=== PATIENT | male | born 1935 | race Caucasian/White ===

== ENCOUNTER → 2018-01-04 12:02 | Outpatient (CLI) | payer MEDICARE, OTHER, SELFPAY ==
--- NOTE | 2018-01-04 | DI.NM.S_ITS ---
PROCEDURE: NM HAYDE PERF SPECT REST & STR Rest and exercise myocardial perfusion SPECT with gated imaging and ejection fraction RADIOPHARMACEUTICAL: 24.5 mCi Tc-99m sestamibi IV at rest and 26.2 mCi Tc-99m sestamibi IV at peak exercise. A two day-protocol was performed. INDICATIONS: DYSPNEA ON EXERTION TECHNIQUE: Radiopharmaceutical was injected at peak stress test, and also at rest. SPECT images were obtained. SPECT myocardial perfusion images were displayed in short axis, horizontal long axis, and vertical long axis views. Gated images were reviewed using [employer] software. COMPARISON: None. CARDIAC STRESS: A standard Asif treadmill exercise tolerance test was performed by the patient under the supervision of an attending staff. The patient exercised for 4 minutes and 33 seconds reaching 7.0 METs Hemodynamic data: There is normal blood pressure and heart rate response to exercise stress. Patient achieved 94% of maximum predicted heart rate at peak exercise. Symptoms: Patient denied chest pain during exercise. EKG: Sinus rhythm with RBBB at rest. No diagnostic EKG changes of ischemia; frequent PVC during exercise and recovery. FINDINGS: Raw data: There is good myocardial labeling by radiotracer. No significant motion artifacts. Left ventricle function: Gated images demonstrate normal left ventricle wall thickening. No segmental wall motion abnormality. No transient ischemic dilation; TID is 1.08 (normal less than 1.3). The left ventricle resting end-diastolic volume is 115 mL. Left ventricle stress ejection fraction is 69%; normal values are above 45%. Myocardial perfusion: There is normal distribution of activity in the left and right ventricular myocardium. No fixed or reversible perfusion defects. IMPRESSION: Low risk, normal treadmill nuclear stress test. 1) Normal perfusion images with no evidence of ischemia or infarction. 2) Normal left ventricular size, wall motion, and systolic function (EF post stress EF 69%). 3) No ECG evidence of ischemia. Frequent PVCs during the stress test. 4) No angina during the study. 5) Fair exercise tolerance (7.0 METs, 4 minutes and 33 seconds on standard asif protocol). OSWALD not provided. Target heart rate reached. Appropriate blood pressure response to exercise. 6) No prior nuclear stress test available for comparison. Dictated by: Chandana Griffin MD on 01/05/2018 at 13:47 Approved by: Chandana Griffin MD on 01/05/2018 at 13:51
== END ==
PROVIDERS: Family Provider Family Medicine; PCP Family Medicine; Visit Provider Internal Medicine Cardiovascular Disease
DX: R06.09 Other forms of dyspnea (principal)
CPT/HCPCS: 78452; 93016; 93017; 93018; A9502

== ENCOUNTER 2018-02-08 10:22 | Inpatient (IN) | payer MEDICARE, OTHER, SELFPAY ==
[2018-01-28 08:54] VITALS: BMI 28.1
[2018-02-08] VITALS (11 sets, daily range): BP systolic 120–141; BP diastolic 61–76; PULSE 60–80; RESP 12–18; TEMP 36–36.5; O2SAT 91–95; BMI 26.6
--- NOTE | 2018-02-08 06:00 | DI.RAD.S_ITS ---
PROCEDURE: XR KNEE LT 1TO2V INDICATIONS: POST OPERATIVE TOTAL LEFT KNEE TECHNIQUE: 2 view(s) of the knee acquired. COMPARISON: None. FINDINGS: Bones: Patient is status post knee joint arthroplasty. Hardware components are in expected positions. Visualized bony structures are intact. Soft tissues: Overlying postoperative changes are noted. IMPRESSION: Status post left knee arthroplasty. Dictated by: Bel Hyde M.D. on 02/08/2018 at 17:22 Approved by: Bel Hyde M.D. on 02/08/2018 at 17:22
[2018-02-08] MEDS: LACTATED RINGERS 1,000 ML 42 ML IV ×2 (11:06→16:21)
[2018-02-08] MEDS: ACETAMINOPHEN 325 MG TABLET 975 MG PO ×2 (11:24→21:19)
[2018-02-08] MEDS: CELECOXIB 200 MG CAPSULE PO (11:25)
[2018-02-08] MEDS: PREGABALIN 75 MG CAPSULE PO (11:25)
--- NOTE | 2018-02-08 13:21 | PM.PREOP ---
Pre-operative Note Interval Note Pre-op Check: Yes History & Physical Reviewed by Physician and Yes Exam Performed Changes: No
--- NOTE | 2018-02-08 13:22 | PM.OP.1 ---
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 He has recently been having decreased function and increasing pain. Radiographs have shown subsidence of the tibial component into the metaphysis of the tibia. He has agreed to revision of the prosthesis after discussion of the risks benefits and alternatives. Risks discussed included but were not limited to: Failure to improve, stiffness, infection, nerve damage, deep venous thrombosis, pulmonary embolism, stroke, myocardial infarction, permanent paralysis and . Surgeon: Ihsan Gunn Autism Teacher: Anne-Marie Pyle Click Yes if Unassisted: No Anesthesia Type: General, Spinal, Peripheral nerve block and Local Operative Notes Findings: Loosening of both the femoral and tibial as well as the patellar components. Closure Type: primary Specimen(s): other (Fluid cultures and tissue cultures were sent.) Implants & Drains: Implants used in this procedure were manufactured by the [employer] and [employer] and included Legion revision total knee system with a size 8 left Oxinium constrained femoral component, a size 7 left revision tibial base plate, a 5 mm left medial tibial augment a 12 mm x 160 mm Press-Fit tibial stem, a 4 mm offset pizza delivery for the tibia on the femoral side there was a 10 mm size 8 lateral distal augment there was a 5 mm distal and 5 mm posterior medial augment there is a 4 mm offset pizza delivery for the femur as well with a 16 mm x 120 mm stem there was an 11 mm high flexion crosslinked polyethylene tibial insert and a 38 mm oval jesus alberto II patellar component. Applied: implant(s) Estimated Blood Loss (mL): 100 Blood products transfused: none Tourniquet time (min): 108 Procedure in detail: The patient was seen in the pre-operative area, where the left knee was identified as the operative site and this was marked with my initials. The patient received pre-operative antibiotics, and was taken to the operating room and placed on the operative table in the supine position. After satisfactory anesthesia, a signal timer out? was performed. The left leg was encircled with a tourniquet about the proximal thigh, and the leg was prepared from the toes to the tourniquet with ChloroPrep in the usual fashion and draped through sterile drapes. The leg was elevated and exsanguinated with Eschmark bandage and the tourniquet inflated to 250 mmHg pressure. The knee was approached through an approximately 18 cm incision centered over the patella and carried into the knee through a medial parapatellar arthrotomy. Initially the femoral component was loosened from the underlying bone with revision osteotomes. This was easily removed with minimal bone loss. There was extensive softening of the bone however. The tibia was grossly loose and it was removed without having to use any osteotomes. Cultures of fluid and tissue cultures were obtained. There was widespread synovitis from foreign body reaction and this was excised. We then proceeded with the tibia, the intramedullary guide was placed. A 12 mm had good fit. This was used to make the proximal tibial cut which was made just under the cement mantle on the lateral side. The medial side had extensive collapse and a 5 mm augmentation cut was made on this side to account for the loss of bone. There was no cement down the canal. A 4 mm offset placed the 7 size tibia in the appropriate position and the appropriate proximal reamers were used to account for the offset pizza delivery. The trial was assembled and had good support on the tibia. We then turned our attention to the femur. The rotational landmark of the transepicondylar axis was marked on the femur with electrocautery, and an intramedullary guide hole for the femur was created. The 16 mm size fit well. We then used the trial femoral prosthetic to set the distal joint line and pinned it in place. Cuts were made for the femur at 6? valgus which would require a 10 mm augment on the lateral side and a 5 mm augment on the medial side. The distal cutting guide was then set with those augmentation wedges. The anterior cut was freshened and the posterior cuts made. There was a need for a small medial chamfer cut which was also created. The trial femur was constructed and also had excellent fit. With an 11 mm trial tibial insert there was excellent stability both in flexion and extension. The intramedullary notch was then cut to accommodate the box for the prosthetic. With the trials in place the range of motion was from 0-135 degrees. Stability was excellent throughout the range. Trials were then removed. The posterior capsule was injected with part of a mixture of 50 ml 0.25% Marcaine mixed with 20 ml Exparel and 4 mg of morphine for post-operative pain control. The remainder of this mixture was injected into the capsule and subcutaneous tissues during cement curing. The patella was examined and found to be loose. A saw was used to remove the prosthetic and the patella was prepared for a new prosthetic. There was no need for a lateral release. The bone was prepared with pulsatile lavage, and dried with a sponge. Cement was applied and the final prosthetics placed. Excess cement was removed during and after cement curing. After confirming there was no extruded cement posteriorly, the final tibial insert was placed. The knee was copiously irrigated and the tourniquet deflated. Hemostasis was obtained. The capsule was closed with interrupted # 2 polyester sutures. The subcutaneous layer was closed with 3-0 Vicryl, and the skin with a running 3-0 V-Lock suture and SteriStrips. An Aquacel Ag dressing was applied and the patient was taken to recovery having tolerated the procedure well. Complications: none Condition: stable Disposition: PACU Plan for aftercare: The patient will be maintained on a standard total knee replacement protocol with weight bearing as tolerated. The patient will receive aspirin and sequential compression devices for DVT prophylaxis. The patient will be discharged home when safe for the home environment.
--- NOTE | 2018-02-08 13:34 | SUR.PREOP ---
Block start time [1315] . Monitoring initiated and maintained throughout procedure. Oxygen and medications given per anesthesiologist instructions. Patient remained stable throughout procedure, no adverse reactions noted. Block end time [1328].
[2018-02-08] MEDS: CEFAZOLIN 2 GM/100 ML FROZ.PIGGY IV ×2 (13:59→22:02)
[2018-02-08] MEDS: TRANEXAMIC ACID 1,000 MG VIAL 1000 MG INJ ×2 (14:22→16:19)
--- NOTE | 2018-02-08 14:36 | SUR.OPER ---
Supine on padded OR bed. Pillow under head, arms secured on padded armboards <90 degree abduction. Safety belt across torso. Non-operative leg secured with tape over blanket over lower leg. Operative leg secured in DeMayo/Ming positioner. Foam padded brace at thigh of operative leg.
[2018-02-08] MEDS: BUPIVACAINE LIPOSOME 266 MG/20 ML VIAL INJ (15:06)
[2018-02-08] MEDS: BUPIVACAINE 0.25% W/ EPI VIAL 50 ML INJ (15:07)
[2018-02-08] MEDS: SODIUM CHLORIDE 0.9% FLUSH 20 ML IV (15:09)
--- NOTE | 2018-02-08 15:22 | P.PCN_ITS ---
Procedures Date/Time Date of procedure: 02/08/18 Time of procedure: 13:15 General Procedure description: Ultrasound guided adductor canal nerve block for post op pain control after left total knee revision by Dr. Gunn. Risk and benefits of procedure discussed with patient. ASA monitoring applied to patient. O2 given via nasal cannula. 1 mg Versed and 50 mcg fentanyl given for procedural sedation. Skin site was prepped with chlorhexidine and allowed to fully dry. Sterile gloves, mask, hat and probe cover were used to maintain sterility. 2% lidocaine and 30ga needle was used to make a small skin wheal at needle insertion site. Under ultrasound guidance, a 21ga 100mm Pajunk needle was directed into the adductor canal near femoral artery and saphenous nerve at the level of mid thigh. Patient reported no parasthesias. After negative aspiration , 20 mL 0.5% ropivicaine and 10mg dexamethasone were injected around saphenous nerve. Patient tolerated procedure well.
[2018-02-08] MEDS: LACTATED RINGERS 1,000 ML 125 ML IV (17:45)
--- NOTE | 2018-02-08 17:59 | PC.NURSE ---
POST_OP/Admitted to Acute Care Patient admitted to Acute care at 1730 from PACU. Patient moving L leg, sensation about L3. Patient has not voided post-op yet. Patient denies pain, L knee with bryon wrap, no drainage, ice pack. SCD's placed on patient. Patient alert and oriented times 3, CMS intact, 2+pedal pulses. at bedside. Patient hungry, taking ice chips and denies nausea. IVF infusing per orders, will continue to monitor, call light in reach. No distress noted.
[2018-02-08] MEDS: OXYCODONE IR 5 MG TABLET PO ×2 (18:57→23:51)
[2018-02-08] MEDS: DOCUSATE 100 MG CAPSULE PO (21:19)
[2018-02-08] MEDS: ATORVASTATIN 20 MG TABLET 80 MG PO (21:19)
[2018-02-08] MEDS: IBUPROFEN 600 MG TABLET PO (21:19)
[2018-02-09 01:08] VITALS: BP 123/77; PULSE 56; RESP 16; TEMP 36.4; O2SAT 95
[2018-02-09] MEDS: LACTATED RINGERS 1,000 ML 125 ML IV (01:39)
[2018-02-09 05:15] VITALS: BP 118/66; PULSE 58; RESP 17; TEMP 36.4; O2SAT 95
[2018-02-09 05:34] LABS: Hematocrit 28.9 % (41-53)
[2018-02-09] MEDS: CEFAZOLIN 2 GM/100 ML FROZ.PIGGY IV (06:00)
[2018-02-09] MEDS: LEVOTHYROXINE 112 MCG TABLET 125 MCG PO (06:05)
[2018-02-09 07:45] VITALS: BP 119/69; PULSE 58; RESP 12; TEMP 36.4; O2SAT 93
[2018-02-09] MEDS: OXYCODONE IR 5 MG TABLET PO ×2 (08:15→13:06)
[2018-02-09] MEDS: DOCUSATE 100 MG CAPSULE PO (08:16)
[2018-02-09] MEDS: GABAPENTIN 300 MG CAPSULE PO (08:16)
[2018-02-09] MEDS: CLOPIDOGREL 75 MG TABLET PO (08:16)
[2018-02-09] MEDS: ASPIRIN EC 81 MG TABLET PO (08:16)
[2018-02-09] MEDS: ACETAMINOPHEN 325 MG TABLET 975 MG PO (08:17)
--- NOTE | 2018-02-09 08:32 | PC.NURSE ---
Addendum entered by Monik Murguia R.N. 02/09/18 11:04: Pt ambulated in benz and did stairs with physical therapy. Pain controlled. Pt will work with OT and have another therapy session this afternoon. Original Note: Pt alert, oriented, denies pain to left knee while lying in bed, given 5mg oxycodone before working with physical therapy. CMS+ LLE.
--- NOTE | 2018-02-09 11:10 | PT.IIE ---
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, initial encounter (02/08/18) Presence of left artificial knee joint (02/08/18) Surgery Performed Operation Date: 02/08/18 12:30 Actual Procedures p Total Knee Arthroplasty Revision, Femoral, Tibial & Patellar Component(Left) - Ihsan Gunn MD Surgical History (Last Updated 01/28/18 @ 10:07 by Mendy Posadas, RN) History of arthroplasty of left knee (Acute) History of arthroplasty of right shoulder (Acute) History of lumbar surgery (Acute) History of total left hip arthroplasty (Acute) Hx of appendectomy (Acute) Hx of heart artery stent (Acute) Hx of tonsillectomy (Acute) Status post hernia repair Medical History (Last Updated 01/28/18 @ 10:05 by Mendy Posadas RN) Asthma (Acute) GERD (gastroesophageal reflux disease) (Acute) Hx of fracture of femur (Acute) Hyperlipidemia (Acute) Melanoma (Acute) Myocardial infarction (Acute) Myocardial infarction with complication (Acute) Physical Therapy Inpatient Evaluation/Re-Eval Physical Therapy Current Condition Current Condition Evaluation Date 02/09/18 Treatment Diagnosis L TKA revision Onset Date 02/08/18 Weight Bearing Status Weight Bearing Status Weight Bear as Tolerated Subjective Physical Therapy Visit Type Type Initial Evaluation Visit Start Time 09:35 Visit Stop Time 10:48 Total Visit Minutes 73 Physical Therapy Visit Comments Patient Comments Pt reports doing well, no pain , really wants to go home today. Therapy Pain Assessment Pain When Pain Assessed At Rest Pain Present Pain Present Denied Pain PT-Bed Mobility Assessment Supine to Sit Supine to Sit Independent Sit to Supine Sit to Supine Independent Scooting Scooting to Edge of Bed Independent PT-Transfer Assessment Sit to and From Stand Sit to and from Stand Standby Assistance Equipment Transfer Assistive Device Gait Belt 4 Wheeled Walker Transfers Transfer Destination Bed Wheelchair Transfer Technique walks Transfer Ability Level of Assist Standby Assistance Comments Mobility Comments Pt is quite stable and needing no cueing for safe techniques with bed mobility or transfers. SBA only for monitoring in the first 24 hours that he's up moving around. Gait Assessment Gait Gait Assistance Required: Standby Assistance Distance (Feet) (feet) 70 Assistive Devices Assistive Device Gait Belt 4 Wheeled Walker Gait Deviations General Gait Pattern Antalgic Decreased Stride Length Factors Limiting Gait Function Factors Limiting Gait Function Decreased Sensation Limited Range of Motion Comments Gait Comments Pt able to walk safely with 4WW, did need a few initial verbal cues for keeping the walker close enough to his body so he wasn't bending forward. Gait is asymmetrical and antalgic (which became more pronounced toward the end of his walk), but pt remained stable and safe without and LOB the entire session. Stair Climbing Assessment Evaluation Level of Assist On Stairs Standby Assistance Devices Stair Climbing Assistive Devices Left Railing Right Railing Technique/Endurance Stair Climbing Direction Ascend and Descend Stair Climbing Technique Step to Step Number of Steps Climbed 3 Query Text: Stair Climbing Set # Repetitions (reps) 2 Comments Stair Climbing Comments no concerns PT-Balance Assessment Sitting Balance and Reactions Static Sitting Balance Ability Normal Dynamic Sitting Balance Ability Normal Standing Balance and Reactions Static Standing Balance Ability Normal Dynamic Standing Balance Ability Good Device Used 4WW Orientation Orientation/Cognition Level of Alertness Alert Orientation Name Age Birthday Month Date Year Day of Week Place Situation Language Function Ability No Deficits Noted Safety Awareness Understands Safety Issues Memory Description No Deficits Noted Gross Range of Motion Upper Extremity ROM Assessment Within Functional Limits Lower Extremity ROM Assessment Left Impaired Strength Upper Extremity Strength Assessment Within Functional Limits Lower Extremity Strength Assessment Left Impaired Physical Therapy Treatment Exercises Exercises Ankle Pumps Quad Sets Heel Slides Straight Leg Raises Short Arc Quads Passive Knee Extension Hang Seated Knee Flexion/Extension Knee ROM Measurement 5-80 Education Education Provided Precautions Weight Bearing Status Post-Op Packet Safety PT Summary Assessment and Plan Potential Rehabilitation Potential Excellent Status of Condition at Evaluation Evolving Summary Impairments ROM Strength Gait Progress Towards Goals Progressing Toward Goals Assessment Summary Pt is POD#1 L TKA revision. This was the first time pt was up out of bed since the surgery, and the pt did quite well. Pt is ind to SBA for mobility, however, pt's knee is still numb. Pt is below reported functional baseline and does great potential for functional improvement. Anticipate that when pt is seen later today that he may have more difficulty with mobility. Despite this, it is still expected that the pt will be safe to discharge home with intermittent assist and HH vs OP PT follow up. Goals Bed Mobility Goal Independent Transfer Goal Independent Four Wheeled Walker Gait Goal Independent Four Wheel Walker Gait Distance 50 Days to Meet Goals 1 Frequency of Treatment Frequency Of Treatment Twice a Day Treatment Plan Physical Therapy Treatment Plan Transfer Training Gait Training Therapeutic Exercise Discharge Planning Hot or Cold Pack Other Recommendations and Next Treatment more gait training, confirming Focus he's still ok with mobility as numbing wears off. Recommendations To Nursing Amount of Assist Needed Standby Assistance 1 Person Assist Discharge Recommendations PT Discharge Recommendations Home with Assistance Home Health Outpatient PT
--- NOTE | 2018-02-09 11:20 | OT.IP.EVAL ---
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, initial encounter (02/08/18) Presence of left artificial knee joint (02/08/18) Surgery Performed Operation Date: 02/08/18 12:30 Actual Procedures p Total Knee Arthroplasty Revision, Femoral, Tibial & Patellar Component(Left) - Ihsan Gunn MD Past Medical History (Last Updated 01/28/18 @ 10:05 by Mendy Posadas RN) Asthma (Acute) GERD (gastroesophageal reflux disease) (Acute) Hx of fracture of femur (Acute) Hyperlipidemia (Acute) Melanoma (Acute) Myocardial infarction (Acute) Myocardial infarction with complication (Acute) Surgical History (Last Updated 01/28/18 @ 10:07 by Mendy Posadas RN) History of arthroplasty of left knee (Acute) History of arthroplasty of right shoulder (Acute) History of lumbar surgery (Acute) History of total left hip arthroplasty (Acute) Hx of appendectomy (Acute) Hx of heart artery stent (Acute) Hx of tonsillectomy (Acute) Status post hernia repair Occupational Therapy Inpatient Evaluation/Re-Eval M1 PT/OT-IP Prior Functional Status Start: 02/09/18 08:16 Freq: NEEDED Status: Active Protocol: Document 02/09/18 11:46 PJM (Rec: 02/09/18 11:48 PJM [id number]) Medical Review Prior Functional Status Medical History Reviewed Yes Diet/Fluid Consistency Regular Communication WNL Activities of Daily Living and IADL's Pt was independent with self care but limited by knee pain. assisting with IADLS PRN . Both pt and drive. Note pt's uses 4WW. Social History Household Members spouse Living Arrangements Mobile home with4-5 steps to enter with one rail M2 OT-IP Current Condition Start: 02/09/18 11:45 Freq: Status: Active Protocol: Document 02/09/18 11:46 PJM (Rec: 02/09/18 11:48 PJM [id number]) Occupational Therapy Current Condition Weight Bearing Status Weight Bearing Status Weight Bear as Tolerated M3 OT- IP Subjective and Pain Start: 02/09/18 11:45 Freq: Status: Active Protocol: Document 02/09/18 11:51 PJM (Rec: 02/09/18 12:01 PJM [id number]) OT- Subjective Occupational Therapy Visit Type Type Initial Evaluation Visit Start Time 10:52 Visit Stop Time 11:20 Total Visit Minutes 28 Notes Pt's here for education this session. Pt states son will stay x 1 week, then daughter to stay 1 week to assist PRN at home. Occupational Therapy Visit Comments Patient Comments My knee is still a little numb. I am just starting to feel a little pain. Patient/Caregiver Goals to go home later today; be able to walk without pain. OT Pain Assessment Pain When Pain Assessed After Treatment Pain Present Pain Present Pain Reported Location L knee Intensity 3 Scale Used Numeric (1 - 10) Description Aching Acute Pain Behaviors Guarding Management Techniques Apply Cold Re-positioning Timing of Activity with Medications M4 OT- IP ADL's Start: 02/09/18 11:45 Freq: Status: Active Protocol: Document 02/09/18 11:51 PJM (Rec: 02/09/18 12:01 PJM [id number]) OT TDR-Skqy-Hgieuqd General Evaluation Self-Feeding Ability Independent OT ADL-Grooming General Evaluation Grooming Ability Independent Comments OT Grooming Comments standing at sink OT ADL-Oral Care General Eval Oral Care Ability Independent Comments Oral Care Comments standing at sink OT ADL-Dressing General Eval Upper Body Dressing Ability Independent Lower Body Dressing Ability Independent Areas Needing Assistance Underpants/Brief Pants/Shorts Socks Shoes Assistive Devices Dressing Assistive Devices Long Handled Shoe Horn Scouring Machine Operator Sock Aid Comments OT Dressing Comments Pt having difficulty reaching L foot to don and doff sock and shoe due to knee pain and stiffness.Provided education re: use of computer technology instructor, sock aid, long shoe horn (equipment was provided to pt) and pt modified indep after education with adaptive equipment. OT ADL-Toileting General Evaluation Toileting Ability Independent Devices Toileting Assistive Devices Grab Bars Raised Toilet Seat OT ADL-Bathing Bathing Type Bathing Type Shower General Evaluation Bathing Ability Standby Assistance Devices Bathing Equipment Long Handled Sponge or Pesticide Applicator Held Shower Sprayer Shower Chair with Arms Grab Bars Comments OT Bathing Comments or son can assist PRN at home. Pt has tub shower combo with grab bars and small shower seat. He has all necessary bathroom safety equipment. M5 OT- IP IADL's Start: 02/09/18 11:45 Freq: Status: Active Protocol: Document 02/09/18 11:51 PJM (Rec: 02/09/18 12:01 PJM [id number]) OT-Instrumental Activities of Daily Living Deficits IADL Deficits Identified Deficits Home Safety Awareness Awareness of Need for Assistance at Home Good Awareness Ability to Problem Solve Emergency Able to Problem Solve Situations Medication Management Medication Management No Deficits Identified Money Management Money Management No Deficits Identified Meal Preparation Meal Preparation Caregiver Provides Assist Meal Preparation Comments family to assist PRN Door Technician Door Technician Caregiver Provides Assist Door Technician Comments family to assist PRN Driving Driving Caregiver Provides Assist Driving Comments family to assist PRN M6 OT- IP Functional Cognition Start: 02/09/18 11:45 Freq: Status: Active Protocol: Document 02/09/18 11:51 PJ (Rec: 02/09/18 12:01 [facility] [id number]) Cognitive Factors Limiting Selfcare Function Cognitive Ability Level of Alertness Alert Patient Orientation Name Age Birthday Month Date Year Day of Week Place Situation Attention Span Ability Capable of Focused Attention Capable of Sustained Attention Ability to Follow Commands Able to Follow One Step Commands Able to Follow Multi-Step Commands Memory Description No Deficits Noted Safety Awareness No Deficits Noted Problem Solving Ability No deficits Noted Cognitive Comments Cognitive Assessment Comments WFL OT- Vision and Hearing OT- Hearing Assessment OT- Hearing Assessment WFL OT- Vision Assessment Visual Acuity WFL Glasses All The Time Vision Assessment Comments Pt denies any recent changes in vision. M7 OT- IP Mobility and Balance Start: 02/09/18 11:45 Freq: Status: Active Protocol: Document 02/09/18 11:51 PJ (Rec: 02/09/18 12:01 [facility] [id number]) OT- Bed Mobility Assessment Rolling Level of Assistance Independent Supine to Sit Supine to Sit Assist Independent Scooting Scooting to Edge of Bed Independent OT-Transfer Assessment Sit to and From Stand Sit to and from Stand Independent Transfers Transfer Ability Standby Assistance Technique Transfer Destination Car Chair Transfer Technique Stand Step Pivot Devices Transfer Assistive Devices 4 Wheeled Walker Comments Mobility Comments Pt SBA with 4WW in room. OT- Gait Assessment Gait Gait Assistance Required: Standby Assistance Distance (Feet) (feet) 15 Assistive Devices Assistive Device 4 Wheeled Walker Comments Gait Ability Comments Pt ambulated around bed with no LOB noted using 4WW OT- Balance Assessment Sitting Balance and Reactions Static Sitting Balance Ability Normal Dynamic Sitting Balance Ability Normal Standing Balance and Reactions Static Standing Balance Ability Good Dynamic Standing Balance Ability Good M8 OT- IP Objective Assessments Start: 02/09/18 11:45 Freq: Status: Active Protocol: Document 02/09/18 11:51 PJM (Rec: 02/09/18 12:01 PJ [id number]) OT Gross Range of Motion Upper Extremity Range of Motion Assessment Within Functional Limits OT Strength Upper Extremity Strength Assessment Within Functional Limits OT- Coordination Assessment Comments Coordination Comments BUE WFL OT-Muscle Tone Assessment Muscle Tone WNL Yes OT Sensation Assessment Comments Summary Comments BUE WNL per pt M9 OT- IP Assessment and Plan Start: 02/09/18 11:45 Freq: Status: Active Protocol: Document 02/09/18 11:51 PJM (Rec: 02/09/18 12:01 [facility] [id number]) OT Summary Assessment and Plan Potential Rehabilitation Potential Excellent Analytic Complexity at Evaluation Low Summary OT Impairments Pain Assessment Summary Low complexity OT assessment and all OT education re: adapted ADLs completed in one session with pt and . They verbalize and demonstrate understanding. Pt plans to d/c home later today with 24 hr family assist when medically stable and clears P.T. Frequency of Treatment Frequency Of Treatment Discharge Treatment Plan Other Treatment Recommendations and Next No further OT services needed Treatment Focus Discharge Recommendations OT Discharge Recommendations Home with Assistance Home Equipment Needs none, computer technology instructor, sock aid and long shoe horn provided
--- NOTE | 2018-02-09 11:20 | CM.DANOTE ---
DCP: Case received, EMR reviewed and met with patient. Introduced self and role. DCP template completed with information currently available. Patient is an 82 year old male who admitted yesterday morning to the care of the hospitalist team. PCP: Dr. French. Payer: confirmed Medicare/[facility] Patient was admitted for a revision of the left/total knee. Patient alert and oriented, resides in a mobile home in [place] with his . P: DCP to continue to assess, plan is for patient to return home with outpatient physical therapy. Andreea Martin RN/Gravity Prospecting Operator Helper
[2018-02-09 11:45] VITALS: BP 130/60; PULSE 60; RESP 12; TEMP 36.4; O2SAT 94
--- NOTE | 2018-02-09 12:20 | PM.DS.1 ---
History of Present Illness Date Patient Seen: 02/09/18 Time Patient Seen: 07:16 Chief complaint: [id number] REVISION LEFT TOTAL KNEE Narrative: Patient seen bedside by Dr. Gunn s/p L. total knee revision. Patient is doing well, pain is well controlled, and would like to go home today. Denies any N/V, calf pain, or chest pain. 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 total knee revision. Patient tolerated the procedure well with no complications. He was transferred to the acute care floor where he was seen by physical therapy and recommended for discharge home with outpatient PT. Patient was stable and ready for discharge on 02/09/18. Status at Discharge Cognitive/behavioral status at discharge: Alert & oriented x4 Functional status at discharge: uses cane/walker Overall status at discharge: patient is progressing back to baseline Time Spent with Patient Less than 30 minutes Exam Vital Signs (past 8 hours): - 02/09/18 05:15 02/09/18 07:45 Temperature 97.5 F L 97.5 F L Pulse Rate 58 L 58 L Respiratory Rate 17 12 Blood Pressure 118/66 119/69 Pulse Oximetry 95 93 Oxygen Delivery Method Room Air Narrative Exam Narrative: WDWN NAD A&Ox3. Left knee dressing CDI, NVI in LLE. Calf is soft and compressible. No focal neurological deficits noted. Objective Labs Result Diagrams: 02/09/18 05:10 Labs: Laboratory Results - last 24 hr 02/09/18 05:10 Hgb 10.0 L Hct 28.9 L Discharge Plan Discharge Plan Patient Disposition: Home Discharge Med Rec/Prescriptions Prescriptions: New acetaminophen 325 mg Tablet 975 mg PO TID Qty: 0 RF: 0 docusate sodium 100 mg Capsule 100 mg PO BID Qty: 0 RF: 0 oxycodone 5 mg Tablet 5 mg PO Q3HR PRN (Reason: Pain, Moderate (4-6)) Qty: 40 RF: 0 hydroxyzine pamoate [Vistaril] 25 mg capsule 25 mg PO QID PRN (Reason: nausea and vomiting) Qty: 30 RF: 0 Continue atorvastatin [Lipitor] 80 MG tablet 80 mg PO HS Qty: 0 RF: 0 levothyroxine 112 MCG tablet 125 mcg PO QDAY Qty: 0 RF: 0 albuterol sulfate [Proventil HFA] 90 MCG/PUFF HFA aerosol inhaler 2 puff INH PRN Qty: 0 RF: 0 nitroglycerin [Nitrostat] 0.3 MG tablet, sublingual 0.4 mg Sublingual PRN PRN (Reason: Chest Pain) Qty: 0 RF: 0 omeprazole 20 MG capsule,delayed release(DR/EC) 20 mg PO DAILY Qty: 0 RF: 0 clopidogrel 75 mg Tablet 75 mg PO DAILY RF: 0 aspirin [Aspir-81] 81 mg Tablet,Delayed Release (Dr/Ec) 81 mg PO DAILY RF: 0 ranitidine HCl 150 mg Tablet 150 mg PO DAILY RF: 0 gabapentin 300 mg Capsule 300 mg PO DAILY RF: 0 Discontinued hydrocodone-acetaminophen 5-325 mg Tablet 1 tab PO Q4H PRN (Reason: Pain (Scale Score 1-3)) RF: 0 Follow up/Referrals: Ihsan Gunn MD [Physician] - (In 2 weeks' time.) Provider Discharge Instructions Diet: Diet as Tolerated Activity: Weightbearing as tolerated, use walker to ambulate until cleared by physical therapy Cold/Heat Therapy: Apply ice for 20 minutes at a time hourly while awake Skin/Wound/Dressing Care Report to your healthcare provider any signs of infection, such as:: chills, fever, night sweats, increased pain and unusual drainage Dressing: Keep Aquacel dressing clean, dry, and intact. Remove bryon wrap on the second post-op day. Visit Report/Discharge Packet Instructions: DI for Knee Replacement, Oxycodone Visit Report Forms: Stroke Signs & Symptoms Discharge Data Primary Care Provider: Brandon French Attending Provider: Ihsan Gunn Admit Date/Time: 02/08/18 10:22 Discharges patient from system. Discharge Date/Time: 02/09/18 13:57 Quality VTE Deep Vein Thrombosis/Pulmonary Embolism Present on Admission: No
--- NOTE | 2018-02-09 12:24 | CM.DPC ---
DCP Cont: Patient is to be discharged home today. Checked in with patient, stated that he already has appt with [facility] set up. P: Discharge home today. Andreea Martin RN/Cataloging Assistant
--- NOTE | 2018-02-09 14:12 | PT.IPTN ---
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, initial encounter (02/08/18) Presence of left artificial knee joint (02/08/18) Surgery Performed Operation Date: 02/08/18 12:30 Actual Procedures p Total Knee Arthroplasty Revision, Femoral, Tibial & Patellar Component(Left) - Ihsan Gunn MD Physical Therapy Treatment Note M2 PT-IP Current Condition Start: 02/09/18 08:16 Freq: NEEDED Status: Discharge Protocol: Document 02/09/18 10:58 RS (Rec: 02/09/18 11:10 RS [id number]) Physical Therapy Current Condition Current Condition Evaluation Date 02/09/18 Treatment Diagnosis L TKA revision Onset Date 02/08/18 Weight Bearing Status Weight Bearing Status Weight Bear as Tolerated M3 PT-IP Subjective Start: 02/09/18 08:16 Freq: NEEDED Status: Discharge Protocol: Document 02/09/18 13:45 CLB (Rec: 02/09/18 14:12 CLB [id number]) Subjective Physical Therapy Visit Type Type Treatment Note Visit Start Time 13:45 Visit Stop Time 14:00 Total Visit Minutes 15 Number of SPRING WINDER Visits 1 Physical Therapy Visit Comments Patient Comments Pt ready to go home. Therapy Pain Assessment Pain When Pain Assessed During Mobility Pain Present Pain Present Pain Reported Location L knee Intensity 4 Scale Used Numeric (1 - 10) Pain Management Techniques Apply Cold Timing of Activity with Medications M4 PT-IP Mobility and Gait Start: 02/09/18 08:16 Freq: NEEDED Status: Discharge Protocol: Document 02/09/18 13:45 CLB (Rec: 02/09/18 14:12 CLB [id number]) PT-Transfer Assessment Sit to and From Stand Sit to and from Stand Standby Assistance Equipment Transfer Assistive Device Gait Belt 4 Wheeled Walker Transfers Transfer Destination Chair Transfer Technique walks Transfer Ability Level of Assist Standby Assistance Comments Mobility Comments Pt continues to be safe with mobility. Gait Assessment Gait Gait Assistance Required: Standby Assistance Distance (Feet) (feet) 140 Assistive Devices Assistive Device Gait Belt 4 Wheeled Walker Gait Deviations General Gait Pattern Antalgic Decreased Stride Length Comments Gait Comments Pt walking safely with 4WW w/o LOB. M5 PT-IP Objective Assessments Start: 02/09/18 08:16 Freq: NEEDED Status: Discharge Protocol: Document 02/09/18 10:58 RS (Rec: 02/09/18 11:10 RS [id number]) Orientation Orientation/Cognition Level of Alertness Alert Orientation Name Age Birthday Month Date Year Day of Week Place Situation Language Function Ability No Deficits Noted Safety Awareness Understands Safety Issues Memory Description No Deficits Noted Gross Range of Motion Upper Extremity ROM Assessment Within Functional Limits Lower Extremity ROM Assessment Left Impaired Strength Upper Extremity Strength Assessment Within Functional Limits Lower Extremity Strength Assessment Left Impaired M6 PT-IP Treatment Start: 02/09/18 08:16 Freq: NEEDED Status: Discharge Protocol: Document 02/09/18 10:58 RS (Rec: 02/09/18 11:10 RS [id number]) Physical Therapy Treatment Exercises Exercises Ankle Pumps Quad Sets Heel Slides Straight Leg Raises Short Arc Quads Passive Knee Extension Hang Seated Knee Flexion/Extension Knee ROM Measurement 5-80 Education Education Provided Precautions Weight Bearing Status Post-Op Packet Safety M7 PT-IP Assessment and Plan Start: 02/09/18 08:16 Freq: NEEDED Status: Discharge Protocol: Document 02/09/18 13:45 CLB (Rec: 02/09/18 14:12 CLB [id number]) PT Summary Assessment and Plan Potential Rehabilitation Potential Excellent Status of Condition at Evaluation Evolving Summary Impairments ROM Strength Gait Progress Towards Goals Progressing Toward Goals Assessment Summary Pt doing well with all mobility and gait. Pt has increased pain with gait this afternoon of -09/22. Pt seems safe to d/c home with assist when medically stable. Goals Bed Mobility Goal Independent Transfer Goal Independent Four Wheeled Walker Gait Goal Independent Four Wheel Walker Gait Distance 50 Days to Meet Goals 1 Frequency of Treatment Frequency Of Treatment Twice a Day Treatment Plan Physical Therapy Treatment Plan Transfer Training Gait Training Therapeutic Exercise Discharge Planning Hot or Cold Pack Other Recommendations and Next Treatment Pt to d/c home. Focus Recommendations To Nursing Amount of Assist Needed Standby Assistance 1 Person Assist Discharge Recommendations PT Discharge Recommendations Home with Assistance Outpatient PT
== END 2018-02-09 13:57 | disposition home or self-care (01) | DRG 468 ==
PROVIDERS: Admitting Provider Orthopaedic Surgery; Family Provider Family Medicine; PCP Family Medicine; Visit Provider Orthopaedic Surgery
PROC: 0SPD0JZ Removal of Synthetic Substitute from Left Knee Joint, Open Approach (ICD-10-PCS; principal; 2018-02-08 12:30)
DX: T84.033A Mechanical loosening of internal left knee prosthetic joint, initial encounter (principal); I73.9 Peripheral vascular disease, unspecified; E03.9 Hypothyroidism, unspecified; I10 Essential (primary) hypertension; E78.5 Hyperlipidemia, unspecified; I25.10 Atherosclerotic heart disease of native coronary artery without angina pectoris; J45.909 Unspecified asthma, uncomplicated; Z95.1 Presence of aortocoronary bypass graft
CPT/HCPCS: 36415; 64450; 73560; 85014; 85018; 87070; 87075; 87205; 97110; 97116; 97161; 97530; C1776; C9290; J0330; J0690; J1100; J2250; J2405; J2704; J3010

== ENCOUNTER 2018-02-11 17:55 | Emergency (ER) | payer MEDICARE, OTHER, SELFPAY ==
[2018-02-08 18:18] VITALS: BMI 26.6
[2018-02-11 18:07] VITALS: BP 130/72; PULSE 92; RESP 16; TEMP 37.4; O2SAT 94
--- NOTE | 2018-02-11 19:34 | PC.NURSE ---
went to get pt to put in room 7, pt states he couldn't wait to be checked [place] ferry [place] 8[place], i explained that if he felt worse he needed to call 911 and be checked.
[2018-02-12 11:48] LABS: Add Manual Diff / Slide Review NO; Basophils Percent Auto 0.1 % (0-2); Eosinophils Percent Auto 2.2 % (2-4); Hematocrit 27.8 % (41-53); Hemoglobin 9.6 g/dL (13.5-17.5); Lymphocytes Percent Auto 9.6 % (25-40); Mean Corpuscular HGB Conc 34.5 % (30-36); Mean Corpuscular Hemoglobin 32.6 PG (26-34); Mean Corpuscular Volume 94.5 fL (80-100); Monocytes Percent Auto 11.6 % (3-14); Neutrophils Absolute Auto 3700 /uL (3000-5900); Neutrophils Percent Auto 76.5 % (50-75); Platelet Count 221 X10^3/uL (150-400); Red Blood Cell Count 2.94 X10^6/uL (4.5-5.9); Red Cell Distribution Width 14.5 % (11.6-14.8); White Blood Cell Count 4.8 X10^3/uL (4.5-11.0)
[2018-02-12 12:03] LABS: Alanine Aminotransferase 32 IU/L (21-72); Albumin 3.3 g/dL (3.5-5.0); Albumin Globulin Ratio 1.3 (1.0-2.8); Alkaline Phosphatase 90 U/L (38-126); Aspartate Aminotransferase 30 IU/L (17-59); BUN Creatinine Ratio 24.5 (6-22); Bilirubin Total 1.8 mg/dL (0.2-1.3); Blood Urea Nitrogen 27 mg/dL (9-20); Calcium 8.7 mg/dL (8.4-10.2); Carbon Dioxide 27 mmol/L (22-32); Chloride 98 mmol/L (98-107); Estimated Glomerular Filt Rate > 60.0 mL/min (>60); Globulin 2.6 g/dL (1.7-4.1); Glucose 144 mg/dL (80-110); HEMOLYSIS < 15 (0-50); Potassium 4.6 mmol/L (3.4-5.1); Sodium 134 mmol/L (137-145); Total Protein 5.9 g/dL (6.3-8.2)
[2018-02-12 12:34] LABS: Thyroid Stimulating Hormone 1.82 uIU/mL (0.47-4.68)
== END 2018-02-11 19:37 | disposition left against medical advice (07) ==
LOC: ED 18:00
PROVIDERS: Family Provider Family Medicine; PCP Family Medicine
DX: R50.9 Fever, unspecified (principal)
CPT/HCPCS: 80053; 84443; 85025; 99281; 99282

== ENCOUNTER 2018-02-12 14:45 | Inpatient (IN) | payer MEDICARE, OTHER, SELFPAY ==
[2018-02-08 18:18] VITALS: BMI 26.6
[2018-02-12 15:15] VITALS: BP 150/76; PULSE 85; RESP 16; TEMP 36.7; O2SAT 96
[2018-02-12 15:31] VITALS: BMI 27.7
--- NOTE | 2018-02-12 17:33 | PC.NURSE ---
ADMISSION Received pt at approximately 1515 via wheelchair; dorect admit from MD's office. Per pt and family, pt has been progressively been getting weaker since d/c from hospital on Thursday (02/09) for L knee revision- fall at home with increasing nausea/vomiting/diarrhea. pt's family reports pt took imodium prior to coming to the hospital, no BM noted yet. c/o paint o L knee, awaiting MD to input orders at this time, pt and family aware. pt and family oriented to room, call light within reach.
--- NOTE | 2018-02-12 18:22 | DI.RAD.S_ITS ---
PROCEDURE: XR CHEST 1V INDICATIONS: recent surgery, weakness, vomitting and dyspnea TECHNIQUE: One view of the chest was acquired. COMPARISON: [facility], [place], XR CXR 2 VIEW, 08/21/2005, 10:21. [facility], [place], XR CXR 2 VIEW, 07/24/2005, 10:22. FINDINGS: Surgical changes and devices: Right shoulder arthroplasty. Lungs and pleura: No pleural effusions or pneumothorax. Lungs are clear. Mediastinum: Mediastinal contours appear normal. Heart size is normal. Bones and chest wall: No suspicious bony lesions. Overlying soft tissues appear unremarkable. IMPRESSION: No acute cardiopulmonary disease process. Dictated by: Gabby Tobias MD, PhD on 02/12/2018 at 19:15 Approved by: Gabby Tobias MD, PhD on 02/12/2018 at 19:16
--- NOTE | 2018-02-12 18:27 | PM.HP.1 ---
History of Present Illness Chief complaint: DEHYDRATION Patient History Medical History Asthma (Acute) GERD (gastroesophageal reflux disease) (Acute) Hx of fracture of femur (Acute) Hyperlipidemia (Acute) Melanoma (Acute) Myocardial infarction (Acute) Myocardial infarction with complication (Acute) Surgical History History of arthroplasty of left knee (Acute) History of arthroplasty of right shoulder (Acute) History of lumbar surgery (Acute) History of total left hip arthroplasty (Acute) Hx of appendectomy (Acute) Hx of heart artery stent (Acute) Hx of tonsillectomy (Acute) Status post hernia repair Family & Social History Social History: household members spouse Prior Living Arrangements House Safety & Behavioral: Feels Safe in Current Yes Environment Been Physically Hurt or No Threatened By a Person Suicidal Ideation Description None Suicide Plan Description No Plan Tobacco & Substance use: Smoking Status Never smoker alcohol intake current alcohol intake frequency a few times a month Substance Use Type does not use Meds Home Medications Medication Instructions Recorded Confirmed Type atorvastatin [Lipitor] 80 mg PO HS #0 08/20/07 02/12/18 History omeprazole 20 mg PO DAILY #0 06/18/17 02/12/18 History aspirin [Aspir-81] 81 mg PO DAILY 01/28/18 02/12/18 History ranitidine HCl 150 mg PO DAILY 01/28/18 02/12/18 History gabapentin 300 mg PO DAILY 02/08/18 02/12/18 History oxycodone 5 mg PO Q3HR PRN #40 tab 02/09/18 02/12/18 Rx albuterol sulfate [Ventolin HFA] 2 puff INHALATION Q4HR PRN 02/12/18 02/12/18 History betamethasone dipropionate 1 applic TOPICAL DAILY PRN 02/12/18 02/12/18 History carvedilol 3.125 mg PO BID 02/12/18 02/12/18 History levothyroxine 150 mcg PO DAILY 02/12/18 02/12/18 History nitroglycerin [Nitrostat] 0.3 mg SUBLINGUAL Q5-15M PRN 02/12/18 02/12/18 History tamsulosin 0.4 mg PO DAILY 02/12/18 02/12/18 History Allergies Allergy/AdvReac Type Severity Reaction Status Date / Time morphine [MORPHINE] AdvReac Mild LOOPY Verified 02/08/18 11:08 BODY FEELS COLD, SHAKING Review of Systems Review of Systems Patient with fevers chills weakness nausea vomiting diarrhea severe leg pain after a fall about 24 hr after his recent knee surgery very dry and very fatigued PERRLA. Cardiovascular shows regular rate and rhythm without murmur no S3 there is significant edema in left leg postoperative very little on the right S ray is no complaint of significant cough but does feel short of breath week has not had wheezes. Has after his fall developed dramatic vomiting without any blood and also with significant explosive diarrhea also without any blood but he is immobilized so badly that he can get to the bathroom and his is so disabled that they are unable to even clean the bed up when he has this accident Musculoskeletal primarily is concerned central as on his knee which is the left knee recent knee replacement surgery I subsequently fallen hyper flexing that Ortho is x-rayed it and the components are still in place I think there is lots of postoperative swelling Skin without much complaint of rash or significant lesion Neurologic shows patient to be weak tired hard to stay awake and able to move unable to stand because of his diffuse weakness and symmetrical really speech is fairly clear but he is definitely disoriented Hematologic/Lymphatic Comments: Patient is quite anemic with hematocrit at 27 this is postoperative for his knee replacement white count is in the normal range Exam Vital Signs (past 8 hours): - 02/12/18 15:15 Temperature 98.1 F Pulse Rate 85 Respiratory Rate 16 Blood Pressure 150/76 H Pulse Oximetry 96 Oxygen Flow Rate 0 Narrative Exam Narrative: PERRLA EOMs intact. Airam she constitutionally patient is weak drifting off unable to sit straight or bear weight. Unable to ambulate unable to get himself adequately to toileting facilities for his significant diarrhea and vomiting Neck without mass or thyromegaly Respiratory shows decreased breath sounds but I think he could be just so weak that he is not ventilating very well. Will get chest x-ray Cardio shows the patient have a regular rate rhythm without murmur or S3. Left dependent edema postoperative Abdomen did tender decreased bowel sounds and no mass no rebound or guarding Back spine and pelvis normal to exam Skin without significant lesions Neuro shows patient to be very very weak not his usual self hard for him to even stay awake practically unable to move Extremities shows left lower leg post knee replacement with significant swelling and patient's inability to move at this point Assessment & Plan Plan: Assessment/Plan Narrative: Assessment 1. Dehydration think this is secondary to poor fluid intake but also secondary to traumatic had diarrhea and vomiting no evidence of bleeding although patient is quite anemic Assessment 2. Vomiting and diarrhea unclear etiology as his subsequent to his surgery next 1 wonder about acute infectious gastroenteritis versus possibility of C difficile infection he got perioperative antibiotics Assessment 3. Significant anemia with hematocrit of 27. Normal hematocrit prior to serve his surgery Assessment 4. Hypertension not an issue at this point although patient's blood pressure is in the 140-150 systolic will continue to monitor and continue his carvedilol which is a combination of blood pressure and heart rate control. Assessment 5. Atherosclerotic cardiovascular disease. Patient has past VT and currently on medications related to that to be read by progression. No complaint of chest pain at this point Assessment 6. Hypothyroidism recent thyroid values appropriate levels will continue with current dosage Assessment 7. Reflux patient has long history currently on ranitidine or omeprazole at home will use pantoprazole while he is here. Quality VTE Deep Vein Thrombosis/Pulmonary Embolism Present on Admission: No
[2018-02-12 19:13] VITALS: BP 130/66; PULSE 81; RESP 17; TEMP 36.7; O2SAT 94
[2018-02-12] MEDS: SODIUM CHLORIDE 0.45% 1,000 ML 100 ML IV (19:13)
[2018-02-12 20:36] VITALS: BP 139/67; PULSE 87
[2018-02-12] MEDS: ATORVASTATIN 20 MG TABLET 80 MG PO (20:37)
[2018-02-12] MEDS: CARVEDILOL 3.125 MG TABLET PO (20:37)
[2018-02-12 23:37] LABS: Add Manual Diff / Slide Review NO; Basophils Percent Auto 0.1 % (0-2); Eosinophils Percent Auto 4.7 % (2-4); Hematocrit 23.6 % (41-53); Hemoglobin 8.2 g/dL (13.5-17.5); Mean Corpuscular HGB Conc 34.7 % (30-36); Mean Corpuscular Hemoglobin 32.7 PG (26-34); Mean Corpuscular Volume 94.2 fL (80-100); Monocytes Percent Auto 15.1 % (3-14); Neutrophils Absolute Auto 3700 /uL (3000-5900); Neutrophils Percent Auto 71.1 % (50-75); Platelet Count 187 X10^3/uL (150-400); Red Cell Distribution Width 14.4 % (11.6-14.8); White Blood Cell Count 5.2 X10^3/uL (4.5-11.0)
[2018-02-12 23:47] LABS: Alanine Aminotransferase 33 IU/L (21-72); Albumin 2.9 g/dL (3.5-5.0); Albumin Globulin Ratio 1.1 (1.0-2.8); Alkaline Phosphatase 70 U/L (38-126); Aspartate Aminotransferase 70 IU/L (17-59); Bilirubin Total 1.8 mg/dL (0.2-1.3); Blood Urea Nitrogen 24 mg/dL (9-20); Calcium 8.3 mg/dL (8.4-10.2); Carbon Dioxide 28 mmol/L (22-32); Chloride 100 mmol/L (98-107); Estimated Glomerular Filt Rate > 60.0 mL/min (>60); Globulin 2.6 g/dL (1.7-4.1); Glucose 109 mg/dL (80-110); HEMOLYSIS < 15 (0-50); Sodium 133 mmol/L (137-145); Total Protein 5.5 g/dL (6.3-8.2)
[2018-02-12 23:48] VITALS: BP 130/62; PULSE 77; RESP 18; TEMP 36.9; O2SAT 94
[2018-02-13] VITALS (9 sets, daily range): BP systolic 109–141; BP diastolic 51–94; PULSE 72–80; RESP 12–18; TEMP 36.4–37.1; O2SAT 94–97
[2018-02-13] MEDS: SODIUM CHLORIDE 0.45% 1,000 ML 100 ML IV (05:34)
[2018-02-13] MEDS: PANTOPRAZOLE 20 MG TABLET PO (05:34)
[2018-02-13] MEDS: LEVOTHYROXINE 150 MCG TABLET PO (05:34)
--- NOTE | 2018-02-13 09:00 | PT.IPTN ---
Current Diagnoses Anemia, unspecified (02/12/18) Physical Therapy Treatment Note M3 PT-IP Subjective Start: 02/13/18 13:47 Freq: Status: Active Protocol: Document 02/13/18 09:00 [facility] (Rec: 02/13/18 13:49 [facility] [id number]) Subjective Physical Therapy Visit Type Type Cancellation Notes Pt's latest H&H trending downward, Hct <25% which is below safe level for exercise at this time. Will await to speak with rounding MD and/or new labs before initiating physical therapy evaluation.
--- NOTE | 2018-02-13 09:01 | CM.DANOTE ---
DCP: Case received, EMR reviewed and met with patient. Introduced self and role. DCP template completed with information currently available. Patient is an 82 year old male who admitted yesterday afternoon to the care of the hospitalist team. PCP: Dr. Brandon French. Payer: confirmed: Medicare/[facility] Patient was admitted to hospital secondary to weakness which resulted in a fall, fever, chills and diarrhea. Patient ended up dehydrated. Had been here recently with total knee surgery. Paient alert and oriented. Lives here in [place] with his . Has been back to his baseline prior, and uses a walker at times at home. P: DCP to continue to assess. Goal is for patient to return home when stable. Andreea Martin RN/Bmet
[2018-02-13] MEDS: GABAPENTIN 300 MG CAPSULE PO (10:03)
[2018-02-13] MEDS: CARVEDILOL 3.125 MG TABLET PO ×2 (10:03→21:35)
[2018-02-13] MEDS: TAMSULOSIN 0.4 MG CAPSULE PO (10:03)
[2018-02-13] MEDS: ENOXAPARIN 40 MG/0.4 ML SYRINGE SUBCUT (10:03)
[2018-02-13] MEDS: OXYCODONE IR 5 MG TABLET PO ×2 (11:03→19:16)
--- NOTE | 2018-02-13 14:24 | P.PN_ITS ---
Subjective Date Patient Seen: 02/13/18 Time Patient Seen: 14:17 Interval history: Patient feeling better today. He was able to tolerate clear liquid diet and not have any nausea or vomiting. He has not had any further diarrhea. He had a formed stool this morning. His pain is tolerable. He has not seen physical therapy yet. Twelve point review of systems is negative other than above Exam Vital Signs (past 8 hours): - 02/13/18 08:00 02/13/18 08:12 02/13/18 12:00 Temperature 97.8 F 98.0 F Pulse Rate 80 73 Respiratory Rate 16 16 Blood Pressure 141/74 H 126/68 Pulse Oximetry 94 95 94 Oxygen Delivery Method Room Air Oxygen Flow Rate 0 Narrative Exam Narrative: Patient appears pale Alert and oriented x3 in no apparent distress HEENT: Mucous membranes moist and pink without mucosal lesions Neck: Supple without adenopathy or thyromegaly Chest: Clear to auscultation without wheezes rhonchi or crackles Cor: Regular rate and rhythm without murmur Abdomen: Positive bowel sounds, soft, nontender, nondistended Extremities: Trace pretibial edema o neurologic exam: Nonfocal n the right; 1 + pitting edema on the left. Ice pack in place Objective Labs Result Diagrams: 02/12/18 23:29 02/12/18 23:29 Labs: Laboratory Results - last 24 hr 02/12/18 02/12/18 23:29 23:29 WBC 5.2 RBC 2.50 L Hgb 8.2 L Hct 23.6 L MCV 94.2 MCH 32.7 MCHC 34.7 RDW 14.4 Plt Count 187 Neut % (Auto) 71.1 Lymph % (Auto) 9.0 L [place] % (Auto) 15.1 H Eos % (Auto) 4.7 H Baso % (Auto) 0.1 Neut # (Auto) 3700 Sodium 133 L Potassium 4.0 Chloride 100 Carbon Dioxide 28 BUN 24 H Creatinine 1.00 Estimated GFR > 60.0 BUN/Creatinine Ratio 24.0 H Glucose 109 Calcium 8.3 L Total Bilirubin 1.8 H AST 70 H ALT 33 Alkaline Phosphatase 70 Total Protein 5.5 L Albumin 2.9 L Globulin 2.6 Albumin/Globulin Ratio 1.1 Assessment & Plan Plan: Assessment/Plan Narrative: 82-year-old male Assessment 1. Anemia of unclear etiology, status post left total knee replacement Plan: Will do guaiac. Will continue to monitor. We will check in a.m.. There does not appear to be any focal or acute blood loss other than surgery. Perhaps exacerbated by patient's fall. Assessment 2. Nausea vomiting and dehydration postop Plan: C diff is pending. Will stop IV fluids. Will continue with p.o. intake and advance diet as tolerated. Will continue as needed Zofran. Assessment 3. Hyponatremia Plan: Will stop IV fluids and re-evaluate in a.m. Assessment 4. Acute renal insufficiency secondary to dehydration, nausea and vomiting improved Plan: Will go ahead and stop IV fluids and continue with increased p.o. intake. Will reassess in a.m. Assessment 5. GI prophylaxis Plan: Continue pantoprazole orally Assessment 6. DVT prophylaxis Plan: Continue with subcu Lovenox but will watch closely given anemia Assessment 7. Coronary artery disease no acute symptoms Plan: Continue on outpatient medications. Code status is do not resuscitate Quality VTE Deep Vein Thrombosis/Pulmonary Embolism Present on Admission: No
--- NOTE | 2018-02-13 15:00 | PT.IIE ---
Current Diagnoses Anemia, unspecified (02/12/18) Surgical History (Last Updated 01/28/18 @ 10:07 by Mendy Posadas RN) History of arthroplasty of left knee (Acute) History of arthroplasty of right shoulder (Acute) History of lumbar surgery (Acute) History of total left hip arthroplasty (Acute) Hx of appendectomy (Acute) Hx of heart artery stent (Acute) Hx of tonsillectomy (Acute) Status post hernia repair Medical History (Last Updated 01/28/18 @ 10:05 by Mendy Posadas RN) Asthma (Acute) GERD (gastroesophageal reflux disease) (Acute) Hx of fracture of femur (Acute) Hyperlipidemia (Acute) Melanoma (Acute) Myocardial infarction (Acute) Myocardial infarction with complication (Acute) Physical Therapy Inpatient Evaluation/Re-Eval M1 PT/OT-IP Prior Functional Status Start: 02/13/18 13:47 Freq: Status: Active Protocol: Document 02/13/18 15:00 RCC (Rec: 02/13/18 18:[address] [facility] [id number]) Medical Review Prior Functional Status Medical History Reviewed Yes Diet/Fluid Consistency Regular Communication WNL Mobility and Gait pt with L TKA revision on , using 4WW at home. Prior, indep. mobility Activities of Daily Living and IADL's prior to surgery on 02/08/18, indep. ADLs Prior Functional Level (Other details) Pt underwent revision of L TKA on 02/08/18, discharged POD #1 home. Pt was having increased difficulty with nausea, vomiting, diarrhea, impaired mobility, and ended up falling when attempting to get to the toilet at home. Social History Household Members spouse Living Arrangements House Number of Floors (Floors) One Floor Number of Stairs To Enter/Railing? 4 SE with rails Home Equipment Front Wheel Walker Four Wheel Walker Straight Cane Additional Social History Comment uses a 4WW, will be unable to assist manually for pt. M2 PT-IP Current Condition Start: 02/13/18 13:47 Freq: Status: Active Protocol: Document 02/13/18 15:00 RCC (Rec: 02/13/18 18:[address] [facility] [id number]) Physical Therapy Current Condition Current Condition Evaluation Date 02/13/18 Treatment Diagnosis dehydration, impaired gait and activity tolerance Onset Date 02/12/18 Weight Bearing Status Weight Bearing Status Weight Bear as Tolerated M3 PT-IP Subjective Start: 02/13/18 13:47 Freq: Status: Active Protocol: Document 02/13/18 15:00 RCC (Rec: 02/13/18 18:[address] [facility] [id number]) Subjective Physical Therapy Visit Type Type Initial Evaluation Visit Start Time 14:30 Visit Stop Time 15:00 Total Visit Minutes 30 Notes cleared pt for PT intervention, new labs to be done tomorrow in a.m. Number of INVESTIGATOR OPERATOR Visits 0 Physical Therapy Visit Comments Patient Comments pt notes that he fell because he was fatigued and had to go the BR badly, mis-judged his sitting. Short Term Goals get more mobile and stronger. M4 PT-IP Mobility and Gait Start: 02/13/18 13:47 Freq: Status: Active Protocol: Document 02/13/18 15:[address] [facility] (Rec: 02/13/18 18:[address] [facility] [id number]) PT-Bed Mobility Assessment Supine to Sit Supine to Sit Minimal Assistance 1 Person Assistance Sit to Supine Sit to Supine Minimal Assistance 1 Person Assistance Scooting Scooting to Edge of Bed Contact Guard Assistance PT-Transfer Assessment Sit to and From Stand Sit to and from Stand Contact Guard Assistance Equipment Transfer Assistive Device Gait Belt Front Wheeled Walker Transfers Transfer Destination Bed Transfer Technique Stand Step Pivot Transfer Ability Level of Assist Contact Guard Assistance Comments Mobility Comments LLE management required, unable to perform SLR. Gait Assessment Gait Gait Assistance Required: Contact Guard Assist Distance (Feet) (feet) 20 Assistive Devices Assistive Device Gait Belt Front Wheeled Walker Gait Deviations General Gait Pattern Antalgic Decreased Stride Length Decreased Feet Clearance Factors Limiting Gait Function Factors Limiting Gait Function Decreased Activity Tolerance Decreased Strength Poor Balance PT-Balance Assessment Sitting Balance and Reactions Static Sitting Balance Ability Good Dynamic Sitting Balance Ability Good Standing Balance and Reactions Static Standing Balance Ability Fair Dynamic Standing Balance Ability Fair Device Used FWW M5 PT-IP Objective Assessments Start: 02/13/18 13:47 Freq: Status: Active Protocol: Document 02/13/18 15:[address] [facility] (Rec: 02/13/18 18:[address] [facility] [id number]) Orientation Orientation/Cognition Level of Alertness Alert Orientation Name Age Birthday Month Date Year Day of Week Place Situation Language Function Ability No Deficits Noted Safety Awareness Understands Safety Issues Memory Description No Deficits Noted Gross Range of Motion Lower Extremity ROM Assessment Left Impaired Impairments L knee impaired ROM d/t recent L TKA revision M6 PT-IP Treatment Start: 02/13/18 13:47 Freq: Status: Active Protocol: Document 02/13/18 15:00 [facility] (Rec: 02/13/18 18:21 [facility] [id number]) Physical Therapy Treatment Education Education Provided Weight Bearing Status M7 PT-IP Assessment and Plan Start: 02/13/18 13:47 Freq: Status: Active Protocol: Document 02/13/18 15:00 [facility] (Rec: 02/13/18 18:21 [facility] [id number]) PT Summary Assessment and Plan Potential Rehabilitation Potential Good Status of Condition at Evaluation Evolving Summary Impairments Pain ROM Strength Balance Bed Mobility Transfers Gait Activity Tolerance Assessment Summary Pt limited with mobility due to impaired activity tolerance , but no c/o dizziness or lightheadedness. Pt's is unable to provide him assistance, and he is well below a safe mobility and functional level to return home at this point. Unless pt improves drastically, he would greatly benefit from SNF rehabilitation to improve with functional independence, strength, ROM and overall safety. Goals Bed Mobility Goal Independent Transfer Goal Independent Gait Goal Independent Front Wheel Walker Gait Distance 150 Other Goals up/down 4 steps with B rails and SBA. Days to Meet Goals 3 Frequency of Treatment Frequency Of Treatment Twice a Day Treatment Plan Physical Therapy Treatment Plan Bed Mobility Training Transfer Training Gait Training Therapeutic Exercise Balance Retraining Hot or Cold Pack Neuromuscular Re-ed Recommendations To Nursing Amount of Assist Needed 1 Person Assist Discharge Recommendations PT Discharge Recommendations SNF Rehab
[2018-02-13] MEDS: ATORVASTATIN 20 MG TABLET 80 MG PO (21:34)
[2018-02-14] VITALS (7 sets, daily range): BP systolic 111–127; BP diastolic 57–65; PULSE 75–86; RESP 15–18; TEMP 36.4–36.8; O2SAT 92–97
[2018-02-14] MEDS: LEVOTHYROXINE 150 MCG TABLET PO (05:44)
[2018-02-14] MEDS: OXYCODONE IR 5 MG TABLET PO ×3 (05:45→22:21)
[2018-02-14] MEDS: PANTOPRAZOLE 20 MG TABLET PO (05:45)
[2018-02-14 05:59] LABS: Alanine Aminotransferase 46 IU/L (21-72); Albumin 2.9 g/dL (3.5-5.0); Albumin Globulin Ratio 1.1 (1.0-2.8); Alkaline Phosphatase 69 U/L (38-126); Aspartate Aminotransferase 160 IU/L (17-59); Bilirubin Total 2.5 mg/dL (0.2-1.3); Blood Urea Nitrogen 17 mg/dL (9-20); Calcium 8.2 mg/dL (8.4-10.2); Carbon Dioxide 29 mmol/L (22-32); Chloride 100 mmol/L (98-107); Estimated Glomerular Filt Rate > 60.0 mL/min (>60); Globulin 2.7 g/dL (1.7-4.1); Glucose 105 mg/dL (80-110); HEMOLYSIS < 15 (0-50); Potassium 3.9 mmol/L (3.4-5.1); Sodium 133 mmol/L (137-145); Total Protein 5.6 g/dL (6.3-8.2)
[2018-02-14 06:06] LABS: Add Manual Diff / Slide Review NO; Basophils Percent Auto 0.1 % (0-2); Eosinophils Percent Auto 5.6 % (2-4); Hematocrit 24.4 % (41-53); Hemoglobin 8.6 g/dL (13.5-17.5); Lymphocytes Percent Auto 10.2 % (25-40); Mean Corpuscular HGB Conc 35.2 % (30-36); Mean Corpuscular Hemoglobin 33.1 PG (26-34); Monocytes Percent Auto 16.4 % (3-14); Neutrophils Absolute Auto 4400 /uL (3000-5900); Neutrophils Percent Auto 67.7 % (50-75); Platelet Count 198 X10^3/uL (150-400); Red Blood Cell Count 2.59 X10^6/uL (4.5-5.9); Red Cell Distribution Width 14.7 % (11.6-14.8); White Blood Cell Count 6.5 X10^3/uL (4.5-11.0)
--- NOTE | 2018-02-14 07:41 | PC.NURSE ---
Patient has L>R edema. Pitting pedal edema 2-3+ on the left. Trace on right.
[2018-02-14] MEDS: ENOXAPARIN 40 MG/0.4 ML SYRINGE SUBCUT (09:08)
[2018-02-14] MEDS: GABAPENTIN 300 MG CAPSULE PO (09:08)
[2018-02-14] MEDS: TAMSULOSIN 0.4 MG CAPSULE PO (09:08)
[2018-02-14] MEDS: CARVEDILOL 3.125 MG TABLET PO ×2 (09:08→21:35)
--- NOTE | 2018-02-14 10:31 | CM.DPC ---
Addendum entered by Andreea Martin R.N. 02/14/18 11:36: Did speak to , she is in agreement that patient should go to skilled facility, has chosen [facility] first, secondary, Amber Isbell. Let her know that [facility] has openings. Original Note: DCP Cont: Spoke to nursing staff who feel that usp may be in patient's favor, since he was here recently, had fall, and returned. is frail as well. Went ahead and spoke to patient about this, and he agrees that usp may be in his favor. Went ahead and gave him Medicare Choice list. Stated that he thinks [facility] would be the best for him, but would talk over with his . Left message on 's phone as well. Went ahead and called Rosa Maria at [facility] to see if beds are available, which they are. Gave her name for now, and she will await discharge orders. P: DCP to continue to assess, but planning on usp upon discharge for patient. Andreea Martin RN/Resident Medical Officer
--- NOTE | 2018-02-14 12:57 | PT.IPTN ---
Current Diagnoses Anemia, unspecified (02/12/18) Physical Therapy Treatment Note M2 PT-IP Current Condition Start: 02/13/18 13:47 Freq: Status: Active Protocol: Document 02/13/18 15:00 [facility] (Rec: 02/13/18 18:21 [facility] [id number]) Physical Therapy Current Condition Current Condition Evaluation Date 02/13/18 Treatment Diagnosis dehydration, impaired gait and activity tolerance Onset Date 02/12/18 Weight Bearing Status Weight Bearing Status Weight Bear as Tolerated M3 PT-IP Subjective Start: 02/13/18 13:47 Freq: Status: Active Protocol: Document 02/14/18 11:35 [facility] (Rec: 02/14/18 12:57 [facility] [id number]) Subjective Physical Therapy Visit Type Type Treatment Note Visit Start Time 11:35 Visit Stop Time 11:58 Total Visit Minutes 23 Number of GEAR GRINDING MACHINE OPERATOR Visits 1 Physical Therapy Visit Comments Patient Comments Pt willing to do therapy. M4 PT-IP Mobility and Gait Start: 02/13/18 13:47 Freq: Status: Active Protocol: Document 02/14/18 11:35 [facility] (Rec: 02/14/18 12:57 [facility] [id number]) PT-Transfer Assessment Sit to and From Stand Sit to and from Stand Contact Guard Assistance Equipment Transfer Assistive Device Gait Belt Front Wheeled Walker Transfers Transfer Destination Chair Transfer Technique after ambulation Transfer Ability Level of Assist Contact Guard Assistance Comments Mobility Comments Pt able to manage LLE during sit<>stand. Gait Assessment Gait Gait Assistance Required: Contact Guard Assist Distance (Feet) (feet) 40 Assistive Devices Assistive Device Gait Belt Front Wheeled Walker Gait Deviations General Gait Pattern Antalgic Decreased Stride Length Decreased Feet Clearance Factors Limiting Gait Function Factors Limiting Gait Function Decreased Activity Tolerance Decreased Strength Poor Balance Comments Gait Comments Pt increased ambulation ability with increase pain with WB. M5 PT-IP Objective Assessments Start: 02/13/18 13:47 Freq: Status: Active Protocol: Document 02/13/18 15:00 [facility] (Rec: 02/13/18 18:21 [facility] [id number]) Orientation Orientation/Cognition Level of Alertness Alert Orientation Name Age Birthday Month Date Year Day of Week Place Situation Language Function Ability No Deficits Noted Safety Awareness Understands Safety Issues Memory Description No Deficits Noted Gross Range of Motion Lower Extremity ROM Assessment Left Impaired Impairments L knee impaired ROM d/t recent L TKA revision M6 PT-IP Treatment Start: 02/13/18 13:47 Freq: Status: Active Protocol: Document 02/14/18 11:35 [facility] (Rec: 02/14/18 12:57 [facility] [id number]) Physical Therapy Treatment Exercises Exercises Ankle Pumps Quad Sets Heel Slides Education Education Provided Weight Bearing Status M7 PT-IP Assessment and Plan Start: 02/13/18 13:47 Freq: Status: Active Protocol: Document 02/14/18 11:35 [facility] (Rec: 02/14/18 12:57 [facility] [id number]) PT Summary Assessment and Plan Potential Rehabilitation Potential Good Status of Condition at Evaluation Evolving Summary Impairments Pain ROM Strength Balance Bed Mobility Transfers Gait Activity Tolerance Assessment Summary Pt able to increase gait distance with improved activity tolerance and perform therapy exercises. Goals Bed Mobility Goal Independent Transfer Goal Independent Gait Distance 150 Other Goals up/down 4 steps with B rails and SBA. Days to Meet Goals 3 Frequency of Treatment Frequency Of Treatment Twice a Day Treatment Plan Physical Therapy Treatment Plan Bed Mobility Training Transfer Training Gait Training Therapeutic Exercise Balance Retraining Hot or Cold Pack Neuromuscular Re-ed Discharge Recommendations PT Discharge Recommendations SNF Rehab
--- NOTE | 2018-02-14 13:14 | CM.DPC ---
DCP Cont: Spoke to Dr. Marin regarding [facility]. She is in agreement. Is aware that patient will need an additional night. She will plan on discharge tomorrow. P: Plan is for patient to go to [facility] tomorrow. Andreea Martin RN/Pharmacy Technologist
--- NOTE | 2018-02-14 14:40 | PM.PN.1 ---
Subjective Date Patient Seen: 02/14/18 Time Patient Seen: 14:40 Interval history: Patient is feeling much better today. He is having continued pain in his left knee but is working with physical therapy. Pain is well controlled with oral narcotics. He is not having any nausea no further vomiting. He had a formed bowel movement today and C diff acid was not done because it was a formed bowel movement. He has not had any blood in his stools and no black tarry stools and his stool was guaiac negative. He is not having any abdominal pain. He is not feeling lightheaded or dizzy with ambulation. He is not having any headaches. No chest pain. Twelve point review of systems is negative other Than above no urinary symptoms Exam Vital Signs (past 8 hours): - 02/14/18 08:00 02/14/18 12:00 Temperature 98.2 F 97.8 F Pulse Rate 77 80 Respiratory Rate 18 16 Blood Pressure 124/57 L 111/57 L Pulse Oximetry 92 94 Oxygen Delivery Method Room Air Oxygen Flow Rate 0 Narrative Exam Narrative: Alert and oriented x3. Less pale today. HEENT: Unremarkable, mucous membranes moist and pink Neck: Supple without adenopathy or thyromegaly Chest: Clear to auscultation without wheezes rhonchi or crackles Cor: Regular rate and rhythm without murmur rubs Or gallops abdomen: Positive bowel sounds, soft, nontender, nondistended Extremities: Left lower extremity shows 2+ edema pretibial and pedal. Incision with ice on it. Clean and dry Right lower extremity trace edema, pulses intact Objective Labs Result Diagrams: 02/14/18 05:10 02/14/18 05:10 Labs: Laboratory Results - last 24 hr 02/14/18 02/14/18 02/14/18 05:10 05:10 09:30 WBC 6.5 RBC 2.59 L Hgb 8.6 L Hct 24.4 L MCV 94.0 MCH 33.1 MCHC 35.2 RDW 14.7 Plt Count 198 Neut % (Auto) 67.7 Lymph % (Auto) 10.2 L [place] % (Auto) 16.4 H Eos % (Auto) 5.6 H Baso % (Auto) 0.1 Neut # (Auto) 4400 Sodium 133 L Potassium 3.9 Chloride 100 Carbon Dioxide 29 BUN 17 Creatinine 1.00 Estimated GFR > 60.0 BUN/Creatinine Ratio 17.0 Glucose 105 Calcium 8.2 L Total Bilirubin 2.5 H AST 160 H ALT 46 Alkaline Phosphatase 69 Total Protein 5.6 L Albumin 2.9 L Globulin 2.7 Albumin/Globulin Ratio 1.1 C. difficile Tox (PCR) Cancelled Assessment & Plan Plan: Assessment/Plan Narrative: 82-year-old male Assessment 1. Nausea vomiting and dehydration improved now with good oral intake and no further nausea or vomiting or diarrhea. Plan: Continue to moderate her. Re-evaluate in a.m.. If remains stable will transfer to the [facility] for PT, OT Assessment 2. Diarrhea resolved unclear etiology. C diff not done due to formed stool produced today. Assessment 3. Status post total knee replacement, postop day number 5 Plan: Continue with physical therapy. Continue with oral pain medications. Room will refer to that [facility] tomorrow likely as long as he remains stable Assessment 4. Coronary artery disease without acute symptoms Plan: Continue on same outpatient medications. Continue to monitor. Assessment 5. GI prophylaxis Plan: Continue on omeprazole Assessment 6. Hypothyroidism. Stable Plan: Continue on levothyroxine Assessment 7. DVT prophylaxis Plan: Continue on Lovenox Quality VTE Deep Vein Thrombosis/Pulmonary Embolism Present on Admission: No
--- NOTE | 2018-02-14 16:30 | PT.IPTN ---
Current Diagnoses Anemia, unspecified (02/12/18) Physical Therapy Treatment Note M2 PT-IP Current Condition Start: 02/13/18 13:47 Freq: Status: Active Protocol: Document 02/13/18 15:00 RCC (Rec: 02/13/18 18:21 RCC [id number]) Physical Therapy Current Condition Current Condition Evaluation Date 02/13/18 Treatment Diagnosis dehydration, impaired gait and activity tolerance Onset Date 02/12/18 Weight Bearing Status Weight Bearing Status Weight Bear as Tolerated M3 PT-IP Subjective Start: 02/13/18 13:47 Freq: Status: Active Protocol: Document 02/14/18 14:35 CLB (Rec: 02/14/18 16:30 CLB [id number]) Subjective Physical Therapy Visit Type Type Treatment Note Visit Start Time 14:35 Visit Stop Time 14:58 Total Visit Minutes 23 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 Therapy Pain Assessment Pain When Pain Assessed During Mobility Pain Present Pain Present Pain Reported Location L knee Intensity 5 Scale Used Numeric (1 - 10) Pain Management Techniques Elevation Re-positioning Timing of Activity with Medications M4 PT-IP Mobility and Gait Start: 02/13/18 13:47 Freq: Status: Active Protocol: Document 02/14/18 14:35 CLB (Rec: 02/14/18 16:30 CLB [id number]) PT-Bed Mobility Assessment Sit to Supine Sit to Supine Minimal Assistance 1 Person Assistance PT-Transfer Assessment Sit to and From Stand Sit to and from Stand Contact Guard Assistance Equipment Transfer Assistive Device Gait Belt Front Wheeled Walker Transfers Transfer Destination Bed Transfer Technique Stand Step Pivot Transfer Ability Level of Assist Contact Guard Assistance Gait Assessment Gait Gait Assistance Required: Contact Guard Assist Distance (Feet) (feet) 40 Assistive Devices Assistive Device Gait Belt Front Wheeled Walker Gait Deviations General Gait Pattern Antalgic Decreased Stride Length Decreased Feet Clearance Factors Limiting Gait Function Factors Limiting Gait Function Decreased Activity Tolerance Decreased Strength Poor Balance M5 PT-IP Objective Assessments Start: 02/13/18 13:47 Freq: Status: Active Protocol: Document 02/13/18 15:00 RCC (Rec: 02/13/18 18:21 RCC [id number]) Orientation Orientation/Cognition Level of Alertness Alert Orientation Name Age Birthday Month Date Year Day of Week Place Situation Language Function Ability No Deficits Noted Safety Awareness Understands Safety Issues Memory Description No Deficits Noted Gross Range of Motion Lower Extremity ROM Assessment Left Impaired Impairments L knee impaired ROM d/t recent L TKA revision M6 PT-IP Treatment Start: 02/13/18 13:47 Freq: Status: Active Protocol: Document 02/14/18 14:35 CLB (Rec: 02/14/18 16:30 CLB [id number]) Physical Therapy Treatment Exercises Exercises Ankle Pumps Quad Sets Heel Slides Education Education Provided Weight Bearing Status M7 PT-IP Assessment and Plan Start: 02/13/18 13:47 Freq: Status: Active Protocol: Document 02/14/18 14:35 CLB (Rec: 02/14/18 16:30 CLB [id number]) PT Summary Assessment and Plan Potential Rehabilitation Potential Good Status of Condition at Evaluation Evolving Summary Impairments Pain ROM Strength Balance Bed Mobility Transfers Gait Activity Tolerance Assessment Summary Pt had a decrease in activity tolerance needing verbal cues for walker use and safety. Goals Bed Mobility Goal Independent Transfer Goal Independent Gait Distance 150 Other Goals up/down 4 steps with B rails and SBA. Days to Meet Goals 3 Frequency of Treatment Frequency Of Treatment Twice a Day Treatment Plan Physical Therapy Treatment Plan Bed Mobility Training Transfer Training Gait Training Therapeutic Exercise Balance Retraining Hot or Cold Pack Neuromuscular Re-ed Recommendations To Nursing Amount of Assist Needed 1 Person Assist Discharge Recommendations PT Discharge Recommendations SNF Rehab
[2018-02-14] MEDS: ATORVASTATIN 20 MG TABLET 80 MG PO (21:35)
[2018-02-15] VITALS: O2SAT 94
[2018-02-15 00:20] VITALS: BP 132/59; PULSE 77; RESP 18; TEMP 36.9; O2SAT 94
[2018-02-15 04:00] VITALS: BP 129/67; PULSE 73; RESP 16; TEMP 36.5; O2SAT 97
[2018-02-15] MEDS: OXYCODONE IR 5 MG TABLET PO ×2 (04:10→11:21)
[2018-02-15 05:46] LABS: Add Manual Diff / Slide Review NO; Basophils Percent Auto 0.2 % (0-2); Eosinophils Percent Auto 5.5 % (2-4); Hematocrit 24.1 % (41-53); Hemoglobin 8.4 g/dL (13.5-17.5); Mean Corpuscular HGB Conc 34.8 % (30-36); Mean Corpuscular Hemoglobin 32.6 PG (26-34); Mean Corpuscular Volume 93.9 fL (80-100); Monocytes Percent Auto 14.7 % (3-14); Neutrophils Absolute Auto 5000 /uL (3000-5900); Neutrophils Percent Auto 68.6 % (50-75); Platelet Count 211 X10^3/uL (150-400); Red Blood Cell Count 2.57 X10^6/uL (4.5-5.9); Red Cell Distribution Width 14.3 % (11.6-14.8); White Blood Cell Count 7.3 X10^3/uL (4.5-11.0)
[2018-02-15 06:00] LABS: Alanine Aminotransferase 47 IU/L (21-72); Albumin 2.9 g/dL (3.5-5.0); Albumin Globulin Ratio 1.1 (1.0-2.8); Alkaline Phosphatase 90 U/L (38-126); Aspartate Aminotransferase 110 IU/L (17-59); BUN Creatinine Ratio 18.2 (6-22); Bilirubin Total 2.3 mg/dL (0.2-1.3); Blood Urea Nitrogen 20 mg/dL (9-20); Calcium 8.2 mg/dL (8.4-10.2); Carbon Dioxide 28 mmol/L (22-32); Chloride 98 mmol/L (98-107); Estimated Glomerular Filt Rate > 60.0 mL/min (>60); Globulin 2.6 g/dL (1.7-4.1); Glucose 109 mg/dL (80-110); HEMOLYSIS < 15 (0-50); Potassium 3.8 mmol/L (3.4-5.1); Sodium 132 mmol/L (137-145); Total Protein 5.5 g/dL (6.3-8.2)
[2018-02-15] MEDS: PANTOPRAZOLE 20 MG TABLET PO (07:04)
[2018-02-15] MEDS: LEVOTHYROXINE 150 MCG TABLET PO (07:04)
[2018-02-15 08:16] VITALS: BP 116/64; PULSE 70; RESP 18; TEMP 37.2; O2SAT 94
[2018-02-15] MEDS: ENOXAPARIN 40 MG/0.4 ML SYRINGE SUBCUT (08:33)
[2018-02-15] MEDS: SODIUM CHLORIDE 0.9% FLUSH 10 ML IV (08:34)
[2018-02-15] MEDS: CARVEDILOL 3.125 MG TABLET PO (08:34)
[2018-02-15] MEDS: GABAPENTIN 300 MG CAPSULE PO (08:34)
[2018-02-15] MEDS: TAMSULOSIN 0.4 MG CAPSULE PO (08:34)
--- NOTE | 2018-02-15 09:36 | PC.NURSE ---
Patient awake, pleasant and cooperative this morning. Dressing to left knee CDI, moderate swelling continues, but patient able to move all extremities. +CMS. Patient drinking lots of water, denies N/V/D. Bed/chair alarm for safety, call light within reach.
--- NOTE | 2018-02-15 10:19 | PT.IPTN ---
Current Diagnoses Anemia, unspecified (02/12/18) Physical Therapy Treatment Note M2 PT-IP Current Condition Start: 02/13/18 13:47 Freq: Status: Active Protocol: Document 02/13/18 15:00 RCC (Rec: 02/13/18 18:21 RCC [id number]) Physical Therapy Current Condition Current Condition Evaluation Date 02/13/18 Treatment Diagnosis dehydration, impaired gait and activity tolerance Onset Date 02/12/18 Weight Bearing Status Weight Bearing Status Weight Bear as Tolerated M3 PT-IP Subjective Start: 02/13/18 13:47 Freq: Status: Active Protocol: Document 02/15/18 09:30 CLB (Rec: 02/15/18 10:19 CLB [id number]) Subjective Physical Therapy Visit Type Type Treatment Note Visit Start Time 09:30 Visit Stop Time 09:58 Total Visit Minutes 28 Number of ROLL BUILDER Visits 3 Physical Therapy Visit Comments Patient Comments Pt willing to do therapy. Therapy Pain Assessment Pain When Pain Assessed During Mobility Pain Present Pain Present Pain Reported Location L knee Intensity 5 Scale Used Numeric (1 - 10) Pain Management Techniques Elevation Re-positioning Timing of Activity with Medications M4 PT-IP Mobility and Gait Start: 02/13/18 13:47 Freq: Status: Active Protocol: Document 02/15/18 09:30 CLB (Rec: 02/15/18 10:19 CLB [id number]) PT-Bed Mobility Assessment Supine to Sit Supine to Sit Contact Guard Assistance Scooting Scooting to Edge of Bed Standby Assistance PT-Transfer Assessment Sit to and From Stand Sit to and from Stand Contact Guard Assistance Equipment Transfer Assistive Device Gait Belt Front Wheeled Walker Transfers Transfer Destination Chair Toilet Transfer Technique Stand Step Pivot Transfer Ability Level of Assist Contact Guard Assistance Comments Mobility Comments Pt improving with mobility. Gait Assessment Gait Gait Assistance Required: Contact Guard Assist Distance (Feet) (feet) 60 Assistive Devices Assistive Device Gait Belt Front Wheeled Walker Gait Deviations General Gait Pattern Antalgic Decreased Stride Length Decreased Feet Clearance Factors Limiting Gait Function Factors Limiting Gait Function Decreased Activity Tolerance Decreased Strength Comments Gait Comments Pt increased activity tolerance and gait distance. M5 PT-IP Objective Assessments Start: 02/13/18 13:47 Freq: Status: Active Protocol: Document 02/13/18 15:00 RCC (Rec: 02/13/18 18:21 RCC [id number]) Orientation Orientation/Cognition Level of Alertness Alert Orientation Name Age Birthday Month Date Year Day of Week Place Situation Language Function Ability No Deficits Noted Safety Awareness Understands Safety Issues Memory Description No Deficits Noted Gross Range of Motion Lower Extremity ROM Assessment Left Impaired Impairments L knee impaired ROM d/t recent L TKA revision M6 PT-IP Treatment Start: 02/13/18 13:47 Freq: Status: Active Protocol: Document 02/15/18 09:30 CLB (Rec: 02/15/18 10:19 CLB [id number]) Physical Therapy Treatment Exercises Exercises Ankle Pumps Quad Sets Heel Slides Straight Leg Raises Short Arc Quads Seated Knee Flexion/Extension Education Education Provided Safety M7 PT-IP Assessment and Plan Start: 02/13/18 13:47 Freq: Status: Active Protocol: Document 02/15/18 09:30 CLB (Rec: 02/15/18 10:19 CLB [id number]) PT Summary Assessment and Plan Summary Assessment Summary Pt did well with increased activity. Pt has improved with standing balance with gait and safety awareness. Goals Bed Mobility Goal Independent Transfer Goal Independent Gait Distance 150 Other Goals up/down 4 steps with B rails and SBA. Frequency of Treatment Frequency Of Treatment Twice a Day Treatment Plan Physical Therapy Treatment Plan Bed Mobility Training Transfer Training Gait Training Therapeutic Exercise Balance Retraining Hot or Cold Pack Neuromuscular Re-ed Recommendations To Nursing Amount of Assist Needed 1 Person Assist Discharge Recommendations PT Discharge Recommendations SNF Rehab
[2018-02-15 11:46] VITALS: BP 108/59; PULSE 76; RESP 18; TEMP 36.7; O2SAT 95
--- NOTE | 2018-02-15 12:18 | P.DS_ITS ---
History of Present Illness Chief complaint: DEHYDRATION Discharge Providers Date of admission: 02/12/18 14:45 Primary care physician: Brandon French MD Consults: 02/12/18 18:22 Consult to Discharge Planning Routine Comment: Consult to Physical Therapy Evaluate & Treat Comment: Physician Instructions: Evaluate and Treat Discharge provider: Ann Win MD Summary Discharge Diagnosis: readmissions status post left total knee replacement nausea, vomiting, dehydration improved diarrhea of unclear etiology improved significant postop anemia. Not transfused Hospital Course: patient underwent a left total knee replacement approximately 2 days prior to admission. He was sent home and became nauseous and had vomiting and diarrhea and fell and hit his postsurgical knee. He was admitted for nausea vomiting dehydration diarrhea. This cleared up with IV fluids and anti medics. C diff acid not done because stool then became formed and patient then had constipation. He was found to be significantly anemic. Transfusion was not indicated. He maintained stable blood counts and was guaiac negative. Physical therapy followed him and continue to work with him. He qualified for long-term care for continued physical therapy and strengthening. He is discharged home on his outpatient medications including 7 days of Lovenox and iron and oxycodone Status at Discharge Cognitive/behavioral status at discharge: normal Functional status at discharge: uses cane/walker Time Spent with Patient Greater than 30 minutes Exam Vital Signs (past 8 hours): - 02/15/18 08:16 02/15/18 11:46 Temperature 98.9 F 98.0 F Pulse Rate 70 76 Respiratory Rate 18 18 Blood Pressure 116/64 108/59 L Pulse Oximetry 94 95 Oxygen Delivery Method Room Air Oxygen Flow Rate 0 Narrative Exam Narrative: Patient is alert and oriented in no apparent distress HEENT: Mucous membranes moist and pink without mucosal lesions Neck: Supple without adenopathy or thyromegaly chest: Clear to auscultation without wheezes rhonchi or crackles cor: Regular rate and rhythm without any murmur. Distant S1-S2 abdomen: Positive bowel sounds, soft, nontender, nondistended, no hepatosplenomegaly extremities: 2+ pitting edema pretibial on left. Trace pitting edema on right. Dorsalis pedis pulses 2+ bilaterally. Incision clean and dry neurologic exam: Nonfocal skin: No rashes Objective Labs Result Diagrams: 02/15/18 05:32 02/15/18 05:32 Labs: Laboratory Results - last 24 hr 02/15/18 02/15/18 05:32 05:32 WBC 7.3 RBC 2.57 L Hgb 8.4 L Hct 24.1 L MCV 93.9 MCH 32.6 MCHC 34.8 RDW 14.3 Plt Count 211 Neut % (Auto) 68.6 Lymph % (Auto) 11.0 L [place] % (Auto) 14.7 H Eos % (Auto) 5.5 H Baso % (Auto) 0.2 Neut # (Auto) 5000 Sodium 132 L Potassium 3.8 Chloride 98 Carbon Dioxide 28 BUN 20 Creatinine 1.10 Estimated GFR > 60.0 BUN/Creatinine Ratio 18.2 Glucose 109 Calcium 8.2 L Total Bilirubin 2.3 H AST 110 H ALT 47 Alkaline Phosphatase 90 Total Protein 5.5 L Albumin 2.9 L Globulin 2.6 Albumin/Globulin Ratio 1.1 Discharge Plan Discharge Plan Transfer to: [facility] Transportation: Wheelchair Labs: cbc, bmp 02/19/18 Consult as needed: Dental, Hearing, Mental health, Podiatry and Vision I certify the postop hospital long-term care is medically necessary on a continuing basis for any conditions for which he/ she received care during this hospitalization.: Yes The receiving facility has agreed to accept transfer and provide medical treatment.: Yes Discharge Med Rec/Prescriptions Prescriptions: New oxycodone 5 mg Tablet 5 mg PO Q6HR PRN (Reason: Pain, Moderate (4-6)) Qty: 40 RF: 0 enoxaparin [Lovenox] 40 mg/0.4 mL Syringe 40 mg subcut DAILY Qty: 0 RF: 0 Continue atorvastatin [Lipitor] 80 MG tablet 80 mg PO HS Qty: 0 RF: 0 omeprazole 20 MG capsule,delayed release(DR/EC) 20 mg PO DAILY Qty: 0 RF: 0 aspirin [Aspir-81] 81 mg Tablet,Delayed Release (Dr/Ec) 81 mg PO DAILY RF: 0 ranitidine HCl 150 mg Tablet 150 mg PO DAILY RF: 0 gabapentin 300 mg Capsule 300 mg PO DAILY RF: 0 oxycodone 5 mg Tablet 5 mg PO Q3HR PRN (Reason: Pain, Moderate (4-6)) Qty: 40 RF: 0 nitroglycerin [Nitrostat] 0.3 mg Tablet, Sublingual 0.3 mg SUBLINGUAL Q5-15M PRN (Reason: Chest Pain) RF: 0 carvedilol 3.125 mg Tablet 3.125 mg PO BID RF: 0 tamsulosin 0.4 mg Capsule 0.4 mg PO DAILY RF: 0 levothyroxine 150 mcg Tablet 150 mcg PO DAILY RF: 0 betamethasone dipropionate 0.05 % Cream 1 applic TOPICAL DAILY PRN (Reason: Rash) RF: 0 albuterol sulfate [Ventolin HFA] 90 mcg/actuation Hfa Aerosol Inhaler 2 puff INHALATION Q4HR PRN (Reason: Bronchospasm) RF: 0 Discharge Orders: Discharge (Order); Ordered 02/15/18 Ordered By: Ann Win Provider Discharge Instructions Diet: Diet as Tolerated Liquid consistency: Normal/Thin Food texture: Regular Skin/Wound/Dressing Care Report to your healthcare provider any signs of infection, such as:: chills, fever, night sweats, increased pain and unusual drainage [facility] Reason for rehabilitation: Post-operative therapy Rehab type: Physical therapy and Occupational therapy Discharge Data Primary Care Provider: Brandon French Attending Provider: Brandon French Admit Date/Time: 02/12/18 14:45 Quality VTE Deep Vein Thrombosis/Pulmonary Embolism Present on Admission: No
--- NOTE | 2018-02-15 13:12 | CM.DPC ---
DCP: continued: case received, EMR reviewed and d/c to [facility] order received this afternoon from Dr. Win. Met with pt and introduced self and role. Pt says he feels very ready to go to [facility] today for rehab/recovery. His and daughter went to lunch, will see him there this afternoon. Coordinated time of d/c with DANIELA Lau and Kimberly/[facility]. [facility] will pick pt up at 1400 today. MARYAM: #2. Discussed with pt as he was still eating, full tray in front of him. He, as noted, has no concerns re the d/c today. All orders, dc summary and PASRR were faxed and copy to snf packet.
--- NOTE | 2018-02-15 13:56 | PC.NURSE ---
patient ready for discharge to [facility], IV was removed intact. Patient dressed with brief in place and all belongings packed. report given to [place] accepting nurse. Waiting for transport to [facility].
--- NOTE | 2018-02-15 14:23 | PC.NURSE ---
Patient picked up for discharge to [facility] by transporter in wheelchair with all belongings and paperwork packet.
== END 2018-02-15 14:30 | DRG 812 ==
PROVIDERS: Family Medicine; Admitting Provider Family Medicine; Family Provider Family Medicine; PCP Family Medicine; Visit Provider Family Medicine
DX: D64.9 Anemia, unspecified (principal); E86.0 Dehydration; R11.10 Vomiting, unspecified; R19.7 Diarrhea, unspecified; I10 Essential (primary) hypertension; E03.9 Hypothyroidism, unspecified; K21.9 Gastro-esophageal reflux disease without esophagitis; I25.10 Atherosclerotic heart disease of native coronary artery without angina pectoris; N28.9 Disorder of kidney and ureter, unspecified; Z96.652 Presence of left artificial knee joint; Z98.890 Other specified postprocedural states
CPT/HCPCS: 36415; 71045; 80053; 84443; 85025; 97110; 97116; 97162; J1650; J7050

== ENCOUNTER → 2018-11-11 10:05 | Outpatient (CLI) | payer MEDICARE, OTHER, SELFPAY ==
[2018-11-11 10:30] LABS: Add Manual Diff / Slide Review NO; Basophils Absolute Auto 100 /uL (0-100); Basophils Percent Auto 0.9 % (0-2); Eosinophils Absolute Auto 300 /uL (0-450); Eosinophils Percent Auto 4.6 % (2-4); Hematocrit 35.5 % (41-53); Hemoglobin 12.2 g/dL (13.5-17.5); Lymphocytes Absolute Auto 1100 /uL (1100-4500); Lymphocytes Percent Auto 14.9 % (25-40); Mean Corpuscular HGB Conc 34.4 % (30-36); Mean Corpuscular Volume 92.9 fL (80-100); Monocytes Absolute Auto 900 /uL (0-900); Monocytes Percent Auto 12.1 % (3-14); Neutrophils Absolute Auto 4900 /uL (1500-7000); Neutrophils Percent Auto 67.5 % (50-75); Platelet Count 242 X10^3/uL (150-400); Red Blood Cell Count 3.83 X10^6/uL (4.5-5.9); White Blood Cell Count 7.2 X10^3/uL (4.5-11.0)
[2018-11-11 10:44] LABS: Alanine Aminotransferase 36 IU/L (21-72); Albumin 4.3 g/dL (3.5-5.0); Albumin Globulin Ratio 1.3 (1.0-2.8); Alkaline Phosphatase 109 U/L (38-126); Aspartate Aminotransferase 45 IU/L (17-59); BUN Creatinine Ratio 30.9 (6-22); Bilirubin Total 1.4 mg/dL (0.2-1.3); Blood Urea Nitrogen 34 mg/dL (9-20); Calcium 9.4 mg/dL (8.4-10.2); Carbon Dioxide 30 mmol/L (22-32); Chloride 103 mmol/L (98-107); Estimated Glomerular Filt Rate > 60.0 mL/min (>60); Globulin 3.4 g/dL (1.7-4.1); Glucose 102 mg/dL (80-110); HEMOLYSIS < 15 (0-50); Potassium 4.6 mmol/L (3.4-5.1); Sodium 142 mmol/L (137-145); Total Protein 7.7 g/dL (6.3-8.2)
== END ==
PROVIDERS: Family Provider Family Medicine; PCP Family Medicine; Visit Provider Physician Assistant
DX: L94.2 Calcinosis cutis (principal)
CPT/HCPCS: 36415; 80053; 85025

== ENCOUNTER → 2018-11-18 10:07 | Outpatient (CLI) | payer MEDICARE, OTHER, SELFPAY ==
[2018-11-20 18:51] LABS: ANA Screen, IFA Negative (Negative)
== END ==
PROVIDERS: Family Provider Family Medicine; PCP Family Medicine; Visit Provider Physician Assistant
DX: L94.2 Calcinosis cutis (principal)
CPT/HCPCS: 36415; 86038

== ENCOUNTER → 2018-12-31 14:38 | Outpatient (CLI) | payer MEDICARE, OTHER, SELFPAY ==
--- NOTE | 2018-12-31 | DI.RAD.S_ITS ---
PROCEDURE: XR CHEST 2V INDICATIONS: RIGHT RIB PAIN POST FALL TECHNIQUE: 2 views of the chest were acquired. COMPARISON: [facility], CR, XR CHEST 1V, 02/12/2018, 19:03. [facility], RG, XR CXR 2 VIEW, 08/21/2005, 10:21. FINDINGS: Surgical changes and devices: None. Lungs and pleura: Lungs are clear. No pleural effusions or pneumothorax. Mediastinum: Mediastinal contours are normal. Heart size is normal. Bones and chest wall: No suspicious bony abnormalities. Soft tissues appear unremarkable. Mild chronic depression deformity of the mid thoracic spine. IMPRESSION: No acute cardiopulmonary disease. Dictated by: Jasbir Steele M.D. on 12/31/2018 at 17:06 Approved by: Jasbir Steele M.D. on 12/31/2018 at 17:07
== END ==
PROVIDERS: Family Provider Family Medicine; PCP Family Medicine; Visit Provider Family Medicine
DX: R07.81 Pleurodynia (principal)
CPT/HCPCS: 71046

== ENCOUNTER → 2019-01-14 14:50 | Outpatient (CLI) | payer MEDICARE, OTHER, SELFPAY ==
[2019-01-14 16:06] LABS: Alanine Aminotransferase 38 IU/L (21-72); Albumin Globulin Ratio 1.3 (1.0-2.8); Alkaline Phosphatase 142 U/L (38-126); Aspartate Aminotransferase 35 IU/L (17-59); BUN Creatinine Ratio 27.7 (6-22); Bilirubin Total 1.3 mg/dL (0.2-1.3); Blood Urea Nitrogen 36 mg/dL (9-20); Calcium 9.5 mg/dL (8.4-10.2); Carbon Dioxide 27 mmol/L (22-32); Chloride 104 mmol/L (98-107); Estimated Glomerular Filt Rate 52.9 mL/min (>60); Globulin 3.1 g/dL (1.7-4.1); Glucose 113 mg/dL (80-110); HEMOLYSIS < 15 (0-50); Potassium 4.3 mmol/L (3.4-5.1); Sodium 141 mmol/L (137-145); Total Protein 7.1 g/dL (6.3-8.2)
[2019-01-17 19:18] LABS: ANA Screen, IFA Negative (Negative)
== END ==
PROVIDERS: PCP Family Medicine; Visit Provider Dermatology
DX: L94.2 Calcinosis cutis (principal)
CPT/HCPCS: 36415; 80053; 82306; 86038

== ENCOUNTER → 2019-09-14 08:00 | Outpatient (CLI) | payer MEDICARE, OTHER, SELFPAY ==
[2019-09-14 09:24] LABS: Add Manual Diff / Slide Review NO; Basophils Absolute Auto 0 /uL (0-100); Basophils Percent Auto 0.7 % (0-2); Eosinophils Absolute Auto 400 /uL (0-450); Eosinophils Percent Auto 7.1 % (2-4); Hematocrit 36.6 % (41-53); Hemoglobin 12.5 g/dL (13.5-17.5); Lymphocytes Absolute Auto 1000 /uL (1100-4500); Lymphocytes Percent Auto 17.1 % (25-40); Mean Corpuscular Hemoglobin 32.7 PG (26-34); Mean Corpuscular Volume 96.2 fL (80-100); Monocytes Absolute Auto 700 /uL (0-900); Neutrophils Absolute Auto 3800 /uL (1500-7000); Neutrophils Percent Auto 64.1 % (50-75); Platelet Count 239 X10^3/uL (150-400); Red Blood Cell Count 3.81 X10^6/uL (4.5-5.9); Red Cell Distribution Width 14.6 % (11.6-14.8); White Blood Cell Count 5.9 X10^3/uL (4.5-11.0)
[2019-09-14 09:39] LABS: Alanine Aminotransferase 31 IU/L (<50); Albumin 4.5 g/dL (3.5-5.0); Albumin Globulin Ratio 1.3 (1.0-2.8); Alkaline Phosphatase 108 U/L (38-126); Aspartate Aminotransferase 42 IU/L (17-59); Bilirubin Total 1.1 mg/dL (0.2-1.3); Blood Urea Nitrogen 33 mg/dL (9-20); Calcium 9.7 mg/dL (8.4-10.2); Carbon Dioxide 26 mmol/L (22-32); Chloride 103 mmol/L (98-107); Cholesterol 122 mg/dL (140-199); Estimated Glomerular Filt Rate 51.9 mL/min (>60); Globulin 3.5 g/dL (1.7-4.1); Glucose 106 mg/dL (80-110); HDL Cholesterol 35 mg/dL (40-60); HEMOLYSIS < 15 (0-50); LDL Cholesterol Calculated 77 mg/dL (<100); Potassium 4.1 mmol/L (3.4-5.1); Sodium 139 mmol/L (137-145); Triglycerides 51 mg/dL (35-150)
== END ==
PROVIDERS: PCP Family Medicine; Referring Provider Family Medicine; Visit Provider Family Medicine
DX: E03.9 Hypothyroidism, unspecified (principal)
CPT/HCPCS: 36415; 80053; 80061; 84443; 85025

== ENCOUNTER → 2020-07-25 13:25 | Outpatient (CLI) | payer MEDICARE, OTHER, SELFPAY ==
[2020-07-25 16:37] LABS: Alanine Aminotransferase 37 IU/L (<50); Albumin 4.1 g/dL (3.5-5.0); Albumin Globulin Ratio 1.4 (1.0-2.8); Alkaline Phosphatase 76 U/L (38-126); Aspartate Aminotransferase 49 IU/L (17-59); BUN Creatinine Ratio 26.2 (6-22); Bilirubin Total 1.2 mg/dL (0.2-1.3); Blood Urea Nitrogen 34 mg/dL (9-20); Calcium 9.1 mg/dL (8.4-10.2); Carbon Dioxide 32 mmol/L (22-32); Chloride 100 mmol/L (98-107); Estimated Glomerular Filt Rate 52.7 mL/min (>60); Globulin 2.9 g/dL (1.7-4.1); Glucose 105 mg/dL (80-110); HEMOLYSIS < 15 (0-50); Potassium 4.4 mmol/L (3.4-5.1); Sodium 138 mmol/L (137-145)
[2020-07-25 16:43] LABS: Free T4, Direct Thyroxine 1.17 ng/dL (0.78-2.19)
[2020-07-25 16:57] LABS: Thyroid Stimulating Hormone 9.31 uIU/mL (0.47-4.68)
== END ==
PROVIDERS: Referring Provider Family Medicine; Visit Provider Family Medicine
DX: E03.9 Hypothyroidism, unspecified (principal)
CPT/HCPCS: 36415; 80053; 84439; 84443

== ENCOUNTER → 2020-10-12 18:19 | Outpatient (CLI) | payer MEDICARE, OTHER, SELFPAY ==
--- NOTE | 2020-10-12 18:21 | DI.MRI.S_ITS ---
PROCEDURE: MR HEAD/BRAIN WO CON INDICATIONS: OTHER AMNESIA TECHNIQUE: Non-contrast axial T1 spin echo, axial T2 fast spin echo, sagittal and axial FLAIR, coronal T2 fast spin echo, axial gradient echo, axial diffusion and ADC through the brain. COMPARISON: None. FINDINGS: Image quality: Excellent. CSF spaces: Ventricles appear symmetric in size and shape. Basal cisterns are patent. There is a well-circumscribed CSF intensity focus at the anterior aspect of the right frontal lobe which demonstrates a thin surrounding low T2 intensity capsule, measuring roughly 38 mm transverse by 20 mm anteroposterior by 40 mm craniocaudal. Brain: No acute intracranial bleeds or mass effects. There is moderate low gradient echo signal intensity within the bilateral superior frontal and parietal lobes. There is cerebral volume loss for age. There are periventricular and deep white matter chronic small vessel ischemic changes. Brainstem appears normal. Diffusion-weighted images show no acute ischemic insults. No chronic ischemic insults. Normal intravascular flow voids are present. Skull and face: Calvarial bone marrow is normal in signal. Orbits are normal. Sinuses: Small amount of bilateral mastoid fluid. Sinuses and mastoids are otherwise clear. IMPRESSION: 1. Volume loss and small vessel ischemic disease. 2. 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 This could be further assessed with postcontrast brain MRI, if clinically indicated. 3. Low gradient echo signal intensity material within the superior aspect of the cerebral hemispheres. Differential considerations include sequelae of remote hemorrhage versus amyloid angiopathy sequelae. No acute intracranial hemorrhage. Dictated by: Antwan Kaur M.D. on 10/15/2020 at 8:34 Approved by: Antwan Kaur M.D. on 10/15/2020 at 8:40
== END ==
PROVIDERS: Referring Provider Psychiatry & Neurology Neurology; Visit Provider Psychiatry & Neurology Neurology
DX: R41.3 Other amnesia (principal); R41.9 Unspecified symptoms and signs involving cognitive functions and awareness
CPT/HCPCS: 70551

== ENCOUNTER 2020-10-28 10:54 | Observation (INO) | payer MEDICARE, OTHER, SELFPAY ==
[2020-10-28] VITALS (10 sets, daily range): BP systolic 126–169; BP diastolic 64–90; PULSE 50–79; RESP 16–24; TEMP 36.1–36.5; O2SAT 94–97; BMI 23.1
--- NOTE | 2020-10-28 11:19 | ED.GIBLEED ---
HPI - GI Bleed General Chief complaint: GI Bleed Stated complaint: rectal bleeding/bowel problems Time Seen by Provider: 10/28/20 10:58 Source: patient Mode of arrival: Ambulatory Limitations: no limitations History of Present Illness HPI Narrative: 85-year-old male nonsmoker with history of coronary artery disease, hyperlipidemia, hypertension on Plavix presents with a large dark bloody bowel movement last night and another this morning. He denies any chest pain but feels a bit short of breath, fatigued and lightheaded. He denies any abdominal pain or history of GI bleed. He does not have an extensive alcohol history and denies any bloody emesis. He is otherwise well and free of complaint MD complaint: gross hematochezia Onset (ago): hour(s) Severity: moderate Relieving factors: none Exacerbating factors: none Context: other (Plavix) Related Data Home Medications Medication Instructions Recorded Confirmed atorvastatin [Lipitor] 80 mg PO HS #0 08/20/07 10/28/20 omeprazole 20 mg PO DAILY #0 06/18/17 10/28/20 aspirin [Aspir-81] 81 mg PO DAILY 01/28/18 10/28/20 ranitidine HCl 150 mg PO DAILY 01/28/18 02/12/18 gabapentin 300 mg PO DAILY 02/08/18 02/12/18 albuterol sulfate [Ventolin HFA] 2 puff INHALATION Q4HR PRN 02/12/18 02/12/18 betamethasone dipropionate 1 applic TOPICAL DAILY PRN 02/12/18 10/28/20 carvedilol 3.125 mg PO BID 02/12/18 02/12/18 levothyroxine 100 mcg PO DAILY 02/12/18 10/28/20 nitroglycerin [Nitrostat] 0.3 mg SUBLINGUAL Q5-15M PRN 02/12/18 10/28/20 tamsulosin 0.4 mg PO DAILY 02/12/18 10/28/20 clopidogrel 75 mg PO DAILY 10/28/20 10/28/20 donepezil 10 mg PO BEDTIME 10/28/20 10/28/20 erythromycin 1 applic EYE-BOTH TID 10/28/20 10/28/20 nystatin 1 applic TOPICAL BID 10/28/20 10/28/20 Previous Rx's Medication Instructions Recorded oxycodone 5 mg PO Q3HR PRN #40 tab 02/09/18 oxycodone 5 mg PO Q6HR PRN #40 tab 02/15/18 Allergies Allergy/AdvReac Type Severity Reaction Status Date / Time morphine [MORPHINE] AdvReac Mild LOOPY Verified 02/08/18 11:08 BODY FEELS COLD, SHAKING Review of Systems Constitutional Constitutional: Denies chills, Reports fatigue, Denies fever(s), Denies frequent falls, Denies lethargy and Reports weakness Eyes Eyes: Denies change in vision, Denies eye discharge, Denies irritation and Denies loss of vision ENT Ears, Nose, Mouth, and Throat: Denies change in voice, Denies dizziness, Denies neck pain, Denies sore throat and Denies throat swelling Cardiovascular Cardiovascular: Denies chest pain, Denies irregular heart rhythm, Denies lightheadedness, Denies palpitations, Denies dyspnea, Denies dyspnea on exertion and Denies orthopnea Respiratory Respiratory: Denies cough, Denies dyspnea, Denies dyspnea on exertion and Denies wheezing Gastrointestinal Gastrointestinal: Denies abdominal pain, Reports melena, Reports hematochezia, Denies change in bowel habits, Denies diarrhea, Denies nausea and Denies vomiting Musculoskeletal Musculoskeletal: Denies neck pain and Denies numbness Integumentary/Breasts Skin/Breast: Denies pruritus, Denies erythema, Denies rash and Denies wounds Neurologic Neurologic: Denies behavioral changes, Denies confusion, Denies dizziness, Denies frequent falls, Denies loss of vision, Denies numbness and Reports weakness Psychiatric Psychiatric: Denies anxiety, Denies behavioral changes, Denies confusion, Denies depression, Denies homicidal ideation and Denies suicidal ideation Endocrine Endocrine: Reports fatigue, Denies flushing and Denies palpitations Hematologic/Lymphatic Hematologic/Lymphatic: Denies easy bruising Allergic/Immunologic Allergic/Immunologic: Denies urticaria, Denies throat swelling and Denies wheezing Patient History Medical History Asthma GERD (gastroesophageal reflux disease) Hx of fracture of femur Hyperlipidemia Melanoma Myocardial infarction Myocardial infarction with complication Surgical History History of arthroplasty of left knee History of arthroplasty of right shoulder History of knee replacement History of lumbar surgery History of total left hip arthroplasty Hx of appendectomy Hx of heart artery stent Hx of tonsillectomy Status post hernia repair Social History household members: spouse Smoking Status: Never smoker alcohol intake: current Smoking Status: Never smoker alcohol intake frequency: a few times a month Substance Use Type: does not use Exam Narrative Exam Narrative: GENERAL: [85] year old patient appears stated age. Well-nourished, well-developed patient, in mild distress. HEAD: Atraumatic. Normocephalic. EYES: Pupils equal round and reactive. Extraocular motions intact. No scleral icterus. No injection or drainage. ENT: Nose without bleeding, purulent drainage. Throat without erythema, tonsillar hypertrophy or exudate. Airway patent. NECK: Trachea midline. Non tender CARDIOVASCULAR: Regular rate and rhythm without murmurs, gallops, or rubs. RESPIRATORY: Clear to auscultation. Breath sounds equal bilaterally. No wheezes, rales, or rhonchi. GASTROINTESTINAL: Abdomen soft, non-tender, nondistended. RECTAL: fresh clots, no active bleeding EXTREMITIES: No edema or joint tenderness. BACK: Nontender without deformity or crepitance. No flank tenderness. NEURO: AOx3. SKIN: No rash or erythema of visible areas Initial Vital Signs Initial Vital Signs: Vital Signs Pulse Rate 71 10/28/20 11:15 Pulse Oximetry 95 10/28/20 11:15 Course Orders Ordered: ED Orders 10/28/20 11:17 Complete Blood Count AUTO DIFF Stat Comprehensive Metabolic Panel Stat Prothrombin Time INR Stat 10/28/20 11:27 COVID19 - ADMIT ([facility] swab/PCR) Stat Albuterol (Albuterol 2.5 Mg/3 Ml Neb (Adult)) 2.5 mg INH Q4HR PRN PRN Reason: Bronchospasm Atorvastatin Calcium (Atorvastatin 20 Mg Tablet) 80 mg PO BEDTIME MACK Carvedilol (Carvedilol 3.125 Mg Tablet) 3.125 mg PO BID MACK Gabapentin (Gabapentin 300 Mg Capsule) 300 mg PO DAILY MACK Dextrose/Sodium Chloride (Dextrose 5%-0.9% Ns) 1,000 mls @ 100 mls/hr IV CONT MACK Last Admin: 10/28/20 14:54 Dose: 100 mls/hr Documented by: SHAVON Levothyroxine Sodium (Levothyroxine 150 Mcg Tablet) 150 mcg PO DAILY [facility] Naloxone HCl (Naloxone 0.4 Mg/Ml Vial) 0.2 mg IV Q2MIN PRN PRN Reason: Opiate Reversal Nitroglycerin (Nitroglycerin 0.3 Mg Sl Tab) 0.3 mg SL Q5M PRN PRN Reason: Chest Pain Ondansetron HCl (Ondansetron 4 Mg/2 Ml Inj) 4 mg IV Q8HR PRN PRN Reason: Nausea And Vomiting Oxycodone HCl (Oxycodone Ir 5 Mg Tablet) 5 mg PO Q3HR PRN PRN Reason: Pain, Moderate (4-6) Pantoprazole Sodium (Pantoprazole 40 Mg Vial) 40 mg IV DAILY [facility] Last Admin: 10/28/20 14:54 Dose: 40 mg Documented by: SHAVON Tamsulosin HCl (Tamsulosin 0.4 Mg Capsule) 0.4 mg PO DAILY [facility] Discontinued Medications Pantoprazole Sodium (Pantoprazole 40 Mg Vial) 40 mg IV NOW ONE Stop: 10/28/20 11:20 Last Admin: 10/28/20 11:26 Dose: 40 mg Documented by: JUSTINE Consultations Consultation #1: call to Dr. Rincon given likely need for endoscopy, she is happy to be involved, requests official consult from hospitalist service Consultation #2: hospitalist happy to accept Vital Signs Vital signs: Vital Signs - 8 hr 10/28/20 11:15 10/28/20 11:16 10/28/20 11:30 Temperature 97.7 F Pulse Rate 71 79 61 Respiratory Rate 18 24 Blood Pressure 154/74 H 133/74 Pulse Oximetry 95 96 96 10/28/20 12:00 Temperature Pulse Rate 63 Respiratory Rate 17 Blood Pressure 130/64 Pulse Oximetry 95 MDM - GI Bleed Lab Data Result diagrams: 10/28/20 11:17 10/28/20 11:17 Labs: Lab Results 10/28/20 10/28/20 10/28/20 Range/Units 11:17 11:17 11:17 WBC 5.4 (4.5-11.0) X10^3/uL RBC 3.58 L (4.5-5.9) X10^6/uL Hgb 11.6 L (13.5-17.5) g/dL Hct 34.5 L (41-53) % MCV 96.4 (80-100) fL MCH 32.4 (26-34) PG MCHC 33.7 (30-36) % RDW 14.4 (11.6-14.8) % Plt Count 228 (150-400) X10^3/uL Neut % (Auto) 69.6 (50-75) % Lymph % (Auto) 12.4 L (25-40) % [place] % (Auto) 10.4 (3-14) % Eos % (Auto) 6.5 H (2-4) % Baso % (Auto) 1.1 (0-2) % Neut # (Auto) 3800 (9928-4858) /uL Lymph # (Auto) 700 L (5409-7997) /uL [place] # (Auto) 600 (0-900) /uL Eos # (Auto) 400 (0-450) /uL Baso # (Auto) 100 (0-100) /uL PT 12.7 (10.1-12.7) SECONDS INR 1.1 (0.9-1.3) Sodium 137 (137-145) mmol/L Potassium 3.8 (3.4-5.1) mmol/L Chloride 102 (98-107) mmol/L Carbon Dioxide 28 (22-32) mmol/L BUN 33 H (9-20) mg/dL Creatinine 1.29 H (0.66-1.25) mg/dL Estimated GFR 53.1 L (>60) mL/min BUN/Creatinine Ratio 25.6 H (6-22) Glucose 140 H (80-110) mg/dL Calcium 9.4 (8.4-10.2) mg/dL Total Bilirubin 1.2 (0.2-1.3) mg/dL AST 76 H (17-59) IU/L ALT 50 H (<50) IU/L Alkaline Phosphatase 92 (38-126) U/L Total Protein 7.5 (6.3-8.2) g/dL Albumin 4.1 (3.5-5.0) g/dL Globulin 3.4 (1.7-4.1) g/dL Albumin/Globulin Ratio 1.2 (1.0-2.8) SARS-CoV-2 (PCR) (Negative) 10/28/20 Range/Units 11:27 WBC (4.5-11.0) X10^3/uL RBC (4.5-5.9) X10^6/uL Hgb (13.5-17.5) g/dL Hct (41-53) % MCV (80-100) fL MCH (26-34) PG MCHC (30-36) % RDW (11.6-14.8) % Plt Count (150-400) X10^3/uL Neut % (Auto) (50-75) % Lymph % (Auto) (25-40) % [place] % (Auto) (3-14) % Eos % (Auto) (2-4) % Baso % (Auto) (0-2) % Neut # (Auto) (4179-9422) /uL Lymph # (Auto) (8489-7672) /uL [place] # (Auto) (0-900) /uL Eos # (Auto) (0-450) /uL Baso # (Auto) (0-100) /uL PT (10.1-12.7) SECONDS INR (0.9-1.3) Sodium (137-145) mmol/L Potassium (3.4-5.1) mmol/L Chloride (98-107) mmol/L Carbon Dioxide (22-32) mmol/L BUN (9-20) mg/dL Creatinine (0.66-1.25) mg/dL Estimated GFR (>60) mL/min BUN/Creatinine Ratio (6-22) Glucose (80-110) mg/dL Calcium (8.4-10.2) mg/dL Total Bilirubin (0.2-1.3) mg/dL AST (17-59) IU/L ALT (<50) IU/L Alkaline Phosphatase (38-126) U/L Total Protein (6.3-8.2) g/dL Albumin (3.5-5.0) g/dL Globulin (1.7-4.1) g/dL Albumin/Globulin Ratio (1.0-2.8) SARS-CoV-2 (PCR) Negative (Negative) Discharge Plan Departure Patient Disposition: Admitted as Observation Clinical Impression: Acute GI bleeding Admit Date/Time: 10/28/20 12:29 Admit Provider: Idania Nolan
[2020-10-28] MEDS: PANTOPRAZOLE 40 MG VIAL IV ×2 (11:26→14:54)
[2020-10-28 11:35] LABS: Add Manual Diff / Slide Review NO; Basophils Absolute Auto 100 /uL (0-100); Basophils Percent Auto 1.1 % (0-2); Eosinophils Absolute Auto 400 /uL (0-450); Eosinophils Percent Auto 6.5 % (2-4); Hematocrit 34.5 % (41-53); Hemoglobin 11.6 g/dL (13.5-17.5); Lymphocytes Absolute Auto 700 /uL (1100-4500); Lymphocytes Percent Auto 12.4 % (25-40); Mean Corpuscular HGB Conc 33.7 % (30-36); Mean Corpuscular Hemoglobin 32.4 PG (26-34); Mean Corpuscular Volume 96.4 fL (80-100); Monocytes Absolute Auto 600 /uL (0-900); Monocytes Percent Auto 10.4 % (3-14); Neutrophils Absolute Auto 3800 /uL (1500-7000); Neutrophils Percent Auto 69.6 % (50-75); Platelet Count 228 X10^3/uL (150-400); Red Blood Cell Count 3.58 X10^6/uL (4.5-5.9); Red Cell Distribution Width 14.4 % (11.6-14.8); White Blood Cell Count 5.4 X10^3/uL (4.5-11.0)
[2020-10-28 11:48] LABS: Alanine Aminotransferase 50 IU/L (<50); Albumin 4.1 g/dL (3.5-5.0); Albumin Globulin Ratio 1.2 (1.0-2.8); Alkaline Phosphatase 92 U/L (38-126); Aspartate Aminotransferase 76 IU/L (17-59); BUN Creatinine Ratio 25.6 (6-22); Bilirubin Total 1.2 mg/dL (0.2-1.3); Blood Urea Nitrogen 33 mg/dL (9-20); Calcium 9.4 mg/dL (8.4-10.2); Carbon Dioxide 28 mmol/L (22-32); Chloride 102 mmol/L (98-107); Estimated Glomerular Filt Rate 53.1 mL/min (>60); Globulin 3.4 g/dL (1.7-4.1); Glucose 140 mg/dL (80-110); HEMOLYSIS < 15 (0-50); Potassium 3.8 mmol/L (3.4-5.1); Sodium 137 mmol/L (137-145); Total Protein 7.5 g/dL (6.3-8.2)
[2020-10-28 11:58] LABS: INR 1.1 (0.9-1.3); Prothrombin Time 12.7 SECONDS (10.1-12.7)
[2020-10-28 12:30] LABS: COVID19 - ADMIT (NP swab/PCR) Negative (Negative)
--- NOTE | 2020-10-28 14:26 | CM.MNRNOTE ---
Patient admitted with dx of gi bleed. He is alert and oriented x3, icu just called and his pulse was in the 40s. Will check on him to make sure that he is ok. He had a small amount of dark blood in his roselyn pad, voiding per urinal. Patient denies pain and is SB.
[2020-10-28] MEDS: DEXTROSE 5%-0.9% NS 1,000 ML 100 ML IV (14:54)
--- NOTE | 2020-10-28 15:52 | DI.CT.S_ITS ---
PROCEDURE: CT ABDOMEN PELVIS WO CON INDICATIONS: GI Bleed TECHNIQUE: After the administration of oral contrast, 5 mm thick sections acquired from the diaphragms to the symphysis. 5 mm coronal and sagittal reformats were performed. For radiation dose reduction, the following was used: automated exposure control, adjustment of mA and/or kV according to patient size. COMPARISON: [facility], , CT THORAX WITH CONTRAST, 09/22/2005, 10:09. FINDINGS: Image quality: Excellent. ABDOMEN: Lung bases: There is dependent atelectasis. Stable 5 millimeter lung base nodule and assessed as benign given stability. Heart size is within normal limits. There marked coronary vascular calcifications. Aortic valvular calcifications. Solid organs: Liver is normal in size. Gallbladder is unremarkable. Likely within the head of the pancreas is a fluid density lesion measuring 2.9 x 1.5 centimeters on axial imaging. Spleen is normal in size. No adrenal nodules. Both kidneys are normal in size, without hydronephrosis or nephrolithiasis. Peritoneum and bowel: The stomach and proximal small bowel are unremarkable. There is stool noted within the distal small bowel as well as diffusely throughout the colon. There is diffuse diverticulosis throughout the colon. No wall thickening or surrounding inflammation to suggest diverticulitis. Nodes and vessels: No retroperitoneal or mesenteric adenopathy by size criteria. Aorta and inferior vena cava are normal in size. There is mild prominence of the common iliac arteries with the right measuring up to 1.6 centimeters in the left mid measuring up to 1.7 centimeters. Miscellaneous: No ventral hernias. PELVIS: Genitourinary: Limited evaluation given diffuse artifact from bilateral hip hardware. Miscellaneous: No inguinal hernias or adenopathy. Bones: No suspicious bony lesions. Status post bilateral total hip arthroplasties. Patient is status post posterior fusion of L3 through L5. No evidence of hardware complication. Diffuse degenerative changes throughout the spine. There is likely 25 percent compression deformity of the L4 vertebral body. There is likely a chronic compression deformity of T11 encompassing approximately 50 percent of the vertebral body height. There is adjacent endplate degenerative changes and vacuum disc phenomenon. Subtle endplate depression of the superior endplate of T12 as well as the inferior endplate of L1. IMPRESSION: No acute abnormality within limits of this examination. Diverticulosis. Diffuse stool burden including cyst fecalization of the distal small bowel. Recommend correlation for functional obstruction. Marked coronary vascular calcifications. Compression deformity of T11 encompassing approximately 50 percent of the vertebral body height favored to be chronic. In addition there is shallow compression deformity of the superior endplate of T12 and the inferior endplate of L1. There is likely chronic compression of the L4 vertebral body status post posterior fusion. Dictated by: Johnny Bertrand D.O. on 10/28/2020 at 15:21 Approved by: Johnny Bertrand D.O. on 10/28/2020 at 15:37
--- NOTE | 2020-10-28 16:22 | P.HP_ITS ---
History of Present Illness History of Present Illness Date Patient Seen: 10/28/20 Time Patient Seen: 16:22 Chief complaint: rectal bleeding/bowel problems Narrative: Patient is a 85-year-old male who presented to the ED today with a chief complaint of a large dark bloody bowel movement last night and another this morning. He denies any chest pain but feels a bit short of breath, fatigued and lightheaded. He denies any abdominal pain or history of GI bleed. He does not have an extensive alcohol history and denies any bloody emesis. He is otherwise well and free of complaint, patient is a nonsmoker with history of asthma, history of MO, GERD, coronary artery disease, hyperlipidemia, hypertension on Plavix. Patient's vitals upon admit temp 97.7?, BP 155/83, HR 50, RR 18, O2 saturation on room air 96%. Labs: HGB 11.6, HCT 34.5, RBC 3.58, BUN 33, creatinine 1.29, glucose 140, EGFR 53.1, BUN creatinine ratio 25.6, AST 76, ALT 50. Patient History Medical History Asthma GERD (gastroesophageal reflux disease) Hx of fracture of femur Hyperlipidemia Melanoma Myocardial infarction Myocardial infarction with complication Surgical History History of arthroplasty of left knee History of arthroplasty of right shoulder History of knee replacement History of lumbar surgery History of total left hip arthroplasty Hx of appendectomy Hx of heart artery stent Hx of tonsillectomy Status post hernia repair Family & Social History Social History: household members spouse Safety & Behavioral: Feels Safe in Current Yes Environment Been Physically Hurt or No Threatened By a Person Suicidal Ideation Description None Suicide Plan Description No Plan Tobacco & Substance use: Smoking Status Never smoker alcohol intake current alcohol intake frequency holiday/special occasion Substance Use Type does not use Meds Home Medications and Allergies Home Medications Medication Instructions Recorded Confirmed Type atorvastatin [Lipitor] 80 mg PO HS #0 08/20/07 02/12/18 History omeprazole 20 mg PO DAILY #0 06/18/17 02/12/18 History aspirin [Aspir-81] 81 mg PO DAILY 01/28/18 02/12/18 History ranitidine HCl 150 mg PO DAILY 01/28/18 02/12/18 History gabapentin 300 mg PO DAILY 02/08/18 02/12/18 History oxycodone 5 mg PO Q3HR PRN #40 tab 02/09/18 02/12/18 Rx albuterol sulfate [Ventolin HFA] 2 puff INHALATION Q4HR PRN 02/12/18 02/12/18 History betamethasone dipropionate 1 applic TOPICAL DAILY PRN 02/12/18 02/12/18 History carvedilol 3.125 mg PO BID 02/12/18 02/12/18 History levothyroxine 150 mcg PO DAILY 02/12/18 02/12/18 History nitroglycerin [Nitrostat] 0.3 mg SUBLINGUAL Q5-15M PRN 02/12/18 02/12/18 History tamsulosin 0.4 mg PO DAILY 02/12/18 02/12/18 History oxycodone 5 mg PO Q6HR PRN #40 tab 02/15/18 Rx Allergies Allergy/AdvReac Type Severity Reaction Status Date / Time morphine [MORPHINE] AdvReac Mild LOOPY Verified 02/08/18 11:08 BODY FEELS COLD, SHAKING Exam Vital Signs (past 8 hours): - 10/28/20 11:15 10/28/20 11:16 10/28/20 11:30 Temperature 97.7 F Pulse Rate 71 79 61 Respiratory Rate 18 24 Blood Pressure 154/74 H 133/74 Pulse Oximetry 95 96 96 10/28/20 12:00 10/28/20 12:30 10/28/20 13:27 Temperature 96.9 F L Pulse Rate 63 60 63 Respiratory Rate 17 18 18 Blood Pressure 130/64 126/75 137/79 Pulse Oximetry 95 94 96 10/28/20 15:56 Temperature 97.7 F Pulse Rate 50 L Respiratory Rate 18 Blood Pressure 155/83 H Pulse Oximetry 96 Oxygen Delivery Method Room Air Objective Labs Result Diagrams: 10/28/20 11:17 10/28/20 11:17 Labs: Laboratory Results - last 24 hr 10/28/20 10/28/20 10/28/20 11:17 11:17 11:17 WBC 5.4 RBC 3.58 L Hgb 11.6 L Hct 34.5 L MCV 96.4 MCH 32.4 MCHC 33.7 RDW 14.4 Plt Count 228 Neut % (Auto) 69.6 Lymph % (Auto) 12.4 L [place] % (Auto) 10.4 Eos % (Auto) 6.5 H Baso % (Auto) 1.1 Neut # (Auto) 3800 Lymph # (Auto) 700 L [place] # (Auto) 600 Eos # (Auto) 400 Baso # (Auto) 100 PT 12.7 INR 1.1 Sodium 137 Potassium 3.8 Chloride 102 Carbon Dioxide 28 BUN 33 H Creatinine 1.29 H Estimated GFR 53.1 L BUN/Creatinine Ratio 25.6 H Glucose 140 H Calcium 9.4 Total Bilirubin 1.2 AST 76 H ALT 50 H Alkaline Phosphatase 92 Total Protein 7.5 Albumin 4.1 Globulin 3.4 Albumin/Globulin Ratio 1.2 SARS-CoV-2 (PCR) 10/28/20 11:27 WBC RBC Hgb Hct MCV MCH MCHC RDW Plt Count Neut % (Auto) Lymph % (Auto) [place] % (Auto) Eos % (Auto) Baso % (Auto) Neut # (Auto) Lymph # (Auto) [place] # (Auto) Eos # (Auto) Baso # (Auto) PT INR Sodium Potassium Chloride Carbon Dioxide BUN Creatinine Estimated GFR BUN/Creatinine Ratio Glucose Calcium Total Bilirubin AST ALT Alkaline Phosphatase Total Protein Albumin Globulin Albumin/Globulin Ratio SARS-CoV-2 (PCR) Negative Quality VTE Deep Vein Thrombosis/Pulmonary Embolism Present on Admission: No
--- NOTE | 2020-10-28 17:06 | P.HP_ITS ---
History of Present Illness History of Present Illness Date Patient Seen: 10/28/20 Time Patient Seen: 17:07 Chief complaint: rectal bleeding/bowel problems Narrative: Patient is a 85-year-old male Antoine Dillon who presented to the ED with a large heavy coffee ground bowel movement last night followed by finding a small amount of blood on a disposable pad on his bed this morning. At the time or since patient denies chest pain, abdominal pain, nausea, vomiting, chills, body aches, fever, diaphoresis. He does report that prior to the bowel movement he felt only a slight shortness of breath but has not reoccurred. He states over the last few months he has had increasing fatigue, lightheadedness, mild chills and increased difficulty with ambulation and falls his last fall was approximately 2 weeks ago though he denies hitting his head any time or loss of consciousness. Patient denies any history of a GI bleed, hemorrhoids and he thinks he may have had a colonoscopy a very long time ago and never had an EGD. He denies any hematemesis, abnormal bruising or bleeding of the skin, no recent infection, illness, injury, or trauma. He does not have an extensive alcohol history. Upon admit to the floor patient is resting in bed in no discomfort or distress at this time no further bleeding has occurred, and patient denies shortness of breath. Patient is a nonsmoker with history of coronary artery disease, asthma, GERD, hyperlipidemia, hypertension, history of NM (2013) with RT CA stent on Plavix. Patient's vitals upon admit temp 97.7?, BP 155/83, HR 50, RR 18, 96% O2 saturation on room air. Labs: Hemoglobin 11.6, hematocrit 34.5, RBC 3.58, BUN 33, creatinine 1.29, EGFR 53.1, BUN creatinine ratio 25.6, glucose 140, AST 70, ALT 50. CTabd/Pelvis:No acute abnormality within limits of this examination.Diverticulosis. Diffuse stool burden including cyst fecalization of the distal small bowel. Recommend correlation with MRCP. Marked coronary vascular calcifications. Compression deformity of T11 encompassing approximately 50 percent of the vertebral body height favored to be chronic. In addition there is shallow compression deformity of the superior endplate of T12 and the inferior endplate of L1. There is likely chronic compression of the L4 vertebral body status post posterior fusion. Patient was initially admitted to the hospitalist service, after speaking with Dr. Win agreed to complete admission process and she will resume care tomorrow. Patient History Medical History Asthma GERD (gastroesophageal reflux disease) Hx of fracture of femur Hyperlipidemia Melanoma Myocardial infarction Myocardial infarction with complication Surgical History History of arthroplasty of left knee History of arthroplasty of right shoulder History of knee replacement History of lumbar surgery History of total left hip arthroplasty Hx of appendectomy Hx of heart artery stent Hx of tonsillectomy Status post hernia repair Family & Social History Family History Brother Hemorrhoids Daughter Developmental delay Diabetes mellitus Social History: household members patient lives with his and is retired, and states that he is fairly physically active and in good health. Safety & Behavioral: Feels Safe in Current Yes Environment Been Physically Hurt or No Threatened By a Person Suicidal Ideation Description None Suicide Plan Description No Plan Tobacco & Substance use: Smoking Status Never smoker alcohol intake current alcohol intake frequency holiday/special occasion Substance Use Type does not use Meds Home Medications and Allergies Home Medications Medication Instructions Recorded Confirmed Type atorvastatin [Lipitor] 80 mg PO HS #0 08/20/07 10/28/20 History omeprazole 20 mg PO DAILY #0 06/18/17 10/28/20 History aspirin [Aspir-81] 81 mg PO DAILY 01/28/18 10/28/20 History ranitidine HCl 150 mg PO DAILY 01/28/18 02/12/18 History gabapentin 300 mg PO DAILY 02/08/18 02/12/18 History oxycodone 5 mg PO Q3HR PRN #40 tab 02/09/18 02/12/18 Rx albuterol sulfate [Ventolin HFA] 2 puff INHALATION Q4HR PRN 02/12/18 02/12/18 History betamethasone dipropionate 1 applic TOPICAL DAILY PRN 02/12/18 10/28/20 History carvedilol 3.125 mg PO BID 02/12/18 02/12/18 History levothyroxine 100 mcg PO DAILY 02/12/18 10/28/20 History nitroglycerin [Nitrostat] 0.3 mg SUBLINGUAL Q5-15M PRN 02/12/18 10/28/20 History tamsulosin 0.4 mg PO DAILY 02/12/18 10/28/20 History oxycodone 5 mg PO Q6HR PRN #40 tab 02/15/18 Rx clopidogrel 75 mg PO DAILY 10/28/20 10/28/20 History donepezil 10 mg PO BEDTIME 10/28/20 10/28/20 History erythromycin 1 applic EYE-BOTH TID 10/28/20 10/28/20 History nystatin 1 applic TOPICAL BID 10/28/20 10/28/20 History Allergies Allergy/AdvReac Type Severity Reaction Status Date / Time morphine [MORPHINE] AdvReac Mild LOOPY Verified 02/08/18 11:08 BODY FEELS COLD, SHAKING Review of Systems Review of Systems ROS: Yes All systems reviewed with the patient and are negative except as otherwise documented Exam Vital Signs (past 8 hours): - 10/28/20 11:15 10/28/20 11:16 10/28/20 11:30 Temperature 97.7 F Pulse Rate 71 79 61 Respiratory Rate 18 24 Blood Pressure 154/74 H 133/74 Pulse Oximetry 95 96 96 10/28/20 12:00 10/28/20 12:30 10/28/20 13:27 Temperature 96.9 F L Pulse Rate 63 60 63 Respiratory Rate 17 18 18 Blood Pressure 130/64 126/75 137/79 Pulse Oximetry 95 94 96 10/28/20 15:56 Temperature 97.7 F Pulse Rate 50 L Respiratory Rate 18 Blood Pressure 155/83 H Pulse Oximetry 96 Oxygen Delivery Method Room Air Narrative Exam Narrative: General: Patient is a well-developed, well-nourished delightful male who appears younger than stated age, in no distress at this time. HEENT: Normocephalic, atraumatic, extraocular muscles intact, oral pharynx is clear and mucous membranes are moist. Neck is supple and symmetric, trachea is midline, no adenopathy, no thyroid enlargement, nontender, no masses palpated. Negative for JVD Chest: Normal AP diameter and contour without kyphoscoliosis, no nasal flaring, retractions, or tachypneic labored Lungs: Auscultation of all lung dixon are clear with the exception of occansional exp wheezing in the lower right lobe, all other dixon are without adventitious sounds, wheezes, rhonchi, or rales. Cardio: regular rate and rhythm no carotid bruit, no cardiac pulsations present. Abdomen: Soft nontender, negative for organomegaly, or masses. Bowel sounds are present in all 4 quadrants without guarding or rebound, no CVA tenderness. Musculoskeletal: Muscle strength and tone are equal within normal limits, no deformity, crepitus, effusions, cyanosis, clubbing or edema present. Full range of motion intact radial and pedal pulses are normal. Skin: Warm dry and intact without rashes, ulcerations or petechiae. Patient has a lipoma to the left anterior lower leg and 2 smaller lipomas noted on the right anterior leg, both present without any signs of infection or injury. Neuro: Alert and orientated x3, strength is +5/5 in all extremities, sensation to touch intact, no gross deficits noted of cranial nerves. Psych: Patient has a well-kept appearance, appropriate affect, mental status attitude thought context and judgment are appropriate for age. Objective Labs Result Diagrams: 10/28/20 11:17 10/28/20 11:17 Labs: Laboratory Results - last 24 hr 10/28/20 10/28/20 10/28/20 11:17 11:17 11:17 WBC 5.4 RBC 3.58 L Hgb 11.6 L Hct 34.5 L MCV 96.4 MCH 32.4 MCHC 33.7 RDW 14.4 Plt Count 228 Neut % (Auto) 69.6 Lymph % (Auto) 12.4 L [place] % (Auto) 10.4 Eos % (Auto) 6.5 H Baso % (Auto) 1.1 Neut # (Auto) 3800 Lymph # (Auto) 700 L [place] # (Auto) 600 Eos # (Auto) 400 Baso # (Auto) 100 PT 12.7 INR 1.1 Sodium 137 Potassium 3.8 Chloride 102 Carbon Dioxide 28 BUN 33 H Creatinine 1.29 H Estimated GFR 53.1 L BUN/Creatinine Ratio 25.6 H Glucose 140 H Calcium 9.4 Total Bilirubin 1.2 AST 76 H ALT 50 H Alkaline Phosphatase 92 Total Protein 7.5 Albumin 4.1 Globulin 3.4 Albumin/Globulin Ratio 1.2 SARS-CoV-2 (PCR) 10/28/20 11:27 WBC RBC Hgb Hct MCV MCH MCHC RDW Plt Count Neut % (Auto) Lymph % (Auto) [place] % (Auto) Eos % (Auto) Baso % (Auto) Neut # (Auto) Lymph # (Auto) [place] # (Auto) Eos # (Auto) Baso # (Auto) PT INR Sodium Potassium Chloride Carbon Dioxide BUN Creatinine Estimated GFR BUN/Creatinine Ratio Glucose Calcium Total Bilirubin AST ALT Alkaline Phosphatase Total Protein Albumin Globulin Albumin/Globulin Ratio SARS-CoV-2 (PCR) Negative Assessment & Plan Assessment & Plan narrative: This patient requires acute care inpatient hospital management for acute GI bleed. The patient is at much higher risk for medical and surgical complications because of his history of coronary artery disease, asthma, GERD, hyperlipidemia, hypertension, history of NM (2013) with RT CA stent on Plavix.. These factors increase the difficulty and complexity of medical and surgical interventions and increases the chances of poor outcomes such as morbidity and mortality, as well as complications related to Plavix. The patient's Asthma and CAD will impact his oxygenation, which may exacerbate any respiratory distress resulting from blood loss fromGI bleeding. The patient's expected length of stay is to be less than than 2 midnights 1. Acute GI bleed as evidence by Melena, suspect lower GI, condition guarded, stable, acute, present on admission -diagnostic criteria:-reported history of melena, melenic stool on examination in ED -suspect bleeding to be related to diverticulosis -ratio of blood urea nitrogen to serum creatinine (31.71). -Hematochezia (red or maroon blood in the stool) is usually due to lower GI bleeding. However, it can occur with massive upper GI bleeding, which is typically associated with orthostatic hypotension. Rule out upper GI &/or Lower GI Bleeding, duodenitis, esophageal varices, portal hypertensive gastropathy, angiodysplasia, gastric reflux, gastritis, peptic ulcer disease, aerophagia, Deanna-Jiménez tear, and or gastric cancer. -comorbidities that complicate or exacerbate anemia condition include coronary artery disease, older patient age, and COPD. -will monitor patient overnight for hemodynamic stability and any further bleeding issue.Repeat H/H at 8pm for trending. Dr. Win with [facility] to take over care. If patient remains stable overnight recommend outpatient colonoscopy with GI follow-up. vitals upon admit temp 97.7?, BP 155/83, HR 50, RR 18, 96% O2 saturation on room air. Labs: Hemoglobin 11.6, hematocrit 34.5, RBC 3.58, BUN 33, creatinine 1.29, EGFR 53.1, BUN creatinine ratio 25.6, glucose 140, AST 70, ALT 50. CTabd/Pelvis:No acute abnormality within limits of this examination.Diverticulosis. Diffuse stool burden including cyst fecalization of the distal small bowel. Recommend correlation with MRCP. Marked coronary vascular calcifications. Compression deformity of T11 encompassing approximately 50 percent of the vertebral body height favored to be chronic. In addition there is shallow compression deformity of the superior endplate of T12 and the inferior endplate of L1. There is likely chronic compression of the L4 vertebral body status post posterior fusion. Patient was initially admitted to the hospitalist service, I offered to complete admission for [facility]/Dr. Win. -closely monitor airway, clinical status, vital signs, cardiac rhythm, urinary output. -vital signs if unstable q.1 hours x2, then q.4 hours if stable, call for heart rate> 100, systolic BP< 100, activity-as tolerated with fall precautions, patient on clear liquids-will re-evaluate tomorrow, strict I&O Q shift, No VTE/DVT prophylaxis due to bleeding risk. Will Hold Plavix tomorrow if further bleeding presents/decreasing H/H in am/signs of hypovolemia present. -Ordered typed and cross -for hypertension will initial fluid bolus 1000 cc LR -Surgical consult: Dr. Rincon in ED, Dr. Rincon is aware of the patient and will consult if requested. IV: D5 @100cc/hr -Protonix 40 mg IV- Daily -labs ordered:Repeat H/H at 8pm : in Am CBC, peripheral smear, reticulocyte count, PT, PTT, iron profile, CMP, lactate, B12 & Folate (rule out deficiencies in iron, B12, folate) as related to patient's increasing challenges with valdez nce, ambulation, chills, and fatigue. -prevention vaccines: Recommend COVID,Seasonal flu, shingles, pneumonia. 2. Hypertension essential, acute on chronic, uncontrolled, present on admission as related to coronary artery disease (cabazon) with resulting right coronary artery stent as result of hyperlipidemia, in the setting a of a history of a myocardial infarction 2013, acute on chronic, not present on admission. -patient's blood pressures continue to be high systolics in the 140s to 150s, wi th bradycardia will continue to monitor closely. -Patient placed on Telemed -continue patient's carvedilol, atorvastatin. Hold patient's Plavix and aspirin. 3. Asthma, chronic, not present on admission -continue patient's albuterol as needed, if worsening shortness of breath respiratory consult 4. Hypothyroidism acquired, chronic, not present on admission, control unknown -continue patient's levothyroxine 5. GERD, chronic, not present on admission -will hold patient's omeprazole providing Protonix 40 mg IV daily Six BPH, chronic, not present on admission -Continue patient's Tamsulosin Code status:DNR -per patient Surrogate decision maker: Spouse Sabrina SCHRADER PCR: Negative DVT/VTE prophylaxis: Contraindicated due to GI bleed, SCDs only Scores GCS [place] coma scale eye opening: Spontaneous [place] coma scale verbal response: Orientated [place] coma scale motor response: Obey commands [place] coma scale total score: 15 Wells' Criteria for PE Clinical signs and symptoms of DVT: No PE is #1 Dx or equally likely: No Heart rate > 100: No Immobilization at least 3 days or surg in previous 4 weeks: No History of PE or DVT: No Hemoptysis: No Malignancy w/Treatment within 6 months or palliative: No Wells' PE Score total: 0 Quality VTE Deep Vein Thrombosis/Pulmonary Embolism Present on Admission: No
[2020-10-28 18:39] LABS: Reticulocyte Count, Percent 0.9 % (0.87-2.60)
[2020-10-28 18:44] LABS: Blood Urea Nitrogen 29 mg/dL (9-20); Lactate (Lactic Acid) 0.6 mmol/L (0.7-2.1)
[2020-10-28 19:50] LABS: Folate > 20.0 ng/mL (2.76-20.0); Vitamin B12 755 pg/mL (239-931)
[2020-10-28 20:31] LABS: Hematocrit 32.8 % (41-53); Hemoglobin 10.9 g/dL (13.5-17.5)
[2020-10-28] MEDS: PEG3350/SOD SULF,BICARB,CL/KCL 4,000 ML SOLUTION 4000 ML PO (21:55)
[2020-10-28] MEDS: ATORVASTATIN 20 MG TABLET 80 MG PO (21:57)
[2020-10-28] MEDS: OXYCODONE IR 5 MG TABLET PO (22:00)
[2020-10-29] VITALS (14 sets, daily range): BP systolic 121–154; BP diastolic 61–80; PULSE 53–62; RESP 10–18; TEMP 36.3–36.6; O2SAT 94–97; BMI 23.1
--- NOTE | 2020-10-29 | PATH_ITS ---
[facility] Accession Number: [id number] . 01 Material submitted: . PART A: stomach - STOMACH PART B: esophagus - ESOPHAGUS . 02 Diagnosis: A. Stomach: Portions of gastric antral and body-type mucosa with mild chronic active gastritis. Negative for Helicobacter organisms by immunohistochemistry. Negative for intestinal metaplasia. Negative for dysplasia and malignancy. . B. Esophagus: Inflamed proximal gastric mucosa, negative for intestinal metaplasia, dysplasia, or malignancy. [facility] 11/05/20201927 Local . 02 Electronically signed: . Deonna Callejas MD, Pathologist NPI- [id number] . 01 Gross description: . Part A: STOMACH: Received in formalin are 2 fragment(s) of garcia, soft tissue measuring 0.2 x 0.2 x 0.2 cm to 0.3 x 0.3 x 0.2 cm submitted entirely in 1 cassette(s) Part B: ESOPHAGUS: Received in formalin is 1 fragment(s) of garcia, soft tissue measuring 0.1 x 0.1 x 0.1 cm submitted entirely in 1 cassette(s) /UMBERTO 10/30/20201927 Local . 02 Microscopic: . A. An immunohistochemical stain was performed to evaluate for Helicobacter organisms and is negative. The control stain showed appropriate reactivity. . * This test was developed and its performance characteristics determined by [facility]. It has not been cleared or approved by the U.S. Food and Drug Administration. The FDA has determined that such clearance or approval is not necessary. This test is used for clinical purposes. It should not be regarded as investigational or for research. . 02 Pathologist provided ICD-10: K29.70 . 02 CPT . 631435, 186883, U10617 Performed at: 01 [facility] Cytology [address] [place] [address], [place], [place] [id number] MD Shreyas Parikh MD Phone: [phone] Performed at: 02 [facility] [address] [place] [id number] MD Viry Galvan MD Phone: [phone]
[2020-10-29] MEDS: ENALAPRILAT 2.5 MG/ 2 ML VIAL 1.25 MG IV (00:24)
[2020-10-29] MEDS: DEXTROSE 5%-0.9% NS 1,000 ML 100 ML IV (02:01)
[2020-10-29 05:50] LABS: INR 1.2 (0.9-1.3)
[2020-10-29 05:52] LABS: PTT Partial Thromboplastin Tim 39 SECONDS (26.4-36.2)
[2020-10-29 05:54] LABS: Add Manual Diff / Slide Review NO; Basophils Absolute Auto 100 /uL (0-100); Basophils Percent Auto 0.9 % (0-2); Eosinophils Absolute Auto 500 /uL (0-450); Eosinophils Percent Auto 9.5 % (2-4); Hematocrit 32.4 % (41-53); Hemoglobin 10.9 g/dL (13.5-17.5); Lymphocytes Absolute Auto 800 /uL (1100-4500); Lymphocytes Percent Auto 14.4 % (25-40); Mean Corpuscular HGB Conc 33.8 % (30-36); Mean Corpuscular Hemoglobin 32.3 PG (26-34); Mean Corpuscular Volume 95.6 fL (80-100); Monocytes Absolute Auto 700 /uL (0-900); Monocytes Percent Auto 12.7 % (3-14); Neutrophils Absolute Auto 3500 /uL (1500-7000); Neutrophils Percent Auto 62.5 % (50-75); Platelet Count 203 X10^3/uL (150-400); Red Blood Cell Count 3.39 X10^6/uL (4.5-5.9); Red Cell Distribution Width 14.5 % (11.6-14.8); White Blood Cell Count 5.7 X10^3/uL (4.5-11.0)
[2020-10-29 05:56] LABS: BUN Creatinine Ratio 20.6 (6-22); Blood Urea Nitrogen 20 mg/dL (9-20); Calcium 8.5 mg/dL (8.4-10.2); Carbon Dioxide 28 mmol/L (22-32); Chloride 104 mmol/L (98-107); Estimated Glomerular Filt Rate > 60.0 mL/min (>60); Glucose 116 mg/dL (80-110); HEMOLYSIS < 15 (0-50); Potassium 3.7 mmol/L (3.4-5.1); Sodium 137 mmol/L (137-145)
[2020-10-29 06:06] LABS: HEMOLYSIS < 15 (0-50); Iron 73 ug/dL (49-181)
[2020-10-29 06:17] LABS: Percent Iron Saturation 27 % (20-50); Total Iron Binding Capacity 275 ug/dL (261-462); Transferrin 193 mg/dL (206-381)
--- NOTE | 2020-10-29 06:56 | PM.CN ---
History of Present Illness Consult details Date Patient Seen: 10/29/20 Time Patient Seen: 06:56 Chief complaint: rectal bleeding/bowel problems Reason for consult: GI bleed Requesting provider: Jimbo Gamboa Narrative: Presented to ED after a large bloody stool at home the previous night that was reported dark and blood streaks. Had a small bloody discharge during the night. No previous episodes. Is on Plavix. Last colonoscopy was many years ago. No pain associated with the event. Is almost clean on bowel prep this morning. Has had episodes of light headedness recently. Meds Home Medications and Allergies Home Medications Medication Instructions Recorded Confirmed Type atorvastatin [Lipitor] 80 mg PO HS #0 08/20/07 10/28/20 History omeprazole 20 mg PO DAILY #0 06/18/17 10/28/20 History aspirin [Aspir-81] 81 mg PO DAILY 01/28/18 10/28/20 History ranitidine HCl 150 mg PO DAILY 01/28/18 02/12/18 History gabapentin 300 mg PO DAILY 02/08/18 02/12/18 History oxycodone 5 mg PO Q3HR PRN #40 tab 02/09/18 02/12/18 Rx albuterol sulfate [Ventolin HFA] 2 puff INHALATION Q4HR PRN 02/12/18 02/12/18 History betamethasone dipropionate 1 applic TOPICAL DAILY PRN 02/12/18 10/28/20 History carvedilol 3.125 mg PO BID 02/12/18 02/12/18 History levothyroxine 100 mcg PO DAILY 02/12/18 10/28/20 History nitroglycerin [Nitrostat] 0.3 mg SUBLINGUAL Q5-15M PRN 02/12/18 10/28/20 History tamsulosin 0.4 mg PO DAILY 02/12/18 10/28/20 History oxycodone 5 mg PO Q6HR PRN #40 tab 02/15/18 Rx clopidogrel 75 mg PO DAILY 10/28/20 10/28/20 History donepezil 10 mg PO BEDTIME 10/28/20 10/28/20 History erythromycin 1 applic EYE-BOTH TID 10/28/20 10/28/20 History nystatin 1 applic TOPICAL BID 10/28/20 10/28/20 History Allergies Allergy/AdvReac Type Severity Reaction Status Date / Time morphine [MORPHINE] AdvReac Mild LOOPY Verified 02/08/18 11:08 BODY FEELS COLD, SHAKING Review of Systems Review of Systems ROS: Yes All systems reviewed with the patient and are negative except as otherwise documented Exam Vital Signs (past 8 hours): - 10/28/20 23:00 10/28/20 23:59 10/29/20 00:25 Temperature 97.0 F L Pulse Rate 60 60 60 Respiratory Rate 16 Blood Pressure 169/90 H 169/90 H 154/80 H Pulse Oximetry 96 10/29/20 00:30 10/29/20 00:35 10/29/20 05:42 Temperature 97.6 F Pulse Rate 58 L 60 56 L Respiratory Rate 18 Blood Pressure 151/70 H 146/68 H 132/61 Pulse Oximetry 95 Oxygen Delivery Method Room Air Oxygen Flow Rate 0 Const General: cooperative and healthy appearing HENMT Face and sinus: normal facial exam Mouth: oral mucosae normal Eyes Sclera: sclerae normal Neck Neck: trachea midline Resp Effort & Inspection: normal respiratory effort and able to speak in complete sentences Auscultation: clear to auscultation bilaterally Cardio Rate: regular rate Rhythm: regular rhythm GI Inspection: normal to inspection Palpation: soft Skin General: elasticity normal Trauma: no lacerations or abrasions Neuro General: patient alert and patient oriented x3 Extrem General: full ROM Psych Thought Content: normal Judgment: judgment good Objective Labs Result Diagrams: 10/29/20 05:28 10/29/20 05:28 Labs: Laboratory Results - last 24 hr 10/28/20 10/28/20 10/28/20 11:17 11:17 11:17 WBC 5.4 RBC 3.58 L Hgb 11.6 L Hct 34.5 L MCV 96.4 MCH 32.4 MCHC 33.7 RDW 14.4 Plt Count 228 Neut % (Auto) 69.6 Lymph % (Auto) 12.4 L [place] % (Auto) 10.4 Eos % (Auto) 6.5 H Baso % (Auto) 1.1 Neut # (Auto) 3800 Lymph # (Auto) 700 L [place] # (Auto) 600 Eos # (Auto) 400 Baso # (Auto) 100 Percent Retic PT 12.7 INR 1.1 APTT Sodium 137 Potassium 3.8 Chloride 102 Carbon Dioxide 28 BUN 33 H Creatinine 1.29 H Estimated GFR 53.1 L BUN/Creatinine Ratio 25.6 H Glucose 140 H Lactate Calcium 9.4 Iron TIBC % Saturation Transferrin Total Bilirubin 1.2 AST 76 H ALT 50 H Alkaline Phosphatase 92 Total Protein 7.5 Albumin 4.1 Globulin 3.4 Albumin/Globulin Ratio 1.2 Vitamin B12 Folate TSH SARS-CoV-2 (PCR) Blood Type Antibody Screen 10/28/20 10/28/20 10/28/20 11:17 11:27 18:10 WBC RBC Hgb Hct MCV MCH MCHC RDW Plt Count Neut % (Auto) Lymph % (Auto) [place] % (Auto) Eos % (Auto) Baso % (Auto) Neut # (Auto) Lymph # (Auto) [place] # (Auto) Eos # (Auto) Baso # (Auto) Percent Retic PT INR APTT Sodium Potassium Chloride Carbon Dioxide BUN 29 H Creatinine Estimated GFR BUN/Creatinine Ratio Glucose Lactate Calcium Iron TIBC % Saturation Transferrin Total Bilirubin AST ALT Alkaline Phosphatase Total Protein Albumin Globulin Albumin/Globulin Ratio Vitamin B12 Folate TSH SARS-CoV-2 (PCR) Negative Blood Type O Positive Antibody Screen Negative 10/28/20 10/28/20 10/28/20 18:10 18:10 18:10 WBC RBC Hgb Hct MCV MCH MCHC RDW Plt Count Neut % (Auto) Lymph % (Auto) [place] % (Auto) Eos % (Auto) Baso % (Auto) Neut # (Auto) Lymph # (Auto) [place] # (Auto) Eos # (Auto) Baso # (Auto) Percent Retic 0.9 PT INR APTT Sodium Potassium Chloride Carbon Dioxide BUN Creatinine Estimated GFR BUN/Creatinine Ratio Glucose Lactate 0.6 L Calcium Iron TIBC % Saturation Transferrin Total Bilirubin AST ALT Alkaline Phosphatase Total Protein Albumin Globulin Albumin/Globulin Ratio Vitamin B12 755 Folate > 20.0 H TSH SARS-CoV-2 (PCR) Blood Type Antibody Screen 10/28/20 10/29/20 10/29/20 20:22 05:28 05:28 WBC 5.7 RBC 3.39 L Hgb 10.9 L 10.9 L Hct 32.8 L 32.4 L MCV 95.6 MCH 32.3 MCHC 33.8 RDW 14.5 Plt Count 203 Neut % (Auto) 62.5 Lymph % (Auto) 14.4 L [place] % (Auto) 12.7 Eos % (Auto) 9.5 H Baso % (Auto) 0.9 Neut # (Auto) 3500 Lymph # (Auto) 800 L [place] # (Auto) 700 Eos # (Auto) 500 H Baso # (Auto) 100 Percent Retic PT INR APTT Sodium Potassium Chloride Carbon Dioxide BUN Creatinine Estimated GFR BUN/Creatinine Ratio Glucose Lactate Calcium Iron TIBC % Saturation Transferrin Total Bilirubin AST ALT Alkaline Phosphatase Total Protein Albumin Globulin Albumin/Globulin Ratio Vitamin B12 Folate TSH 20.30 H SARS-CoV-2 (PCR) Blood Type Antibody Screen 10/29/20 10/29/20 10/29/20 05:28 05:28 05:28 WBC RBC Hgb Hct MCV MCH MCHC RDW Plt Count Neut % (Auto) Lymph % (Auto) [place] % (Auto) Eos % (Auto) Baso % (Auto) Neut # (Auto) Lymph # (Auto) [place] # (Auto) Eos # (Auto) Baso # (Auto) Percent Retic PT 13.0 H INR 1.2 APTT 39 H Sodium 137 Potassium 3.7 Chloride 104 Carbon Dioxide 28 BUN 20 Creatinine 0.97 Estimated GFR > 60.0 BUN/Creatinine Ratio 20.6 Glucose 116 H Lactate Calcium 8.5 Iron 73 TIBC 275 % Saturation 27 Transferrin 193 L Total Bilirubin AST ALT Alkaline Phosphatase Total Protein Albumin Globulin Albumin/Globulin Ratio Vitamin B12 Folate TSH SARS-CoV-2 (PCR) Blood Type Antibody Screen Assessment & Plan Assessment & Plan narrative: GI bleed with Hgb 10. Acute and possible upper GI. Plan: EGD and Colonoscopy with moderate sedation COVID-19 COVID-19 status: Negative Time Spent With Patient Time with patient: 15-24 minutes
[2020-10-29 07:05] LABS: Free T4, Direct Thyroxine 0.99 ng/dL (0.78-2.19)
[2020-10-29] MEDS: GABAPENTIN 300 MG CAPSULE PO (08:52)
[2020-10-29] MEDS: TAMSULOSIN 0.4 MG CAPSULE PO (08:52)
[2020-10-29] MEDS: LEVOTHYROXINE 150 MCG TABLET PO (08:52)
[2020-10-29] MEDS: OXYCODONE IR 5 MG TABLET PO (08:53)
--- NOTE | 2020-10-29 08:58 | PM.PN.1 ---
Subjective Subjective Date Patient Seen: 10/29/20 Time Patient Seen: 08:58 Interval history: chief complaint: blood in stool. Pt reports he is feeling well this morning. He is completing bowel prep and otherwise NPO. Reports no further blood in stools. Recognizes me and is working on his gait training at home. Exam Vital Signs (past 8 hours): - 10/29/20 05:42 10/29/20 08:00 10/29/20 08:49 Temperature 97.6 F 98 F Pulse Rate 56 L 58 L 58 L Respiratory Rate 18 17 Blood Pressure 132/61 130/65 Pulse Oximetry 95 95 Oxygen Delivery Method Room Air Oxygen Flow Rate 0 Narrative Exam Narrative: pleasant elder alert in bed completing bowel prep Const General: cooperative, healthy appearing, comfortable and well developed [facility] Head: normocephalic and atraumatic Eyes General: appearance normal, both eyes and all related structures Resp Effort & Inspection: normal respiratory effort and able to speak in complete sentences Auscultation: clear to auscultation bilaterally Cardio Rate: regular rate Rhythm: regular rhythm Heart Sounds: S1 normal and S2 normal GI Palpation: soft Percussion: normal to percussion Auscultation: normal bowel sounds Extrem General: normal to inspection Psych Appearance: grossly normal Speech and Movement: speech and movement normal Mood: congruent mood Affect: normal affect Objective Labs Result Diagrams: 10/29/20 05:28 10/29/20 05:28 Labs: Laboratory Results - last 24 hr 10/28/20 10/28/20 10/28/20 11:17 11:17 11:17 WBC 5.4 RBC 3.58 L Hgb 11.6 L Hct 34.5 L MCV 96.4 MCH 32.4 MCHC 33.7 RDW 14.4 Plt Count 228 Neut % (Auto) 69.6 Lymph % (Auto) 12.4 L [place] % (Auto) 10.4 Eos % (Auto) 6.5 H Baso % (Auto) 1.1 Neut # (Auto) 3800 Lymph # (Auto) 700 L [place] # (Auto) 600 Eos # (Auto) 400 Baso # (Auto) 100 Percent Retic PT 12.7 INR 1.1 APTT Sodium 137 Potassium 3.8 Chloride 102 Carbon Dioxide 28 BUN 33 H Creatinine 1.29 H Estimated GFR 53.1 L BUN/Creatinine Ratio 25.6 H Glucose 140 H Lactate Calcium 9.4 Iron TIBC % Saturation Transferrin Total Bilirubin 1.2 AST 76 H ALT 50 H Alkaline Phosphatase 92 Total Protein 7.5 Albumin 4.1 Globulin 3.4 Albumin/Globulin Ratio 1.2 Vitamin B12 Folate TSH Free T4 SARS-CoV-2 (PCR) Blood Type Antibody Screen 10/28/20 10/28/20 10/28/20 11:17 11:27 18:10 WBC RBC Hgb Hct MCV MCH MCHC RDW Plt Count Neut % (Auto) Lymph % (Auto) [place] % (Auto) Eos % (Auto) Baso % (Auto) Neut # (Auto) Lymph # (Auto) [place] # (Auto) Eos # (Auto) Baso # (Auto) Percent Retic PT INR APTT Sodium Potassium Chloride Carbon Dioxide BUN 29 H Creatinine Estimated GFR BUN/Creatinine Ratio Glucose Lactate Calcium Iron TIBC % Saturation Transferrin Total Bilirubin AST ALT Alkaline Phosphatase Total Protein Albumin Globulin Albumin/Globulin Ratio Vitamin B12 Folate TSH Free T4 SARS-CoV-2 (PCR) Negative Blood Type O Positive Antibody Screen Negative 10/28/20 10/28/20 10/28/20 18:10 18:10 18:10 WBC RBC Hgb Hct MCV MCH MCHC RDW Plt Count Neut % (Auto) Lymph % (Auto) [place] % (Auto) Eos % (Auto) Baso % (Auto) Neut # (Auto) Lymph # (Auto) [place] # (Auto) Eos # (Auto) Baso # (Auto) Percent Retic 0.9 PT INR APTT Sodium Potassium Chloride Carbon Dioxide BUN Creatinine Estimated GFR BUN/Creatinine Ratio Glucose Lactate 0.6 L Calcium Iron TIBC % Saturation Transferrin Total Bilirubin AST ALT Alkaline Phosphatase Total Protein Albumin Globulin Albumin/Globulin Ratio Vitamin B12 755 Folate > 20.0 H TSH Free T4 SARS-CoV-2 (PCR) Blood Type Antibody Screen 10/28/20 10/29/20 10/29/20 20:22 05:28 05:28 WBC 5.7 RBC 3.39 L Hgb 10.9 L 10.9 L Hct 32.8 L 32.4 L MCV 95.6 MCH 32.3 MCHC 33.8 RDW 14.5 Plt Count 203 Neut % (Auto) 62.5 Lymph % (Auto) 14.4 L [place] % (Auto) 12.7 Eos % (Auto) 9.5 H Baso % (Auto) 0.9 Neut # (Auto) 3500 Lymph # (Auto) 800 L [place] # (Auto) 700 Eos # (Auto) 500 H Baso # (Auto) 100 Percent Retic PT INR APTT Sodium Potassium Chloride Carbon Dioxide BUN Creatinine Estimated GFR BUN/Creatinine Ratio Glucose Lactate Calcium Iron TIBC % Saturation Transferrin Total Bilirubin AST ALT Alkaline Phosphatase Total Protein Albumin Globulin Albumin/Globulin Ratio Vitamin B12 Folate TSH 20.30 H Free T4 0.99 SARS-CoV-2 (PCR) Blood Type Antibody Screen 10/29/20 10/29/20 10/29/20 05:28 05:28 05:28 WBC RBC Hgb Hct MCV MCH MCHC RDW Plt Count Neut % (Auto) Lymph % (Auto) [place] % (Auto) Eos % (Auto) Baso % (Auto) Neut # (Auto) Lymph # (Auto) [place] # (Auto) Eos # (Auto) Baso # (Auto) Percent Retic PT 13.0 H INR 1.2 APTT 39 H Sodium 137 Potassium 3.7 Chloride 104 Carbon Dioxide 28 BUN 20 Creatinine 0.97 Estimated GFR > 60.0 BUN/Creatinine Ratio 20.6 Glucose 116 H Lactate Calcium 8.5 Iron 73 TIBC 275 % Saturation 27 Transferrin 193 L Total Bilirubin AST ALT Alkaline Phosphatase Total Protein Albumin Globulin Albumin/Globulin Ratio Vitamin B12 Folate TSH Free T4 SARS-CoV-2 (PCR) Blood Type Antibody Screen PFSH Medical History Asthma GERD (gastroesophageal reflux disease) Hx of fracture of femur Hyperlipidemia Melanoma Myocardial infarction Myocardial infarction with complication Surgical History History of arthroplasty of left knee History of arthroplasty of right shoulder History of knee replacement History of lumbar surgery History of total left hip arthroplasty Hx of appendectomy Hx of heart artery stent Hx of tonsillectomy Status post hernia repair Family History Brother Hemorrhoids Daughter Developmental delay Diabetes mellitus Social History household members: spouse Smoking Status: Never smoker alcohol intake: current Assessment & Plan Assessment & Plan narrative: Assessment & Plan narrative: This patient requires acute care inpatient hospital management for acute GI bleed. The patient is at much higher risk for medical and surgical complications because of his history of coronary artery disease, asthma, GERD, hyperlipidemia, hypertension, history of CT (2013) with RT CA stent on Plavix.. These factors increase the difficulty and complexity of medical and surgical interventions and increases the chances of poor outcomes such as morbidity and mortality, as well as complications related to Plavix. The patient's Asthma and CAD will impact his oxygenation, which may exacerbate any respiratory distress resulting from blood loss from GI bleeding. The patient's expected length of stay is to be less than than 2 midnights #Acute GI bleed Hgb stable, colonoscopy imminent, VSS. Hx of diverticulosis, presentation with melena suspicious for lower origin. NPO until procedure #Hypertension essential, acute on chronic, uncontrolled, present on admission as related to coronary artery disease ([place]) with resulting right coronary artery stent as result of hyperlipidemia, in the setting a of a history of a myocardial infarction 2013, acute on chronic, not present on admission. continue monitor, home meds, VSS #Asthma, chronic,not present on admission continue home prns, breathing ok #Hypothyroidism acquired, chronic, not present on admission, control unknown TSH in the 20s however T4 wnl, continue patient's home levothyroxine #GERD, chronic, not present on admission #hold patient's omeprazole providing Protonix 40 mg IV daily as he is NPO #BPH, chronic, not present on admission stable, continue home Tamsulosin Code status:DNR Surrogate decision maker: Spouse Sabrina SCHRADER PCR: Negative DVT/VTE prophylaxis: Contraindicated due to GI bleed, SCDs only Dispo: pending scope outcome, Hgb stabilizing so likely home for outpt f/u if still stable Quality VTE Deep Vein Thrombosis/Pulmonary Embolism Present on Admission: No
[2020-10-29] MEDS: PANTOPRAZOLE 40 MG VIAL IV (09:00)
[2020-10-29] MEDS: LACTATED RINGERS 1,000 ML 42 ML IV (13:34)
--- NOTE | 2020-10-29 14:12 | PM.PREOP ---
Pre-operative Note COVID-19 COVID-19 status: Negative Result date/Date tested (Pos, Neg/Pending): 10/29/20 Interval Note History & Physical reviewed/Exam performed by Physician: Yes Changes to H&P: No
--- NOTE | 2020-10-29 14:48 | PM.OP.ENDO ---
Operative Date/Time/Diagnoses Date of procedure: 10/29/20 Time of procedure: 14:48 Pre-op diagnosis: Anemia, GI bleed Post-op diagnosis: other (Minimal distal esophagitis, diverticulosis without evidence of diverticulitis. No clear source of bleeding found on this procedure.) Procedure & Clinicians Study performed: Colonoscopy Esophagogastroduodenoscopy Biopsies of stomach and distal esophagus to rule out H pylori and to rule out Hall's esophagus Same procedure as scheduled: Yes Indications: Anemia, suspected GI bleed. Anesthesiologist consult it for monitored anesthesia care due to patient's medical frailty, and the emergent nature of the procedure. Surgeon: Justyna Triana Procedure Notes SCOAP/Timeout: Performed Procedure in detail: The patient was brought to the room and placed in left lateral decubitus position with all bony prominences padded. A bite block was positioned in the patient's mouth to protect the lips, teeth, and tongue for the procedure. A time-out was performed and then the patient was given deep sedation with propofol by the anesthesiologist. Vitals were monitored throughout the procedure and remained stable. Once adequately sedated, the procedure was begun. The lubricated gastroscope was passed through the bite block and across the tongue and into the esophagus without incident. A tubular view of the esophagus was maintained as the scope was advanced through the esophagus and into the stomach. The scope was advanced through the stomach and to the pylorus. The scope was gently popped through the pylorus and into the duodenal bulb. The scope was flexed and advanced into the second and third portions of the duodenum. The duodenum and duodenal bulb [appeared normal]. The scope was withdrawn into the stomach. The stomach [appeared normal]. Biopsies were taken to rule out H pylori. The scope was retroflexed and the gastric cardia was examined. The hiatus [appeared normal]. The scope was then straightened, and withdrawn into the esophagus. There were a few breaks in the Z-line, and 1 small tongue of salmon-colored mucosa coming up into the esophagus for about 1 cm. Biopsies were taken. The esophagus [appeared otherwise normal]. The scope was then withdrawn through the esophagus with a tubular view. The scope was then withdrawn from the patient and attention was turned to the colonoscopy portion of the procedure. A rectal exam was performed revealing [no abnormalities]. The colonoscope was then introduced to the rectum and advanced to the cecum in the usual fashion. []The cecum was identified by the appendiceal orifice, the mucosal tri-fold, and the ileocecal valve. The scope was then retracted while rotating side to side and examining each mucosal fold. Moderate diverticulosis was seen throughout the colon, with no evidence of diverticulitis, or evidence of a source of bleeding. [] At the conclusion of the procedure retroflexion was performed and [small grade 1-2 internal hemorrhoids without stigmata of bleeding were seen]. The scope was then withdrawn from the rectum the procedure was concluded. The patient tolerated the procedure well and was transferred to the PACU in stable condition. Scope withdrawal time: 8 Findings: diverticulosis Specimen(s): other (Biopsies of stomach and distal esophagus) Complications: none Impression: No clear source of the patient's anemia Post-procedure Recommendations: Colonscopy in 10 years and Other recommendation (Follow-up on biopsy results, and treat as appropriate) Follow up: as needed Disposition: PACU
--- NOTE | 2020-10-29 14:57 | PC.NURSE ---
PT received lying in bed A&Ox3, pleasant. Pt having been NPO since prior evening dinner with the exception of meds and golytely which was instructed by MD Banks to be completed at 1000 a.m. Pt completed the drink resulting in clear stool with specks. Incontinent of urine and bowel this a.m. Medicated with PRN oxycodone per request for tender nodules on shins. Carvedilol held as pt slightly bradycardic this am. Denies dizziness. Pt afebrile VSS, on RA, SB with BBB. Slight expiratory wheezes in bases, he states related to allergies. Denies SOB. Pt transported approximately 1245 to OR for EGD and colonoscopy. Ring watch and glasses held in safe for patient.
--- NOTE | 2020-10-29 15:31 | SUR.PHASEI ---
Report to Jaleesa SUAREZ. Pt with VSS and aox4. In NAD and no complaints of pain. Going upstairs via stretcher escorted by Susi SUAREZ
--- NOTE | 2020-10-29 16:22 | CM.DANOTE ---
DCP ASSESSMENT: Patient is an 85 year-old male admitted for acute GI Bleed. PCP is Dr. Mccallum. Primary payer is Medicare and [facility]. Patient has a colonoscopy schedule for this afternoon. [employer] Student met with patient at beside he was alert and oriented. Educated patient on role of SW in D/C planning. Patient reported he is independent with ADL?s including driving. He lives with his and share chores. Patient reported at baseline he does not use a cane but, has one and plans on using it if he feels he needs it for additional support. Patient anticipates D/C home when medically stable. PLAN: Anticipate D/C home, pending colonoscopy and medical stability. CM Team to continue to follow. KVNG Richardson MSW Student Discharge Planning/Care Management CM Discharge Assessment Start: 10/29/20 13:48 Freq: Status: Active Protocol: Document 10/29/20 13:48 AL (Rec: 10/29/20 13:54 AL [id number]) Discharge Planning Assessment Assigned Night Supervisor [employer] [place] Student Contact Information Sabrina Dillon, [phone] Advance Directives? Yes Advance Directives on File Yes History Provided By Patient,Medical Record Prior Living Arrangements House Household Members spouse Type of transporation used prior to Drives own vehicle admit Independent with ADL's Yes Is patient alert and oriented? Yes Caregiver for Another No DME Already Rented / Owned Cane Comment Patient usually does not use a cane but, has one and plans to use it in the future. Barriers to Discharge No Discharge Plan Home Transportation Arrangement Spouse Whiteboard Updated in Patient Room with Yes name and ext. # of Night Supervisor Review Status In Process
--- NOTE | 2020-10-29 16:53 | P.DS_ITS ---
History of Present Illness History of Present Illness Chief complaint: rectal bleeding/bowel problems Discharge Providers Provider Date of admission: 10/28/20 12:29 Discharge Date: 10/29/20 Discharge provider: Dale Mccallum MD Summary Hospital Course Discharge Diagnosis: GI Bleed Hospital Course: Pt admitted with low hgb in setting of large melena production. He was placed NPO and able to receive colonoscopy and EGD today c/o Dr. Banks which did not reveal and etiology for the bleed. However his HGB remained stable and he was resuming normal diet and feeling perky this evening. In absence of active bleed I do not see indication to keep him inpatient. He does have hx of diverticulosis which may be contributing factor. Dr. Banks did suggest that GI consult for pillcam may be advisable if this issue is not resolved. Status at Discharge Cognitive/behavioral status at discharge: oriented Overall status at discharge: patient is progressing back to baseline Time Spent with Patient Time spent: Less than 30 minutes Exam Vital Signs (past 8 hours): - 10/29/20 12:40 10/29/20 13:37 10/29/20 13:51 Temperature 97.4 F L 97.4 F L 97.4 F L Pulse Rate 59 L 56 L 56 L Respiratory Rate 14 17 14 Blood Pressure 133/67 140/71 140/71 Pulse Oximetry 97 96 96 10/29/20 14:53 10/29/20 14:58 10/29/20 15:08 Temperature 97.5 F L Pulse Rate 53 L 55 L 61 Respiratory Rate 10 L 10 L 11 L Blood Pressure 121/63 121/63 124/71 Pulse Oximetry 94 94 95 10/29/20 15:15 10/29/20 15:50 Temperature 97.5 F L 97.8 F Pulse Rate 62 57 L Respiratory Rate 14 18 Blood Pressure 137/62 142/69 H Pulse Oximetry 96 94 Oxygen Delivery Method Room Air Oxygen Flow Rate 0 Narrative Exam Narrative: perky elder sitting up in chair talking with Const General: cooperative and healthy appearing Nutritional Appearance: average body habitus HENMT Head: normal to inspection Eyes General: appearance normal, both eyes and all related structures Resp Effort & Inspection: normal respiratory effort and able to speak in complete sentences Auscultation: clear to auscultation bilaterally Cardio Rate: regular rate Rhythm: regular rhythm Heart Sounds: S1 normal and S2 normal GI Inspection: normal to inspection Palpation: soft Percussion: normal to percussion Auscultation: normal bowel sounds Rectal Exam: visual inspection normal Skin General: no rashes or lesions noted Neuro General: patient alert, patient awake and patient oriented x3 Cranial Nerves: CN's II-XI intact bilaterally Cognition: normal cognition Extrem General: normal to inspection and full ROM Psych Appearance: grossly normal Mental Status: mental status grossly normal Speech and Movement: speech and movement normal Mood: congruent mood Affect: normal affect Objective Labs Result Diagrams: 10/29/20 05:28 10/29/20 05:28 Labs: Laboratory Results - last 24 hr 10/28/20 10/28/20 10/28/20 11:17 18:10 18:10 WBC RBC Hgb Hct MCV MCH MCHC RDW Plt Count Neut % (Auto) Lymph % (Auto) [place] % (Auto) Eos % (Auto) Baso % (Auto) Neut # (Auto) Lymph # (Auto) [place] # (Auto) Eos # (Auto) Baso # (Auto) Percent Retic 0.9 PT INR APTT Sodium Potassium Chloride Carbon Dioxide BUN 29 H Creatinine Estimated GFR BUN/Creatinine Ratio Glucose Lactate Calcium Iron TIBC % Saturation Transferrin Vitamin B12 Folate TSH Free T4 Blood Type O Positive Antibody Screen Negative 10/28/20 10/28/20 10/28/20 18:10 18:10 20:22 WBC RBC Hgb 10.9 L Hct 32.8 L MCV MCH MCHC RDW Plt Count Neut % (Auto) Lymph % (Auto) [place] % (Auto) Eos % (Auto) Baso % (Auto) Neut # (Auto) Lymph # (Auto) [place] # (Auto) Eos # (Auto) Baso # (Auto) Percent Retic PT INR APTT Sodium Potassium Chloride Carbon Dioxide BUN Creatinine Estimated GFR BUN/Creatinine Ratio Glucose Lactate 0.6 L Calcium Iron TIBC % Saturation Transferrin Vitamin B12 755 Folate > 20.0 H TSH Free T4 Blood Type Antibody Screen 10/29/20 10/29/20 10/29/20 05:28 05:28 05:28 WBC 5.7 RBC 3.39 L Hgb 10.9 L Hct 32.4 L MCV 95.6 MCH 32.3 MCHC 33.8 RDW 14.5 Plt Count 203 Neut % (Auto) 62.5 Lymph % (Auto) 14.4 L [place] % (Auto) 12.7 Eos % (Auto) 9.5 H Baso % (Auto) 0.9 Neut # (Auto) 3500 Lymph # (Auto) 800 L [place] # (Auto) 700 Eos # (Auto) 500 H Baso # (Auto) 100 Percent Retic PT INR APTT Sodium 137 Potassium 3.7 Chloride 104 Carbon Dioxide 28 BUN 20 Creatinine 0.97 Estimated GFR > 60.0 BUN/Creatinine Ratio 20.6 Glucose 116 H Lactate Calcium 8.5 Iron TIBC % Saturation Transferrin Vitamin B12 Folate TSH 20.30 H Free T4 0.99 Blood Type Antibody Screen 10/29/20 10/29/20 05:28 05:28 WBC RBC Hgb Hct MCV MCH MCHC RDW Plt Count Neut % (Auto) Lymph % (Auto) [place] % (Auto) Eos % (Auto) Baso % (Auto) Neut # (Auto) Lymph # (Auto) [place] # (Auto) Eos # (Auto) Baso # (Auto) Percent Retic PT 13.0 H INR 1.2 APTT 39 H Sodium Potassium Chloride Carbon Dioxide BUN Creatinine Estimated GFR BUN/Creatinine Ratio Glucose Lactate Calcium Iron 73 TIBC 275 % Saturation 27 Transferrin 193 L Vitamin B12 Folate TSH Free T4 Blood Type Antibody Screen PFSH Medical History Asthma GERD (gastroesophageal reflux disease) Hx of fracture of femur Hyperlipidemia Melanoma Myocardial infarction Myocardial infarction with complication Surgical History History of arthroplasty of left knee History of arthroplasty of right shoulder History of knee replacement History of lumbar surgery History of total left hip arthroplasty Hx of appendectomy Hx of heart artery stent Hx of tonsillectomy Status post hernia repair Family History Brother Hemorrhoids Daughter Developmental delay Diabetes mellitus Social History household members: spouse Smoking Status: Never smoker alcohol intake: current Discharge Assessment & Plan Assessment and Plan Plan of Treatment: #Acute GI bleed Hgb stable, VSS, colonoscopy EGD unrevealing Hx of diverticulosis, presentation with melena suspicious for lower origin. ok to resume regualr diet as tolerated #Hypertension essential, acute on chronic, uncontrolled, present on admission as related to coronary artery disease ([place]) with resulting right coronary artery stent as result of hyperlipidemia, in the setting a of a history of a myocardial infarction 2013, acute on chronic, not present on admission. resume home meds, VSS #Asthma, chronic,not present on admission continue home prns, breathing ok #Hypothyroidism acquired, chronic, not present on admission, control unknown TSH in the 20s on admission however T4 wnl, continue patient's home levothyroxine #GERD, chronic, not present on admission resume home prazole #BPH, chronic, not present on admission stable, continue home Tamsulosin Code status:DNR Surrogate decision maker: Spouse Sabrina SCHRADER PCR: Negative DVT/VTE prophylaxis: Contraindicated due to GI bleed, SCDs only Dispo: dc home tonight after dinner Discharge Plan Discharge Plan Patient Disposition: Home Provider Discharge Comment: pt stable s/p colonoscopy, feels perky, hgb stable. Discharge orders & Medications Prescriptions: Continued atorvastatin [Lipitor] 80 MG tablet 80 mg PO HS Qty: 0 RF: 0 omeprazole 20 MG capsule,delayed release(DR/EC) 20 mg PO DAILY Qty: 0 RF: 0 aspirin [Aspir-81] 81 mg Tablet,Delayed Release (Dr/Ec) 81 mg PO DAILY RF: 0 ranitidine HCl 150 mg Tablet 150 mg PO DAILY RF: 0 gabapentin 300 mg Capsule 300 mg PO DAILY RF: 0 oxycodone 5 mg Tablet 5 mg PO Q3HR PRN (Reason: Pain, Moderate (4-6)) Qty: 40 RF: 0 nitroglycerin [Nitrostat] 0.3 mg Tablet, Sublingual 0.3 mg SUBLINGUAL Q5-15M PRN (Reason: Chest Pain) RF: 0 carvedilol 3.125 mg Tablet 3.125 mg PO BID RF: 0 tamsulosin 0.4 mg Capsule 0.4 mg PO DAILY RF: 0 levothyroxine 150 mcg Tablet 100 mcg PO DAILY RF: 0 betamethasone dipropionate 0.05 % Cream 1 applic TOPICAL DAILY PRN (Reason: Rash) RF: 0 albuterol sulfate [Ventolin HFA] 90 mcg/actuation Hfa Aerosol Inhaler 2 puff INHALATION Q4HR PRN (Reason: Bronchospasm) RF: 0 oxycodone 5 mg Tablet 5 mg PO Q6HR PRN (Reason: Pain, Moderate (4-6)) Qty: 40 RF: 0 donepezil 10 mg tablet 10 mg PO BEDTIME RF: 0 clopidogrel 75 mg tablet 75 mg PO DAILY RF: 0 erythromycin 5 mg/gram (0.5 %) ointment 1 applic EYE-BOTH TID RF: 0 nystatin 100,000 unit/gram cream 1 applic TOPICAL BID RF: 0 Follow up/Referrals: Dale Mccallum MD [Physician] - Diet/Activity/Treatments Diet: Diet as Tolerated Skin/Wound/Dressing Care Report to your healthcare provider any signs of infection, such as:: chills, fever and increased pain Visit Report/Discharge Packet Instructions: Upper GI Endoscopy, DI for Colonoscopy, DI for Colon Polypectomy Stand Alone Forms: Colonoscopy Result: [place] Surg Discharge Data Attending Provider: Dale Mccallum Quality VTE Deep Vein Thrombosis/Pulmonary Embolism Present on Admission: No
--- NOTE | 2020-10-29 17:59 | PC.NURSE ---
Pt returned to room at 1540 No apparent issues or discomfort. Sitting in chair. MD in to see Orders for discharge rcieved. HL & tele discontinued. Pt & escorted via W/C by staff to waiting vehicle. D/C in stable condition,
== END 2020-10-29 18:03 | disposition home or self-care (01) ==
LOC: ED 10:58 → AC 12:29
PROVIDERS: Family Medicine; Nurse Practitioner Family; Surgery; Admitting Provider Family Medicine; Emergency Provider Emergency Medicine; Referring Provider Emergency Medicine; Visit Provider Family Medicine
PROC: 0DJD8ZZ Inspection of Lower Intestinal Tract, Via Natural or Artificial Opening Endoscopic (ICD-10-PCS; CPT 45378; principal; 2020-10-29 14:30)
PROC: 0DJ08ZZ Inspection of Upper Intestinal Tract, Via Natural or Artificial Opening Endoscopic (ICD-10-PCS; CPT 43235; 2020-10-29 14:30)
DX: K62.5 Hemorrhage of anus and rectum (principal); Z79.01 Long term (current) use of anticoagulants; I25.10 Atherosclerotic heart disease of native coronary artery without angina pectoris; E78.5 Hyperlipidemia, unspecified; I10 Essential (primary) hypertension; I25.2 Old myocardial infarction; K21.00 Gastro-esophageal reflux disease with esophagitis, without bleeding; K57.30 Diverticulosis of large intestine without perforation or abscess without bleeding; K64.1 Second degree hemorrhoids; Z20.822 Contact with and (suspected) exposure to COVID-19
CPT/HCPCS: 43239; 45378; 36415; 74176; 80048; 80053; 82607; 82746; 83540; 83550; 83605; 84439; 84443; 84520; 85014; 85018; 85025; 85045; 85610; 85730; 86850; 86900; 86901; 87635; 96361; 96374; 96375; 96376; 99284; C9803; G0378; C9113; J2704; J3010

== ENCOUNTER 2020-12-03 10:29 | Emergency (ER) | payer MEDICARE, OTHER, SELFPAY ==
[2020-10-28 14:06] VITALS: BMI 23.1
[2020-12-03 10:45] VITALS: BP 162/72; PULSE 71; RESP 18; TEMP 36.4; O2SAT 99
--- NOTE | 2020-12-03 10:49 | DI.CT.S_ITS ---
PROCEDURE: CT HEAD/BRAIN WO CON INDICATIONS: syncope w/ hit head. + black left eye, bruising above left e TECHNIQUE: Noncontrast 4.5 mm thick angled axial sections acquired from the foramen magnum to the vertex, with coronal and sagittal reformats. For radiation dose reduction, the following was used: automated exposure control, adjustment of mA and/or kV according to patient size. COMPARISON: [facility], CT, HEAD WITHOUT CONTRAST, 04/21/2017, 8:37. FINDINGS: Image quality: Excellent. CSF spaces: Basal cisterns are patent. No extra-axial fluid collections. The ventricles are symmetric in size and shape. Brain: No intracranial bleeds or masses. There is cerebral volume loss for age, with resultant ventricular and sulcal prominence. There are periventricular and deep white matter chronic small vessel ischemic changes. There is intracranial internal carotid artery atherosclerosis. Skull and face: Calvarium and visualized facial bones appear intact, without suspicious lesions. Sinuses: Visualized sinuses and mastoids are clear. IMPRESSION: There is a left frontal region scalp contusion, without underlying fracture or evidence of brain injury. No intracranial hemorrhage is found. Moderate microvascular atherosclerotic change in the deep white matter of each hemisphere, expected for age. Dictated by: Yoav Barkley M.D. on 12/03/2020 at 11:31 Approved by: Yoav Barkley M.D. on 12/03/2020 at 11:32
--- NOTE | 2020-12-03 10:49 | DI.RAD.S_ITS ---
PROCEDURE: XR CHEST 1V INDICATIONS: syncope w/ hit head. + black left eye, bruising above left e TECHNIQUE: One view of the chest was acquired. COMPARISON: [facility], , XR CHEST 2V, 12/31/2018, 14:48. FINDINGS: Surgical changes and devices: Partially visualized right shoulder arthroplasty. Lungs and pleura: Lungs are clear. No pleural effusions or pneumothorax. Lungs are hyperexpanded suggestive of COPD. Mediastinum: Mediastinal contours appear normal. Heart size is normal. Bones and chest wall: No suspicious bony lesions. Overlying soft tissues appear unremarkable. IMPRESSION: No acute pulmonary process. Dictated by: Earline Escoto M.D. on 12/03/2020 at 11:41 Approved by: Earline Escoto M.D. on 12/03/2020 at 11:42
[2020-12-03 11:30] VITALS: BP 154/77; PULSE 65; RESP 19; O2SAT 97
[2020-12-03 11:57] LABS: Add Manual Diff / Slide Review NO; Basophils Absolute Auto 100 /uL (0-100); Basophils Percent Auto 1.2 % (0-2); Eosinophils Absolute Auto 200 /uL (0-450); Eosinophils Percent Auto 4.4 % (2-4); Hematocrit 29.9 % (41-53); Hemoglobin 10.3 g/dL (13.5-17.5); Lymphocytes Absolute Auto 700 /uL (1100-4500); Lymphocytes Percent Auto 13.4 % (25-40); Mean Corpuscular HGB Conc 34.4 % (30-36); Mean Corpuscular Hemoglobin 32.6 PG (26-34); Mean Corpuscular Volume 94.7 fL (80-100); Monocytes Absolute Auto 800 /uL (0-900); Monocytes Percent Auto 14.4 % (3-14); Neutrophils Absolute Auto 3700 /uL (1500-7000); Neutrophils Percent Auto 66.6 % (50-75); Platelet Count 200 X10^3/uL (150-400); Red Blood Cell Count 3.15 X10^6/uL (4.5-5.9); Red Cell Distribution Width 14.2 % (11.6-14.8); White Blood Cell Count 5.5 X10^3/uL (4.5-11.0)
[2020-12-03 12:06] LABS: D Dimer 555 ng/mL (<230)
[2020-12-03 12:08] LABS: Alanine Aminotransferase 28 IU/L (<50); Albumin 3.7 g/dL (3.5-5.0); Albumin Globulin Ratio 1.3 (1.0-2.8); Alkaline Phosphatase 90 U/L (38-126); Aspartate Aminotransferase 44 IU/L (17-59); BUN Creatinine Ratio 27.4 (6-22); Bilirubin Total 0.9 mg/dL (0.2-1.3); Blood Urea Nitrogen 31 mg/dL (9-20); Calcium 8.9 mg/dL (8.4-10.2); Carbon Dioxide 26 mmol/L (22-32); Chloride 105 mmol/L (98-107); Creatine Kinase 327 U/L (55-170); Estimated Glomerular Filt Rate > 60.0 mL/min (>60); Globulin 2.9 g/dL (1.7-4.1); Glucose 96 mg/dL (80-110); HEMOLYSIS < 15 (0-50); Potassium 4.2 mmol/L (3.4-5.1); Sodium 136 mmol/L (137-145); Total Protein 6.6 g/dL (6.3-8.2)
[2020-12-03 12:19] LABS: NT-proBNP (BNP-Adult 18+) 488 pg/mL (<450); Troponin I 0.013 ng/mL (0.01-0.034)
[2020-12-03 12:23] LABS: CKMB % Relative Index 1.6 % (1.5-5.0); Creatine Kinase MB 5.25 ng/mL (<2.37)
--- NOTE | 2020-12-03 12:38 | ED.SYNCOPE ---
HPI - Syncope General Chief Complaint: Syncope Stated Complaint: fell yesterday, hit head Time Seen by Provider: 12/03/20 12:37 Source: patient Mode of arrival: Ambulatory Limitations: no limitations History of Present Illness HPI narrative: 85-year-old male comes in with what sounds like a syncopal episode yesterday in the shower. Patient states he was showering, he does recall having any symptoms and woke up on the floor. Patient states he felt fine afterwards. He did develop quite a bit of bruising over his left eye. Patient states he went about his day they went to adventism, they went shopping they went out to eat they returned home and he came in today because his made after going to the primary care office and they told him to come patient denies headache, vision changes, no chest pain or shortness of breath no neck pain, no nausea or vomiting. No diaphoresis. No diarrhea, constipation or black or bloody stools. No urinary symptoms. Patient did not have any numbness tingling or weakness. No facial droop. His states he was a little bit slow to return to his normal. She denies any obvious weakness, dysarthria facial droop. She states he just seemed a little bit slower for a period of time. Has had some memory issues that they described as mild he has a history coronary artery disease with cardiac stents. Asthma. He does take an aspirin daily as well as clopidogrel and takes medication for hypertension, dyslipidemia. patient has had some orthopedic surgeries on his hip, back as well as knee. No allergies to medications. No tobacco, alcohol or illicit. He is accompanied by his who did not see him initially when he fell but saw him shortly thereafter. Related Data Home Medications Medication Instructions Recorded Confirmed atorvastatin [Lipitor] 80 mg PO HS #0 08/20/07 10/28/20 omeprazole 20 mg PO DAILY #0 06/18/17 10/28/20 aspirin [Aspir-81] 81 mg PO DAILY 01/28/18 10/28/20 ranitidine HCl 150 mg PO DAILY 01/28/18 02/12/18 gabapentin 300 mg PO DAILY 02/08/18 02/12/18 albuterol sulfate [Ventolin HFA] 2 puff INHALATION Q4HR PRN 02/12/18 02/12/18 betamethasone dipropionate 1 applic TOPICAL DAILY PRN 02/12/18 10/28/20 carvedilol 3.125 mg PO BID 02/12/18 02/12/18 levothyroxine 100 mcg PO DAILY 02/12/18 10/28/20 nitroglycerin [Nitrostat] 0.3 mg SUBLINGUAL Q5-15M PRN 02/12/18 10/28/20 tamsulosin 0.4 mg PO DAILY 02/12/18 10/28/20 clopidogrel 75 mg PO DAILY 10/28/20 10/28/20 donepezil 10 mg PO BEDTIME 10/28/20 10/28/20 erythromycin 1 applic EYE-BOTH TID 10/28/20 10/28/20 nystatin 1 applic TOPICAL BID 10/28/20 10/28/20 Previous Rx's Medication Instructions Recorded oxycodone 5 mg PO Q3HR PRN #40 tab 02/09/18 oxycodone 5 mg PO Q6HR PRN #40 tab 02/15/18 Allergies Allergy/AdvReac Type Severity Reaction Status Date / Time morphine [MORPHINE] AdvReac Mild LOOPY Verified 12/03/20 10:48 BODY FEELS COLD, SHAKING Review of Systems Review of Systems ROS Unobtainable: All systems reviewed & are unremarkable except as noted in HPI and below Patient History Medical History Asthma GERD (gastroesophageal reflux disease) Hx of fracture of femur Hyperlipidemia Melanoma Myocardial infarction Myocardial infarction with complication Surgical History History of arthroplasty of left knee History of arthroplasty of right shoulder History of knee replacement History of lumbar surgery History of total left hip arthroplasty Hx of appendectomy Hx of heart artery stent Hx of tonsillectomy Status post hernia repair Family History Brother Hemorrhoids Daughter Developmental delay Diabetes mellitus Social History household members: spouse Smoking Status: Never smoker alcohol intake: current Smoking Status: Never smoker alcohol intake frequency: holidays/special occasions only Substance Use Type: does not use Exam Narrative Exam Narrative: GEN: Patient appears in milddistress. patient is sitting on the edge of the bed. HEAD: patient has periorbital ecchymosis of the left eye with a small hematoma just above over the frontal scalp, no raccoon/Yepez sign. NECK: Nontender, painless range of motion, trachea midline Negative for Nexus criteria, there is no mid line tenderness, distracting injury, altered mental status, neuro deficit, recent EtOH. EYES: PERRLA, EOMI ENT: External inspection normal other than above trachea is midline, TM's are normal no hemotypanum, Nares are clear, no septal hematoma, no dental or oral injury, airway is normal and with normal occlusion, No bony tenderness RESP: Chest is nontender and has symmetric movement, no ecchymosis, breath sounds are normal no crackles, wheezes or rales CVS: Heart sounds are normal, no murmur noted, No JVD. ABG/GI: Nontender, soft, normal bowel sounds, no distention, no organomegaly, pelvic rock is negative NEURO: Oriented AOx3, neuro is grossly intact, sensation and motor is normal all 4 extremities moving, cranial nerves II through XII are intact, GCS is 15 PSYCH: Normal mood and affect SKIN: Intact, warm and dry, no crepitus and without decubitus BACK: No CVA tenderness, no vertebral tenderness, no step-off's, no crepitus EXT: Atraumatic, hips are nontender, no pedal edema, normal color and temperature, normal range of motion of extremities. Of 5 muscle strength in upper lower extremities with equal valve liner rubber bilaterally. No dysarthria normal speech. Initial Vital Signs Initial Vital Signs: Vital Signs Temperature 97.6 F 12/03/20 10:45 Pulse Rate 71 12/03/20 10:45 Respiratory Rate 18 12/03/20 10:45 Blood Pressure 162/72 H 12/03/20 10:45 Pulse Oximetry 99 12/03/20 10:45 Scores GCS [place] coma scale eye opening: Spontaneous [place] coma scale verbal response: Orientated [place] coma scale motor response: Obey commands [place] coma scale total score: 15 Course Orders Ordered: ED Orders 12/03/20 11:51 Complete Blood Count AUTO DIFF Stat Comprehensive Metabolic Panel Stat D Dimer Stat Magnesium Stat NT-proBNP (BNP-Adult 18+) Stat Troponin & CK Cardiac Panel Stat 12/03/20 13:03 CT angio chest PE protocol Stat Vital Signs Vital signs: Vital Signs - 8 hr 12/03/20 14:02 Pulse Rate 56 L Respiratory Rate 14 Blood Pressure 163/73 H Pulse Oximetry 100 MDM - Syncope Lab Data Attestation: I reviewed the patient's lab results. Result diagrams: 12/03/20 11:51 12/03/20 11:51 Labs: Lab Results 12/03/20 12/03/20 12/03/20 Range/Units 11:51 11:51 11:51 WBC 5.5 (4.5-11.0) X10^3/uL RBC 3.15 L (4.5-5.9) X10^6/uL Hgb 10.3 L (13.5-17.5) g/dL Hct 29.9 L (41-53) % MCV 94.7 (80-100) fL MCH 32.6 (26-34) PG MCHC 34.4 (30-36) % RDW 14.2 (11.6-14.8) % Plt Count 200 (150-400) X10^3/uL Neut % (Auto) 66.6 (50-75) % Lymph % (Auto) 13.4 L (25-40) % Lyman % (Auto) 14.4 H (3-14) % Eos % (Auto) 4.4 H (2-4) % Baso % (Auto) 1.2 (0-2) % Neut # (Auto) 3700 (3845-9699) /uL Lymph # (Auto) 700 L (4958-4802) /uL Lyman # (Auto) 800 (0-900) /uL Eos # (Auto) 200 (0-450) /uL Baso # (Auto) 100 (0-100) /uL D-Dimer 555 H (<230) ng/mL Sodium 136 L (137-145) mmol/L Potassium 4.2 (3.4-5.1) mmol/L Chloride 105 (98-107) mmol/L Carbon Dioxide 26 (22-32) mmol/L BUN 31 H (9-20) mg/dL Creatinine 1.13 (0.66-1.25) mg/dL Estimated GFR > 60.0 (>60) mL/min BUN/Creatinine Ratio 27.4 H (6-22) Glucose 96 (80-110) mg/dL Calcium 8.9 (8.4-10.2) mg/dL Magnesium 2.0 (1.6-2.3) mg/dL Total Bilirubin 0.9 (0.2-1.3) mg/dL AST 44 (17-59) IU/L ALT 28 (<50) IU/L Alkaline Phosphatase 90 (38-126) U/L Total Creatine Kinase 327 H (55-170) U/L CK-MB (CK-2) 5.25 H (<2.37) ng/mL CK-MB (CK-2) Rel Index 1.6 (1.5-5.0) % Troponin I 0.013 (0.01-0.034) ng/mL NT-Pro-B Natriuret Pep 488 H (<450) pg/mL Total Protein 6.6 (6.3-8.2) g/dL Albumin 3.7 (3.5-5.0) g/dL Globulin 2.9 (1.7-4.1) g/dL Albumin/Globulin Ratio 1.3 (1.0-2.8) Urine Dip Bedside Urine Glucose Negative Bedside Urine Bilirubin - Negative Bedside Urine Ketone - Negative Urine Specific [place] 1.020 Bedside Urine Occult Blood - Negative Bedside Urine pH 6 Bedside Urine Protein - Negative Bedside Urine Urobilinogen - Negative Bedside Urine Nitrite - Negative Bedside Urine Leukocytes - Negative Esterase Imaging Data CT scan - head: Radiologist's Impression: No acute process Chest x-ray: My Impression: No acute process CT scan - chest: Radiologist's Impression: [address] [id number] Scan ReportSigned Patient: Antoine Dillon [facility]#: [id number]: 1935cct:[id number]/Sex: 85 / MDate of Service: 12/03/20Loc: EDAccession Number: [id number] Procedure: CT angio chest PE protocol Ordering Provider: Bonnie Alonzo D.O. PROCEDURE: CT ANGIO CHEST PE PROTOCOL INDICATIONS: ? syncope TECHNIQUE: After the administration of intravenous contrast, 2 mm thick sections acquired from the pulmonary apices to the posterior costophrenic angles. 3-dimensional maximum intensity projection (MIP) coronal and sagittal reformats were then acquired through the thorax. For radiation dose reduction, the following was used: automated exposure control, adjustment of mA and/or kV according to patient size. COMPARISON: [facility], CT, CT ABDOMEN PELVIS WO CON, 10/28/2020, 16:04. [facility], RG, CT THORAX WITH CONTRAST, 09/22/2005, 10:09. [facility], CR, XR CHEST 1V, 12/03/2020, 10:56. FINDINGS: Image quality: Portions of the chest are suboptimally evaluated secondary to metallic streak artifact from right shoulder arthroplasty. Pulmonary arteries: Pulmonary arteries are normal in size, and demonstrate no intraluminal filling defects to suggest central pulmonary embolism. Lungs and pleura: 5 mm right lower lobe nodule . It was present in the 2005 exam measuring approximately 4 mm, likely benign. No pleural effusions or pneumothorax. Central and peripheral airways are patent. Mediastinum: Heart size is enlarged, without pericardial effusion. No mediastinal or hilar adenopathy. Thoracic aorta is normal in caliber and enhancement. Esophagus is normal in caliber, with mild hiatal hernia. Bones and chest wall: No suspicious bony lesions. Ribs and thoracic spine appear intact throughout. Thyroid gland is not visualized. No axillary or supraclavicular adenopathy. Multilevel compression deformities are noted appearing chronic. Abdomen: Visualized upper abdominal solid organs appear normal in the early arterial phase of enhancement. IMPRESSION: 1. No pulmonary embolism. 2. No effusions or consolidations. Dictated by: Earline Escoto M.D. on 12/03/2020 at 13:40 Approved by: Earline Escoto M.D. on 12/03/2020 at 13:47 ECG Data Attestation: I personally reviewed and interpreted this ECG as follows: Prior ECG tracings: available for review Interpretation: Prior from 08/0410/02/2069 may or similar with right bundle branch block today. Rate of 68 CT 166 QRS of 154 QTC of 467. MDM Narrative Medical decision making narrative: 85-year-old male comes with what sounds like a syncopal episode although he had some slowly improving mental status so possibly a postictal state but no witnessed seizure activity. Patient has been asymptomatic since. His head CT chest x-ray are negative labs show a stable baseline anemia, no elevated troponin with no acute EKG changes or other abnormalities. D-dimer is elevated with his syncopal episode would be appropriate even after age calculator is used and CT angio ordered and is negative. Patient appears appropriate for discharge at this time was short follow-up with his primary care. Return precautions discussed. Discharge Plan Departure Patient Disposition: Home Clinical Impression: Syncope Instructions: DI for Syncope in Adults (Fainting) Activity Restrictions/Additional Instructions: Follow up with your physician in the next several days for recheck. Call for an appointment. The exact cause of your episode yesterday was not found. You may have had a syncopal episode but there is possibility of other causes potentially seizure. Discussed with her physician about possibly getting EEG as well as a Holter monitor or ZIO patch as an outpatient. Please return you have any new or worsening symptoms, lightheadedness or passing out, new chest pain or shortness of breath, seizure-like activity, persistent vomiting, black or bloody stools, new weakness numbness or tingling or difficulty with speech. Prescriptions: No Action atorvastatin [Lipitor] 80 MG tablet 80 mg PO HS Qty: 0 RF: 0 omeprazole 20 MG capsule,delayed release(DR/EC) 20 mg PO DAILY Qty: 0 RF: 0 aspirin [Aspir-81] 81 mg Tablet,Delayed Release (Dr/Ec) 81 mg PO DAILY RF: 0 ranitidine HCl 150 mg Tablet 150 mg PO DAILY RF: 0 gabapentin 300 mg Capsule 300 mg PO DAILY RF: 0 oxycodone 5 mg Tablet 5 mg PO Q3HR PRN (Reason: Pain, Moderate (4-6)) Qty: 40 RF: 0 nitroglycerin [Nitrostat] 0.3 mg Tablet, Sublingual 0.3 mg SUBLINGUAL Q5-15M PRN (Reason: Chest Pain) RF: 0 carvedilol 3.125 mg Tablet 3.125 mg PO BID RF: 0 tamsulosin 0.4 mg Capsule 0.4 mg PO DAILY RF: 0 levothyroxine 150 mcg Tablet 100 mcg PO DAILY RF: 0 betamethasone dipropionate 0.05 % Cream 1 applic TOPICAL DAILY PRN (Reason: Rash) RF: 0 albuterol sulfate [Ventolin HFA] 90 mcg/actuation Hfa Aerosol Inhaler 2 puff INHALATION Q4HR PRN (Reason: Bronchospasm) RF: 0 oxycodone 5 mg Tablet 5 mg PO Q6HR PRN (Reason: Pain, Moderate (4-6)) Qty: 40 RF: 0 donepezil 10 mg tablet 10 mg PO BEDTIME RF: 0 clopidogrel 75 mg tablet 75 mg PO DAILY RF: 0 erythromycin 5 mg/gram (0.5 %) ointment 1 applic EYE-BOTH TID RF: 0 nystatin 100,000 unit/gram cream 1 applic TOPICAL BID RF: 0 Referrals: Dale Mccallum MD [Physician] -
--- NOTE | 2020-12-03 13:03 | DI.CT.S_ITS ---
PROCEDURE: CT ANGIO CHEST PE PROTOCOL INDICATIONS: ? syncope TECHNIQUE: After the administration of intravenous contrast, 2 mm thick sections acquired from the pulmonary apices to the posterior costophrenic angles. 3-dimensional maximum intensity projection (MIP) coronal and sagittal reformats were then acquired through the thorax. For radiation dose reduction, the following was used: automated exposure control, adjustment of mA and/or kV according to patient size. COMPARISON: [facility], CT, CT ABDOMEN PELVIS WO CON, 10/28/2020, 16:04. [facility], RG, CT THORAX WITH CONTRAST, 09/22/2005, 10:09. [facility], CR, XR CHEST 1V, 12/03/2020, 10:56. FINDINGS: Image quality: Portions of the chest are suboptimally evaluated secondary to metallic streak artifact from right shoulder arthroplasty. Pulmonary arteries: Pulmonary arteries are normal in size, and demonstrate no intraluminal filling defects to suggest central pulmonary embolism. Lungs and pleura: 5 mm right lower lobe nodule . It was present in the 2005 exam measuring approximately 4 mm, likely benign. No pleural effusions or pneumothorax. Central and peripheral airways are patent. Mediastinum: Heart size is enlarged, without pericardial effusion. No mediastinal or hilar adenopathy. Thoracic aorta is normal in caliber and enhancement. Esophagus is normal in caliber, with mild hiatal hernia. Bones and chest wall: No suspicious bony lesions. Ribs and thoracic spine appear intact throughout. Thyroid gland is not visualized. No axillary or supraclavicular adenopathy. Multilevel compression deformities are noted appearing chronic. Abdomen: Visualized upper abdominal solid organs appear normal in the early arterial phase of enhancement. IMPRESSION: 1. No pulmonary embolism. 2. No effusions or consolidations. Dictated by: Earline Escoto M.D. on 12/03/2020 at 13:40 Approved by: Earline Escoto M.D. on 12/03/2020 at 13:47
[2020-12-03 14:02] VITALS: BP 163/73; PULSE 56; RESP 14; O2SAT 100
== END 2020-12-03 14:04 | disposition home or self-care (01) ==
PROVIDERS: Emergency Provider Emergency Medicine
DX: R55 Syncope and collapse (principal); S09.90XA Unspecified injury of head, initial encounter; S00.12XA Contusion of left eyelid and periocular area, initial encounter; R07.9 Chest pain, unspecified
CPT/HCPCS: 36415; 70450; 71045; 71275; 80053; 81003; 82550; 82553; 83735; 83880; 84484; 85025; 85379; 93005; 93010; 99284

== ENCOUNTER → 2021-04-13 08:32 | Outpatient (CLI) | payer MEDICARE, OTHER, SELFPAY ==
[2020-10-28 14:06] VITALS: BMI 23.1
== END ==
PROVIDERS: PCP Family Medicine; Referring Provider Family Medicine; Visit Provider Family Medicine
DX: R53.1 Weakness (principal)

== ENCOUNTER → 2021-04-16 15:34 | Outpatient (CLI) | payer MEDICARE, OTHER, SELFPAY ==
[2020-10-28 14:06] VITALS: BMI 23.1
--- NOTE | 2021-04-16 | DI.MRI.S_ITS ---
PROCEDURE: MR HEAD/BRAIN WO CON INDICATIONS: concussion w/o loss of consciousness, subseque TECHNIQUE: Non-contrast axial T1 spin echo, axial T2 fast spin echo, sagittal and axial FLAIR, coronal T2 fast spin echo, axial gradient echo, axial diffusion and ADC through the brain. COMPARISON: [facility], MR, MR HEAD/BRAIN WO CON, 10/12/2020, 18:45. FINDINGS: Image quality: Excellent. CSF spaces: Ventricles appear symmetric in size and shape. Basal cisterns are patent. No extra-axial fluid collections. Brain: No intracranial bleeds or mass effects. There is cerebral volume loss for age. There are periventricular and deep white matter chronic small vessel ischemic changes. Brainstem appears normal. Diffusion-weighted images show no acute ischemic insults. No chronic ischemic insults. Previously seen susceptibility artifact on the gradient echo pulse sequences are less conspicuous on the current exam. Normal intravascular flow voids are present. Anterior right frontal presumed arachnoid cyst demonstrates unchanged appearance since the prior study. Skull and face: Calvarial bone marrow is normal in signal. Orbits are normal. Sinuses: Sinuses and mastoids are clear. IMPRESSION: Unchanged anterior right frontal presumed arachnoid cyst. Diffuse small white matter changes, probably represent chronic microvascular ischemic disease, versus statistically less likely demyelination or other infectious, inflammatory, neurodegenerative etiology, technically nonspecific. No interval change. Dictated by: Syd Khan M.D. on 04/16/2021 at 16:18 Approved by: Syd Khan M.D. on 04/16/2021 at 16:23
== END ==
PROVIDERS: PCP Family Medicine; Referring Provider Family Medicine; Visit Provider Family Medicine
DX: S06.0X0D Concussion without loss of consciousness, subsequent encounter (principal); W18.30XA Fall on same level, unspecified, initial encounter; R53.1 Weakness
CPT/HCPCS: 70551

== ENCOUNTER → 2021-06-28 08:59 | Outpatient (CLI) | payer MEDICARE, OTHER, SELFPAY ==
[2020-10-28 14:06] VITALS: BMI 23.1
--- NOTE | 2021-06-28 | DI.MRI.S_ITS ---
PROCEDURE: MR LUMBAR SPINE WO/W CON INDICATIONS: RULE OUT LESION TECHNIQUE: Noncontrast sagittal T1 spin echo and T2 fast echo, sagittal STIR, axial T1 and T2 fast spin echo through the lumbar spine. In cases with scoliosis, additional coronal T2 fast spin echo may be performed. COMPARISON: [facility], CT, CT ABDOMEN PELVIS WO CON, 10/28/2020, 16:04. FINDINGS: Postsurgical changes of L3-L5 posterior fixation by means of bilateral rods and pedicle screws with interbody devices. No suspicious signal abnormality surrounding the hardware. No significant marrow signal abnormality or bone marrow edema otherwise. Alignment is not significantly changed. Vertebral body heights maintained. Normal position and appearance of the conus. No abnormal intradural enhancement. T12-L1: No spinal canal stenosis. Foraminal components of a diffuse disc bulge combine with facet hypertrophy to produce mild bilateral neural foraminal narrowing. L1-L2: Diffuse disc bulge flattens the ventral thecal sac with mild displacement of the descending L2 nerve roots in both subarticular zones. Foraminal components of the disc bulge and facet hypertrophy combine to produce moderate right and mild left neural foraminal stenosis. L2-L3: Severe spinal canal stenosis with diffuse disc bulge and a superimposed broad-based posterior disc protrusion flattening and indenting the ventral thecal sac producing displacement of the descending L3 nerve roots. Bulky facet hypertrophy and buckling of the ligamentum flavum further efface the spinal canal posterolaterally. There is near complete effacement of CSF in the thecal sac at this level with laxity of the nerve roots above and below this level suggesting an element of compression. Foraminal components of the disc bulge and facet hypertrophy combine to produce moderate bilateral neural foraminal stenosis. L3-L4: No spinal canal stenosis. Severe bilateral neural foraminal narrowing with mild flattening of the exiting L3 nerve roots in both neural foramina due to abutment by disc and bone. L4-L5: Pseudo bulge produced by anterolisthesis combines with posterior osteophytic ridging of the endplates to flatten the ventral thecal sac with mild displacement of the descending L5 nerve roots. Moderate to severe bilateral neural foraminal stenosis with flattening of the exiting L4 nerve roots. L5-S1: No spinal canal stenosis although there is diffuse disc bulge which displaces the descending S1 nerve roots in the subarticular zones. Moderate left and mild right neural foraminal stenosis. IMPRESSION: No evidence of metastatic disease or pathologic bone lesion in the lumbar spine. Postsurgical changes of L3-L5 posterior fixation with no evidence of an acute complicating hardware feature. Multilevel multifactorial degenerative changes similar to prior studies. Dictated by: Christopher Cervantes M.D. on 06/28/2021 at 13:30 Approved by: Christopher Cervantes M.D. on 06/28/2021 at 13:39
== END ==
PROVIDERS: PCP Family Medicine; Referring Provider Family Medicine; Visit Provider Family Medicine
DX: R26.89 Other abnormalities of gait and mobility (principal); M51.36 Other intervertebral disc degeneration, lumbar region; R27.9 Unspecified lack of coordination; M54.30 Sciatica, unspecified side; M48.061 Spinal stenosis, lumbar region without neurogenic claudication
CPT/HCPCS: 72158; A9579

== ENCOUNTER → 2021-07-18 16:36 | Outpatient (CLI) | payer MEDICARE, OTHER, SELFPAY ==
[2020-10-28 14:06] VITALS: BMI 23.1
--- NOTE | 2021-07-18 | DI.RAD.S_ITS ---
PROCEDURE: XR CERVICAL SPINE 2V OR 3V INDICATIONS: carpel tunnel syndrome TECHNIQUE: 4 view(s) of the cervical spine were acquired. COMPARISON: None. FINDINGS: Bones: No fractures or dislocations to the T1 level. The lateral masses of C1 appear intact on the odontoid view. No suspicious bony lesions. Grade 1 spondylolisthesis C4-C5 and C5-C6. Severe multilevelMild early disc degeneration.Mild early disc degeneration. Height loss with endplate sclerosis and spurring. Moderate multilevel mid and lower cervical spine facet joint arthropathy and uncovertebral hypertrophy. Soft tissues: No prevertebral soft tissue swelling. IMPRESSION: Severe multilevel spondylosis. Dictated by: Niles QUIÑONES Interpreted: Paul Mcdaniel MD on 07/19/2021 at 8:42 Transcribed by: GARETT on 07/19/2021 at 8:45 Approved by: Paul Mcdaniel M.D. on 07/19/2021 at 10:35
== END ==
PROVIDERS: PCP Family Medicine; Referring Provider Psychiatry & Neurology Neurology; Visit Provider Psychiatry & Neurology Neurology
DX: M47.812 Spondylosis without myelopathy or radiculopathy, cervical region (principal); G56.00 Carpal tunnel syndrome, unspecified upper limb; R27.0 Ataxia, unspecified; R29.6 Repeated falls
CPT/HCPCS: 72040

== ENCOUNTER 2021-08-19 14:02 | Inpatient (IN) | payer MEDICARE, OTHER, SELFPAY ==
[2020-10-28 14:06] VITALS: BMI 23.1
[2021-08-19 14:06] VITALS: BP 149/65; PULSE 58; RESP 16; TEMP 36; O2SAT 98; BMI 26.8
--- NOTE | 2021-08-19 14:09 | DI.RAD.S_ITS ---
PROCEDURE: XR HIP W PEL IF DONE LT 2V INDICATIONS: fall, L hip pain, unable to stand TECHNIQUE: AP pelvis with lateral view(s) of the left hip(s). COMPARISON: [facility] [place], CR, XR PELVIS WITH LATERAL HIP LEFT, 07/01/2021, 13:48. [facility], CT, CT ABDOMEN PELVIS WO CON, 10/28/2020, 16:04. [facility], CR, HIP 2V RIGHT, 10/09/2011, 9:18. FINDINGS: Bones: There is a lucency along the medial superior left femur seen only on lateral view. Pelvic ring appears intact. No suspicious bony lesions. Bilateral hip arthroplasties are present as well as fixation of the lower lumbar spine. All hardware is intact. No visualized hardware fracture. Soft tissues: The visualized bowel gas pattern is normal. No suspicious soft tissue calcifications. IMPRESSION: There is lucency along the peripheral aspect of the medial superior femur. While this could represent heterotopic bone or superimposed structures creating artifact, fracture cannot be definitively excluded. Recommend correlation point tenderness and as indicated further evaluation with CT. Dictated by: Earline Escoto M.D. on 08/19/2021 at 15:10 Approved by: Earline Escoto M.D. on 08/19/2021 at 15:14
--- NOTE | 2021-08-19 15:33 | DI.CT.S_ITS ---
PROCEDURE: CT PEL WO CON INDICATIONS: ? fx on x ray after fall, TECHNIQUE: Noncontrast 3 mm axial sections acquired through the bony pelvis, with coronal and sagittal reformatting. COMPARISON: [facility], CR, XR HIP W PEL IF DONE LT 2V, 08/19/2021, 14:10. FINDINGS: Image quality: Diagnostic. Beam hardening artifacts from bilateral hip prosthesis are seen. Bones: Patient is status post bilateral total hip arthroplasty. Comminuted fracture involving anterior lateral cortex of proximal tibial shaft extending to involve greater trochanter of left proximal femur adjacent to the prosthesis . No other fracture or dislocation is seen. No gross hardware loosening is noted. Pelvic ring is intact. No suspicious intraosseous lesion. 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 Soft tissues: Soft tissue swelling and edema surrounding left proximal femoral shaft periprosthetic fracture site is seen. No discrete drainable fluid collection is seen. No large intramuscular hematoma or fluid collection is noted. There is no pelvic free fluid or free air. No abnormal bowel wall thickening. Extensive sigmoid diverticulosis is seen without evidence of acute diverticulitis. Bladder wall thickness is normal. IMPRESSION: 1. Acute comminuted and slightly displaced left periprosthetic fracture extending to involve left greater trochanter as above. No other fracture or dislocation is seen. 2. Soft tissue swelling and edema surrounding left proximal femoral fracture site. No pelvic free fluid or free air. No discrete drainable fluid collection. Dictated by: Onesimo Lainez M.D. on 08/19/2021 at 16:02 Approved by: Onesimo Lainez M.D. on 08/19/2021 at 16:11
--- NOTE | 2021-08-19 18:40 | ED.FALL ---
HPI - Fall General Chief Complaint: Fall Stated Complaint: Fell, Trouble walking Time Seen by Provider: 08/19/21 18:36 Source: patient Mode of arrival: Family Vehicle Limitations: no limitations History of Present Illness HPI Narrative: 85-year-old male here for evaluation of a left hip injury. Patient states that he was at his normal state health. He states that he tripped over a step in his house. He states that he has never had an issue with the stepped in the past but just slipped and fell landed on his left hip. Has had discomfort and inability to walk since then. Reports no other injuries from the event. Did not hit his head. No neck pain. No anticoagulation. He did not have chest pain palpitation shortness of breath or lightheadedness or vertigo prior to the fall or after the fall. Related Data Home Medications Medication Instructions Recorded Confirmed atorvastatin 80 mg tablet (Lipitor) 80 mg PO HS #0 08/20/07 10/28/20 omeprazole 20 mg capsule,delayed 20 mg PO DAILY #0 06/18/17 10/28/20 release aspirin 81 mg tablet,delayed 81 mg PO DAILY 01/28/18 10/28/20 release (Aspir-) ranitidine HCl 150 mg tablet 150 mg PO DAILY 01/28/18 02/12/18 gabapentin 300 mg capsule 300 mg PO DAILY 02/08/18 02/12/18 albuterol sulfate 90 mcg/actuation 2 puff INHALATION Q4HR PRN 02/12/18 02/12/18 aerosol inhaler (Ventolin HFA) betamethasone dipropionate 0.05 % 1 applic TOPICAL DAILY PRN 02/12/18 10/28/20 topical cream carvedilol 3.125 mg tablet 3.125 mg PO BID 02/12/18 02/12/18 levothyroxine 150 mcg tablet 100 mcg PO DAILY 02/12/18 10/28/20 nitroglycerin 0.3 mg sublingual 0.3 mg SUBLINGUAL Q5-15M PRN 02/12/18 10/28/20 tablet (Nitrostat) tamsulosin 0.4 mg capsule 0.4 mg PO DAILY 02/12/18 10/28/20 clopidogrel 75 mg tablet 75 mg PO DAILY 10/28/20 10/28/20 donepezil 10 mg tablet 10 mg PO BEDTIME 10/28/20 10/28/20 erythromycin 5 mg/gram (0.5 %) eye 1 applic EYE-BOTH TID 10/28/20 10/28/20 ointment nystatin 100,000 unit/gram topical 1 applic TOPICAL BID 10/28/20 10/28/20 cream Previous Rx's Medication Instructions Recorded oxycodone 5 mg tablet 5 mg PO Q3HR PRN #40 tab 02/09/18 oxycodone 5 mg tablet 5 mg PO Q6HR PRN #40 tab 02/15/18 Allergies Allergy/AdvReac Type Severity Reaction Status Date / Time morphine [MORPHINE] AdvReac Mild LOOPY Verified 12/03/20 10:48 BODY FEELS COLD, SHAKING Review of Systems Review of Systems ROS Unobtainable: All systems reviewed & are unremarkable except as noted in HPI and below Patient History Medical History Asthma GERD (gastroesophageal reflux disease) Hx of fracture of femur Hyperlipidemia Melanoma Myocardial infarction Myocardial infarction with complication Surgical History History of arthroplasty of left knee History of arthroplasty of right shoulder History of knee replacement History of lumbar surgery History of total left hip arthroplasty Hx of appendectomy Hx of heart artery stent Hx of tonsillectomy Status post hernia repair Family History Brother Hemorrhoids Daughter Developmental delay Diabetes mellitus Social History household members: spouse Smoking Status: Never smoker alcohol intake: current Smoking Status: Never smoker alcohol intake frequency: holidays/special occasions only Substance Use Type: does not use Exam Initial Vital Signs Initial Vital Signs: Vital Signs Temperature 96.8 F L 08/19/21 14:06 Pulse Rate 58 L 08/19/21 14:06 Respiratory Rate 16 08/19/21 14:06 Blood Pressure 149/65 H 08/19/21 14:06 Pulse Oximetry 98 08/19/21 14:06 Const General: cooperative, comfortable and well developed HENMT Head: normal to inspection and normocephalic Resp Effort & Inspection: normal respiratory effort Auscultation: clear to auscultation bilaterally Cardio Rate: regular rate Rhythm: regular rhythm GI Palpation: soft and No tender Back/Spine/Pelvis Cervical Spine: No cervical spinal tenderness Skin General: no rashes or lesions noted Neuro General: patient alert, patient awake and moves all extremities Extrem Other: Bilateral upper extremities unremarkable. Patient does have his left leg/hip in flexion. This is his area of greatest comfort. Psych Appearance: grossly normal and well kempt Scores GCS Francisco coma scale eye opening: Spontaneous Francisco coma scale verbal response: Orientated Francisco coma scale motor response: Obey commands [place] coma scale total score: 15 Nexus Score for C-Spine Focal Neurologic deficit present: No Midline spinal tenderness present: No Altered level of conciousness present: No Intoxication present: No Distracting Injury Present: No Nexus Criteria for C-spine: 0 Course Orders Ordered: ED Orders 08/19/21 14:09 XR hip w pel if done LT 2V Stat 08/19/21 15:33 CT pelvis wo con Stat 08/19/21 16:54 EKG-12 Lead Stat 08/19/21 18:50 Complete Blood Count AUTO DIFF Stat Comprehensive Metabolic Panel Stat Lipase Stat Partial Thromboplastin Time Stat Prothrombin Time INR Stat 08/19/21 19:04 Consult to Orthopedic Surgery Stat 08/19/21 19:07 COVID19 -Nasal swab/Pre-Proc Stat 08/19/21 19:29 Consult to Physician Urgent Hydromorphone HCl (Hydromorphone 0.5 Mg Inj) 0.5 mg IV Q2H PRN PRN Reason: Pain, Severe (7-10) Sodium Chloride (Normal Saline 0.9%) 1,000 mls @ 100 mls/hr IV CONT MACK Last Admin: 08/19/21 19:08 Dose: 100 mls/hr Documented by: BAL Ondansetron HCl (Ondansetron 4 Mg/2 Ml Inj) 4 mg IV Q4HR PRN PRN Reason: Nausea And Vomiting Discontinued Medications Hydromorphone HCl (Hydromorphone 0.5 Mg Inj) 0.5 mg IV NOW ONE Stop: 08/19/21 18:56 Last Admin: 08/19/21 19:08 Dose: 0.5 mg Documented by: BAL Vital Signs Vital signs: Vital Signs - 8 hr 08/19/21 14:06 Temperature 96.8 F L Pulse Rate 58 L Respiratory Rate 16 Blood Pressure 149/65 H Pulse Oximetry 98 MDM - Fall Lab Data Attestation: I reviewed the patient's lab results. Result diagrams: 08/19/21 18:50 08/19/21 18:50 Labs: Lab Results 08/19/21 08/19/21 08/19/21 Range/Units 18:50 18:50 18:50 WBC 8.3 (4.5-11.0) X10^3/uL RBC 3.24 L (4.5-5.9) X10^6/uL Hgb 10.4 L (13.5-17.5) g/dL Hct 30.7 L (41-53) % MCV 94.9 (80-100) fL MCH 32.1 (26-34) PG MCHC 33.9 (30-36) % RDW 15.6 H (11.6-14.8) % Plt Count 230 (150-400) X10^3/uL Neut % (Auto) 76.3 H (50-75) % Lymph % (Auto) 9.2 L (25-40) % [place] % (Auto) 10.2 (3-14) % Eos % (Auto) 3.7 (2-4) % Baso % (Auto) 0.6 (0-2) % Neut # (Auto) 6300 (5083-4151) /uL Lymph # (Auto) 800 L (5716-3085) /uL [place] # (Auto) 800 (0-900) /uL Eos # (Auto) 300 (0-450) /uL Baso # (Auto) 100 (0-100) /uL PT 12.4 (10.1-12.7) SECONDS INR 1.1 (0.9-1.3) APTT 34 (26.4-36.2) SECONDS Sodium 136 L (137-145) mmol/L Potassium 4.6 (3.4-5.1) mmol/L Chloride 105 (98-107) mmol/L Carbon Dioxide 26 (22-32) mmol/L BUN 33 H (9-20) mg/dL Creatinine 1.22 (0.66-1.25) mg/dL Estimated GFR 56.6 L (>60) mL/min BUN/Creatinine Ratio 27.0 H (6-22) Glucose 104 (80-110) mg/dL Calcium 9.1 (8.4-10.2) mg/dL Total Bilirubin 1.0 (0.2-1.3) mg/dL AST 48 (17-59) IU/L ALT 31 (<50) IU/L Alkaline Phosphatase 112 (38-126) U/L Total Protein 7.8 (6.3-8.2) g/dL Albumin 4.4 (3.5-5.0) g/dL Globulin 3.4 (1.7-4.1) g/dL Albumin/Globulin Ratio 1.3 (1.0-2.8) Lipase 29 (23-300) U/L SARS-CoV-2 (PCR) (Negative) 08/19/21 Range/Units 19:07 WBC (4.5-11.0) X10^3/uL RBC (4.5-5.9) X10^6/uL Hgb (13.5-17.5) g/dL Hct (41-53) % MCV (80-100) fL MCH (26-34) PG MCHC (30-36) % RDW (11.6-14.8) % Plt Count (150-400) X10^3/uL Neut % (Auto) (50-75) % Lymph % (Auto) (25-40) % [place] % (Auto) (3-14) % Eos % (Auto) (2-4) % Baso % (Auto) (0-2) % Neut # (Auto) (7499-4462) /uL Lymph # (Auto) (7947-5098) /uL [place] # (Auto) (0-900) /uL Eos # (Auto) (0-450) /uL Baso # (Auto) (0-100) /uL PT (10.1-12.7) SECONDS INR (0.9-1.3) APTT (26.4-36.2) SECONDS Sodium (137-145) mmol/L Potassium (3.4-5.1) mmol/L Chloride (98-107) mmol/L Carbon Dioxide (22-32) mmol/L BUN (9-20) mg/dL Creatinine (0.66-1.25) mg/dL Estimated GFR (>60) mL/min BUN/Creatinine Ratio (6-22) Glucose (80-110) mg/dL Calcium (8.4-10.2) mg/dL Total Bilirubin (0.2-1.3) mg/dL AST (17-59) IU/L ALT (<50) IU/L Alkaline Phosphatase (38-126) U/L Total Protein (6.3-8.2) g/dL Albumin (3.5-5.0) g/dL Globulin (1.7-4.1) g/dL Albumin/Globulin Ratio (1.0-2.8) Lipase (23-300) U/L SARS-CoV-2 (PCR) Negative (Negative) Imaging Data Extremity x-ray #1: Radiologist's Impression: [address] [address] XRay Report Signed Patient: Antoine Dillon MR#: [id number] : 1935 Acct:[id number] Age/Sex: 85 / M Date of Service: 08/19/21 Loc: ED Accession Number: [id number] ?? Procedure: XR hip w pel if done LT 2V Ordering Provider: Antoine Balbuena MD PROCEDURE:? XR HIP W PEL IF DONE LT 2V ? INDICATIONS:? fall, L hip pain, unable to stand ? TECHNIQUE:? AP pelvis with lateral view(s) of the left hip(s).? ? COMPARISON:? [facility] [place], CR, XR PELVIS WITH LATERAL HIP LEFT, 07/01/2021, 13:48.? [facility], CT, CT ABDOMEN PELVIS WO CON, 10/28/2020, 16:04.? [facility], CR, HIP 2V RIGHT, 10/09/2011, 9:18. ? FINDINGS:? ? Bones:? There is a lucency along the medial superior left femur seen only on lateral view.? Pelvic ring appears intact.? No suspicious bony lesions.? Bilateral hip arthroplasties are present as well as fixation of the lower lumbar spine.? All hardware is intact.? No visualized hardware fracture. ? Soft tissues:? The visualized bowel gas pattern is normal.? No suspicious soft tissue calcifications.? ? ? IMPRESSION:? There is lucency along the peripheral aspect of the medial superior femur.? While this could represent heterotopic bone or superimposed structures creating artifact, fracture cannot be definitively excluded.? Recommend correlation point tenderness and as indicated further evaluation with CT.? Dictated by: Earline Escoto M.D. on 08/19/2021 at 15:10 ? ? Approved by: Earline Escoto M.D. on 08/19/2021 at 15:14?? CT pelvis: Radiologist's Impression: [address] [address] [address] Scan Report Signed Patient: Antoine Dillon MR#: [id number] : 1935 Acct:[id number] Age/Sex: 85 / M Date of Service: 08/19/21 Loc: ED Accession Number: [id number] ?? Procedure: CT pelvis wo con Ordering Provider: Antoine Balbuena MD PROCEDURE:? CT PEL WO CON ? INDICATIONS:? ? fx on x ray after fall, ? TECHNIQUE:? Noncontrast 3 mm axial sections acquired through the bony pelvis, with coronal and sagittal reformatting.? ? COMPARISON:? [facility], CR, XR HIP W PEL IF DONE LT 2V, 08/19/2021, 14:10. ? FINDINGS:? Image quality:? Diagnostic.? Beam hardening artifacts from bilateral hip prosthesis are seen. ? Bones:? Patient is status post bilateral total hip arthroplasty.? Comminuted fracture involving anterior lateral cortex of proximal tibial shaft extending to involve greater trochanter of left proximal femur adjacent to the prosthesis .? No other fracture or dislocation is seen.? No gross hardware loosening is noted.? Pelvic ring is intact.? No suspicious intraosseous lesion.? 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 ? Soft tissues:? Soft tissue swelling and edema surrounding left proximal femoral shaft periprosthetic fracture site is seen.? No discrete drainable fluid collection is seen.? No large intramuscular hematoma or fluid collection is noted.? There is no pelvic free fluid or free air.? No abnormal bowel wall thickening.? Extensive sigmoid diverticulosis is seen without evidence of acute diverticulitis.? Bladder wall thickness is normal. ? ? IMPRESSION:? 1. Acute comminuted and slightly displaced left periprosthetic fracture extending to involve left greater trochanter as above.? No other fracture or dislocation is seen. 2. Soft tissue swelling and edema surrounding left proximal femoral fracture site.? No pelvic free fluid or free air.? No discrete drainable fluid collection.? ? ? Dictated by: Onesimo Lainez M.D. on 08/19/2021 at 16:02 ? ? Approved by: Onesimo Lainez M.D. on 08/19/2021 at 16:11 [facility] Narrative Medical decision making narrative: Patient appears well. This is a mechanical fall. Has a left periprosthetic hip fracture. Discussed the case with Dr. [facility] that asked the patient be admitted to the medicine service. Discussed case with Dr. Win was on-call for the patient's primary doctor. Will admit for further evaluation and treatment. Discussed the need for admission with the patient. He expressed understanding and agreement. Discharge Plan Departure Patient Disposition: Admitted As Inpatient Clinical Impression: Periprosthetic fracture around internal prosthetic left hip joint Admit Date/Time: 08/19/21 19:29 Admit Provider: Dale Mccallum
[2021-08-19 18:56] LABS: Add Manual Diff / Slide Review NO; Basophils Absolute Auto 100 /uL (0-100); Basophils Percent Auto 0.6 % (0-2); Eosinophils Absolute Auto 300 /uL (0-450); Eosinophils Percent Auto 3.7 % (2-4); Hematocrit 30.7 % (41-53); Hemoglobin 10.4 g/dL (13.5-17.5); Lymphocytes Absolute Auto 800 /uL (1100-4500); Lymphocytes Percent Auto 9.2 % (25-40); Mean Corpuscular HGB Conc 33.9 % (30-36); Mean Corpuscular Hemoglobin 32.1 PG (26-34); Mean Corpuscular Volume 94.9 fL (80-100); Monocytes Absolute Auto 800 /uL (0-900); Monocytes Percent Auto 10.2 % (3-14); Neutrophils Absolute Auto 6300 /uL (1500-7000); Neutrophils Percent Auto 76.3 % (50-75); Platelet Count 230 X10^3/uL (150-400); Red Blood Cell Count 3.24 X10^6/uL (4.5-5.9); Red Cell Distribution Width 15.6 % (11.6-14.8); White Blood Cell Count 8.3 X10^3/uL (4.5-11.0)
[2021-08-19] MEDS: HYDROMORPHONE 0.5 MG INJ IV ×2 (19:08→20:27)
[2021-08-19] MEDS: SODIUM CHLORIDE 0.9% 1,000 ML 100 ML IV (19:08)
[2021-08-19 19:12] LABS: INR 1.1 (0.9-1.3); Prothrombin Time 12.4 SECONDS (10.1-12.7)
[2021-08-19 19:15] LABS: PTT Partial Thromboplastin Tim 34 SECONDS (26.4-36.2)
[2021-08-19 19:17] LABS: Alanine Aminotransferase 31 IU/L (<50); Albumin 4.4 g/dL (3.5-5.0); Albumin Globulin Ratio 1.3 (1.0-2.8); Alkaline Phosphatase 112 U/L (38-126); Aspartate Aminotransferase 48 IU/L (17-59); Blood Urea Nitrogen 33 mg/dL (9-20); Calcium 9.1 mg/dL (8.4-10.2); Carbon Dioxide 26 mmol/L (22-32); Chloride 105 mmol/L (98-107); Estimated Glomerular Filt Rate 56.6 mL/min (>60); Globulin 3.4 g/dL (1.7-4.1); Glucose 104 mg/dL (80-110); HEMOLYSIS < 15 (0-50); Lipase 29 U/L (23-300); Potassium 4.6 mmol/L (3.4-5.1); Sodium 136 mmol/L (137-145); Total Protein 7.8 g/dL (6.3-8.2)
[2021-08-19 19:22] LABS: COVID19 -Nasal RAPID Negative (Negative)
[2021-08-19 19:38] VITALS: BP 157/70; PULSE 59; O2SAT 97
--- NOTE | 2021-08-19 19:49 | PC.NURSE ---
2000: admit from ED, dx: hip fx after fall at home. NPO for pending surgery in AM. mariella Sinclair RN will receive report and begin admission.
[2021-08-19 20:19] VITALS: BP 155/94; PULSE 59; RESP 18; O2SAT 96; BMI 26.8
[2021-08-19] MEDS: DONEPEZIL 5 MG TABLET 10 MG PO (20:38)
[2021-08-19 21:20] VITALS: BP 158/63; PULSE 65; RESP 16; TEMP 36.9; O2SAT 99
[2021-08-20] VITALS (7 sets, daily range): BP systolic 126–154; BP diastolic 58–77; PULSE 57–70; RESP 16–18; TEMP 36.6–37.2; O2SAT 93–95
[2021-08-20] MEDS: HYDROMORPHONE 0.5 MG INJ IV ×4 (02:22→23:28)
[2021-08-20] MEDS: PANTOPRAZOLE DR 20 MG TABLET PO (06:04)
[2021-08-20] MEDS: SODIUM CHLORIDE 0.9% 1,000 ML 100 ML IV ×2 (06:04→16:03)
--- NOTE | 2021-08-20 07:58 | PM.HP.1 ---
History of Present Illness History of Present Illness Date Patient Seen: 08/20/21 Time Patient Seen: 07:58 Date of Onset of Symptoms: 08/19/21 Chief complaint: Fell, Trouble walking Narrative: Patient lives on [facility] with his in a private home. He was in his usual state health and he tripped on a step and fell on his left side and had a periprosthetic fracture of his left hip. He had a unremarkable night. He is receiving morphine for pain control and he is not having any significant pain. He is not having any nausea. He states that he slept well last night. Patient had no preceding symptoms. Past medical history: 1. Coronary artery disease, status post stent placement and cardiogenic shock and VFib in 2013. Patient is on lifelong Plavix. 2. Hyperlipidemia 3. Melanoma 4. GERD 5. RAD Patient History Medical History Asthma GERD (gastroesophageal reflux disease) Hx of fracture of femur Hyperlipidemia Melanoma Myocardial infarction Myocardial infarction with complication Surgical History History of arthroplasty of left knee History of arthroplasty of right shoulder History of knee replacement History of lumbar surgery History of total left hip arthroplasty Hx of appendectomy Hx of heart artery stent Hx of tonsillectomy Status post hernia repair Family & Social History Family History Brother Hemorrhoids Daughter Developmental delay Diabetes mellitus Social History: household members spouse Prior Living Arrangements House Safety & Behavioral: Feels Safe in Current Yes Environment Been Physically Hurt or No Threatened By a Person Suicidal Ideation Description None Suicide Plan Description No Plan Tobacco & Substance use: Smoking Status Never smoker alcohol intake current alcohol intake frequency holiday/special occasion Substance Use Type does not use Meds Home Medications and Allergies Home Medications Medication Instructions Recorded Confirmed Type atorvastatin 80 mg tablet (Lipitor) 80 mg PO HS #0 08/20/07 08/19/21 History omeprazole 20 mg capsule,delayed 20 mg PO DAILY #0 06/18/17 08/19/21 History release aspirin 81 mg tablet,delayed 81 mg PO DAILY 01/28/18 08/19/21 History release (Aspir-) levothyroxine 150 mcg tablet 100 mcg PO DAILY 02/12/18 08/19/21 History nitroglycerin 0.3 mg sublingual 0.3 mg SUBLINGUAL Q5-15M PRN 02/12/18 08/19/21 History tablet (Nitrostat) tamsulosin 0.4 mg capsule 0.4 mg PO DAILY 02/12/18 08/19/21 History clopidogrel 75 mg tablet 75 mg PO DAILY 10/28/20 08/19/21 History donepezil 10 mg tablet 10 mg PO BEDTIME 10/28/20 08/19/21 History gabapentin 300 mg capsule 300 mg PO DAILY 08/19/21 08/19/21 History Allergies Allergy/AdvReac Type Severity Reaction Status Date / Time morphine [MORPHINE] AdvReac Mild LOOPY Verified 12/03/20 10:48 BODY FEELS COLD, SHAKING Review of Systems Review of Systems Narrative: Patient denies any chest pain. Patient denies any shortness of breath. Patient denies any decreased exercise tolerance. Patient denies any syncope or presyncope. No change in bowel movements. No bright red blood per rectum. No black tarry stools. No abdominal pain No fevers, no chills Exam Vital Signs (past 8 hours): - 08/20/21 02:18 08/20/21 07:44 Temperature 98.9 F 98.8 F Pulse Rate 57 L 62 Respiratory Rate 18 18 Blood Pressure 126/60 153/70 H Pulse Oximetry 94 93 Oxygen Delivery Method Room Air Narrative Exam Narrative: AF, VSS HEENT: wnl neck: no adenopathy Chest CTA bilateral Cor: RRR without murmur, distant s1 and s2 Abdomen: bs present, no guarding or rebound or HSM Ext: 2 plus pitting edema neuro non focal Objective Labs Result Diagrams: 08/19/21 18:50 08/19/21 18:50 Labs: Laboratory Results - last 24 hr 08/19/21 08/19/21 08/19/21 18:50 18:50 18:50 WBC 8.3 RBC 3.24 L Hgb 10.4 L Hct 30.7 L MCV 94.9 MCH 32.1 MCHC 33.9 RDW 15.6 H Plt Count 230 Neut % (Auto) 76.3 H Lymph % (Auto) 9.2 L [place] % (Auto) 10.2 Eos % (Auto) 3.7 Baso % (Auto) 0.6 Neut # (Auto) 6300 Lymph # (Auto) 800 L [place] # (Auto) 800 Eos # (Auto) 300 Baso # (Auto) 100 PT 12.4 INR 1.1 APTT 34 Sodium 136 L Potassium 4.6 Chloride 105 Carbon Dioxide 26 BUN 33 H Creatinine 1.22 Estimated GFR 56.6 L BUN/Creatinine Ratio 27.0 H Glucose 104 Calcium 9.1 Total Bilirubin 1.0 AST 48 ALT 31 Alkaline Phosphatase 112 Total Protein 7.8 Albumin 4.4 Globulin 3.4 Albumin/Globulin Ratio 1.3 Lipase 29 SARS-CoV-2 (PCR) 08/19/21 19:07 WBC RBC Hgb Hct MCV MCH MCHC RDW Plt Count Neut % (Auto) Lymph % (Auto) [place] % (Auto) Eos % (Auto) Baso % (Auto) Neut # (Auto) Lymph # (Auto) [place] # (Auto) Eos # (Auto) Baso # (Auto) PT INR APTT Sodium Potassium Chloride Carbon Dioxide BUN Creatinine Estimated GFR BUN/Creatinine Ratio Glucose Calcium Total Bilirubin AST ALT Alkaline Phosphatase Total Protein Albumin Globulin Albumin/Globulin Ratio Lipase SARS-CoV-2 (PCR) Negative Assessment & Plan Assessment & Plan narrative: 85 yo male with hyperlipidemia, hypertension, hypothyroidism, with history of recurrent falls with recent fall and periprosthetic left hip fracture. Assessment 1. Left hip fracture Plan: Per Orthopedics Will consult physical therapy. Will continue pain management. If he is not going to the OR then we will start Lovenox for DVT prophylaxis. Assessment 2. Hypothyroidism Plan: Continue on levothyroxine Assessment 3. Cognitive decline stable on donepezil Plan: Continue the same Assessment 4. Coronary artery disease with hyperlipidemia without acute symptoms Plan: Continue on same outpatient atorvastatin Assessment 5. BPH Plan: Continue on tamsulosin Will monitor blood pressure closely and make sure this is not contributing to falls. Total time spent with patient was 65 minutes in meeting with patient, discussing with nursing and meeting with surgery. Code status is full code at this time Time Spent With Patient Critical Care time: I spent a total of [] minutes of critical care time on this patient's care today; this time is exclusive of procedural time. Quality VTE Deep Vein Thrombosis/Pulmonary Embolism Present on Admission: No
[2021-08-20] MEDS: TAMSULOSIN 0.4 MG CAPSULE PO (09:00)
[2021-08-20] MEDS: LEVOTHYROXINE 100 MCG TABLET PO (09:00)
--- NOTE | 2021-08-20 11:57 | PT-IP ANOTE ---
PT eval received. EMR reviewed and pt s/p fall with L hip periprosthetic fracture and awaiting ortho consult. PT eval on hold until ortho consult for appropriate activity and weight bearing instructions. will f/u. informed nurse and agreed.
--- NOTE | 2021-08-20 12:16 | CM.DANOTE ---
DCP: Case received, EMR reviewed and met with patient. Introduced self and role. Was able to obtain information from patient regarding his baseline activity status at home prior to hospitalization. DCP assessment completed with information currently available. Patient is n 85 year old male who admitted yesterday evening to the care of the hospitalist team. PCP: Dr. Mccallum. Payer: confirmed: Medicare/[facility]. Patient came to the hospital via private vehicle secondary to his having a ground level fall that occurred at home. According to notes, patient had slipped and fell when he tripped over a step in his home. He had pain after kruger, and inability to walk since then. According to provider's note, patient had periprosthetic fracture of his left hip. He will be having an ortho consult for possible surgery. Met with patient in his room. He is alert and oriented, pleasant. Patient resides here in [place] with his spouse, Sabrina. At his baseline, he does have a FWW at home, as well as a cane. He and his both live on [facility]. Discussed skilled rehab, patient stated, he is willing to go if needed, he has been to rehab before. Gave referral to Yi at [facility], and she is reviewing. P: DCP to continue to follow. Will see how patient does with P.T. and if he has surgery. Plan is home versus skilled. Andreea Martin RN/Ticket Dispatcher Discharge Planning/Care Management CM Discharge Assessment Start: 08/20/21 12:13 Freq: Status: Active Protocol: Document 08/20/21 12:13 (Rec: 08/20/21 12:16 [id number]) Discharge Planning Assessment Assigned Software Integration Developer Andreea Martin RN/Ticket Dispatcher Advance Directives? Yes Advance Directives on File Yes History Provided By Patient,Medical Record Prior Living Arrangements House Household Members spouse Type of transporation used prior to Drives own vehicle admit Independent with ADL's Yes Is patient alert and oriented? Yes DME Already Rented / Owned FWW / Walker,Cane Patient/Family Preference OP PT Therapy Barriers to Discharge No Discharge Plan Home Transportation Arrangement Spouse or facility Referrals Initiated Intermediate Additional Comment Sent referral over to [facility] in case he needs skilled rehab. Whiteboard Updated in Patient Room with Yes name and ext. # of Software Integration Developer Review Status In Process Next Review Type Continued Stay Review
[2021-08-20] MEDS: ENOXAPARIN 40 MG/0.4 ML SYRINGE SUBCUT (16:03)
--- NOTE | 2021-08-20 17:11 | PT-IP ANOTE ---
no ortho consult note at this time. per nurse Jaime, Dr. eden checked on pt and not surgery at this time but stated that pt is going to be TTWB. informed nurse that there is no ortho consult note yet and no orders for weight bearing on EMR. pt also has a bed rest order that also needs to be changed for PT to do eval. will hold PT eval for today until further clarification from ortho doctor. will f/u.
[2021-08-20] MEDS: OXYCODONE IR 5 MG TABLET PO ×2 (19:53→23:25)
[2021-08-20] MEDS: DONEPEZIL 5 MG TABLET 10 MG PO (19:55)
--- NOTE | 2021-08-20 20:39 | P.HP_ITS ---
History of Present Illness History of Present Illness Date Patient Seen: 08/20/21 Time Patient Seen: 10:30 Chief complaint: Fell, Trouble walking Narrative: This is a pleasant and somewhat complicated 85-year-old gentleman who fell at home basically did a face plant. And noted the acute onset of left hip pain. He actually was able to get somewhere near his 's walker and get upright and then he said he sat in a chair and finished his pizza. He noted ongoing significant left hip pain and asked his to call 911. Been having ongoing multiple orthopedic problems on including spinal stenosis. He has a history of bilateral total hip arthroplasties in the past. He has also had a left total knee arthroplasty and a revision knee arthroplasty. He has been seen recently complaining of left leg pain and specifically left leg weakness. He has had previously an instrumented fusion of his lumbar spine and recent MRI scan showed progressive disease proximal to his fusion. He would prefer nonsurgical management of his low back despite weakness into his left leg and a history of multiple falls. He lives on [facility] with his . Patient History Medical History Asthma GERD (gastroesophageal reflux disease) Hx of fracture of femur Hyperlipidemia Melanoma Myocardial infarction Myocardial infarction with complication Surgical History History of arthroplasty of left knee History of arthroplasty of right shoulder History of knee replacement History of lumbar surgery History of total left hip arthroplasty Hx of appendectomy Hx of heart artery stent Hx of tonsillectomy Status post hernia repair Family & Social History Family History Brother Hemorrhoids Daughter Developmental delay Diabetes mellitus Social History: household members spouse Prior Living Arrangements House Safety & Behavioral: Feels Safe in Current Yes Environment Been Physically Hurt or No Threatened By a Person Suicidal Ideation Description None Suicide Plan Description No Plan Tobacco & Substance use: Smoking Status Never smoker alcohol intake current alcohol intake frequency holiday/special occasion Substance Use Type does not use Meds Home Medications and Allergies Home Medications Medication Instructions Recorded Confirmed Type atorvastatin 80 mg tablet (Lipitor) 80 mg PO HS #0 08/20/07 08/19/21 History omeprazole 20 mg capsule,delayed 20 mg PO DAILY #0 06/18/17 08/19/21 History release aspirin 81 mg tablet,delayed 81 mg PO DAILY 01/28/18 08/19/21 History release (Aspir-) levothyroxine 150 mcg tablet 100 mcg PO DAILY 02/12/18 08/19/21 History nitroglycerin 0.3 mg sublingual 0.3 mg SUBLINGUAL Q5-15M PRN 02/12/18 08/19/21 History tablet (Nitrostat) tamsulosin 0.4 mg capsule 0.4 mg PO DAILY 02/12/18 08/19/21 History clopidogrel 75 mg tablet 75 mg PO DAILY 10/28/20 08/19/21 History donepezil 10 mg tablet 10 mg PO BEDTIME 10/28/20 08/19/21 History gabapentin 300 mg capsule 300 mg PO DAILY 08/19/21 08/19/21 History Allergies Allergy/AdvReac Type Severity Reaction Status Date / Time morphine [MORPHINE] AdvReac Mild LOOPY Verified 12/03/20 10:48 BODY FEELS COLD, SHAKING Review of Systems Review of Systems Narrative: He did not have shortness of breath or dizziness prior to the fall. Was a ground level fall he denied any specific chest pain or other problems prior to his fall. He has noted progressive weakness in the left leg and hip. He normally is quite physically active doing outdoor activities. Exam Vital Signs (past 8 hours): - 08/20/21 15:00 Temperature 97.9 F Pulse Rate 62 Respiratory Rate 16 Blood Pressure 129/58 L Pulse Oximetry 95 Oxygen Delivery Method Room Air Oxygen Flow Rate 0 Narrative Exam Narrative: He is resting comfortably in bed he is alert he is oriented neck is supple lungs are clear cor regular rate and rhythm abdomen is benign examination of his left leg shows focal tenderness over the anterior aspect of the left leg he has a well-healed posterolateral incision fairly mild pain with very gentle range of motion in the left hip, he can fire his toe flexors and extensors distally does have restricted motion, there is a well-healed midline knee incision with moderate effusion or capsular thickening Objective Labs Result Diagrams: 08/19/21 18:50 08/19/21 18:50 Labs: His x-rays show a left type B periprosthetic proximal femur fracture around a left total hip arthroplasty. There is acceptable alignment of the cup with no evidence of loosening. The stem does cross the fracture site and there is slight impaction of the more proximal piece of the femur on the distal stem it is comminuted but not substantially displaced. I specifically reviewed it in detail in comparison to previous x-rays which did not show substantial mech anical loosening. His CT scan shows a comminuted left proximal periprosthetic fracture around a little non cemented left total hip arthroplasty. It is not substantially displaced. It is quite comminuted and there does not appear to be gross loosening of the prosthesis. Assessment & Plan Assessment and plan (1) Spinal stenosis: Status: Acute (2) Radiculopathy of lumbar region: Status: Acute (3) Periprosthetic fracture around internal prosthetic left hip joint: Status: Acute Plan I have recommended conservative treatment. I specifically looked at his fracture in detail to see if I felt it would be better stabilized either with a plate or revision hip arthroplasty or a cerclage wire. It is quite comminuted but not substantially displaced. I think it likely has good bony ingrowth into the proximal fragment and adequate support across the fracture site. I have recommended conservative treatment. He can be partial weight-bearing to maximum of 50 lb on the left lower extremity. He has multiple medical problems including spinal stenosis with radiculopathy and weakness in his left leg. I think combination of this and this new periprosthetic left femur fracture will require additional care and stabilization with therapy and probable ultimate discharge to rehab. He has fairly incapacitating pain at this point and requires inpatient admission for pain control and stabilization. We will attempt to start physical therapy. Time Spent With Patient Critical Care time: I spent a total of [] minutes of critical care time on this patient's care today; this time is exclusive of procedural time. Quality VTE Deep Vein Thrombosis/Pulmonary Embolism Present on Admission: No
[2021-08-20] MEDS: ATORVASTATIN 20 MG TABLET 80 MG PO (22:20)
[2021-08-20] MEDS: ACETAMINOPHEN 325 MG TABLET 650 MG PO (23:24)
[2021-08-21] VITALS (7 sets, daily range): BP systolic 141–163; BP diastolic 65–83; PULSE 62–70; RESP 17–19; TEMP 36.6–37.6; O2SAT 94–97
[2021-08-21] MEDS: SODIUM CHLORIDE 0.9% 1,000 ML 100 ML IV ×2 (01:52→11:51)
[2021-08-21] MEDS: HYDROMORPHONE 0.5 MG INJ IV (04:10)
[2021-08-21 06:00] LABS: Add Manual Diff / Slide Review NO; Basophils Absolute Auto 0 /uL (0-100); Basophils Percent Auto 0.7 % (0-2); Eosinophils Absolute Auto 400 /uL (0-450); Eosinophils Percent Auto 7.2 % (2-4); Hematocrit 26.8 % (41-53); Hemoglobin 8.9 g/dL (13.5-17.5); Lymphocytes Absolute Auto 800 /uL (1100-4500); Lymphocytes Percent Auto 16.5 % (25-40); Mean Corpuscular HGB Conc 33.2 % (30-36); Mean Corpuscular Hemoglobin 31.8 PG (26-34); Mean Corpuscular Volume 95.7 fL (80-100); Monocytes Absolute Auto 700 /uL (0-900); Monocytes Percent Auto 14.3 % (3-14); Neutrophils Absolute Auto 3100 /uL (1500-7000); Neutrophils Percent Auto 61.3 % (50-75); Platelet Count 181 X10^3/uL (150-400); Red Cell Distribution Width 15.8 % (11.6-14.8); White Blood Cell Count 5.1 X10^3/uL (4.5-11.0)
[2021-08-21 06:17] LABS: BUN Creatinine Ratio 18.1 (6-22); Blood Urea Nitrogen 21 mg/dL (9-20); Calcium 8.1 mg/dL (8.4-10.2); Carbon Dioxide 28 mmol/L (22-32); Chloride 105 mmol/L (98-107); Glucose 102 mg/dL (80-110); HEMOLYSIS < 15 (0-50); Potassium 3.8 mmol/L (3.4-5.1); Sodium 135 mmol/L (137-145)
[2021-08-21] MEDS: ACETAMINOPHEN 325 MG TABLET 650 MG PO ×3 (07:56→17:44)
[2021-08-21] MEDS: LEVOTHYROXINE 100 MCG TABLET PO (07:57)
[2021-08-21] MEDS: ENOXAPARIN 40 MG/0.4 ML SYRINGE SUBCUT (07:57)
[2021-08-21] MEDS: TAMSULOSIN 0.4 MG CAPSULE PO (07:57)
[2021-08-21] MEDS: PANTOPRAZOLE DR 20 MG TABLET PO (07:59)
--- NOTE | 2021-08-21 08:58 | PM.PN.1 ---
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 No BM yet this admission he is able to transfer to bedside commode ok. Hip pain is there but tolerable if immobile. Exam Vital Signs (past 8 hours): - 08/21/21 04:51 08/21/21 08:00 Temperature 98.0 F 98.2 F Pulse Rate 63 65 Respiratory Rate 18 17 Blood Pressure 158/83 H 162/77 H Pulse Oximetry 94 94 Oxygen Delivery Method Room Air Oxygen Flow Rate 0 Narrative Exam Narrative: sitting up in bed alert eating breakfast with gusto Const General: cooperative, healthy appearing and comfortable Nutritional Appearance: average body habitus and well nourished HENMT Head: normal to inspection Ears: hearing grossly normal bilaterally Nose: external nose normal Neck Neck: normal visual inspection and full ROM Resp Effort & Inspection: normal respiratory effort and able to speak in complete sentences Auscultation: clear to auscultation bilaterally Cardio Rate: regular rate Heart Sounds: S1 normal and S2 normal GI Inspection: normal to inspection Palpation: soft and No tender Percussion: normal to percussion Skin General: no rashes or lesions noted Neuro General: patient alert, patient awake, patient oriented x3 and CN's II-XI intact bilaterally Extrem Other: LLE hip very painful to range, distal NV intact Psych Appearance: grossly normal Mental Status: mental status grossly normal Objective Labs Result Diagrams: 08/21/21 05:23 08/21/21 05:23 Labs: Laboratory Results - last 24 hr 08/21/21 08/21/21 05:23 05:23 WBC 5.1 RBC 2.80 L Hgb 8.9 L Hct 26.8 L MCV 95.7 MCH 31.8 MCHC 33.2 RDW 15.8 H Plt Count 181 Neut % (Auto) 61.3 Lymph % (Auto) 16.5 L [place] % (Auto) 14.3 H Eos % (Auto) 7.2 H Baso % (Auto) 0.7 Neut # (Auto) 3100 Lymph # (Auto) 800 L [place] # (Auto) 700 Eos # (Auto) 400 Baso # (Auto) 0 Sodium 135 L Potassium 3.8 Chloride 105 Carbon Dioxide 28 BUN 21 H Creatinine 1.16 Estimated GFR 60.0 BUN/Creatinine Ratio 18.1 Glucose 102 Calcium 8.1 L PFSH Medical History Asthma GERD (gastroesophageal reflux disease) Hx of fracture of femur Hyperlipidemia Melanoma Myocardial infarction Myocardial infarction with complication Surgical History History of arthroplasty of left knee History of arthroplasty of right shoulder History of knee replacement History of lumbar surgery History of total left hip arthroplasty Hx of appendectomy Hx of heart artery stent Hx of tonsillectomy Status post hernia repair Family History Brother Hemorrhoids Daughter Developmental delay Diabetes mellitus Social History household members: spouse Smoking Status: Never smoker alcohol intake: current Assessment & Plan Assessment & Plan narrative: 85 yo male with hyperlipidemia, hypertension, hypothyroidism, with history of recurrent falls with recent fall and periprosthetic left hip fracture. #Periprosthetic comminuted mildly displaced L hip fracture Ortho recs conservative mgmgt likely will need rehab placement see how he does today. Partial weight bearing to 50 pounds on LLE. Bedside commode. Will consult physical therapy.? Will continue pain management and stool softeners.? Continue Lovenox for DVT prophylaxis. NB: pt has been starting low dose naltrexone pack lately for back pain- will hold this while inpatient and receiving opiate pain meds #Hypothyroidism continue home levothyroxine 100 #Cognitive decline stable on donepezil 10 continue #Coronary artery disease s/p IA with stent with hyperlipidemia without acute symptoms Stable continue on home atorvastatin 80, DAPT #normocytic anemia, chronic, present on admission trend and encourage PO intake #BPH with obstruction Stable continue on tamsulosin, monitor blood pressure closely and make sure this is not contributing to falls. Total time spent with patient was 40 minutes in meeting with patient, discussing with family and nursing. Code status is full code Diet: regular DVT: Lovenox MDM: Sabrina [phone] Time Spent With Patient Critical Care time: I spent a total of [] minutes of critical care time on this patient's care today; this time is exclusive of procedural time. Quality VTE Deep Vein Thrombosis/Pulmonary Embolism Present on Admission: No
--- NOTE | 2021-08-21 09:05 | CM.DPC ---
DCP Cont: Patient did not have surgery, having conservative treatment. He will continue to work with P.T. Spoke to Dr. Mccallum, faculty criminal justice this am. He indicated that his also has her own health problems, they both live on [facility]. Let him know that [facility] should be able to accept. He was inpatient on 08-19, [facility], . Confirmed with Yi at [facility] that they can accept tomorrow. P: DCP to continue to follow. He will work with P.T. today. Will complete PASSR, and see if COVID can be obtained today. Andreea Martin, DANIELA/Fiber Locking Supervisor
--- NOTE | 2021-08-21 10:55 | PT.IIE ---
Current Diagnoses Spinal stenosis, site unspecified (08/19/21) Radiculopathy, lumbar region (08/19/21) Periprosthetic fracture around internal prosthetic left hip joint, initial encounter (08/19/21) Displaced comminuted fracture of shaft of left femur, initial encounter for closed fracture (08/19/21) Surgical History (Last Reviewed 08/20/21 @ 20:42 by Lala Willard MD) History of knee replacement Status post hernia repair Medical History (Last Reviewed 08/20/21 @ 20:42 by Lala Willard MD) Asthma GERD (gastroesophageal reflux disease) Hx of fracture of femur Hyperlipidemia Melanoma Myocardial infarction Myocardial infarction with complication Physical Therapy Inpatient Evaluation/Re-Eval M1 PT/OT-IP Prior Functional Status Start: 08/21/21 12:28 Freq: NEEDED Status: Active Protocol: Document 08/21/21 10:55 AB (Rec: 08/21/21 12:47 AB [id number]) Medical Review Prior Functional Status Medical History Reviewed Yes Communication able to make needs known Mobility and Gait pt stated that he is modified independent with all mobilities using either 2 SPC or a 4WW but occasionally without AD; stated that he has h/o falls and had PT for balance but then he quit per pt. Social History Household Members spouse Living Arrangements Mobile home Number of Floors (Floors) One Floor Number of Stairs To Enter/Railing? 4 steps B rails to enter has 1 step up/down to the kitchen Home Environment High Toilet,Walk in Shower, Bidet Home Equipment Four Wheel Walker,Straight Cane,Shower Seat with Backrest ,Hand Held Shower,Grab Bars Near Toilet,Grab Bars In Shower Additional Social History Comment pt has an adjustable bed M2 PT-IP Current Condition Start: 08/21/21 12:28 Freq: NEEDED Status: Active Protocol: Document 08/21/21 10:55 AB (Rec: 08/21/21 12:47 AB [id number]) Physical Therapy Current Condition Current Condition Evaluation Date 08/21/21 Treatment Diagnosis GLF ; L hip periprosthetic fx; difficulty in walking Onset Date 08/20/21 M3 PT-IP Subjective Start: 08/21/21 12:28 Freq: NEEDED Status: Active Protocol: Document 08/21/21 10:55 AB (Rec: 08/21/21 12:47 AB [id number]) Subjective Physical Therapy Visit Type Type Initial Evaluation Visit Start Time 10:55 Visit Stop Time 11:35 Total Visit Minutes 40 Notes ortho consult note reviewed and no surgery indicated at this time but pt is 50# weight bearing on LLE. 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 Visits 0 Physical Therapy Visit Comments Patient Comments agreeable to do PT Therapy Pain Assessment Pain When Pain Assessed During Mobility Pain Present Pain Present Pain Reported Location Left Hip Intensity 10 Pain Management Techniques Apply Cold,Distraction, Modification of Treatment,Re- positioning,Timing of Activity with Medications M4 PT-IP Mobility and Gait Start: 08/21/21 12:28 Freq: NEEDED Status: Active Protocol: Document 08/21/21 10:55 AB (Rec: 08/21/21 12:47 AB [id number]) PT-Bed Mobility Assessment Supine to Sit Supine to Sit Maximum Assistance,1 Person Assistance,Head of Bed Elevated,Bedrails Scooting Scooting to Edge of Bed Maximum Assistance PT-Transfer Assessment Sit to and From Stand Sit to and from Stand Maximum Assistance,2 Person Assistance,Use of Upper Extremities Equipment Transfer Assistive Device Gait Belt,Front Wheeled Walker Orthotic/Prosthetic Devices or Brace: No Transfers Transfer Destination Chair Transfer Technique Stand Pivot Transfer Ability Level of Assist Maximum Assistance,1 Person Assistance,2 Person Assistance ,Use of Upper Extremities Comments Mobility Comments pt educated on weight bearing precaution on LLE. completed supine to sit max A and max cues with HOB elevated. pt able to sit on EOB CGA. completed sit to stand max A x 2 and max cues. pt was able to maintain standing using fWW max A while NAC assist pt with brief change. pt unable to maintain do 50# weight bearing and instructed to do NWB for safety. pt intially required max A to maintain NWB but able to maintain after cues with use of FWW. pt completed stand pivot transfer using fWW to chair max A x 1- 2 and max cues. positioned pt on chair. call light and table placed within reach. Gait Assessment Comments Gait Comments unable at this time PT-Balance Assessment Sitting Balance and Reactions Static Sitting Balance Ability Good Dynamic Sitting Balance Ability Fair Standing Balance and Reactions Static Standing Balance Ability Poor Dynamic Standing Balance Ability Poor Device Used FWW M5 PT-IP Objective Assessments Start: 08/21/21 12:28 Freq: NEEDED Status: Active Protocol: Document 08/21/21 10:55 AB (Rec: 08/21/21 12:47 AB [id number]) Orientation Orientation/Cognition Level of Alertness Alert Orientation Name Language Function Ability No Deficits Noted Safety Awareness Decreased Safety Awareness Memory Description No Deficits Noted Gross Range of Motion Lower Extremity ROM Assessment Within Functional Limits Impairments pain guarding LLE during PROM Strength Lower Extremity Strength Assessment Left Impaired Hip 2+/5 Knee 3+/5 Coordination Assessment Gross Coordination Gross Coordination WNL Muscle Tone Muscle Tone WNL Yes M6 PT-IP Treatment Start: 08/21/21 12:28 Freq: NEEDED Status: Active Protocol: Document 08/21/21 10:55 AB (Rec: 08/21/21 12:47 AB [id number]) Physical Therapy Treatment Education Education Provided Precautions,Weight Bearing Status,Safety M7 PT-IP Assessment and Plan Start: 08/21/21 12:28 Freq: NEEDED Status: Active Protocol: Document 08/21/21 10:55 AB (Rec: 08/21/21 12:47 AB [id number]) PT Summary Assessment and Plan Potential Rehabilitation Potential Fair Status of Condition at Evaluation Evolving Summary Impairments Pain,ROM,Strength,Balance, Coordination,Sensation,Tone, Cognition,Bed Mobility, Transfers,Gait,Activity Tolerance Assessment Summary pt s/p fall sustaining L hip periprosthetic fracture but no surgery intervention at this time. pt has a weight bearing restriction of 50# on LLE. pt requiring max A x 1-2 with mobility and will require SNF rehab to improve strength and mobility. will continue to assess progress. Goals Bed Mobility Goal Minimal Assistance Transfer Goal Moderate Assistance,Front Wheeled Walker Gait Goal Moderate Assistance,Front Wheel Walker Gait Distance 25 Days to Meet Goals 5 Frequency of Treatment Frequency Of Treatment Twice a Day Treatment Plan Physical Therapy Treatment Plan Bed Mobility Training,Transfer Training,Gait Training, Therapeutic Exercise,Balance Retraining,Discharge Planning, Hot or Cold Pack,Neuromuscular Re-ed,Coordination Retraining ,Manual Therapy Weight Bearing Status Weight Bearing Status Touch Down Weight Bearing Allowed Weight Bearing Amount (enter % 50# weight bearing on LLE or #) (%) Recommendations To Nursing Amount of Assist Needed 2 Person Assist Discharge Recommendations PT Discharge Recommendations SNF Rehab Transportation Needs at Discharge Wheelchair/Cabulance
[2021-08-21] MEDS: OXYCODONE IR 5 MG TABLET PO ×2 (11:01→20:03)
--- NOTE | 2021-08-21 13:33 | PM.PN.1 ---
Subjective Subjective Date Patient Seen: 08/21/21 Time Patient Seen: 13:34 Interval history: Sitting up in a chair eating lunch, states he is feeling much better than he has in days. Plan is to d/c to SNF. He has been seen and treated in the office by Dr Gunn for his left hip pain and Dr Holden for his back and leg pain; he most recently saw Dr Valdovinos, who had recommended a left L2-3 SANTANA, which has not yet been scheduled. Exam Vital Signs (past 8 hours): - 08/21/21 08:00 08/21/21 12:00 Temperature 98.2 F 98.6 F Pulse Rate 65 68 Respiratory Rate 17 19 Blood Pressure 162/77 H 150/66 H Pulse Oximetry 94 94 Oxygen Delivery Method Room Air Oxygen Flow Rate 0 Narrative Exam Narrative: 5/5 strength hamstrings, DF, PF, EHL on left; hip flexors and quadriceps 4/5. Sensation to light touch intact throughout leg. Calves soft, nontender, compressible and without palpable cords or masses. Const General: cooperative, healthy appearing and comfortable Orientation: alert, awake and oriented x3 Objective Labs Result Diagrams: 08/21/21 05:23 08/21/21 05:23 Labs: Laboratory Results - last 24 hr 08/21/21 08/21/21 05:23 05:23 WBC 5.1 RBC 2.80 L Hgb 8.9 L Hct 26.8 L MCV 95.7 MCH 31.8 MCHC 33.2 RDW 15.8 H Plt Count 181 Neut % (Auto) 61.3 Lymph % (Auto) 16.5 L [place] % (Auto) 14.3 H Eos % (Auto) 7.2 H Baso % (Auto) 0.7 Neut # (Auto) 3100 Lymph # (Auto) 800 L [place] # (Auto) 700 Eos # (Auto) 400 Baso # (Auto) 0 Sodium 135 L Potassium 3.8 Chloride 105 Carbon Dioxide 28 BUN 21 H Creatinine 1.16 Estimated GFR 60.0 BUN/Creatinine Ratio 18.1 Glucose 102 Calcium 8.1 L PFSH Medical History Asthma GERD (gastroesophageal reflux disease) Hx of fracture of femur Hyperlipidemia Melanoma Myocardial infarction Myocardial infarction with complication Surgical History History of arthroplasty of left knee History of arthroplasty of right shoulder History of knee replacement History of lumbar surgery History of total left hip arthroplasty Hx of appendectomy Hx of heart artery stent Hx of tonsillectomy Status post hernia repair Family History Brother Hemorrhoids Daughter Developmental delay Diabetes mellitus Social History household members: spouse Smoking Status: Never smoker alcohol intake: current Assessment & Plan Assessment and plan (1) Periprosthetic fracture around internal prosthetic left hip joint: Status: Acute (2) Radiculopathy of lumbar region: Status: Acute Plan Continue pain control per hospitalist service and ambulation w/ PT. Partial weight bearing to 50 pounds on LLE. Follow up w/ Dr Gunn in clinic in 3 weeks for reimaging and evaluation, follow up with Dr Ralph Valdovinos as desired for lumbar SANTANA. Will sign off - please reconsult orthopedics with any concerns. Time Spent With Patient Critical Care time: I spent a total of [] minutes of critical care time on this patient's care today; this time is exclusive of procedural time. Quality VTE Deep Vein Thrombosis/Pulmonary Embolism Present on Admission: No
--- NOTE | 2021-08-21 13:44 | CM.DPC ---
Addendum entered by Andreea Martin R.N. 08/21/21 15:04: Zaira from [facility] has reviewed patient, should be able to accept tomorrow. Gave her additional information, weight, as well. Original Note: DCP Cont: Patient was hoping to go to [facility] as first choice, and [facility] as second. Called Zaira at [facility], and she will plan on coming and seeing him today. Faxed her over information on patient. [facility] can also accept tomorrow. Will complete PASSR today. P: DCP to continue to follow. Plan is for patient to go to [facility], or [facility] if they can accept tomorrow. Andreea Martin RN/Sulfuric Acid Plant Supervisor
--- NOTE | 2021-08-21 14:15 | PT.IPTN ---
Current Diagnoses Spinal stenosis, site unspecified (08/19/21) Radiculopathy, lumbar region (08/19/21) Periprosthetic fracture around internal prosthetic left hip joint, initial encounter (08/19/21) Displaced comminuted fracture of shaft of left femur, initial encounter for closed fracture (08/19/21) Physical Therapy Treatment Note M2 PT-IP Current Condition Start: 08/21/21 12:28 Freq: NEEDED Status: Active Protocol: Document 08/21/21 10:55 AB (Rec: 08/21/21 12:47 AB [id number]) Physical Therapy Current Condition Current Condition Evaluation Date 08/21/21 Treatment Diagnosis GLF ; L hip periprosthetic fx; difficulty in walking Onset Date 08/20/21 M3 PT-IP Subjective Start: 08/21/21 12:28 Freq: NEEDED Status: Active Protocol: Document 08/21/21 14:15 AB (Rec: 08/21/21 16:23 AB [email or web address]) Subjective Physical Therapy Visit Type Type Treatment Note Visit Start Time 14:15 Visit Stop Time 14:48 Total Visit Minutes 33 Number of AIRFRAME AND POWERPLANT MECHANIC Visits 0 Physical Therapy Visit Comments Patient Comments pt is agreeable to do PT Therapy Pain Assessment Pain When Pain Assessed During Mobility Pain Present Pain Present Pain Reported Location Left Hip Scale Used pain scale not stated Pain Behaviors Facial Grimacing,Wincing Pain Management Techniques Distraction,Modification of Treatment,Re-positioning, Timing of Activity with Medications M4 PT-IP Mobility and Gait Start: 08/21/21 12:28 Freq: NEEDED Status: Active Protocol: Document 08/21/21 14:15 AB (Rec: 08/21/21 16:23 AB [email or web address]) PT-Bed Mobility Assessment Sit to Supine Sit to Supine Maximum Assistance,1 Person Assistance,Head of Bed Elevated,Bedrails Scooting Scooting Up and Down in Bed Dependent PT-Transfer Assessment Sit to and From Stand Sit to and from Stand Moderate Assistance,Maximum Assistance,1 Person Assistance ,Use of Upper Extremities Equipment Transfer Assistive Device Gait Belt,Front Wheeled Walker Orthotic/Prosthetic Devices or Brace: No Transfers Transfer Destination Bed Transfer Technique Stand Pivot Transfer Ability Level of Assist Moderate Assistance,Maximum Assistance,1 Person Assistance ,Use of Upper Extremities Comments Mobility Comments edcuated pt on sit to stand technique while maintaining weight bearing precaution on LLE. pt completed sit to stand max A and max cues. able to stand using fWW for support mod A and tolerated ~ 15 sec of standing. pt sat back down max A for controlled descent to chair. educated pt on how to ambulate/take a few steps using FWW while maintaining NWB on LLE. pt completed sit to stand from chair mod A and cues. attempted to ambulate but unable. pt requesting to go back to bed and completed stand pivot transfer using FWW mod to max A and max cues using FWW. pt able to sit on EOB SBA. completed seated LAQx 5 sec hold x 5 reps on BLE. completed sit to supine max A and max cues. positioned pt in bed total A x 2. call light and table placed within reach. ice pack provided. M5 PT-IP Objective Assessments Start: 08/21/21 12:28 Freq: NEEDED Status: Active Protocol: Document 08/21/21 10:55 AB (Rec: 08/21/21 12:47 [facility] Orientation Orientation/Cognition Level of Alertness Alert Orientation Name Language Function Ability No Deficits Noted Safety Awareness Decreased Safety Awareness Memory Description No Deficits Noted Gross Range of Motion Lower Extremity ROM Assessment Within Functional Limits Impairments pain guarding LLE during PROM Strength Lower Extremity Strength Assessment Left Impaired Hip 2+/5 Knee 3+/5 Coordination Assessment Gross Coordination Gross Coordination WNL Muscle Tone Muscle Tone WNL Yes M6 PT-IP Treatment Start: 08/21/21 12:28 Freq: NEEDED Status: Active Protocol: Document 08/21/21 14:15 AB (Rec: 08/21/21 16:23 AB [email or web address]) Physical Therapy Treatment Education Education Provided Weight Bearing Status,Safety M7 PT-IP Assessment and Plan Start: 08/21/21 12:28 Freq: NEEDED Status: Active Protocol: Document 08/21/21 14:15 AB (Rec: 08/21/21 16:23 AB [id number]) PT Summary Assessment and Plan Potential Rehabilitation Potential Good Summary Impairments Pain,ROM,Strength,Balance, Coordination,Sensation,Tone, Cognition,Bed Mobility, Transfers,Gait,Activity Tolerance Progress Towards Goals Slow Progress due to Pain,Slow Progress due to Activity Tolerance Assessment Summary pt improving slowly and able to complete sit to stand mod to max A and max cues but still has difficulty taking steps and max cues to maintain weight bearing restriction on LLE> pt will require SNF rehab to improve strength and mobility. Goals Bed Mobility Goal Minimal Assistance Transfer Goal Moderate Assistance,Front Wheeled Walker Gait Goal Moderate Assistance,Front Wheel Walker Gait Distance 25 Days to Meet Goals 5 Frequency of Treatment Frequency Of Treatment Twice a Day Treatment Plan Physical Therapy Treatment Plan Bed Mobility Training,Transfer Training,Gait Training, Therapeutic Exercise,Balance Retraining,Discharge Planning, Hot or Cold Pack,Neuromuscular Re-ed,Coordination Retraining ,Manual Therapy Weight Bearing Status Weight Bearing Status Touch Down Weight Bearing Allowed Weight Bearing Amount (enter % 50# weight bearing on LLE or #) (%) Recommendations To Nursing Amount of Assist Needed 2 Person Assist Discharge Recommendations PT Discharge Recommendations SNF Rehab Transportation Needs at Discharge Wheelchair/Cabulance
[2021-08-21] MEDS: DONEPEZIL 5 MG TABLET 10 MG PO (20:00)
[2021-08-21] MEDS: ATORVASTATIN 20 MG TABLET 80 MG PO (20:00)
[2021-08-22] MEDS: OXYCODONE IR 5 MG TABLET PO ×2 (04:20→11:58)
[2021-08-22 04:25] VITALS: BP 157/69; PULSE 65; RESP 18; TEMP 36.9; O2SAT 94
[2021-08-22] MEDS: LEVOTHYROXINE 100 MCG TABLET PO (06:22)
[2021-08-22] MEDS: PANTOPRAZOLE DR 20 MG TABLET PO (06:22)
[2021-08-22] MEDS: ACETAMINOPHEN 325 MG TABLET 650 MG PO ×2 (06:22→11:08)
[2021-08-22 08:00] VITALS: BP 156/75; PULSE 68; RESP 16; TEMP 36.7; O2SAT 94
[2021-08-22] MEDS: TAMSULOSIN 0.4 MG CAPSULE PO (08:34)
[2021-08-22] MEDS: ENOXAPARIN 40 MG/0.4 ML SYRINGE SUBCUT (08:34)
--- NOTE | 2021-08-22 09:05 | PM.DS.1 ---
History of Present Illness History of Present Illness Date Patient Seen: 08/22/21 Time Patient Seen: 09:06 Chief complaint: Fell, Trouble walking Narrative: slept well feeling good today plan is to transfer to rehab keep working on LLE partial weight bearing he is enthusiastic about working hard. Discharge Providers Provider Date of admission: 08/19/21 19:29 Discharge Date: 08/22/21 Primary care physician: Dale Mccallum MD Consults: 08/19/21 19:04 Consult to Orthopedic Surgery Stat Comment: Consulting Provider: Lala Willard Reason for consultation: hip fracture Has provider been notified: Yes 08/19/21 19:29 Consult to Physician Urgent Comment: Consulting Provider: Ann Win Reason for consultation: admission Has provider been notified: Yes 08/19/21 19:31 Consult to Physician Stat Comment: Consulting Provider: Dale Mccallum Reason for consultation: admission Has provider been notified: No 08/20/21 07:55 Consult to Discharge Planning Routine Comment: Consult to Physical Therapy Evaluate & Treat Comment: Physician Instructions: Evaluate and Treat 08/20/21 20:52 Consult to Physical Therapy Evaluate & Treat Comment: 50lbs max. left LE, FALL PRECAUTIONS, OOB TO CHAIR Physician Instructions: Evaluate and Treat Discharge provider: Dale Mccallum MD Exam Vital Signs (past 8 hours): - 08/22/21 04:25 08/22/21 08:00 Temperature 98.5 F 98.1 F Pulse Rate 65 68 Respiratory Rate 18 16 Blood Pressure 157/69 H 156/75 H Pulse Oximetry 94 94 Oxygen Delivery Method Room Air Oxygen Flow Rate 0 Narrative Exam Narrative: cheerful sitting up in bed Const General: cooperative, healthy appearing and comfortable [facility] Head: normal to inspection, normocephalic and atraumatic Eyes General: appearance normal, both eyes and all related structures Neck Neck: normal visual inspection, full ROM, trachea midline and supple Resp Effort & Inspection: normal respiratory effort and able to speak in complete sentences Auscultation: clear to auscultation bilaterally Cardio Palpation: normal PMI Rate: regular rate Heart Sounds: S1 normal and S2 normal GI Inspection: normal to inspection Palpation: soft and No tender Auscultation: normal bowel sounds Skin General: no rashes or lesions noted Neuro General: patient alert, patient awake, patient oriented x3, moves all extremities, CN's II-XI intact bilaterally and deep tendon reflexes 2+ bilaterally Extrem Other: LLE distal NV intact, painful to range Psych Appearance: grossly normal and well kempt Mental Status: mental status grossly normal Speech and Movement: speech and movement normal Mood: congruent mood Affect: normal affect Objective Labs Result Diagrams: 08/21/21 05:23 08/21/21 05:23 [facility] Medical History Asthma GERD (gastroesophageal reflux disease) Hx of fracture of femur Hyperlipidemia Melanoma Myocardial infarction Myocardial infarction with complication Surgical History History of arthroplasty of left knee History of arthroplasty of right shoulder History of knee replacement History of lumbar surgery History of total left hip arthroplasty Hx of appendectomy Hx of heart artery stent Hx of tonsillectomy Status post hernia repair Family History Brother Hemorrhoids Daughter Developmental delay Diabetes mellitus Social History household members: spouse Smoking Status: Never smoker alcohol intake: current Discharge Assessment & Plan Assessment and Plan Assessment: [address] [address] Progress Note Patient: Antoine Dillon MR#: [id number] : 1935 Acct:[id number] Age/Sex: 85 / M ? 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 No BM yet this admission he is able to transfer to bedside commode ok. Hip pain is there but tolerable if immobile.? Exam Vital Signs (past 8 hours): - ? 08/21/21 04:51 08/21/21 08:00 Temperature 98.0 F 98.2 F Pulse Rate 63 65 Respiratory Rate 18 17 Blood Pressure 158/83 H 162/77 H Pulse Oximetry 94 94 Oxygen Delivery Method? Room Air? Oxygen Flow Rate? 0 ? Narrative Exam Narrative: sitting up in bed alert eating breakfast with gusto Const General: cooperative, healthy appearing and comfortable Nutritional Appearance: average body habitus and well nourished [facility] Head: normal to inspection Ears: hearing grossly normal bilaterally Nose: external nose normal Neck Neck: normal visual inspection and full ROM Resp Effort & Inspection: normal respiratory effort and able to speak in complete sentences Auscultation: clear to auscultation bilaterally Cardio Rate: regular rate Heart Sounds: S1 normal and S2 normal GI Inspection: normal to inspection Palpation: soft and No tender Percussion: normal to percussion Skin General: no rashes or lesions noted Neuro General: patient alert, patient awake, patient oriented x3 and CN's II-XI intact bilaterally Extrem Other: LLE hip very painful to range, distal NV intact Psych Appearance: grossly normal Mental Status: mental status grossly normal Objective Labs Result Diagrams: 08/21/21 05:23? 08/21/21 05:23? Labs: Laboratory Results - last 24 hr ? 08/21/21 08/21/21 ? 05:23 05:23 WBC ?5.1 ? RBC ?2.80 L ? Hgb ?8.9 L ? Hct ?26.8 L ? MCV ?95.7 ? MCH ?31.8 ? MCHC ?33.2 ? RDW ?15.8 H ? Plt Count ?181 ? Neut % (Auto) ?61.3 ? Lymph % (Auto) ?16.5 L ? [place] % (Auto) ?14.3 H ? Eos % (Auto) ?7.2 H ? Baso % (Auto) ?0.7 ? Neut # (Auto) ?3100 ? Lymph # (Auto) ?800 L ? [place] # (Auto) ?700 ? Eos # (Auto) ?400 ? Baso # (Auto) ?0 ? Sodium ? ?135 L Potassium ? ?3.8 Chloride ? ?105 Carbon Dioxide ? ?28 BUN ? ?21 H Creatinine ? ?1.16 Estimated GFR ? ?60.0 BUN/Creatinine Ratio ? ?18.1 Glucose ? ?102 Calcium ? ?8.1 L PFSH Medical History? Asthma GERD (gastroesophageal reflux disease) Hx of fracture of femur Hyperlipidemia Melanoma Myocardial infarction Myocardial infarction with complication Surgical History? History of arthroplasty of left knee History of arthroplasty of right shoulder History of knee replacement History of lumbar surgery History of total left hip arthroplasty Hx of appendectomy Hx of heart artery stent Hx of tonsillectomy Status post hernia repair Family History? Brother HemorrhoidsDaughter Developmental delay Diabetes mellitus Social History? household members:? spouse Smoking Status:? Never smoker alcohol intake:? current Assessment & Plan Assessment & Plan narrative: 85 yo male with hyperlipidemia, hypertension, hypothyroidism, with history of recurrent falls with recent fall and periprosthetic left hip fracture. #Periprosthetic comminuted mildly displaced L hip fracture Ortho recs conservative mgmgt likely will need rehab placement see how he does today.? Partial weight bearing to 50 pounds on LLE. Bedside commode transferring well. Continue PT pain management and stool softeners.? Continue Lovenox for DVT prophylaxis. NB: pt has been starting low dose naltrexone pack lately for back pain- will hold this while inpatient and receiving opiate pain meds and resume on d/c F/u with Dr. Gunn in 3 weeks #Hypothyroidism continue home levothyroxine 100 #Cognitive decline stable on donepezil 10 continue #Coronary artery disease s/p HI with stent with hyperlipidemia without acute symptoms Stable continue on home atorvastatin 80, DAPT #normocytic anemia, chronic, present on admission stable encourage PO intake #BPH with obstruction Stable continue on tamsulosin, monitor blood pressure closely and make sure this is not contributing to falls. Total time spent with patient was 40 minutes in meeting with patient, discussing with family and nursing. Code status is full code Diet: regular DVT: Lovenox MDM: Sabrina [phone] Discharge Plan Discharge Plan Patient Disposition: SNF Transfer to: [facility] Discharge orders & Medications Prescriptions: New acetaminophen 325 mg Tablet 650 mg PO Q6HR Qty: 30 0RF naloxone 0.4 mg/mL Solution 0.2 mg IV Q2MIN PRN (Reason: Opiate Reversal) Qty: 10 0RF oxycodone 5 mg Tablet 5 mg PO Q4HR PRN (Reason: Pain, Moderate (4-6)) 10 Days Qty: 20 0RF enoxaparin [Lovenox] 40 mg/0.4 mL Syringe 40 mg SUBCUT DAILY 10 Days Qty: 4 0RF Continued atorvastatin [Lipitor] 80 MG tablet 80 mg PO HS Qty: 0 0RF omeprazole 20 MG capsule,delayed release(DR/EC) 20 mg PO DAILY Qty: 0 0RF aspirin [Aspir-81] 81 mg Tablet,Delayed Release (Dr/Ec) 81 mg PO DAILY 0RF nitroglycerin [Nitrostat] 0.3 mg Tablet, Sublingual 0.3 mg SUBLINGUAL Q5-15M PRN (Reason: Chest Pain) 0RF tamsulosin 0.4 mg Capsule 0.4 mg PO DAILY 0RF levothyroxine 150 mcg Tablet 100 mcg PO DAILY 0RF donepezil 10 mg tablet 10 mg PO BEDTIME 0RF Label Comments: take 1/2 tablet by mouth at bedtime for 2 weeks then 1 tablet NIGHTLYTHEREAFTER clopidogrel 75 mg tablet 75 mg PO DAILY 0RF gabapentin 300 mg capsule 300 mg PO DAILY 0RF Follow up/Referrals: Dale Mccallum MD [Primary Care Provider] - Diet/Activity/Treatments Diet: Diet as Tolerated Discharge Data Primary Care Provider: Dale Mccallum Quality VTE Deep Vein Thrombosis/Pulmonary Embolism Present on Admission: No
--- NOTE | 2021-08-22 09:10 | CM.DPC ---
DCP continued: Simone spoke with Dr. Mccallum and he placed DC orders and signed RX for patient. SIMONE called clotilde at [facility] and M asking about potato picker time. Clotilde called SIMONE back and spoke with DONELL Childs. Clotilde will set up cabulance transport to [facility] for today at 1:15. CM let Patients nurse, charge nurse and AGILE BUSINESS ANALYST know of transport time. CM asked nurse to do a covid swab as well. CM asked Naz to finish paperwork for DC for this patient. Laurie Willard RNbox sealing machine catcher
--- NOTE | 2021-08-22 10:31 | PT.IPTN ---
Current Diagnoses Spinal stenosis, site unspecified (08/19/21) Radiculopathy, lumbar region (08/19/21) Periprosthetic fracture around internal prosthetic left hip joint, initial encounter (08/19/21) Displaced comminuted fracture of shaft of left femur, initial encounter for closed fracture (08/19/21) Physical Therapy Treatment Note M2 PT-IP Current Condition Start: 08/21/21 12:28 Freq: NEEDED Status: Discharge Protocol: Document 08/21/21 10:55 AB (Rec: 08/21/21 12:47 AB [id number]) Physical Therapy Current Condition Current Condition Evaluation Date 08/21/21 Treatment Diagnosis GLF ; L hip periprosthetic fx; difficulty in walking Onset Date 08/20/21 M3 PT-IP Subjective Start: 08/21/21 12:28 Freq: NEEDED Status: Discharge Protocol: Document 08/22/21 10:00 KS (Rec: 08/22/21 13:11 KS [id number]) Subjective Physical Therapy Visit Type Type Treatment Note Visit Start Time 10:00 Visit Stop Time 10:31 Total Visit Minutes 31 Number of APPLICATION SUPPORT MANAGER Visits 1 Physical Therapy Visit Comments Patient Comments pt is agreeable to do PT Therapy Pain Assessment Pain When Pain Assessed During Mobility Pain Present Pain Present Pain Reported M4 PT-IP Mobility and Gait Start: 08/21/21 12:28 Freq: NEEDED Status: Discharge Protocol: Document 08/22/21 10:00 KS (Rec: 08/22/21 13:11 KS [id number]) PT-Bed Mobility Assessment Supine to Sit Supine to Sit Moderate Assistance,1 Person Assistance,Head of Bed Elevated,Bedrails Sit to Supine Sit to Supine Moderate Assistance,1 Person Assistance,Head of Bed Elevated,Bedrails Scooting Scooting to Edge of Bed Contact Guard Assistance PT-Transfer Assessment Sit to and From Stand Sit to and from Stand Moderate Assistance,Maximum Assistance,1 Person Assistance ,Use of Upper Extremities Equipment Transfer Assistive Device Gait Belt,Front Wheeled Walker Orthotic/Prosthetic Devices or Brace: No Transfers Transfer Destination Bed Transfer Technique sit<>stand w/ lateral steps. Transfer Ability Level of Assist Moderate Assistance,Maximum Assistance,1 Person Assistance ,Use of Upper Extremities Comments Mobility Comments Pt in bed upon arrival. Mod A and cues for sup<>sit, CGA for scooting EOB. Pt aware of 50# WB restriction. Max A and cues for hand placement first sit<>stand w/ FWW. Pt able to maintain standing balance ~1 min and slide feet laterally pushing through FWW w/ BUE. Pt performed 2 more sit<>stands only requiring Mod A and no cues to complete. Mod A for sit<>sup into bed. Left in bed w/ all needs in reach. Gait Assessment Gait Gait Assistance Required: Moderate Assistance,1 Person Assist Assistive Devices Assistive Device Gait Belt,Front Wheeled Walker Comments Gait Comments Lateral steps towards HOB only - able to maintain TTWB. PT-Balance Assessment Sitting Balance and Reactions Static Sitting Balance Ability Good Dynamic Sitting Balance Ability Fair Standing Balance and Reactions Static Standing Balance Ability Poor Dynamic Standing Balance Ability Poor Device Used FWW M5 PT-IP Objective Assessments Start: 08/21/21 12:28 Freq: NEEDED Status: Discharge Protocol: Document 08/21/21 10:55 AB (Rec: 08/21/21 12:47 AB [id number]) Orientation Orientation/Cognition Level of Alertness Alert Orientation Name Language Function Ability No Deficits Noted Safety Awareness Decreased Safety Awareness Memory Description No Deficits Noted Gross Range of Motion Lower Extremity ROM Assessment Within Functional Limits Impairments pain guarding LLE during PROM Strength Lower Extremity Strength Assessment Left Impaired Hip 2+/5 Knee 3+/5 Coordination Assessment Gross Coordination Gross Coordination WNL Muscle Tone Muscle Tone WNL Yes M6 PT-IP Treatment Start: 08/21/21 12:28 Freq: NEEDED Status: Discharge Protocol: Document 08/22/21 10:00 KS (Rec: 08/22/21 13:11 KS [id number]) Physical Therapy Treatment Education Education Provided Weight Bearing Status,Safety M7 PT-IP Assessment and Plan Start: 08/21/21 12:28 Freq: NEEDED Status: Discharge Protocol: Document 08/22/21 10:00 KS (Rec: 08/22/21 13:11 KS [id number]) PT Summary Assessment and Plan Potential Rehabilitation Potential Good Summary Impairments Pain,ROM,Strength,Balance, Coordination,Sensation,Tone, Cognition,Bed Mobility, Transfers,Gait,Activity Tolerance Progress Towards Goals Slow Progress due to Pain,Slow Progress due to Activity Tolerance Assessment Summary Pt w/ more [place] for activity, able to complete 3x sit<>stands Max A for first and Mod A for second and third . Also able to take lateral steps w/ FWW while maintaining TTWB. Mod A for bed mobility. He will require SNF to improve functional mobility. Goals Bed Mobility Goal Minimal Assistance Transfer Goal Moderate Assistance,Front Wheeled Walker Gait Goal Moderate Assistance,Front Wheel Walker Gait Distance 25 Days to Meet Goals 5 Frequency of Treatment Frequency Of Treatment Twice a Day Treatment Plan Physical Therapy Treatment Plan Bed Mobility Training,Transfer Training,Gait Training, Therapeutic Exercise,Balance Retraining,Discharge Planning, Hot or Cold Pack,Neuromuscular Re-ed,Coordination Retraining ,Manual Therapy Weight Bearing Status Weight Bearing Status Touch Down Weight Bearing Allowed Weight Bearing Amount (enter % 50# weight bearing on LLE or #) (%) Recommendations To Nursing Amount of Assist Needed 2 Person Assist Discharge Recommendations PT Discharge Recommendations SNF Rehab Transportation Needs at Discharge Wheelchair/Cabulance
[2021-08-22 10:57] LABS: COVID19 -Nasal RAPID Negative (Negative)
--- NOTE | 2021-08-22 11:07 | PC.NURSE ---
Pt's home meds returned to Pt's Spouse from Pharmacy and [facility] brought Pt's mediset to Pt and gave meds to Spouse.
[2021-08-22 12:00] VITALS: BP 131/70; PULSE 59; RESP 18; TEMP 36.6; O2SAT 94
== END 2021-08-22 13:11 | DRG 534 ==
LOC: ED 18:36 → AC 20:14
PROVIDERS: Emergency Medicine; Family Medicine; Admitting Provider Family Medicine; Emergency Provider Emergency Medicine; PCP Family Medicine; Visit Provider Family Medicine
DX: S72.352A Displaced comminuted fracture of shaft of left femur, initial encounter for closed fracture (principal); M97.02XA Periprosthetic fracture around internal prosthetic left hip joint, initial encounter; N13.8 Other obstructive and reflux uropathy; E03.9 Hypothyroidism, unspecified; R41.81 Age-related cognitive decline; I25.10 Atherosclerotic heart disease of native coronary artery without angina pectoris; E78.5 Hyperlipidemia, unspecified; M48.00 Spinal stenosis, site unspecified; N40.1 Benign prostatic hyperplasia with lower urinary tract symptoms; M54.16 Radiculopathy, lumbar region; R29.6 Repeated falls; K21.9 Gastro-esophageal reflux disease without esophagitis; W10.9XXA Fall (on) (from) unspecified stairs and steps, initial encounter; Z95.5 Presence of coronary angioplasty implant and graft; Z20.822 Contact with and (suspected) exposure to COVID-19
CPT/HCPCS: 36415; 72192; 73502; 80048; 80053; 83690; 85025; 85610; 85730; 87635; 96361; 96374; 97162; 97530; 99284; C9803; J1170; J1650

== ENCOUNTER 2021-11-03 12:48 | Emergency (ER) | payer MEDICARE, OTHER, SELFPAY ==
--- NOTE | 2021-11-03 12:55 | ED_ITS ---
HPI - Back Pain/Injury General Chief Complaint: Back Pain/Injury Stated Complaint: Back pain Time Seen by Provider: 11/03/21 12:54 History of Present Illness HPI Narrative: Patient is a heladio 86-year-old male with history of coronary artery disease, hyperlipidemia, presents with right-sided back pain. It has been going on for the last few days. It is pinpoint in his right lower lumbar area. It sometimes radiates down his right leg. He 1st noticed it for 5 days ago when he was tr ansferring from 1 chair to another chair in the living room. Seen evaluated by his primary care provider last week for it he says he got shot for it which seemed to help. However he continues to have pain and is unable to walk. He denies any falls. His primary also noted that he had pulmonary edema based on listening to his lungs in started him on Lasix. I do not see an x-ray. Patient denies any shortness of breath or chest pain. Mostly complaining of right-sided back pain. He has a walker that he uses at home. he received fentanyl EN route which seemed to help. He says since he started oxycodone and Lasix he has had increased urination mostly at night and he has even had incontinence of stool. He can tell that he has to urinate and that he has a bowel movement however he is unable to get up to the restroom fast enough. He says that he has had diarrhea for the last 2 or 3 mornings every morning. It has been quite a did walk goal between them trying to get him to the restroom. He frequently has incontinence but he has good feeling says. He has also had bouts of urinary incontinence off and on for at least a year it has definitely been worse since he started the Lasix. Related Data Home Medications Medication Instructions Recorded Confirmed atorvastatin 80 mg tablet (Lipitor) 80 mg PO HS #0 08/20/07 08/19/21 omeprazole 20 mg capsule,delayed 20 mg PO DAILY #0 06/18/17 08/19/21 release aspirin 81 mg tablet,delayed 81 mg PO DAILY 01/28/18 08/19/21 release (Aspir-) levothyroxine 150 mcg tablet 100 mcg PO DAILY 02/12/18 08/19/21 nitroglycerin 0.3 mg sublingual 0.3 mg SUBLINGUAL Q5-15M PRN 02/12/18 08/19/21 tablet (Nitrostat) tamsulosin 0.4 mg capsule 0.4 mg PO DAILY 02/12/18 08/19/21 clopidogrel 75 mg tablet 75 mg PO DAILY 10/28/20 08/19/21 donepezil 10 mg tablet 10 mg PO BEDTIME 10/28/20 08/19/21 gabapentin 300 mg capsule 300 mg PO DAILY 08/19/21 08/19/21 Previous Rx's Medication Instructions Recorded acetaminophen 325 mg tablet 650 mg PO Q6HR #30 tab 08/22/21 naloxone 0.4 mg/mL injection 0.2 mg (0.5 mL) IV Q2MIN PRN #10 ml 08/22/21 solution cyclobenzaprine 5 mg tablet 5 mg PO TID PRN #10 tab 11/03/21 lidocaine 4 % topical patch 1 patch TOPICAL DAILY PRN #10 ea 11/03/21 Allergies Allergy/AdvReac Type Severity Reaction Status Date / Time morphine [MORPHINE] AdvReac Mild LOOPY Verified 11/03/21 12:59 BODY FEELS COLD, SHAKING Review of Systems Review of Systems Narrative: GENERAL: Denies chills, fatigue, malaise, fever, sweats, travel HEENT: Denies sinus pain, ear pain, sore throat, difficulty swallowing, neck pain RESPIRATORY: Denies dyspnea, cough, wheezing, hemoptysis, sputum. CARDIOVASCULAR: Denies chest pain, palpitations, orthopnea, edema GASTROINTESTINAL: Denies nausea, vomiting, abdominal pain, diarrhea, constipation, melena. : Denies dysuria, frequency, incontinence, hematuria, urinary retention, flank pain. MUSCULOSKELETAL: See HPI SKIN: No rash, no erythema, no pruritus NEUROLOGIC: Denies weakness, dizziness, headache, numbness, change in speech, confusion PSYCHIATRIC: No concerning psychosocial issues. 12 point review of systems is negative except for those stated above and HPI Patient History Medical History Asthma GERD (gastroesophageal reflux disease) Hx of fracture of femur Hyperlipidemia Melanoma Myocardial infarction Myocardial infarction with complication Surgical History History of arthroplasty of left knee History of arthroplasty of right shoulder History of knee replacement History of lumbar surgery History of total left hip arthroplasty Hx of appendectomy Hx of heart artery stent Hx of tonsillectomy Status post hernia repair Family History Brother Hemorrhoids Daughter Developmental delay Diabetes mellitus Social History household members: spouse Smoking Status: Never smoker alcohol intake: current Smoking Status: Never smoker alcohol intake frequency: holidays/special occasions only Substance Use Type: does not use Exam Initial Vital Signs Initial Vital Signs: Vital Signs Temperature 99 F 11/03/21 12:56 Pulse Rate 75 11/03/21 12:56 Respiratory Rate 16 11/03/21 12:56 Blood Pressure 131/79 11/03/21 12:56 Pulse Oximetry 93 11/03/21 12:56 GENERAL: Alert very pleasant 86-year-old male HEENT: Head atraumatic,EOMI, pupils reactive, face symmetric, [moist] mucous membranes CARDIOVASCULAR: Regular rate and rhythm without murmurs, rubs or gallops. RESPIRATORY: Breath sounds equal bilaterally, no wheezes rales or rhonchi. Speaks in full sentences no difficulty ABDOMEN: Soft, nontender. Normoactive bowel sounds all 4 quadrants. No gua rding or rebound. BACK: No vertebral tenderness she is tender in his right lower lumbar pain is reproducible pain on palpation EXTREMITIES: Normal range of motion, no clubbing or edema. Neurovascularly intact NEUROLOGICAL: Alert and oriented x4.Normal gait and speech. SKIN: Warm, dry, no laceration, no petechiae, no rashes or lesions. Course Orders Ordered: ED Orders 11/03/21 12:42 Complete Blood Count AUTO DIFF Stat Comprehensive Metabolic Panel Stat Lipase Stat Partial Thromboplastin Time Stat Prothrombin Time INR Stat Troponin & CK Cardiac Panel Stat 11/03/21 12:56 XR chest 1V Stat EKG-12 Lead Stat 11/03/21 14:58 CT pelvis wo con Stat 11/03/21 17:44 Urine Microscopic Stat Discontinued Medications Acetaminophen (Acetaminophen 325 Mg Tablet) 650 mg PO NOW ONE Stop: 11/03/21 17:04 Last Admin: 11/03/21 17:38 Dose: 650 mg Documented by: LULA Cyclobenzaprine HCl (Cyclobenzaprine 10 Mg Prepack) 1 bottle MISC SEEINSTR ONE Stop: 11/03/21 17:04 Last Admin: 11/03/21 17:38 Dose: 1 bottle Documented by: LULA Ketorolac Tromethamine (Ketorolac 30 Mg/Ml Vial) 15 mg IV NOW ONE Stop: 11/03/21 12:59 Last Admin: 11/03/21 13:06 Dose: 15 mg Documented by: SUGAR Lidocaine (Lidocaine Patch 1 Each Adh..Patch) 1 each TOP NOW ONE Stop: 11/03/21 17:04 Last Admin: 11/03/21 17:38 Dose: 1 each Documented by: LULA Vital Signs Vital signs: Vital Signs - 8 hr 11/03/21 12:56 11/03/21 14:02 11/03/21 14:04 Temperature 99 F Pulse Rate 75 67 76 Respiratory Rate 16 16 Blood Pressure 131/79 131/66 Pulse Oximetry 93 95 93 11/03/21 14:30 11/03/21 17:53 Temperature Pulse Rate 67 74 Respiratory Rate 16 Blood Pressure 133/65 122/64 Pulse Oximetry 93 97 MDM - Back Pain/Injury Lab Data Result diagrams: 11/03/21 12:42 11/03/21 12:42 Labs: Lab Results 11/03/21 11/03/21 11/03/21 Range/Units 12:42 12:42 12:42 WBC 7.0 (4.5-11.0) X10^3/uL RBC 3.68 L (4.5-5.9) X10^6/uL Hgb 11.8 L (13.5-17.5) g/dL Hct 34.5 L (41-53) % MCV 93.9 (80-100) fL MCH 32.0 (26-34) PG MCHC 34.1 (30-36) % RDW 14.9 H (11.6-14.8) % Plt Count 262 (150-400) X10^3/uL Neut % (Auto) 80.6 H (50-75) % Lymph % (Auto) 5.6 L (25-40) % [place] % (Auto) 11.0 (3-14) % Eos % (Auto) 2.4 (2-4) % Baso % (Auto) 0.4 (0-2) % Neut # (Auto) 5600 (5141-0226) /uL Lymph # (Auto) 400 L (7182-7167) /uL [place]dwell # (Auto) 800 (0-900) /uL Eos # (Auto) 200 (0-450) /uL Baso # (Auto) 0 (0-100) /uL PT 11.9 (10.1-12.7) SECONDS INR 1.1 (0.9-1.3) APTT 38 H (26.4-36.2) SECONDS Sodium 136 L (137-145) mmol/L Potassium 4.3 (3.4-5.1) mmol/L Chloride 99 (98-107) mmol/L Carbon Dioxide 28 (22-32) mmol/L BUN 36 H (9-20) mg/dL Creatinine 1.14 (0.66-1.25) mg/dL Estimated GFR > 60 (>60) mL/min BUN/Creatinine Ratio 31.6 H (6-22) Glucose 125 H (80-110) mg/dL Calcium 8.8 (8.4-10.2) mg/dL Total Bilirubin 1.0 (0.2-1.3) mg/dL AST 42 (17-59) IU/L ALT 28 (<50) IU/L Alkaline Phosphatase 116 (38-126) U/L Total Creatine Kinase 106 (55-170) U/L CK-MB (CK-2) 2.48 H (<2.37) ng/mL CK-MB (CK-2) Rel Index 2.3 (1.5-5.0) % Troponin I 0.017 (0.01-0.034) ng/mL Total Protein 7.9 (6.3-8.2) g/dL Albumin 4.4 (3.5-5.0) g/dL Globulin 3.5 (1.7-4.1) g/dL Albumin/Globulin Ratio 1.3 (1.0-2.8) Lipase 29 (23-300) U/L Urine RBC (0-5/HPF) Urine WBC (0-5/HPF) Ur Squamous Epith Cells (0-5/HPF) Urine Bacteria (None) Urine Mucus (Negative) Ur Culture Indicated? 11/03/21 Range/Units 17:44 WBC (4.5-11.0) X10^3/uL RBC (4.5-5.9) X10^6/uL Hgb (13.5-17.5) g/dL Hct (41-53) % MCV (80-100) fL MCH (26-34) PG MCHC (30-36) % RDW (11.6-14.8) % Plt Count (150-400) X10^3/uL Neut % (Auto) (50-75) % Lymph % (Auto) (25-40) % [place] % (Auto) (3-14) % Eos % (Auto) (2-4) % Baso % (Auto) (0-2) % Neut # (Auto) (9691-1577) /uL Lymph # (Auto) (0737-5534) /uL [place]dwell # (Auto) (0-900) /uL Eos # (Auto) (0-450) /uL Baso # (Auto) (0-100) /uL PT (10.1-12.7) SECONDS INR (0.9-1.3) APTT (26.4-36.2) SECONDS Sodium (137-145) mmol/L Potassium (3.4-5.1) mmol/L Chloride (98-107) mmol/L Carbon Dioxide (22-32) mmol/L BUN (9-20) mg/dL Creatinine (0.66-1.25) mg/dL Estimated GFR (>60) mL/min BUN/Creatinine Ratio (6-22) Glucose (80-110) mg/dL Calcium (8.4-10.2) mg/dL Total Bilirubin (0.2-1.3) mg/dL AST (17-59) IU/L ALT (<50) IU/L Alkaline Phosphatase (38-126) U/L Total Creatine Kinase (55-170) U/L CK-MB (CK-2) (<2.37) ng/mL CK-MB (CK-2) Rel Index (1.5-5.0) % Troponin I (0.01-0.034) ng/mL Total Protein (6.3-8.2) g/dL Albumin (3.5-5.0) g/dL Globulin (1.7-4.1) g/dL Albumin/Globulin Ratio (1.0-2.8) Lipase (23-300) U/L Urine RBC None seen (0-5/HPF) Urine WBC None seen (0-5/HPF) Ur Squamous Epith Cells 0-1 /hpf (0-5/HPF) Urine Bacteria None seen (None) Urine Mucus 1+ H (Negative) Ur Culture Indicated? Cult not indicated Urine Dip Bedside Urine Glucose Negative Bedside Urine Bilirubin + 1 Bedside Urine Ketone - Negative Urine Specific [place] 1.02 Bedside Urine Occult Blood - Negative Bedside Urine pH 6.0 Bedside Urine Protein +/- 15 Bedside Urine Urobilinogen - Negative Bedside Urine Nitrite - Negative Bedside Urine Leukocytes - Negative Esterase Imaging Data Chest x-ray: Radiologist's Impression: Signed Patient: Antoine Dillon MR#: [id number] : 1935 Acct:[id number] Age/Sex: 86 / M Date of Service: 11/03/21 Loc: ED Accession Number: [id number] ?? Procedure: XR chest 1V Ordering Provider: Divya Pandey D.O. PROCEDURE:? XR CHEST 1V ? INDICATIONS:? Short of breath ? TECHNIQUE:? One view of the chest was acquired.? ? COMPARISON:? [facility], , XR CHEST 1V, 12/03/2020, 10:56. ? FINDINGS:? ? Surgical changes and devices:? None.? ? Lungs and pleura:? Left basilar platelike atelectasis.? There is hyperinflation and chronic interstitial changes without focal infiltrate, pleural effusion or pneumothorax. ? Mediastinum:? Mediastinal contours appear normal.? Heart size is normal.? Atherosclerotic vascular calcification noted in the aortic arch. ? Bones and chest wall:? Generalized decrease in osseous mineralization noted.? Left shoulder arthroplasty noted. ? IMPRESSION:? Hyperinflation and chronic interstitial changes.? Platelike atelectasis or scarring left lung base.? Osteopenia. ? ? ? Approved by: Zackery Vasquez M.D. on 11/03/2021 at 13:12? CT pelvis: Radiologist's Impression: CT Scan Report Signed Patient: Antoine Dillon MR#: [id number] : 1935 Acct:[id number] Age/Sex: 86 / M Date of Service: 11/03/21 Loc: ED Accession Number: [id number] ?? Procedure: CT pelvis wo con Ordering Provider: Divya Pandey D.O. PROCEDURE:? CT PEL WO CON ? INDICATIONS:? severe pain right hip ? TECHNIQUE:? After the administration of oral contrast, 5 mm thick sections acquired from the iliac crests to the symphysis.? 5 mm coronal and sagittal reformats were then performed.? For radiation dose reduction, the following was used:? automated exposure control, adjustment of mA and/or kV according to patient size.? ? COMPARISON:? [facility], CT, CT PEL WO CON, 08/19/2021, 15:40. ? FINDINGS:? Image quality:? Excellent.? ? Peritoneum and bowel:? Bowel loops demonstrate normal wall thickness and calib er.? No free fluid or air.? Multiple diverticula arise from the sigmoid colon without evidence of acute diverticulitis. ? Genitourinary:? Bladder wall thickness is normal.? ? Nodes and vessels:? No iliac, pelvic, or inguinal adenopathy by size criteria.? Iliac vessels demonstrate normal size.? Diffuse atherosclerotic vascular calcification present. ? Bones:? Bilateral total hip prosthesis present.? Healing comminuted left periprosthetic fracture with bridging callus noted, improved from the prior exam.? No evidence of acute fracture.? Inferior and superior pubic rami intact.? Lower lumbar spine interbody fusion with posterior jerrell and screw instrumentation also remains stable from the prior ? Miscellaneous:? No inguinal hernias.? ? IMPRESSION:? ? 1. No acute findings.? Bilateral total hip prosthesis in place.? No evidence of hardware failure. ? 2. Healing periprosthetic left proximal femoral fracture, improved from prior.? ? ? 3. Lower lumbar spine instrumentation and fusion stable.? Diverticulosis without evidence of diverticulitis ? ? Approved by: Zackery Vasquez M.D. on 11/03/2021 at 15:04? ECG Data Interpretation: Normal sinus rhythm rate 64 PA interval 162 QRS [address] changes no T- wave inversion, similar to priors [facility] Narrative Medical decision making narrative: The patient does have reproducible back pain. There is no evidence of congestive heart failure he has no peripheral edema he is not hypoxic or complaining shortness of breath or chest pain is negative. He is given Toradol which actually helps with his back pain. He ambulated but had pretty severe right-sided hip pain. His CT did not show any fracture. At this time pain seems to be more consistent with sciatica. He is having incontinence however urinary incontinence seems to be ongoing for about a year it got significantly worse when he was put on Lasix. He is having stool incontinence, but it seems to be because he can not get the restroom in [place] not because he cannot tell. He states both he and his have walkers and they have ramps all over the house a becomes quite, cool and difficult to get a route. At this time there is no evidence of fluid overload I do not think he has any more Lasix. He and his primary care provider can discuss this this may help with at least some of the urinary incontinence. Recommend Tylenol around the clock to help with some of his pain and a lidocaine patch. We discussed trying Flexeril muscle spasm rather than oxycodone. This may make him less drowsy and be able to get him to the restroom so he does not have stool with. But this time I do not think he has cauda equina, pain is more consistent with sciatica Discharge Plan Departure Patient Disposition: Home Clinical Impression: Sciatic leg pain Instructions: DI for Back Pain With Sciatica Activity Restrictions/Additional Instructions: *You have been diagnosed with back pain with sciatic *What to do: Recommend light activity as tolerated, walking with walker will help but may be uncomfortable. Try heating pad try light massage. *Continue to take medications as directed Lidocaine patch placed on area of pain for 12 hours only then removed. You may place a new patch on a different area at that time for another 12 hours Tylenol 650 mg every 6 hours if needed for pain Flexeril 5 mg (or you may break in half and try half at a time) for muscle spasm. This causes drowsiness and sleepiness. Please take before bed -Stop furosemide: There is no evidence of fluid overload at this time. This will help your urination problem *Follow up with your primary care provider in 2-3 days or call [phone] *Return to ER if you should have increasing shortness of breath, increasing pain, leg weakness any new, worsening or concerning symptoms Prescriptions: New lidocaine 4 % adhesive patch,medicated 1 patch topical DAILY PRN (Reason: pain) Qty: 10 0RF Rx Instructions: leave on for 12 hours at a time then remove cyclobenzaprine 5 mg tablet 5 mg PO TID PRN (Reason: muscle spasm) Qty: 10 0RF No Action atorvastatin [Lipitor] 80 MG tablet 80 mg PO HS Qty: 0 0RF omeprazole 20 MG capsule,delayed release(DR/EC) 20 mg PO DAILY Qty: 0 0RF aspirin [Aspir-81] 81 mg Tablet,Delayed Release (Dr/Ec) 81 mg PO DAILY 0RF nitroglycerin [Nitrostat] 0.3 mg Tablet, Sublingual 0.3 mg SUBLINGUAL Q5-15M PRN (Reason: Chest Pain) 0RF tamsulosin 0.4 mg Capsule 0.4 mg PO DAILY 0RF levothyroxine 150 mcg Tablet 100 mcg PO DAILY 0RF donepezil 10 mg tablet 10 mg PO BEDTIME 0RF Label Comments: take 1/2 tablet by mouth at bedtime for 2 weeks then 1 tablet NIGHTLYTHEREAFTER clopidogrel 75 mg tablet 75 mg PO DAILY 0RF gabapentin 300 mg capsule 300 mg PO DAILY 0RF acetaminophen 325 mg Tablet 650 mg PO Q6HR Qty: 30 0RF naloxone 0.4 mg/mL Solution 0.2 mg IV Q2MIN PRN (Reason: Opiate Reversal) Qty: 10 0RF Referrals: Dale Mccallum MD [Primary Care Provider] -
[2021-11-03 12:56] VITALS: BP 131/79; PULSE 75; RESP 16; TEMP 37.2; O2SAT 93; BMI 24.5
--- NOTE | 2021-11-03 12:56 | DI.RAD.S_ITS ---
PROCEDURE: XR CHEST 1V INDICATIONS: Short of breath TECHNIQUE: One view of the chest was acquired. COMPARISON: [facility], CR, XR CHEST 1V, 12/03/2020, 10:56. FINDINGS: Surgical changes and devices: None. Lungs and pleura: Left basilar platelike atelectasis. There is hyperinflation and chronic interstitial changes without focal infiltrate, pleural effusion or pneumothorax. Mediastinum: Mediastinal contours appear normal. Heart size is normal. Atherosclerotic vascular calcification noted in the aortic arch. Bones and chest wall: Generalized decrease in osseous mineralization noted. Left shoulder arthroplasty noted. IMPRESSION: Hyperinflation and chronic interstitial changes. Platelike atelectasis or scarring left lung base. Osteopenia. Approved by: Zackery Vasquez M.D. on 11/03/2021 at 13:12
[2021-11-03 13:03] LABS: Add Manual Diff / Slide Review NO; Basophils Absolute Auto 0 /uL (0-100); Basophils Percent Auto 0.4 % (0-2); Eosinophils Absolute Auto 200 /uL (0-450); Eosinophils Percent Auto 2.4 % (2-4); Hematocrit 34.5 % (41-53); Hemoglobin 11.8 g/dL (13.5-17.5); Lymphocytes Absolute Auto 400 /uL (1100-4500); Lymphocytes Percent Auto 5.6 % (25-40); Mean Corpuscular HGB Conc 34.1 % (30-36); Mean Corpuscular Volume 93.9 fL (80-100); Monocytes Absolute Auto 800 /uL (0-900); Neutrophils Absolute Auto 5600 /uL (1500-7000); Neutrophils Percent Auto 80.6 % (50-75); Platelet Count 262 X10^3/uL (150-400); Red Blood Cell Count 3.68 X10^6/uL (4.5-5.9); Red Cell Distribution Width 14.9 % (11.6-14.8)
[2021-11-03 13:06] LABS: INR 1.1 (0.9-1.3); Prothrombin Time 11.9 SECONDS (10.1-12.7)
[2021-11-03] MEDS: KETOROLAC 30 MG/ML VIAL 15 MG IV (13:06)
[2021-11-03 13:08] LABS: PTT Partial Thromboplastin Tim 38 SECONDS (26.4-36.2)
[2021-11-03 13:11] LABS: Alanine Aminotransferase 28 IU/L (<50); Albumin 4.4 g/dL (3.5-5.0); Albumin Globulin Ratio 1.3 (1.0-2.8); Alkaline Phosphatase 116 U/L (38-126); Aspartate Aminotransferase 42 IU/L (17-59); BUN Creatinine Ratio 31.6 (6-22); Blood Urea Nitrogen 36 mg/dL (9-20); Calcium 8.8 mg/dL (8.4-10.2); Carbon Dioxide 28 mmol/L (22-32); Chloride 99 mmol/L (98-107); Creatine Kinase 106 U/L (55-170); Estimated Glomerular Filt Rate > 60 mL/min (>60); Globulin 3.5 g/dL (1.7-4.1); Glucose 125 mg/dL (80-110); HEMOLYSIS < 15 (0-50); Lipase 29 U/L (23-300); Potassium 4.3 mmol/L (3.4-5.1); Sodium 136 mmol/L (137-145); Total Protein 7.9 g/dL (6.3-8.2)
[2021-11-03 13:22] LABS: Troponin I 0.017 ng/mL (0.01-0.034)
[2021-11-03 13:26] LABS: CKMB % Relative Index 2.3 % (1.5-5.0); Creatine Kinase MB 2.48 ng/mL (<2.37)
[2021-11-03 14:02] VITALS: PULSE 67; O2SAT 95
[2021-11-03 14:04] VITALS: BP 131/66; PULSE 76; RESP 16; O2SAT 93
[2021-11-03 14:30] VITALS: BP 133/65; PULSE 67; O2SAT 93
--- NOTE | 2021-11-03 14:58 | DI.CT.S_ITS ---
PROCEDURE: CT PEL WO CON INDICATIONS: severe pain right hip TECHNIQUE: After the administration of oral contrast, 5 mm thick sections acquired from the iliac crests to the symphysis. 5 mm coronal and sagittal reformats were then performed. For radiation dose reduction, the following was used: automated exposure control, adjustment of mA and/or kV according to patient size. COMPARISON: [facility], CT, CT PEL WO CON, 08/19/2021, 15:40. FINDINGS: Image quality: Excellent. Peritoneum and bowel: Bowel loops demonstrate normal wall thickness and caliber. No free fluid or air. Multiple diverticula arise from the sigmoid colon without evidence of acute diverticulitis. Genitourinary: Bladder wall thickness is normal. Nodes and vessels: No iliac, pelvic, or inguinal adenopathy by size criteria. Iliac vessels demonstrate normal size. Diffuse atherosclerotic vascular calcification present. Bones: Bilateral total hip prosthesis present. Healing comminuted left periprosthetic fracture with bridging callus noted, improved from the prior exam. No evidence of acute fracture. Inferior and superior pubic rami intact. Lower lumbar spine interbody fusion with posterior jerrell and screw instrumentation also remains stable from the prior Miscellaneous: No inguinal hernias. IMPRESSION: 1. No acute findings. Bilateral total hip prosthesis in place. No evidence of hardware failure. 2. Healing periprosthetic left proximal femoral fracture, improved from prior. 3. Lower lumbar spine instrumentation and fusion stable. Diverticulosis without evidence of diverticulitis Approved by: Zackery Vasquez M.D. on 11/03/2021 at 15:04
--- NOTE | 2021-11-03 15:01 | PC.NURSE ---
Assisted pt to ambulate with walker, pt with slow steady gait, reported significant right hip pain with each step, denied back pain. Denies any recent falls or injury to area. Dr. Pandey notified.
[2021-11-03] MEDS: LIDOCAINE PATCH 1 EACH ADH..PATCH TOP (17:38)
[2021-11-03] MEDS: CYCLOBENZAPRINE 10 MG PREPACK 1 BOTTLE MISC (17:38)
[2021-11-03] MEDS: ACETAMINOPHEN 325 MG TABLET 650 MG PO (17:38)
[2021-11-03 17:53] VITALS: BP 122/64; PULSE 74; RESP 16; O2SAT 97
[2021-11-03 18:02] LABS: Bacteria Urine None Seen; Culture Indicated Urine Cult Not Indicated; Mucus Urine 1+ (Negative); RBC Urine None Seen (0-5/HPF); Squamous Epithelial Cell Urine 0-1 /HPF (0-5/HPF); WBC Urine None Seen (0-5/HPF)
== END 2021-11-03 18:17 | disposition home or self-care (01) ==
PROVIDERS: Emergency Provider Emergency Medicine; PCP Family Medicine
DX: M54.31 Sciatica, right side (principal); R06.02 Shortness of breath; M25.551 Pain in right hip
CPT/HCPCS: 71045; 72192; 80053; 81003; 81015; 82550; 82553; 83690; 84484; 85025; 85610; 85730; 93005; 96374; 99284; J1885

== ENCOUNTER 2022-01-05 14:11 | Emergency (ER) | payer MEDICARE, OTHER, SELFPAY ==
[2022-01-05 14:14] VITALS: BP 111/58; PULSE 73; RESP 20; TEMP 36.4; O2SAT 95
--- NOTE | 2022-01-05 14:17 | DI.RAD.S_ITS ---
PROCEDURE: XR HIP W PEL IF DONE RT 2V INDICATIONS: fall? TECHNIQUE: AP pelvis with lateral view(s) of the right hip(s). COMPARISON: [facility], CT, CT PEL WO CON, 11/03/2021, 15:00. [facility], CT, CT PEL WO CON, 08/19/2021, 15:40. [facility], CR, XR HIP W PEL IF DONE LT 2V, 08/19/2021, 14:10. FINDINGS: Bones: There is a healing fracture seen involving the periprosthetic RIGHT proximal femur. A remodeling fracture can be seen involving the LEFT greater trochanter. No acute appearing fractures or dislocations. Pelvic ring appears intact. No suspicious bony lesions. Bilateral hip arthroplasty hardware can be seen, without findings failure or loosening. Soft tissues: The visualized bowel gas pattern is normal. No suspicious soft tissue calcifications. IMPRESSION: Remodeling proximal femur fractures are seen, without acute features. If there is point tenderness (or other clinical suspicion for a fracture not seen on these images) then a dedicated CT could be considered for further evaluation, if clinically appropriate. Unremarkable bilateral hip arthroplasty hardware. Dictated by: Mickey Greene M.D. on 01/05/2022 at 14:40 Approved by: Mickey Greene M.D. on 01/05/2022 at 14:42
[2022-01-05] MEDS: HYDROCODONE/ACET 5/325 TABLET 1 TAB PO (15:58)
[2022-01-05] MEDS: LIDOCAINE PATCH 1 EACH ADH..PATCH TOP (15:59)
[2022-01-05 16:29] VITALS: BP 145/65; PULSE 78; RESP 16; O2SAT 99
--- NOTE | 2022-01-05 16:29 | ED_ITS ---
HPI - Fall <Viry Sargent [facility] - Last Filed: 01/05/22 16:42> General Chief Complaint: Fall Stated Complaint: Fall, HX Hip FX Time Seen by Provider: 01/05/22 15:41 Source: patient Mode of arrival: Wheelchair History of Present Illness HPI Narrative: This is an 86-year-old gentleman with history of left hip fracture in September of 2021 with history of left and right arthroplasty who presents to the emergency department with a ground level fall from standing this morning at 0900 hours and right sided hip pain. Patient states that he was lifting his 's walker into the car when he fell backwards and the walker fell on top of him and his right hip hurt and he was not able to stand up at that time. Reports that some good [employer] struck by an helped him into his car and he was able to drive him and his to spiritism afterward. Patient reports that he sat in spiritism, has had pain since then, is able to bear weight but reports that he is limping on the right side. He denies any sensation changes, any muscle weakness, any numbness or tingling, any bleeding or open wound. He denies being on any anticoagulants due to history of GI bleeding. States that he is allergic to morphine but he has tolerated hydrocodone in the past without any problem. Patient states he uses a walker at home to ambulate but does not with him today. Related Data Home Medications Medication Instructions Recorded Confirmed atorvastatin 80 mg tablet (Lipitor) 80 mg PO HS ##0 08/20/07 08/19/21 omeprazole 20 mg capsule,delayed 20 mg PO DAILY ##0 06/18/17 08/19/21 release aspirin 81 mg tablet,delayed 81 mg PO DAILY 01/28/18 08/19/21 release (Aspir-) levothyroxine 150 mcg tablet 100 mcg PO DAILY 02/12/18 08/19/21 nitroglycerin 0.3 mg sublingual 0.3 mg sublingual Q5-15M PRN Chest 02/12/18 08/19/21 tablet (Nitrostat) Pain tamsulosin 0.4 mg capsule 0.4 mg PO DAILY 02/12/18 08/19/21 clopidogrel 75 mg tablet 75 mg PO DAILY 10/28/20 08/19/21 donepezil 10 mg tablet 10 mg PO BEDTIME 10/28/20 08/19/21 gabapentin 300 mg capsule 300 mg PO DAILY 08/19/21 08/19/21 Previous Rx's Medication Instructions Recorded acetaminophen 325 mg tablet 650 mg PO Q6HR #30 tabs 08/22/21 naloxone 0.4 mg/mL injection 0.2 mg (0.5 mL) IV Q2MIN PRN 08/22/21 solution Opiate Reversal #10 mL cyclobenzaprine 5 mg tablet 5 mg PO TID PRN muscle spasm #10 11/03/21 tabs lidocaine 4 % topical patch 1 patch topical DAILY PRN pain #10 11/03/21 ea hydrocodone 5 mg-acetaminophen 325 1 tab PO Q6H PRN pain #14 tabs 01/05/22 mg tablet lidocaine 5 % topical patch 1 patch topical DAILY PRN pain #15 01/05/22 (Lidoderm) ea Allergies Allergy/AdvReac Type Severity Reaction Status Date / Time morphine [MORPHINE] AdvReac Mild LOOPY Verified 11/03/21 12:59 BODY FEELS COLD, SHAKING Review of Systems <KETTY Keller - Last Filed: 01/05/22 16:42> Review of Systems Narrative: General: denies fever, chills, malaise, sweats, fatigue Head/Neck: denies headache, neck pain, dizziness Eyes: denies visual changes, eye pain Cardio: denies chest pain, palpitations, edema Respiratory: denies dyspnea, cough, orthopnea : denies urinary retention, frequency or incontinence MSK: denies muscle weakness or sensation changes, states that he is ambulatory but is limping on the right side due to hip pain Skin: denies rash, itching, skin lesions or other Neuro: denies numbness, tingling Patient History <KETTY Keller - Last Filed: 01/05/22 16:42> Medical History Asthma GERD (gastroesophageal reflux disease) Hx of fracture of femur Hyperlipidemia Melanoma Myocardial infarction Myocardial infarction with complication Surgical History History of arthroplasty of left knee History of arthroplasty of right shoulder History of knee replacement History of lumbar surgery History of total left hip arthroplasty Hx of appendectomy Hx of heart artery stent Hx of tonsillectomy Status post hernia repair Family History Brother Hemorrhoids Daughter Developmental delay Diabetes mellitus Social History household members: spouse Smoking Status: Never smoker alcohol intake: current Smoking Status: Never smoker alcohol intake frequency: holidays/special occasions only Substance Use Type: does not use Exam <KETTY Keller - Last Filed: 01/05/22 16:42> Narrative Exam Narrative: Independently reviewed vitals signs and nursing notes. General: cooperative, comfortable, in no acute distress, well groomed Head: atraumatic, symmetrical facial expressions Neck: supple Eyes: equal round and reactive, EOMI, conjunctiva normal Nose: nares patent, no rhinorrhea Mouth/Throat: moist mucus membranes Cardiovascular: regular rate and rhythm, no peripheral edema, warm extremities Respiratory: normal effort, able to speak in complete sentences, no audible w heezing, stridor, or rales. No retractions or tachypnea. GI: abdomen soft, nontender to palpation, nondistended, no masses, no exquisite tenderness with exam, without guarding or rebound. MSK: moves all extremities, neurovascularly intact, no weakness, normal tone Skin: brisk capillary refill, no rash, no erythema Neuro: normal speech and cognition, A&O x3 Psych: mental status is grossly normal, congruent mood, normal affect, pleasant and cooperative Initial Vital Signs Initial Vital Signs: Vital Signs Temperature 97.5 F L 01/05/22 14:14 Pulse Rate 73 01/05/22 14:14 Respiratory Rate 20 01/05/22 14:14 Blood Pressure 111/58 L 01/05/22 14:14 Pulse Oximetry 95 01/05/22 14:14 Oxygen Delivery Method 01/05/22 14:14 <Divya Pandey DO - Last Filed: 01/06/22 08:35> Initial Vital Signs Initial Vital Signs: Vital Signs Temperature 97.5 F L 01/05/22 14:14 Pulse Rate 73 01/05/22 14:14 Respiratory Rate 20 01/05/22 14:14 Blood Pressure 111/58 L 01/05/22 14:14 Pulse Oximetry 95 01/05/22 14:14 Oxygen Delivery Method 01/05/22 14:14 Course <KETTY Keller - Last Filed: 01/05/22 16:42> Orders Ordered: Discontinued Medications Hydrocodone Bitart/Acetaminophen (Hydrocodone/Acet 5/325 Tablet) 1 tab PO NOW ONE Stop: 01/05/22 15:53 Last Admin: 01/05/22 15:58 Dose: 1 tab Documented By: BRITK Lidocaine (Lidocaine Patch 1 Each Adh..Patch) 1 each TOP NOW ONE Stop: 01/05/22 15:53 Last Admin: 01/05/22 15:59 Dose: 1 each Documented By: ADK Vital Signs Vital signs: Vital Signs - 8 hr 01/05/22 14:14 Temperature 97.5 F L Pulse Rate 73 Respiratory Rate 20 Blood Pressure 111/58 L Pulse Oximetry 95 Oxygen Delivery Method Room Air <Divya Pandey DO - Last Filed: 01/06/22 08:35> Orders Ordered: Discontinued Medications Hydrocodone Bitart/Acetaminophen (Hydrocodone/Acet 5/325 Tablet) 1 tab PO NOW ONE Stop: 01/05/22 15:53 Last Admin: 01/05/22 15:58 Dose: 1 tab Documented By: ADK Lidocaine (Lidocaine Patch 1 Each Adh..Patch) 1 each TOP NOW ONE Stop: 01/05/22 15:53 Last Admin: 01/05/22 15:59 Dose: 1 each Documented By: ADK Vital Signs Vital signs: Vital Signs - 8 hr 01/05/22 14:14 Temperature 97.5 F L Pulse Rate 73 Respiratory Rate 20 Blood Pressure 111/58 L Pulse Oximetry 95 Oxygen Delivery Method Room Air MDM - Fall <KETTY Keller - Last Filed: 01/05/22 16:42> Imaging Data Extremity x-ray #1: Radiologist's Impression: PROCEDURE:? XR HIP W PEL IF DONE RT 2V ? INDICATIONS:? fall? ? TECHNIQUE:? AP pelvis with lateral view(s) of the right hip(s).? ? COMPARISON:? [facility], CT, CT PEL WO CON, 11/03/2021, 15:00.? [facility], CT, CT PEL WO CON, 08/19/2021, 15:40.? [facility], CR, XR HIP W PEL IF DONE LT 2V, 08/19/2021, 14:10. ? FINDINGS:? ? Bones:? There is a healing fracture seen involving the periprosthetic RIGHT proximal femur.? ? A remodeling fracture can be seen involving the LEFT greater trochanter. ? No acute appearing fractures or dislocations.? Pelvic ring appears intact.? No suspicious bony lesions.? ? Bilateral hip arthroplasty hardware can be seen, without findings failure or loosening. ? Soft tissues:? The visualized bowel gas pattern is normal.? No suspicious soft tissue calcifications.? ? ? IMPRESSION:? Remodeling proximal femur fractures are seen, without acute features. ? If there is point tenderness (or other clinical suspicion for a fracture not seen on these images) then a dedicated CT could be considered for further evaluation, if clinically appropriate. ? Unremarkable bilateral hip arthroplasty hardware. ?? ? Dictated by: Mickey Greene M.D. on 01/05/2022 at 14:40 ? ? Approved by: Mickey Greene M.D. on 01/05/2022 at 14:42 ? MDM Narrative Medical decision making narrative: This is a pleasant 86-year-old male who presents to the emergency department after a mechanical fall this morning from standing while he was trying to load his 's walker into the car. He reports that he stumbled and fell backwards and the walker fell on top of him and his right has pain. Patient has a history of a left hip fracture in September 2021, had an extended stay at a facility for rehab and is back home and ambulatory at baseline. He uses a walker at home for stability, has a history of bilateral hip arthroplasties. X-ray of his right hip today shows his remodeling proximal femur fracture without acute fracture. Patient did not have any significant point tenderness on exam, no open wound, no ecchymosis, he is not on anticoagulants, he is ambulatory without deficit. He is able to lift both of his legsoff the bed without pain or reduced range of motion. Bilateral DP and PT pulses are 2+ without pedal edema or decreased sensation. Patient was given hydrocodone and a lidocaine patch in the emergency department, states this was helpful for his pain. He understands to use his walker while ambulating and that he might be sore for the next few days, encouraged him to return to the emergency department if he has any weakness, incontinence, worsening pain, or reduced mobility. Patient states und erstanding. Patient is appropriate and amenable to discharge home. Vital signs are stable on repeat examination is unremarkable. Patient has been informed of results. Patient has been given strict return to ER precautions for any new or worsening symptoms. Patient understands to follow up closely with outpatient providers as instructed. Patient understands plan and agrees to discharge home. All questions and concerns answered at this time., Discharge Plan Departure Patient Disposition: Home Clinical Impression: Fall Qualifiers: Encounter type: initial encounter Qualified Code(s): W19.XXXA - Unspecified fall, initial encounter Acute hip pain Qualifiers: Laterality: right Qualified Code(s): M25.551 - Pain in right hip Instructions: DI for Hip Pain Activity Restrictions/Additional Instructions: *You have been diagnosed with ground level fall and hip pain. The x-ray of your hip does not show any new fractures, it shows that the prior fractures are remodeling without any new changes or failure of your hardware. Please return to the emergency department if you have new weakness if you have new sensation changes in, if you are having difficulty walking while taking hydrocodone and Tylenol as needed for your pain. Please use lidocaine patches every 12 hours for another pain adjunct. Use a walker at all times so that you are safe and stay hydrated, gentle activity around the house until you feel better, please follow-up with your primary doctor if this is getting any worse. Hope you feel better soon. *What to do: *Please continue to take your regular medications as directed. [ x] New medication prescriptions sent to your pharmacy: [Therese Brown ] [ ] New medication written as a paper prescription [ ] No new medications given *Please follow up with your primary care provider in 2-3 days, call for an appointment. Let them know you were seen in the Emergency Department and that we asked that you be seen for follow-up. We will electronically transmit a record of today's note if your PCP is in our system *If you do not have a primary care provider please contact [phone] to establish care with one of the [facility] primary care providers. *Return to Emergency Department if you should have any new, worsening or concerning symptoms, such as [fever greater than 101F, chills, worsening pain, persistent vomiting or other bothersome symptoms] Prescriptions: New hydrocodone-acetaminophen 5-325 mg tablet 1 tab PO Q6H PRN (Reason: pain) Qty: 14 0RF lidocaine [Lidoderm] 5 % adhesive patch,medicated 1 patch topical DAILY PRN (Reason: pain) Qty: 15 0RF Rx Instructions: leave on most painful area for up to 12 hrs No Action atorvastatin [Lipitor] 80 MG tablet 80 mg PO HS Qty: 0 omeprazole 20 MG capsule,delayed release(DR/EC) 20 mg PO DAILY Qty: 0 aspirin [Aspir-81] 81 mg Tablet,Delayed Release (Dr/Ec) 81 mg PO DAILY lidocaine 4 % adhesive patch,medicated 1 patch topical DAILY PRN (Reason: pain) Qty: 10 0RF Rx Instructions: leave on for 12 hours at a time then remove cyclobenzaprine 5 mg tablet 5 mg PO TID PRN (Reason: muscle spasm) Qty: 10 0RF nitroglycerin [Nitrostat] 0.3 mg Tablet, Sublingual 0.3 mg SUBLINGUAL Q5-15M PRN (Reason: Chest Pain) tamsulosin 0.4 mg Capsule 0.4 mg PO DAILY levothyroxine 150 mcg Tablet 100 mcg PO DAILY donepezil 10 mg tablet 10 mg PO BEDTIME Label Comments: take 1/2 tablet by mouth at bedtime for 2 weeks then 1 tablet NIGHTLYTHEREAFTER clopidogrel 75 mg tablet 75 mg PO DAILY gabapentin 300 mg capsule 300 mg PO DAILY acetaminophen 325 mg Tablet 650 mg PO Q6HR Qty: 30 0RF naloxone 0.4 mg/mL Solution 0.2 mg IV Q2MIN PRN (Reason: Opiate Reversal) Qty: 10 0RF Referrals: Dale Mcclalum MD [Primary Care Provider] - Visit Report Forms: Patient Portal/API <Divya Pandey DO - Last Filed: 01/06/22 08:35> Cosign ED Attending Alexanderature Attestation: I was immediately available in the department for consultation. Documentation has been reviewed. I agree with assessment and plan.
== END 2022-01-05 16:39 | disposition home or self-care (01) ==
PROVIDERS: Emergency Provider Nurse Practitioner Critical Care Medicine; PCP Family Medicine
DX: M25.551 Pain in right hip (principal); W19.XXXA Unspecified fall, initial encounter
CPT/HCPCS: 73502; 99283

== ENCOUNTER → 2023-01-20 11:35 | Outpatient (CLI) | payer MEDICARE, OTHER, SELFPAY ==
--- NOTE | 2023-01-20 11:37 | DI.RAD.S_ITS ---
PROCEDURE: XR RIBS LT MIN 3V W CXR1V INDICATIONS: Left sided rib pain TECHNIQUE: 2 views of the left ribs were acquired, along with a single view chest. COMPARISON: None. FINDINGS: Surgical changes and devices: Partially visualized right shoulder arthroplasty. Bones and chest wall: No fractures or dislocations. No suspicious bony lesions. Overlying soft tissues appear unremarkable. Lungs and pleura: No pleural effusions or pneumothorax. Lungs appear clear. Mediastinum: Mediastinal contours appear normal. Heart size is normal. IMPRESSION: No displaced rib fracture. No acute cardiopulmonary disease process. Dictated by: Gabby Tobias MD, PhD on 01/20/2023 at 13:36 Approved by: Gabby Tobias MD, PhD on 01/20/2023 at 13:37
== END ==
PROVIDERS: PCP Family Medicine; Referring Provider Family Medicine; Visit Provider Family Medicine
DX: R07.81 Pleurodynia (principal)
CPT/HCPCS: 71101

== ENCOUNTER → 2023-05-22 16:44 | Outpatient (CLI) | payer MEDICARE, OTHER, SELFPAY ==
--- NOTE | 2023-05-22 | DI.RAD.S_ITS ---
PROCEDURE: XR TIBIA FUBULA RT 2V INDICATIONS: ROUTINE/MASS RT SALTER TECHNIQUE: 2 views of the tibia and fibula were acquired. COMPARISON: [facility], , TIB/FIB 2V LEFT, 05/14/2011, 10:25. [facility], CR, TIB/FIB 2V RIGHT, 05/14/2011, 10:26. FINDINGS: Bones: No fractures or dislocations. No suspicious bony lesions. Soft tissues: No suspicious soft tissue calcifications or masses. There are multiple foci of soft tissue calcifications in the anterior lower leg. Vascular calcifications consistent with atherosclerosis. IMPRESSION: 1. No acute bony abnormality. 2. Multiple foci of soft tissue calcifications in the anterior lower leg, increased since the last exam. Differential diagnoses are connective tissue disease such as scleroderma, infectious etiology (cysticercosis), dystrophic calcification, trauma (myositis ossificans) and metastatic calcifications. Recommend clinical correlation. Dictated by: Jasbir Steele M.D. on 05/24/2023 at 16:33 Approved by: Jasbir Steele M.D. on 05/25/2023 at 9:08
== END ==
PROVIDERS: PCP Family Medicine; Referring Provider Family Medicine; Visit Provider Family Medicine
DX: M79.89 Other specified soft tissue disorders (principal)
CPT/HCPCS: 73590

== ENCOUNTER → 2023-05-27 13:45 | Outpatient (CLI) | payer MEDICARE, OTHER, SELFPAY ==
--- NOTE | 2023-05-27 13:47 | DI.US.S_ITS ---
PROCEDURE: US EXTREMITY NONVASC LOWER RT INDICATIONS: MASS ON RIGHT SALTER TECHNIQUE: Real-time scanning was performed of the right lower extremity , with image documentation. COMPARISON: [facility], CR, XR TIBIA FIBULA RT 2V, 05/22/2023, 16:52. FINDINGS: Ultrasound was performed of the right lower extremity in the area of interest. There is a 1.8 x 0.9 x 1.4 cm solid subcutaneous nodule with internal vascularity, correlating with the palpable lump. There is posterior shadowing, consistent with calcification. IMPRESSION: A 1.8 x 0.9 x 1.4 cm solid, partially calcified nodule is identified, correlating with the palpable abnormality. On the comparison x-ray, there multiple calcified subcutaneous nodules. If there is focal pain and tenderness, or rapid growth, consider MRI for further evaluation. Please see the report of x-ray for differential diagnosis of calcified subcutaneous masses. Dictated by: Jasbir Steele M.D. on 05/28/2023 at 11:21 Approved by: Jasbir Steele M.D. on 05/28/2023 at 11:28
== END ==
PROVIDERS: PCP Family Medicine; Referring Provider Family Medicine; Visit Provider Family Medicine
DX: R22.41 Localized swelling, mass and lump, right lower limb (principal); M79.89 Other specified soft tissue disorders
CPT/HCPCS: 76882

== ENCOUNTER 2024-02-20 13:25 | Emergency (ER) | payer MEDICARE, OTHER, SELFPAY ==
[2024-02-20] VITALS (9 sets, daily range): BP systolic 132–180; BP diastolic 63–81; PULSE 59–73; RESP 12–25; TEMP 36.4; O2SAT 95–98; BMI 25.1
--- NOTE | 2024-02-20 13:32 | DI.RAD.S_ITS ---
PROCEDURE: XR CHEST 1V INDICATIONS: fall on thinners, lac to back of head TECHNIQUE: One view of the chest was acquired. COMPARISON: [facility], CR, XR CHEST 1V, 11/03/2021, 13:03. [facility], CR, XR CHEST 1V, 12/03/2020, 10:56. FINDINGS: Surgical changes and devices: None. Lungs and pleura: Lungs are clear. No pleural effusions or pneumothorax. Mediastinum: Mediastinal contours appear normal. Heart size is normal. Bones and chest wall: No suspicious bony lesions. Overlying soft tissues appear unremarkable. IMPRESSION: No acute cardiopulmonary abnormality is seen. Dictated by: Margarita Diehl M.D. on 02/20/2024 at 13:10 Approved by: Margarita Diehl M.D. on 02/20/2024 at 13:11
--- NOTE | 2024-02-20 13:32 | DI.CT.S_ITS ---
PROCEDURE: CT HEAD/BRAIN WO CON INDICATIONS: fall on thinners, lac to back of head TECHNIQUE: Noncontrast 4.5 mm thick angled axial sections acquired from the foramen magnum to the vertex, with coronal and sagittal reformats. For radiation dose reduction, the following was used: automated exposure control, adjustment of mA and/or kV according to patient size. COMPARISON: [facility], CT, CT HEAD/BRAIN WO CON, 12/03/2020, 11:06. FINDINGS: Image quality: Diagnostic. CSF spaces: Basal cisterns are patent. No extra-axial fluid collections. The ventricles are symmetric in size and shape. Brain: No intracranial bleeds or masses. There is cerebral volume loss for age, with resultant ventricular and sulcal prominence. There are periventricular and deep white matter chronic small vessel ischemic changes. There is intracranial internal carotid artery atherosclerosis. Skull and face: Calvarium and visualized facial bones appear intact, without suspicious lesions. Soft tissue injury of the right temporoparietal scalp is shown with some subcutaneous emphysema. Sinuses: Visualized sinuses and mastoids are clear. IMPRESSION: No acute intracranial pathology. Dictated by: Margarita Diehl M.D. on 02/20/2024 at 13:34 Approved by: Margarita Diehl M.D. on 02/20/2024 at 13:38
--- NOTE | 2024-02-20 13:32 | DI.CT.S_ITS ---
PROCEDURE: CT CERVICAL SPINE WO CON INDICATIONS: fall on thinners, lac to back of head TECHNIQUE: Noncontrast 3 mm thick sections acquired from the skull base to the T4 level. Sagittal and coronal reformats were then constructed. For radiation dose reduction, the following was used: automated exposure control, adjustment of mA and/or kV according to patient size. COMPARISON: None. FINDINGS: Image quality: Excellent. Bones: No fractures or dislocations. Visualized superior ribs are intact. There is severe degenerative changes of the spine with grade 1 retrolisthesis of C3 on C4 and grade 1 anterolisthesis of C5 on C6. Prominent disc space narrowing and osteophytosis is seen throughout the spine with endplate sclerosis as well. Soft tissues: Prevertebral soft tissues are normal in thickness. No paravertebral hematomas. No apical pneumothoraces. IMPRESSION: Severe degenerative disc disease without acute cervical osseous abnormality. Dictated by: Margarita Diehl M.D. on 02/20/2024 at 13:31 Approved by: Margarita Diehl M.D. on 02/20/2024 at 13:33
[2024-02-20 13:40] LABS: Add Manual Diff / Slide Review NO; Basophils Absolute Auto 0 /uL (0-100); Basophils Percent Auto 0.6 % (0-2); Eosinophils Absolute Auto 300 /uL (0-450); Eosinophils Percent Auto 4.2 % (2-4); Hematocrit 31.4 % (41-53); Hemoglobin 10.7 g/dL (13.5-17.5); Lymphocytes Absolute Auto 1000 /uL (1100-4500); Lymphocytes Percent Auto 15.2 % (25-40); Mean Corpuscular HGB Conc 34.1 % (30-36); Mean Corpuscular Hemoglobin 32.3 PG (26-34); Mean Corpuscular Volume 94.8 fL (80-100); Monocytes Absolute Auto 700 /uL (0-900); Monocytes Percent Auto 10.2 % (3-14); Neutrophils Absolute Auto 4700 /uL (1500-7000); Neutrophils Percent Auto 69.8 % (50-75); Platelet Count 258 X10^3/uL (150-400); Red Blood Cell Count 3.31 X10^6/uL (4.5-5.9); Red Cell Distribution Width 14.6 % (11.6-14.8); White Blood Cell Count 6.7 X10^3/uL (4.5-11.0)
[2024-02-20 13:43] LABS: INR 1.1 (0.9-1.3); Prothrombin Time 12.1 SECONDS (9.4-12.5)
--- NOTE | 2024-02-20 13:45 | ED.FALL ---
HPI - Fall General Chief Complaint: Trauma Stated Complaint: fall on thinners/ Mod Trauma Time Seen by Provider: 02/20/24 13:41 Source: patient and EMS Mode of arrival: EMS History of Present Illness HPI Narrative: 88-year-old male on chronic anticoagulation, 1:00 p.m. today was trying to water plans of the back deck at their home, he was at an awkward angle, was stretching to 1 of the plants, and then fell, striking the right side of his head on a railing, laceration sustained, does not believe that he blacked out. He has no weakness to his face arm or leg. No neck pain. No upper mid or lower back pain. He denies chest pain or shortness of breath. He denies pain to his abdomen and pelvis. He denies pain to either leg or either hip, no upper extremity injuries. He has not had nausea or vomiting. Related Data Home Medications Medication Instructions Recorded Confirmed atorvastatin 80 mg tablet (Lipitor) 80 mg PO HS ##0 08/20/07 08/19/21 omeprazole 20 mg capsule,delayed 20 mg PO DAILY ##0 06/18/17 08/19/21 release aspirin 81 mg tablet,delayed 81 mg PO DAILY 01/28/18 08/19/21 release (Aspir-) levothyroxine 150 mcg tablet 100 mcg PO DAILY 02/12/18 08/19/21 nitroglycerin 0.3 mg sublingual 0.3 mg sublingual Q5-15M PRN Chest 02/12/18 08/19/21 tablet (Nitrostat) Pain tamsulosin 0.4 mg capsule 0.4 mg PO DAILY 02/12/18 08/19/21 clopidogrel 75 mg tablet 75 mg PO DAILY 10/28/20 08/19/21 donepezil 10 mg tablet 10 mg PO BEDTIME 10/28/20 08/19/21 gabapentin 300 mg capsule 300 mg PO DAILY 08/19/21 08/19/21 Previous Rx's Medication Instructions Recorded acetaminophen 325 mg tablet 650 mg (2 x 325 mg) PO Q6HR #30 08/22/21 tabs naloxone 0.4 mg/mL injection 0.2 mg (0.5 mL) IV Q2MIN PRN 08/22/21 solution Opiate Reversal #10 mL cyclobenzaprine 5 mg tablet 5 mg PO TID PRN muscle spasm #10 11/03/21 tabs lidocaine 4 % topical patch 1 patch topical DAILY PRN pain #10 11/03/21 ea hydrocodone 5 mg-acetaminophen 325 1 tab PO Q6H PRN pain #14 tabs 01/05/22 mg tablet lidocaine 5 % topical patch 1 patch topical DAILY PRN pain #15 01/05/22 (Lidoderm) ea Allergies Allergy/AdvReac Type Severity Reaction Status Date / Time morphine [MORPHINE] AdvReac Mild LOOPY Verified 11/03/21 12:59 BODY FEELS COLD, SHAKING Review of Systems Review of Systems Narrative: see HPI Patient History Medical History Asthma GERD (gastroesophageal reflux disease) Hx of fracture of femur Hyperlipidemia Melanoma Myocardial infarction Myocardial infarction with complication Surgical History History of arthroplasty of left knee History of arthroplasty of right shoulder History of knee replacement History of lumbar surgery History of total left hip arthroplasty Hx of appendectomy Hx of heart artery stent Hx of tonsillectomy Status post hernia repair Family History Brother Hemorrhoids Daughter Developmental delay Diabetes mellitus Social History household members: spouse Smoking Status: Never smoker alcohol intake: current Smoking Status: Never smoker alcohol intake frequency: holidays/special occasions only Substance Use Type: does not use Exam Narrative Exam Narrative: GENERAL: Well-developed patient, in mild distress. HEAD: Right parietal area laceration, dried blood, no large laceration obvious, to be cleaned for further evaluation, no active bleeding EYES: Pupils equal round and reactive. Extraocular motions intact. No scleral icterus. No injection or drainage. ENT: Nose without bleeding, purulent drainage. Throat without erythema, tonsillar hypertrophy or exudate. Airway patent. NECK: Trachea midline. Non tender CARDIOVASCULAR: Regular rate and rhythm without murmurs, gallops, or rubs. RESPIRATORY: Clear to auscultation. Breath sounds equal bilaterally. No wheezes, rales, or rhonchi. GASTROINTESTINAL: Abdomen soft, non-tender, nondistended. EXTREMITIES: No gross deformities upper or lower extremities BACK: Nontender without deformity or crepitance. No flank tenderness. NEURO: AOx3. Nonfocal motor neuro exam SKIN: No rash or erythema of visible areas Initial Vital Signs Initial Vital Signs: Vital Signs Temperature 97.5 F L 02/20/24 13:26 Pulse Rate 67 02/20/24 13:26 Respiratory Rate 16 02/20/24 13:26 Blood Pressure 180/81 H 02/20/24 13:26 Pulse Oximetry 96 02/20/24 13:26 Oxygen Delivery Method Room Air 02/20/24 13:26 Procedures Laceration Repair Laceration 1: Time of procedure: 17:30 Side (If applicable): right Size (cm): 3.0 Description: linear Depth: simple, single layer Local Anesthetic: lidocaine 1% and with epi Amount of anesthesia used (mL): 5 Skin layer closed with: sara Number of sutures: 5 Course Orders Ordered: ED Orders 02/20/24 13:29 Complete Blood Count AUTO DIFF Stat Comprehensive Metabolic Panel Stat Lipase Stat Magnesium Stat NT-proBNP (BNP-Adult 18+) Stat PTT Partial Thromboplastin Jose Alejandro Stat Prothrombin Time INR Stat Troponin & CK Cardiac Panel Stat 02/20/24 13:32 CT cervical spine wo con Stat CT head/brain wo con Stat Chest [XR chest 1V] Stat EKG-12 Lead Stat 02/20/24 16:04 Urine Microscopic Stat Discontinued Medications Lidocaine/Epinephrine (Lidocaine 2% W/Epi Inj 10 Ml Vial) 20 ml INJ INTRA-OP ONE Stop: 02/20/24 15:46 Last Admin: 02/20/24 17:49 Dose: 10 ml Documented By: NANETTE Lidocaine/Prilocaine (Lidocaine/Prilocaine 5 Gm) 5 gm TOP NOW ONE Stop: 02/20/24 15:33 Last Admin: 02/20/24 17:49 Dose: 5 gm Documented By: NANETTE Tetanus/Diphtheria Toxoids (Tetanus Diphtheria Toxoids 0.5 Ml Vial) 0.5 ml IM .ONCE ONE Stop: 02/20/24 17:34 Last Admin: 02/20/24 17:45 Dose: 0.5 ml Documented By: SB Vital Signs Vital signs: Vital Signs - 8 hr 02/20/24 15:00 02/20/24 15:31 02/20/24 16:01 Pulse Rate 68 61 61 Respiratory Rate 25 H 20 18 Blood Pressure 171/74 H 159/74 H 167/72 H Pulse Oximetry 96 97 98 Oxygen Delivery Method Room Air 02/20/24 16:30 02/20/24 16:31 02/20/24 16:31 Pulse Rate 61 60 Respiratory Rate 19 14 Blood Pressure 132/67 Pulse Oximetry 95 96 Oxygen Delivery Method 02/20/24 17:00 02/20/24 17:01 02/20/24 17:01 Pulse Rate 60 59 L Respiratory Rate 13 12 Blood Pressure 156/63 H Pulse Oximetry 95 95 Oxygen Delivery Method 02/20/24 17:30 Pulse Rate 73 Respiratory Rate 19 Blood Pressure Pulse Oximetry 96 Oxygen Delivery Method Room Air fall Lab Data Attestation: I reviewed the patient's lab results. 02/20/24 13:29 02/20/24 13:29 Labs: Lab Results 02/20/24 02/20/24 Range/Units 13:29 16:04 WBC 6.7 (4.5-11.0) X10^3/uL RBC 3.31 L (4.5-5.9) X10^6/uL Hgb 10.7 L (13.5-17.5) g/dL Hct 31.4 L (41-53) % MCV 94.8 (80-100) fL MCH 32.3 (26-34) PG MCHC 34.1 (30-36) % RDW 14.6 (11.6-14.8) % Plt Count 258 (150-400) X10^3/uL Neut % (Auto) 69.8 (50-75) % Lymph % (Auto) 15.2 L (25-40) % [place] % (Auto) 10.2 (3-14) % Eos % (Auto) 4.2 H (2-4) % Baso % (Auto) 0.6 (0-2) % Neut # (Auto) 4700 (8854-9713) /uL Lymph # (Auto) 1000 L (5956-7427) /uL [place] # (Auto) 700 (0-900) /uL Eos # (Auto) 300 (0-450) /uL Baso # (Auto) 0 (0-100) /uL PT 12.1 (9.4-12.5) SECONDS INR 1.1 (0.9-1.3) APTT 39 H (25.1-36.5) SECONDS Sodium 136 L (137-145) mmol/L Potassium 4.2 (3.4-5.1) mmol/L Chloride 104 (98-107) mmol/L Carbon Dioxide 25 (22-32) mmol/L BUN 32 H (9-20) mg/dL Creatinine 1.31 H (0.66-1.25) mg/dL Estimated GFR 53 L (>60) mL/min BUN/Creatinine Ratio 24.4 H (6-22) Glucose 124 H (80-110) mg/dL Calcium 8.7 (8.4-10.2) mg/dL Magnesium 2.2 (1.6-2.3) mg/dL Total Bilirubin 1.2 (0.2-1.3) mg/dL AST 31 (17-59) IU/L ALT 23 (<50) IU/L Alkaline Phosphatase 117 (38-126) U/L Total Creatine Kinase 163 (55-170) U/L Troponin I 0.020 (0.01-0.034) ng/mL NT-Pro-B Natriuret Pep 652 H (<450) pg/mL Total Protein 6.9 (6.3-8.2) g/dL Albumin 3.6 (3.5-5.0) g/dL Globulin 3.3 (1.7-4.1) g/dL Albumin/Globulin Ratio 1.1 (1.0-2.8) Lipase 31 (23-300) U/L Urine RBC None seen (0-5/HPF) Urine WBC None seen (0-5/HPF) Ur Squamous Epith Cells None seen (0-5/HPF) Urine Bacteria None seen (None) Ur Culture Indicated? Cult not indicated Vol Urine Centrifuged 10ml (spun) Point of Care Testing Glucose POC 130 Urine Dip Bedside Urine Glucose Negative Bedside Urine Bilirubin - Negative Bedside Urine Ketone - Negative Urine Specific [place] 1.020 Bedside Urine Occult Blood +/- Bedside Urine pH 5.5 Bedside Urine Protein +/- 15 Bedside Urine Urobilinogen - Negative Bedside Urine Nitrite - Negative Bedside Urine Leukocytes - Negative Esterase Imaging Data Chest x-ray: Radiologist's Impression: [address] [address] XRay Report Signed Patient: Antoine Dillon MR#: [id number] : 1935 Acct:[id number] Age/Sex: 88 / M Date of Service: 02/20/24 Loc: ED Accession Number: [id number] Procedure: XR chest 1V Ordering Provider: Robbie Zelaya MD PROCEDURE: XR CHEST 1V INDICATIONS: fall on thinners, lac to back of head TECHNIQUE: One view of the chest was acquired. COMPARISON: [facility], CR, XR CHEST 1V, 11/03/2021, 13:03. [facility], CR, XR CHEST 1V, 12/03/2020, 10:56. FINDINGS: Surgical changes and devices: None. Lungs and pleura: Lungs are clear. No pleural effusions or pneumothorax. Mediastinum: Mediastinal contours appear normal. Heart size is normal. Bones and chest wall: No suspicious bony lesions. Overlying soft tissues appear unremarkable. IMPRESSION: No acute cardiopulmonary abnormality is seen. Dictated by: Margarita Diehl M.D. on 02/20/2024 at 13:10 Approved by: Margarita Diehl M.D. on 02/20/2024 at 13:11 CT scan - head: Radiologist's Impression: [place] [address] CT Scan Report Signed Patient: Antoine Dillon MR#: [id number] : 1935 Acct:[id number] Age/Sex: 88 / M Date of Service: 02/20/24 Loc: ED Accession Number: [id number] Procedure: CT head/brain wo con Ordering Provider: Robbie Zelaya MD PROCEDURE: CT HEAD/BRAIN WO CON INDICATIONS: fall on thinners, lac to back of head TECHNIQUE: Noncontrast 4.5 mm thick angled axial sections acquired from the foramen magnum to the vertex, with coronal and sagittal reformats. For radiation dose reduction, the following was used: automated exposure control, adjustment of mA and/or kV according to patient size. COMPARISON: [facility], CT, CT HEAD/BRAIN WO CON, 12/03/2020, 11:06. FINDINGS: Image quality: Diagnostic. CSF spaces: Basal cisterns are patent. No extra-axial fluid collections. The ventricles are symmetric in size and shape. Brain: No intracranial bleeds or masses. There is cerebral volume loss for age, with resultant ventricular and sulcal prominence. There are periventricular and deep white matter chronic small vessel ischemic changes. There is intracranial internal carotid artery atherosclerosis. Skull and face: Calvarium and visualized facial bones appear intact, without suspicious lesions. Soft tissue injury of the right temporoparietal scalp is shown with some subcutaneous emphysema. Sinuses: Visualized sinuses and mastoids are clear. IMPRESSION: No acute intracranial pathology. Dictated by: Margarita Diehl M.D. on 02/20/2024 at 13:34 Approved by: Margarita Diehl M.D. on 02/20/2024 at 13:38 CT - cervical spine: Radiologist's Impression: [address] [address] [address] Scan Report Signed Patient: Antoine Dillon MR#: [id number] : 1935 Acct:[id number] Age/Sex: 88 / M Date of Service: 02/20/24 Loc: ED Accession Number: [id number] Procedure: CT cervical spine wo con Ordering Provider: Robbie Zelaya MD PROCEDURE: CT CERVICAL SPINE WO CON INDICATIONS: fall on thinners, lac to back of head TECHNIQUE: Noncontrast 3 mm thick sections acquired from the skull base to the T4 level. Sagittal and coronal reformats were then constructed. For radiation dose reduction, the following was used: automated exposure control, adjustment of mA and/or kV according to patient size. COMPARISON: None. FINDINGS: Image quality: Excellent. Bones: No fractures or dislocations. Visualized superior ribs are intact. There is severe degenerative changes of the spine with grade 1 retrolisthesis of C3 on C4 and grade 1 anterolisthesis of C5 on C6. Prominent disc space narrowing and osteophytosis is seen throughout the spine with endplate sclerosis as well. Soft tissues: Prevertebral soft tissues are normal in thickness. No paravertebral hematomas. No apical pneumothoraces. IMPRESSION: Severe degenerative disc disease without acute cervical osseous abnormality. Dictated by: Margarita Deihl M.D. on 02/20/2024 at 13:31 Approved by: Margarita Diehl M.D. on 02/20/2024 at 13:33 ECG Data Attestation: I personally reviewed and interpreted this ECG as follows: Interpretation: Normal sinus rhythm with rate of 66, no obvious ST segment elevation or depression changes. Right bundle branch block present. NE 170, QRS 156, QTC 511. MDM Narrative Medical decision making narrative: 88-year-old male with history of unsteady gait, using walker at home as a baseline, reaching for items with the weekly bucket on his porch, mechanical type fall, laceration to the right parietal area. No visible galea, no obvious foreign body materials. CT head and cervical spine studies negative. Last tetanus shot more than 5 years ago. Tetanus updated. Laceration repair after local let gel then injection with lidocaine and epinephrine. Sara x5 placed with good approximation skin wound edges. Improved, stable, home with family, wound check 2 days, staple removal in clinic 7 days Discharge Plan Departure Patient Disposition: Home Clinical Impression: Laceration of scalp, Fall from ground level Activity Restrictions/Additional Instructions: Ground level fall with laceration to the right scalp, no loss of consciousness, taking Plavix blood thinning medications. Laceration to the right parietal scalp. CT head no brain injuries or skull fractures. CT cervical spine negative for neck spine injuries. Laceration repaired with sara after local anesthesia. Wound check advised in next 2 days with the regular doctor, staple removal in 7 days. Return earlier if any change worsening symptoms or any concerns prior Prescriptions: No Action atorvastatin [Lipitor] 80 MG tablet 80 mg PO HS Qty: 0 omeprazole 20 MG capsule,delayed release(DR/EC) 20 mg PO DAILY Qty: 0 aspirin [Aspir-81] 81 mg Tablet,Delayed Release (Dr/Ec) 81 mg PO DAILY lidocaine 4 % adhesive patch,medicated 1 patch topical DAILY PRN (Reason: pain) Qty: 10 0RF Rx Instructions: leave on for 12 hours at a time then remove cyclobenzaprine 5 mg tablet 5 mg PO TID PRN (Reason: muscle spasm) Qty: 10 0RF hydrocodone-acetaminophen 5-325 mg tablet 1 tab PO Q6H PRN (Reason: pain) Qty: 14 0RF lidocaine [Lidoderm] 5 % adhesive patch,medicated 1 patch topical DAILY PRN (Reason: pain) Qty: 15 0RF Rx Instructions: leave on most painful area for up to 12 hrs nitroglycerin [Nitrostat] 0.3 mg Tablet, Sublingual 0.3 mg SUBLINGUAL Q5-15M PRN (Reason: Chest Pain) tamsulosin 0.4 mg Capsule 0.4 mg PO DAILY levothyroxine 150 mcg Tablet 100 mcg PO DAILY donepezil 10 mg tablet 10 mg PO BEDTIME Patient Comments: take 1/2 tablet by mouth at bedtime for 2 weeks then 1 tablet NIGHTLYTHEREAFTER clopidogrel 75 mg tablet 75 mg PO DAILY gabapentin 300 mg capsule 300 mg PO DAILY acetaminophen 325 mg Tablet 650 mg PO Q6HR Qty: 30 0RF naloxone 0.4 mg/mL Solution 0.2 mg IV Q2MIN PRN (Reason: Opiate Reversal) Qty: 10 0RF Referrals: Dale Mccallum MD [Primary Care Provider] - Stand Alone Forms: Patient Portal/API
[2024-02-20 13:46] LABS: PTT Partial Thromboplastin Tim 39 SECONDS (25.1-36.5)
[2024-02-20 13:47] LABS: Alanine Aminotransferase 23 IU/L (<50); Albumin 3.6 g/dL (3.5-5.0); Albumin Globulin Ratio 1.1 (1.0-2.8); Alkaline Phosphatase 117 U/L (38-126); Aspartate Aminotransferase 31 IU/L (17-59); BUN Creatinine Ratio 24.4 (6-22); Bilirubin Total 1.2 mg/dL (0.2-1.3); Blood Urea Nitrogen 32 mg/dL (9-20); Calcium 8.7 mg/dL (8.4-10.2); Carbon Dioxide 25 mmol/L (22-32); Chloride 104 mmol/L (98-107); Creatine Kinase 163 U/L (55-170); Estimated Glomerular Filt Rate 53 mL/min (>60); Globulin 3.3 g/dL (1.7-4.1); Glucose 124 mg/dL (80-110); HEMOLYSIS < 15 (0-50); Lipase 31 U/L (23-300); Magnesium 2.2 mg/dL (1.6-2.3); Potassium 4.2 mmol/L (3.4-5.1); Sodium 136 mmol/L (137-145); Total Protein 6.9 g/dL (6.3-8.2)
--- NOTE | 2024-02-20 13:47 | EKG_ITS ---
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
[2024-02-20 13:59] LABS: NT-proBNP (BNP-Adult 18+) 652 pg/mL (<450)
[2024-02-20 17:07] LABS: Urine Volume 10mL (spun)
[2024-02-20 17:08] LABS: Bacteria Urine None Seen; Culture Indicated Urine Cult Not Indicated; RBC Urine None Seen (0-5/HPF); Squamous Epithelial Cell Urine None Seen (0-5/HPF); WBC Urine None Seen (0-5/HPF)
--- NOTE | 2024-02-20 17:28 | P.HP_ITS ---
History of Present Illness History of Present Illness Date Patient Seen: 02/20/24 Time Patient Seen: 17:28 Chief complaint: fall on thinners/ Mod Trauma [facility] Medical History Asthma GERD (gastroesophageal reflux disease) Hx of fracture of femur Hyperlipidemia Melanoma Myocardial infarction Myocardial infarction with complication Surgical History History of arthroplasty of left knee History of arthroplasty of right shoulder History of knee replacement History of lumbar surgery History of total left hip arthroplasty Hx of appendectomy Hx of heart artery stent Hx of tonsillectomy Status post hernia repair Family History Brother Hemorrhoids Daughter Developmental delay Diabetes mellitus Social History household members: spouse Smoking Status: Never smoker alcohol intake: current Meds Home Medications and Allergies Home Medications Medication Instructions Recorded Confirmed Type atorvastatin 80 mg tablet (Lipitor) 80 mg PO HS ##0 08/20/07 08/19/21 History omeprazole 20 mg capsule,delayed 20 mg PO DAILY ##0 06/18/17 08/19/21 History release aspirin 81 mg tablet,delayed 81 mg PO DAILY 01/28/18 08/19/21 History release (Aspir-) levothyroxine 150 mcg tablet 100 mcg PO DAILY 02/12/18 08/19/21 History nitroglycerin 0.3 mg sublingual 0.3 mg sublingual Q5-15M PRN Chest 02/12/18 08/19/21 History tablet (Nitrostat) Pain tamsulosin 0.4 mg capsule 0.4 mg PO DAILY 02/12/18 08/19/21 History clopidogrel 75 mg tablet 75 mg PO DAILY 10/28/20 08/19/21 History donepezil 10 mg tablet 10 mg PO BEDTIME 10/28/20 08/19/21 History gabapentin 300 mg capsule 300 mg PO DAILY 08/19/21 08/19/21 History acetaminophen 325 mg tablet 650 mg (2 x 325 mg) PO Q6HR #30 08/22/21 Rx tabs naloxone 0.4 mg/mL injection 0.2 mg (0.5 mL) IV Q2MIN PRN 08/22/21 Rx solution Opiate Reversal #10 mL cyclobenzaprine 5 mg tablet 5 mg PO TID PRN muscle spasm #10 11/03/21 Rx tabs lidocaine 4 % topical patch 1 patch topical DAILY PRN pain #10 11/03/21 Rx ea hydrocodone 5 mg-acetaminophen 325 1 tab PO Q6H PRN pain #14 tabs 01/05/22 Rx mg tablet lidocaine 5 % topical patch 1 patch topical DAILY PRN pain #15 01/05/22 Rx (Lidoderm) ea Allergies Allergy/AdvReac Type Severity Reaction Status Date / Time morphine [MORPHINE] AdvReac Mild LOOPY Verified 11/03/21 12:59 BODY FEELS COLD, SHAKING Exam Vital Signs (past 8 hours): - 02/20/24 13:26 02/20/24 15:00 02/20/24 15:31 Temperature 97.5 F L Pulse Rate 67 68 61 Respiratory Rate 16 25 H 20 Blood Pressure 180/81 H 171/74 H 159/74 H Pulse Oximetry 96 96 97 Oxygen Delivery Method Room Air 02/20/24 16:01 Temperature Pulse Rate 61 Respiratory Rate 18 Blood Pressure 167/72 H Pulse Oximetry 98 Oxygen Delivery Method Room Air Oxygen Delivery Method Room Air Objective Labs 02/20/24 13:29 02/20/24 13:29 Labs: Laboratory Results - last 24 hr 02/20/24 02/20/24 13:29 16:04 WBC 6.7 RBC 3.31 L Hgb 10.7 L Hct 31.4 L MCV 94.8 MCH 32.3 MCHC 34.1 RDW 14.6 Plt Count 258 Neut % (Auto) 69.8 Lymph % (Auto) 15.2 L [place] % (Auto) 10.2 Eos % (Auto) 4.2 H Baso % (Auto) 0.6 Neut # (Auto) 4700 Lymph # (Auto) 1000 L [place] # (Auto) 700 Eos # (Auto) 300 Baso # (Auto) 0 PT 12.1 INR 1.1 APTT 39 H Sodium 136 L Potassium 4.2 Chloride 104 Carbon Dioxide 25 BUN 32 H Creatinine 1.31 H Estimated GFR 53 L BUN/Creatinine Ratio 24.4 H Glucose 124 H Calcium 8.7 Magnesium 2.2 Total Bilirubin 1.2 AST 31 ALT 23 Alkaline Phosphatase 117 Total Creatine Kinase 163 Troponin I 0.020 NT-Pro-B Natriuret Pep 652 H Total Protein 6.9 Albumin 3.6 Globulin 3.3 Albumin/Globulin Ratio 1.1 Lipase 31 Urine RBC None seen Urine WBC None seen Ur Squamous Epith Cells None seen Urine Bacteria None seen Ur Culture Indicated? Cult not indicated Vol Urine Centrifuged 10ml (spun) Assessment & Plan Time-Based Coding :: [TOTAL MINUTES] spent with patient and on the chart (including review of chart, obtaining history, exam, reviewing outside data, placing orders, documenting exam and treatment plan, and counseling patient) on [DATE].
[2024-02-20] MEDS: TETANUS DIPHTHERIA TOXOIDS 0.5 ML VIAL IM (17:45)
[2024-02-20] MEDS: LIDOCAINE/PRILOCAINE 5 GM TOP (17:49)
[2024-02-20] MEDS: LIDOCAINE 2% W/EPI INJ 10 ML VIAL 20 ML INJ (17:49)
== END 2024-02-20 18:30 | disposition home or self-care (01) ==
PROVIDERS: Emergency Provider Emergency Medicine; PCP Family Medicine
DX: S01.01XA Laceration without foreign body of scalp, initial encounter (principal); R07.9 Chest pain, unspecified; I45.10 Unspecified right bundle-branch block; W18.00XA Striking against unspecified object with subsequent fall, initial encounter; Z79.01 Long term (current) use of anticoagulants; Z23 Encounter for immunization
CPT/HCPCS: 12002; 36415; 70450; 71045; 72125; 80053; 81003; 81015; 82550; 83690; 83735; 83880; 84484; 85025; 85610; 85730; 90471; 90714; 93005; 93010; 99284

== ENCOUNTER 2024-06-01 12:19 | Observation (INO) | payer MEDICARE, OTHER, SELFPAY ==
[2024-06-01] VITALS (13 sets, daily range): BP systolic 134–182; BP diastolic 67–105; PULSE 56–84; RESP 11–24; TEMP 36.3–37.3; O2SAT 93–98; BMI 24.3; BMI 25.2
--- NOTE | 2024-06-01 14:00 | ED_ITS ---
HPI - Fall General Chief Complaint: Fall Stated Complaint: Fall, stumbling, weakness Time Seen by Provider: 06/01/24 14:00 Source: patient Mode of arrival: Family Vehicle Related Data Home Medications Medication Instructions Recorded Confirmed atorvastatin 80 mg tablet (Lipitor) 80 mg PO HS ##0 08/20/07 08/19/21 omeprazole 20 mg capsule,delayed 20 mg PO DAILY ##0 06/18/17 08/19/21 release aspirin 81 mg tablet,delayed 81 mg PO DAILY 01/28/18 08/19/21 release (Aspir-) levothyroxine 150 mcg tablet 100 mcg PO DAILY 02/12/18 08/19/21 nitroglycerin 0.3 mg sublingual 0.3 mg sublingual Q5-15M PRN Chest 02/12/18 08/19/21 tablet (Nitrostat) Pain tamsulosin 0.4 mg capsule 0.4 mg PO DAILY 02/12/18 08/19/21 clopidogrel 75 mg tablet 75 mg PO DAILY 10/28/20 08/19/21 donepezil 10 mg tablet 10 mg PO BEDTIME 10/28/20 08/19/21 gabapentin 300 mg capsule 300 mg PO DAILY 08/19/21 08/19/21 Previous Rx's Medication Instructions Recorded acetaminophen 325 mg tablet 650 mg (2 x 325 mg) PO Q6HR #30 08/22/21 tabs naloxone 0.4 mg/mL injection 0.2 mg (0.5 mL) IV Q2MIN PRN 08/22/21 solution Opiate Reversal #10 mL cyclobenzaprine 5 mg tablet 5 mg PO TID PRN muscle spasm #10 11/03/21 tabs lidocaine 4 % topical patch 1 patch topical DAILY PRN pain #10 11/03/21 ea hydrocodone 5 mg-acetaminophen 325 1 tab PO Q6H PRN pain #14 tabs 01/05/22 mg tablet lidocaine 5 % topical patch 1 patch topical DAILY PRN pain #15 01/05/22 (Lidoderm) ea Allergies Allergy/AdvReac Type Severity Reaction Status Date / Time morphine [MORPHINE] AdvReac Mild LOOPY Verified 06/01/24 12:33 BODY FEELS COLD, SHAKING Patient History Medical History Asthma GERD (gastroesophageal reflux disease) Hx of fracture of femur Hyperlipidemia Melanoma Myocardial infarction Myocardial infarction with complication Surgical History History of arthroplasty of left knee History of arthroplasty of right shoulder History of knee replacement History of lumbar surgery History of total left hip arthroplasty Hx of appendectomy Hx of heart artery stent Hx of tonsillectomy Status post hernia repair Family History Brother Hemorrhoids Daughter Developmental delay Diabetes mellitus Social History household members: spouse Smoking Status: Never smoker alcohol intake: current Smoking Status: Never smoker alcohol intake frequency: holidays/special occasions only Exam Initial Vital Signs Initial Vital Signs: Vital Signs Temperature 99.1 F 06/01/24 12:25 Pulse Rate 81 06/01/24 12:25 Respiratory Rate 18 06/01/24 12:25 Blood Pressure 134/70 06/01/24 12:25 Pulse Oximetry 95 06/01/24 12:25 Oxygen Delivery Method Room Air 06/01/24 12:25 Course Vital Signs Vital signs: Vital Signs - 8 hr 06/01/24 12:25 Temperature 99.1 F Pulse Rate 81 Respiratory Rate 18 Blood Pressure 134/70 Pulse Oximetry 95 Oxygen Delivery Method Room Air Discharge Plan Departure Prescriptions: No Action atorvastatin [Lipitor] 80 MG tablet 80 mg PO HS Qty: 0 omeprazole 20 MG capsule,delayed release(DR/EC) 20 mg PO DAILY Qty: 0 aspirin [Aspir-81] 81 mg Tablet,Delayed Release (Dr/Ec) 81 mg PO DAILY lidocaine 4 % adhesive patch,medicated 1 patch topical DAILY PRN (Reason: pain) Qty: 10 0RF Rx Instructions: leave on for 12 hours at a time then remove cyclobenzaprine 5 mg tablet 5 mg PO TID PRN (Reason: muscle spasm) Qty: 10 0RF hydrocodone-acetaminophen 5-325 mg tablet 1 tab PO Q6H PRN (Reason: pain) Qty: 14 0RF lidocaine [Lidoderm] 5 % adhesive patch,medicated 1 patch topical DAILY PRN (Reason: pain) Qty: 15 0RF Rx Instructions: leave on most painful area for up to 12 hrs nitroglycerin [Nitrostat] 0.3 mg Tablet, Sublingual 0.3 mg SUBLINGUAL Q5-15M PRN (Reason: Chest Pain) tamsulosin 0.4 mg Capsule 0.4 mg PO DAILY levothyroxine 150 mcg Tablet 100 mcg PO DAILY donepezil 10 mg tablet 10 mg PO BEDTIME Patient Comments: take 1/2 tablet by mouth at bedtime for 2 weeks then 1 tablet NIGHTLYTHEREAFTER clopidogrel 75 mg tablet 75 mg PO DAILY gabapentin 300 mg capsule 300 mg PO DAILY acetaminophen 325 mg Tablet 650 mg PO Q6HR Qty: 30 0RF naloxone 0.4 mg/mL Solution 0.2 mg IV Q2MIN PRN (Reason: Opiate Reversal) Qty: 10 0RF Referrals: Dale Mccallum MD [Primary Care Provider] -
--- NOTE | 2024-06-01 14:26 | DI.RAD.S_ITS ---
PROCEDURE: XR CHEST 1V INDICATIONS: weak; fall; cough TECHNIQUE: One view of the chest was acquired. COMPARISON: [facility], CR, XR CHEST 1V, 02/20/2024, 13:37. FINDINGS: Surgical changes and devices: Right shoulder arthroplasty. Lungs and pleura: Lungs are clear. No pleural effusions or pneumothorax. Mediastinum: Mediastinal contours appear normal. Heart size is normal. Bones and chest wall: No suspicious bony lesions. Overlying soft tissues appear unremarkable. IMPRESSION: No acute pulmonary process. Dictated by: Earline Escoto M.D. on 06/01/2024 at 14:48 Approved by: Earline Escoto M.D. on 06/01/2024 at 14:48
--- NOTE | 2024-06-01 14:26 | EKG_ITS ---
[address] [address] Test Date: 2024-06-01 Pat Name: Antoine Dillon Department: [facility] Room: Gender: Male Press Offbearer: : 1935 Requested By: Order Number: [id number] Reading MD: Regan Enciso Measurements Intervals [place] Rate: 74 P: 58 AK: 190 QRS: 96 QRSD: 156 T: 39 QT: 470 QTc: 521 Interpretive Statements Normal sinus rhythm with sinus arrhythmia Right bundle branch block Electronically Signed On 06-02-2024 7:27:46 PST by Regan Enciso
--- NOTE | 2024-06-01 14:28 | ED_ITS ---
HPI - Fall <Ibis Barger PA-C - Last Filed: 06/01/24 19:41> General Chief Complaint: Fall Stated Complaint: Fall, stumbling, weakness Time Seen by Provider: 06/01/24 14:00 Source: patient Mode of arrival: Family Vehicle History of Present Illness HPI Narrative: Mr. Dillon is a very pleasant 88-year-old male with a past medical history of CAD, hypertension, hypothyroidism, spinal stenosis who presents to the emergency department via EMS for weakness and fall x2. Patient is accompanied by 2 friends who contribute to the history. He lives at home alone with his however his neighbors to help take care of him. Last night the patient reports feeling generalized weakness which caused him to fall, he denies hitting his head or any injuries or pain. EMS was called to the house to help him up but he did not seek medical care at time. Today unfortunately he fell again. Patient states while he was in the process of leaving his walker to sit in his chair he fell forward onto a pile of blankets. He feels lightheaded upon standing. Denies room spinning sensation/dizzy. Reports sustaining no injuries or pain or head trauma or LOC. At this time he denies any pain, chest pain, shortness of breath, back pain, etc. States that he has been a little bit congested with runny nose and cough. States that his vision is not as good as it used to be. States that his left arm has been weak for the last year but his friends state that they only noticed it weak for the last few days. He is alert and oriented to self and place but believes the year to be 2003. Related Data Home Medications Medication Instructions Recorded Confirmed atorvastatin 80 mg tablet (Lipitor) 80 mg PO HS ##0 08/20/07 06/01/24 omeprazole 20 mg capsule,delayed 20 mg PO DAILY ##0 06/18/17 06/01/24 release aspirin 81 mg tablet,delayed 81 mg PO DAILY 01/28/18 06/01/24 release (Aspir-) levothyroxine 150 mcg tablet 100 mcg PO DAILY 02/12/18 06/01/24 nitroglycerin 0.3 mg sublingual 0.3 mg sublingual Q5-15M PRN Chest 02/12/18 06/01/24 tablet (Nitrostat) Pain tamsulosin 0.4 mg capsule 0.4 mg PO DAILY 02/12/18 06/01/24 clopidogrel 75 mg tablet 75 mg PO DAILY 10/28/20 06/01/24 donepezil 10 mg tablet 10 mg PO BEDTIME 10/28/20 06/01/24 gabapentin 300 mg capsule 300 mg PO DAILY 08/19/21 06/01/24 Previous Rx's Medication Instructions Recorded acetaminophen 325 mg tablet 650 mg (2 x 325 mg) PO Q6HR #30 08/22/21 tabs naloxone 0.4 mg/mL injection 0.2 mg (0.5 mL) IV Q2MIN PRN 08/22/21 solution Opiate Reversal #10 mL cyclobenzaprine 5 mg tablet 5 mg PO TID PRN muscle spasm #10 11/03/21 tabs lidocaine 4 % topical patch 1 patch topical DAILY PRN pain #10 11/03/21 ea lidocaine 5 % topical patch 1 patch topical DAILY PRN pain #15 01/05/22 (Lidoderm) ea Allergies Allergy/AdvReac Type Severity Reaction Status Date / Time morphine [MORPHINE] AdvReac Mild LOOPY Verified 06/01/24 12:33 BODY FEELS COLD, SHAKING Review of Systems <Ibis Barger PA-C - Last Filed: 06/01/24 19:41> Review of Systems ROS Unobtainable: All systems reviewed & are unremarkable except as noted in HPI and below Patient History <Ibis Barger PA-C - Last Filed: 06/01/24 19:41> Medical History GERD (gastroesophageal reflux disease) Hx of fracture of femur Melanoma Asthma Hyperlipidemia Myocardial infarction Myocardial infarction with complication Surgical History History of lumbar surgery Hx of appendectomy Hx of tonsillectomy History of total left hip arthroplasty History of arthroplasty of right shoulder History of arthroplasty of left knee Hx of heart artery stent Status post hernia repair History of knee replacement Family History Brother Hemorrhoids Daughter Developmental delay Diabetes mellitus Social History household members: spouse Smoking Status: Never smoker alcohol intake: current Smoking Status: Never smoker alcohol intake frequency: holidays/special occasions only Exam <Ibis Barger PA-C - Last Filed: 06/01/24 19:41> Narrative Exam Narrative: GENERAL: 88 year old patient appears stated age. In no acute distress, sitting in wheelchair. HEAD: Atraumatic. Normocephalic. No wounds. EYES: PERRL however are relatively pinpoint.. Extraocular motions intact. Mild crusting around bilateral eyes. ENT: Nose with clear drainage. NECK: Trachea midline. Cervical ROM intact. CARDIOVASCULAR: Regular rate and rhythm. RESPIRATORY: ?Nonlabored respirations. ?Some coarse breath sounds and bilateral lower lobes. GASTROINTESTINAL: Abdomen soft, non-tender, nondistended. EXTREMITIES: 1+ bilateral lower extremity pitting edema. R>L. Equal 5/5 bilateral manager contact strength. Patient is unable to abduct his left shoulder. BACK: Nontender without deformity or crepitance. No flank tenderness. NEURO: Alert and oriented to self and location. He knows his name, date of , knows he is in the hospital. He believes the year to be 2003.. ?Clear speech. Heel-stone normal. FN F normal on right side. Unable to abduct the left shoulder. No facial asymmetry. Sensation intact to light touch throughout the body. SKIN: No rash or erythema of visible areas Initial Vital Signs Initial Vital Signs: Vital Signs Temperature 99.1 F 06/01/24 12:25 Pulse Rate 81 06/01/24 12:25 Respiratory Rate 18 06/01/24 12:25 Blood Pressure 134/70 06/01/24 12:25 Pulse Oximetry 95 06/01/24 12:25 Oxygen Delivery Method Room Air 06/01/24 12:25 <Bonnie Hankins MD - Last Filed: 06/01/24 23:07> Initial Vital Signs Initial Vital Signs: Vital Signs Temperature 99.1 F 06/01/24 12:25 Pulse Rate 81 06/01/24 12:25 Respiratory Rate 18 06/01/24 12:25 Blood Pressure 134/70 06/01/24 12:25 Pulse Oximetry 95 06/01/24 12:25 Oxygen Delivery Method Room Air 06/01/24 12:25 Course <Ibis Barger PA-C - Last Filed: 06/01/24 19:41> Orders Ordered: ED Orders 06/01/24 14:26 XR chest 1V Stat EKG-12 Lead Stat 06/01/24 14:33 BNP [NT-proBNP (BNP-Adult 18+)] Stat Complete Blood Count AUTO DIFF Stat Comprehensive Metabolic Panel Stat Ethanol (ETOH) Stat PTT Partial Thromboplastin Jose Alejandro Stat Prothrombin Time INR Stat Troponin & CK Cardiac Panel Stat 06/01/24 15:00 COVID19 -Nasal RAPID Stat 06/01/24 15:36 CT head/brain wo con Stat 06/01/24 15:37 CT angio head and neck Stat 06/01/24 16:57 Trop I [Troponin I] Stat 06/01/24 17:04 CT angio chest PE protocol Stat 06/01/24 21:30 Urinalysis and Microscopic Stat Urine Drug Screen, Rapid Stat Acetaminophen (Acetaminophen 325 Mg Tablet) 650 mg PO Q6HR MACK Aspirin (Aspirin Ec 81 Mg Tablet) 81 mg PO DAILY MACK Atorvastatin Calcium (Atorvastatin 20 Mg Tablet) 80 mg PO BEDTIME MACK Last Admin: 06/01/24 21:35 Dose: 80 mg Documented By: BRANDON Clopidogrel Bisulfate (Clopidogrel 75 Mg Tablet) 75 mg PO DAILY MACK Donepezil HCl (Donepezil 5 Mg Tablet) 10 mg PO BEDTIME MACK Last Admin: 06/01/24 21:35 Dose: 10 mg Documented By: BRANDON Furosemide (Furosemide 20 Mg/2 Ml Vial) 20 mg IV DAILY [facility] Gabapentin (Gabapentin 300 Mg Capsule) 300 mg PO DAILY [facility] Levothyroxine Sodium (Levothyroxine 100 Mcg Tablet) 100 mcg PO 0600 [facility] Lidocaine (Lidocaine 5% Patch) 1 each TOP DAILY PRN PRN Reason: pain Naloxone HCl (Naloxone 0.4 Mg/Ml Vial) 0.2 mg IV Q2MIN PRN PRN Reason: Opiate Reversal Nitroglycerin (Nitroglycerin 0.4 Mg Sl Tab) 0.4 mg SL [id number] PRN PRN Reason: CHEST PAIN Discontinued Medications Aspirin (Aspirin 81 Mg Chew Tab) 324 mg PO NOW ONE Stop: 06/01/24 17:06 Last Admin: 06/01/24 17:20 Dose: 324 mg Documented By: KHURRAM Furosemide (Furosemide 40 Mg/4 Ml Vial) 40 mg IV NOW ONE Stop: 06/01/24 19:01 Last Admin: 06/01/24 19:21 Dose: 40 mg Documented By: Sodium Chloride (Normal Saline 0.9%) 1,000 mls @ 500 mls/hr IV BOLUS ONE Stop: 06/01/24 17:38 Last Infusion: 06/01/24 19:22 Dose: Infused Documented By: Admin: 06/01/24 16:00 Dose: 500 mls/hr Documented By: KHURRAM Non-Formulary Medication (Levothyroxine) 100 mcg PO DAILY MACK Non-Formulary Medication (Nitroglycerin [Nitrostat]) 0.3 mg SL Q5-15M PRN PRN Reason: Chest Pain Vital Signs Vital signs: Vital Signs - 8 hr 06/01/24 15:48 06/01/24 16:11 06/01/24 17:51 Temperature 98 F Pulse Rate 61 74 65 Respiratory Rate 16 16 18 Blood Pressure 143/68 H 162/83 H Pulse Oximetry 95 96 97 Oxygen Delivery Method Room Air Room Air 06/01/24 17:53 06/01/24 17:53 06/01/24 18:00 Temperature Pulse Rate 65 Respiratory Rate 17 Blood Pressure 182/84 H 168/75 H Pulse Oximetry Oxygen Delivery Method 06/01/24 18:00 06/01/24 18:30 06/01/24 18:30 Temperature Pulse Rate 61 56 L Respiratory Rate 13 11 L Blood Pressure 142/67 H Pulse Oximetry 98 Oxygen Delivery Method Room Air 06/01/24 19:00 06/01/24 19:01 06/01/24 19:01 Temperature Pulse Rate 69 62 Respiratory Rate 12 11 L Blood Pressure 168/78 H Pulse Oximetry 97 96 Oxygen Delivery Method 06/01/24 19:30 06/01/24 19:31 06/01/24 19:31 Temperature Pulse Rate 63 61 Respiratory Rate 12 11 L Blood Pressure 154/72 H Pulse Oximetry 95 95 Oxygen Delivery Method 06/01/24 20:00 06/01/24 20:00 Temperature Pulse Rate 60 Respiratory Rate 12 Blood Pressure 161/77 H Pulse Oximetry 93 Oxygen Delivery Method <Bonnie Hankins MD - Last Filed: 06/01/24 23:07> Orders Ordered: ED Orders 06/01/24 14:26 XR chest 1V Stat EKG-12 Lead Stat 06/01/24 14:33 BNP [NT-proBNP (BNP-Adult 18+)] Stat Complete Blood Count AUTO DIFF Stat Comprehensive Metabolic Panel Stat Ethanol (ETOH) Stat PTT Partial Thromboplastin Jose Alejandro Stat Prothrombin Time INR Stat Troponin & CK Cardiac Panel Stat 06/01/24 15:00 COVID19 -Nasal RAPID Stat 06/01/24 15:36 CT head/brain wo con Stat 06/01/24 15:37 CT angio head and neck Stat 06/01/24 16:57 Trop I [Troponin I] Stat 06/01/24 17:04 CT angio chest PE protocol Stat 06/01/24 21:30 Urinalysis and Microscopic Stat Urine Drug Screen, Rapid Stat Acetaminophen (Acetaminophen 325 Mg Tablet) 650 mg PO Q6HR MACK Aspirin (Aspirin Ec 81 Mg Tablet) 81 mg PO DAILY MACK Atorvastatin Calcium (Atorvastatin 20 Mg Tablet) 80 mg PO BEDTIME MACK Last Admin: 06/01/24 21:35 Dose: 80 mg Documented By: BRANDON Clopidogrel Bisulfate (Clopidogrel 75 Mg Tablet) 75 mg PO DAILY MACK Donepezil HCl (Donepezil 5 Mg Tablet) 10 mg PO BEDTIME MACK Last Admin: 06/01/24 21:35 Dose: 10 mg Documented By: BRANDON Furosemide (Furosemide 20 Mg/2 Ml Vial) 20 mg IV DAILY MACK Gabapentin (Gabapentin 300 Mg Capsule) 300 mg PO DAILY [facility] Levothyroxine Sodium (Levothyroxine 100 Mcg Tablet) 100 mcg PO 0600 [facility] Lidocaine (Lidocaine 5% Patch) 1 each TOP DAILY PRN PRN Reason: pain Naloxone HCl (Naloxone 0.4 Mg/Ml Vial) 0.2 mg IV Q2MIN PRN PRN Reason: Opiate Reversal Nitroglycerin (Nitroglycerin 0.4 Mg Sl Tab) 0.4 mg SL [id number] PRN PRN Reason: CHEST PAIN Discontinued Medications Aspirin (Aspirin 81 Mg Chew Tab) 324 mg PO NOW ONE Stop: 06/01/24 17:06 Last Admin: 06/01/24 17:20 Dose: 324 mg Documented By: KHURRAM Furosemide (Furosemide 40 Mg/4 Ml Vial) 40 mg IV NOW ONE Stop: 06/01/24 19:01 Last Admin: 06/01/24 19:21 Dose: 40 mg Documented By: Sodium Chloride (Normal Saline 0.9%) 1,000 mls @ 500 mls/hr IV BOLUS ONE Stop: 06/01/24 17:38 Last Infusion: 06/01/24 19:22 Dose: Infused Documented By: Admin: 06/01/24 16:00 Dose: 500 mls/hr Documented By: MPO Non-Formulary Medication (Levothyroxine) 100 mcg PO DAILY MACK Non-Formulary Medication (Nitroglycerin [Nitrostat]) 0.3 mg SL Q5-15M PRN PRN Reason: Chest Pain Vital Signs Vital signs: Vital Signs - 8 hr 06/01/24 15:48 06/01/24 16:11 06/01/24 17:51 Temperature 98 F Pulse Rate 61 74 65 Respiratory Rate 16 16 18 Blood Pressure 143/68 H 162/83 H Pulse Oximetry 95 96 97 Oxygen Delivery Method Room Air Room Air 06/01/24 17:53 06/01/24 17:53 06/01/24 18:00 Temperature Pulse Rate 65 Respiratory Rate 17 Blood Pressure 182/84 H 168/75 H Pulse Oximetry Oxygen Delivery Method 06/01/24 18:00 06/01/24 18:30 06/01/24 18:30 Temperature Pulse Rate 61 56 L Respiratory Rate 13 11 L Blood Pressure 142/67 H Pulse Oximetry 98 Oxygen Delivery Method Room Air 06/01/24 19:00 06/01/24 19:01 06/01/24 19:01 Temperature Pulse Rate 69 62 Respiratory Rate 12 11 L Blood Pressure 168/78 H Pulse Oximetry 97 96 Oxygen Delivery Method 06/01/24 19:30 06/01/24 19:31 06/01/24 19:31 Temperature Pulse Rate 63 61 Respiratory Rate 12 11 L Blood Pressure 154/72 H Pulse Oximetry 95 95 Oxygen Delivery Method 06/01/24 20:00 06/01/24 20:00 Temperature Pulse Rate 60 Respiratory Rate 12 Blood Pressure 161/77 H Pulse Oximetry 93 Oxygen Delivery Method MDM - Fall <Ibis Barger PA-C - Last Filed: 06/01/24 19:41> Medical Records Attestation: I reviewed the patient's medical records. Lab Data 06/01/24 14:33 06/01/24 14:33 Labs: Lab Results 06/01/24 06/01/24 06/01/24 Range/Units 14:33 15:00 16:57 WBC 5.5 (4.5-11.0) X10^3/uL RBC 3.66 L (4.5-5.9) X10^6/uL Hgb 11.4 L (13.5-17.5) g/dL Hct 34.7 L (41-53) % MCV 95.0 (80-100) fL MCH 31.3 (26-34) PG MCHC 32.9 (30-36) % RDW 15.7 H (11.6-14.8) % Plt Count 204 (150-400) X10^3/uL Neut % (Auto) 76.5 H (50-75) % Lymph % (Auto) 7.6 L (25-40) % Cowley % (Auto) 14.7 H (3-14) % Eos % (Auto) 0.6 L (2-4) % Baso % (Auto) 0.6 (0-2) % Neut # (Auto) 4200 (4554-5201) /uL Lymph # (Auto) 400 L (5162-9940) /uL [place]ley # (Auto) 800 (0-900) /uL Eos # (Auto) 0 (0-450) /uL Baso # (Auto) 0 (0-100) /uL PT 12.8 H (9.4-12.5) SECONDS INR 1.1 (0.9-1.3) APTT 42 H (25.1-36.5) SECONDS Sodium 139 (137-145) mmol/L Potassium 3.8 (3.4-5.1) mmol/L Chloride 103 (98-107) mmol/L Carbon Dioxide 28 (22-32) mmol/L BUN 32 H (9-20) mg/dL Creatinine 1.60 H (0.66-1.25) mg/dL Estimated GFR 41 L (>60) mL/min BUN/Creatinine Ratio 20.0 (6-22) Glucose 116 H (80-110) mg/dL Calcium 9.4 (8.4-10.2) mg/dL Total Bilirubin 1.8 H (0.2-1.3) mg/dL AST 51 (17-59) IU/L ALT 36 (<50) IU/L Alkaline Phosphatase 93 (38-126) U/L Total Creatine Kinase 324 H (55-170) U/L Troponin I 0.131 H* 0.111 H (0.01-0.034) ng/mL NT-Pro-B Natriuret Pep 5280 H (<450) pg/mL Total Protein 7.8 (6.3-8.2) g/dL Albumin 4.5 (3.5-5.0) g/dL Globulin 3.3 (1.7-4.1) g/dL Albumin/Globulin Ratio 1.4 (1.0-2.8) Ethyl Alcohol < 10 ( - 10) mg/dL SARS-CoV-2 (PCR) Positive H (Negative) Point of Care Testing Glucose POC 110 MDM Narrative Medical decision making narrative: 88-year-old male with a past medical history of CAD, hypertension, hypothyroidism, spinal stenosis who presents to the emergency department via EMS for weakness and fall x2. History obtained from patient and 2 friends. Differential diagnosis includes but is not limited to neurologic deficit, orthostatic hypotension, generalized weakness, UTI, pneumonia, bronchitis, viral URI, anemia, electrolyte abnormality, trauma, PE, ACS/MT, left rotator cuff tear, etc. On exam the patient is in no acute distress, nontoxic appearing, vital signs within normal limits. Physical exam is concerning for left arm abduction weakness however he does have good manager contact strength and sensation. Unsure when he developed weakness of the left arm, family friends state a few days he states 1 year. Otherwise he has no focal neurologic deficits. Lungs with some coarse sounds and some nasal discharge. No tenderness to palpation of spine, no obvious wounds, no tenderness to palpation of upper or lower extremities. Patient did ambulate into the bed with assistance. Attending physician made aware immediately as patient was initially evaluated in fast track and I do believe he is more appropriate for the main side of the emergency department however no beds available. We will start his workup here and then transfer him to the main when a bed is available. Lab work, ECG, chest x-ray, COVID swab, CT head and CTA head and neck ordered. Workup so far reveal stable/improving anemia with a hemoglobin of 11.4 hematocrit 34.7. Normal WBC count of 5.5. BUN 32 and a creatinine of 1.6 which appears elevated from baseline of 1.3. Glucose 116. He is positive for COVID-19. Troponin elevated at 0.131 -- ER attending aware, pt will be receiving next available main ER bed. Given elevated troponin in the setting of COVID 19 and lower extremity swelling, concern for PE. Asprin & CTA chest was ordered. Patient will receive full 1 L of fluid due to additional contrast bolus. Patient denies any chest pain or shortness of breath. Chest x-ray reveals no acute pulmonary process. Head CT without contrast reveals no acute intracranial pathology. Head/neck CTA reveals no significant intracranial arterial abnormality. No significant abnormality seen within the arteries of the neck. Patient does have advanced cervical spondylosis with high-grade canal stenosis at C3-C4, severe canal stenosis at C4-C5, and moderate to severe canal stenosis at C5-C6. Dr. Hankins -independent review of patient and chart performed by myself. Patient was resting comfortably in bed, he states that he was not in any pain. 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 Troponin is downtrending. Likely strain from frequent falling and generalized weakness with COVID-19 along with slightly decreased renal clearance. CT angio of the chest shows no pulmonary embolism, mild edema noted. IV Lasix ordered. Plan to admit patient for observation. <Bonnie Hankins MD - Last Filed: 06/01/24 23:07> Lab Data Labs: Lab Results 06/01/24 06/01/24 06/01/24 Range/Units 14:33 15:00 16:57 WBC 5.5 (4.5-11.0) X10^3/uL RBC 3.66 L (4.5-5.9) X10^6/uL Hgb 11.4 L (13.5-17.5) g/dL Hct 34.7 L (41-53) % MCV 95.0 (80-100) fL MCH 31.3 (26-34) PG MCHC 32.9 (30-36) % RDW 15.7 H (11.6-14.8) % Plt Count 204 (150-400) X10^3/uL Neut % (Auto) 76.5 H (50-75) % Lymph % (Auto) 7.6 L (25-40) % Cowley % (Auto) 14.7 H (3-14) % Eos % (Auto) 0.6 L (2-4) % Baso % (Auto) 0.6 (0-2) % Neut # (Auto) 4200 (7235-9803) /uL Lymph # (Auto) 400 L (8890-5972) /uL Cowley # (Auto) 800 (0-900) /uL Eos # (Auto) 0 (0-450) /uL Baso # (Auto) 0 (0-100) /uL PT 12.8 H (9.4-12.5) SECONDS INR 1.1 (0.9-1.3) APTT 42 H (25.1-36.5) SECONDS Sodium 139 (137-145) mmol/L Potassium 3.8 (3.4-5.1) mmol/L Chloride 103 (98-107) mmol/L Carbon Dioxide 28 (22-32) mmol/L BUN 32 H (9-20) mg/dL Creatinine 1.60 H (0.66-1.25) mg/dL Estimated GFR 41 L (>60) mL/min BUN/Creatinine Ratio 20.0 (6-22) Glucose 116 H (80-110) mg/dL Calcium 9.4 (8.4-10.2) mg/dL Total Bilirubin 1.8 H (0.2-1.3) mg/dL AST 51 (17-59) IU/L ALT 36 (<50) IU/L Alkaline Phosphatase 93 (38-126) U/L Total Creatine Kinase 324 H (55-170) U/L Troponin I 0.131 H* 0.111 H (0.01-0.034) ng/mL NT-Pro-B Natriuret Pep 5280 H (<450) pg/mL Total Protein 7.8 (6.3-8.2) g/dL Albumin 4.5 (3.5-5.0) g/dL Globulin 3.3 (1.7-4.1) g/dL Albumin/Globulin Ratio 1.4 (1.0-2.8) Ethyl Alcohol < 10 ( - 10) mg/dL SARS-CoV-2 (PCR) Positive H (Negative) Point of Care Testing Glucose POC 110 MDM Narrative Medical decision making narrative: 88-year-old male with a past medical history of CAD, hypertension, hypothyroidism, spinal stenosis who presents to the emergency department via EMS for weakness and fall x2. Differential diagnosis includes but is not limited to neurologic deficit, orthostatic hypotension, generalized weakness, UTI, pneumonia, bronchitis, viral URI, anemia, electrolyte abnormality, trauma, PE, ACS/MT, etc. On exam the patient is in no acute distress, nontoxic appearing, vital signs within normal limits. Physical exam is concerning for left arm abduction weakness however he does have good manager contact strength and sensation. Unsure when he developed weakness of the left arm, family friends state a few days he states 1 year. Otherwise he has no focal neurologic deficits. Lungs with some coarse sounds and some nasal discharge. No tenderness to palpation of spine, no obvious wounds, no tenderness to palpation of upper or lower extremities. Patient did ambulate into the bed with assistance. Attending physician made aware immediately as patient was initially evaluated in fast track and I do believe he is more appropriate for the main side of the emergency department. We will start his workup here and then transfer him to the [facility] when a bed is available. Lab work, ECG, chest x-ray, COVID swab, CT head and CTA head and neck ordered. Workup so far reveal stable/improving anemia with a hemoglobin of 11.4 hematocrit 34.7. Normal WBC count of 5.5. BUN 32 and a creatinine of 1.6 which appears elevated from baseline of 1.3. Glucose 116. He is positive for COVID-19. Troponin elevated at 0.131 -- ER attending aware, pt will be receiving next available [facility] ER bed. Given elevated troponin in the setting of COVID 19 and lower extremity swelling, concern for PE. CTA chest was ordered. Patient will receive full 1 L of fluid due to additional contrast bolus. Chest x-ray reveals no acute pulmonary process. Head CT without contrast reveals no acute intracranial pathology. Head/neck CTA reveals no significant intracranial arterial abnormality. No significant abnormality seen within the arteries of the neck. Patient does have advanced cervical spondylosis with high-grade canal stenosis at C3-C4, severe canal stenosis at C4-C5, and moderate to severe canal stenosis at C5-C6. Dr. Hankins -independent review of patient and chart performed by myself. Patient was resting comfortably in bed, he states that he was not in any pain. Math And Physics Instructor is at bedside who states that patient does have rogo-uf-ayemzfou dementia and lives on [facility] with his . Troponin is downtrending. Likely strain from frequent falling and generalized weakness with COVID-19 along with slightly decreased renal clearance. CT angio of the chest shows no pulmonary embolism, mild edema noted. IV Lasix ordered. Plan to admit patient for observation. Discharge Plan Departure Patient Disposition: Admitted as Observation Clinical Impression: COVID-19, Generalized weakness, Multiple falls Admit Date/Time: 06/01/24 20:21 Admit Provider: Christopher Barrett
[2024-06-01 14:44] LABS: Add Manual Diff / Slide Review NO; Basophils Absolute Auto 0 /uL (0-100); Basophils Percent Auto 0.6 % (0-2); Eosinophils Absolute Auto 0 /uL (0-450); Eosinophils Percent Auto 0.6 % (2-4); Hematocrit 34.7 % (41-53); Hemoglobin 11.4 g/dL (13.5-17.5); Lymphocytes Absolute Auto 400 /uL (1100-4500); Lymphocytes Percent Auto 7.6 % (25-40); Mean Corpuscular HGB Conc 32.9 % (30-36); Mean Corpuscular Hemoglobin 31.3 PG (26-34); Monocytes Absolute Auto 800 /uL (0-900); Monocytes Percent Auto 14.7 % (3-14); Neutrophils Absolute Auto 4200 /uL (1500-7000); Neutrophils Percent Auto 76.5 % (50-75); Platelet Count 204 X10^3/uL (150-400); Red Blood Cell Count 3.66 X10^6/uL (4.5-5.9); Red Cell Distribution Width 15.7 % (11.6-14.8); White Blood Cell Count 5.5 X10^3/uL (4.5-11.0)
[2024-06-01 14:51] LABS: INR 1.1 (0.9-1.3); Prothrombin Time 12.8 SECONDS (9.4-12.5)
[2024-06-01 14:54] LABS: PTT Partial Thromboplastin Tim 42 SECONDS (25.1-36.5)
[2024-06-01 14:56] LABS: Alanine Aminotransferase 36 IU/L (<50); Albumin 4.5 g/dL (3.5-5.0); Albumin Globulin Ratio 1.4 (1.0-2.8); Alkaline Phosphatase 93 U/L (38-126); Aspartate Aminotransferase 51 IU/L (17-59); Bilirubin Total 1.8 mg/dL (0.2-1.3); Blood Urea Nitrogen 32 mg/dL (9-20); Calcium 9.4 mg/dL (8.4-10.2); Carbon Dioxide 28 mmol/L (22-32); Chloride 103 mmol/L (98-107); Creatine Kinase 324 U/L (55-170); Estimated Glomerular Filt Rate 41 mL/min (>60); Ethanol (ETOH) < 10 mg/dL; Globulin 3.3 g/dL (1.7-4.1); Glucose 116 mg/dL (80-110); HEMOLYSIS < 15 (0-50); Potassium 3.8 mmol/L (3.4-5.1); Sodium 139 mmol/L (137-145); Total Protein 7.8 g/dL (6.3-8.2)
--- NOTE | 2024-06-01 15:22 | PC.NURSE ---
Pt complains of bilateral eye pain irritation 10/10. He usually takes eye drops every 3-4hours. I assisted pt with eye drops and applied saline flush to bilateral eyes. Pt states feels a little better after flush.
[2024-06-01 15:24] LABS: COVID19 -Nasal RAPID POSITIVE (Negative)
--- NOTE | 2024-06-01 15:36 | DI.CT.S_ITS ---
PROCEDURE: CT HEAD/BRAIN WO CON INDICATIONS: fall, left arm weakness TECHNIQUE: Noncontrast 4.5 mm thick angled axial sections acquired from the foramen magnum to the vertex, with coronal and sagittal reformats. For radiation dose reduction, the following was used: automated exposure control, adjustment of mA and/or kV according to patient size. COMPARISON: [facility], CT, CT HEAD/BRAIN WO CON, 02/20/2024, 13:52. FINDINGS: Image quality: Diagnostic. CSF spaces: Basal cisterns are patent. No extra-axial fluid collections. The ventricles are symmetric in size and shape. Brain: No intracranial bleeds or masses. There is cerebral volume loss for age, with resultant ventricular and sulcal prominence. There are severe periventricular and deep white matter chronic small vessel ischemic changes. There is intracranial internal carotid artery atherosclerosis. Skull and face: Calvarium and visualized facial bones appear intact, without suspicious lesions. Sinuses: Visualized sinuses and mastoids are clear. IMPRESSION: No acute intracranial pathology. Dictated by: Ranjit Kevin M.D. on 06/01/2024 at 17:00 Approved by: Ranjit Kevin M.D. on 06/01/2024 at 17:01
--- NOTE | 2024-06-01 15:37 | DI.CT.S_ITS ---
PROCEDURE: CT ANGIO HEAD AND NECK INDICATIONS: left leg weakness, multiple falls TECHNIQUE: After the administration of intravenous contrast, 1 mm thick sections acquired from the aortic arch through the [place] of [place]. 3-dimensional ibjbgqx-banqogweb-bpsseibmis (MIP) and/or volume rendering reformats were acquired of the central intracranial vasculature and neck separately. For radiation dose reduction, the following was used: automated exposure control, adjustment of mA and/or kV according to patient size. COMPARISON: [facility], CT, CT CERVICAL SPINE WO CON, 02/20/2024, 13:52. FINDINGS: Image quality: Diagnostic. BRAIN: CSF spaces: Ventricles are normal in size and shape. Basal cisterns are patent. No extra-axial fluid collections. Brain: No significant abnormality of the brain can be seen. Skull and face: Calvarium and facial bones appear intact, without suspicious lesions. Orbits appear normal. Sinuses: Sinuses and mastoids are clear. HEAD CT ANGIOGRAPHY: Anterior circulation: Intracranial internal carotid arteries are normal in size and flow. The flow within the paired anterior cerebral arteries is normal and symmetric. The flow within the middle cerebral arteries is normal and symmetric. The anterior communicating artery is seen. No aneurysms are seen. Posterior circulation: Visualized portions of the vertebral arteries demonstrate normal caliber, and join to form a normal appearing basilar artery. The right vertebral artery is normal variant mildly diminutive and the left vertebral artery is dominant. Flow within the posterior cerebral arteries is normal and symmetric. No aneurysms are seen. NECK CT ANGIOGRAPHY: Carotid system: The great vessels demonstrate a conventional anatomy as they arise from the aortic arch. The origins of the common carotid arteries appear patent. The common carotid arteries demonstrate normal caliber and courses. The bifurcation regions are both widely patent. The internal carotid arteries demonstrate normal calibers and courses. Posterior circulation: The origins of the vertebral arteries both appear widely patent. The more superior extracranial portions of both vertebral arteries also demonstrate normal courses and calibers. There is normal variant mildly diminutive right vertebral artery and dominant left vertebral artery. They join to form a normal appearing basilar artery. Soft tissues: Visualized neck soft tissues demonstrate no suspicious abnormalities. Bones: Advanced cervical spondylosis with high-grade canal stenosis at C3-C4 and severe canal stenosis at C4-C5 and moderate to severe canal stenosis at C5-C6. IMPRESSION: No significant intracranial arterial abnormality is seen. No significant abnormality is seen within the arteries of the neck. Advanced cervical spondylosis with high-grade canal stenosis at C3-C4, severe canal stenosis at C4-C5, and moderate to severe canal stenosis at C5-C6. Any quantitative measurements of stenosis were performed using NASCET criteria. Dictated by: Ranjit Kevin M.D. on 06/01/2024 at 17:04 Approved by: Ranjit Kevin M.D. on 06/01/2024 at 17:09
[2024-06-01 15:50] LABS: Troponin I 0.131 ng/mL (0.01-0.034)
[2024-06-01] MEDS: SODIUM CHLORIDE 0.9% 1,000 ML 500 ML IV (16:00)
[2024-06-01 16:29] LABS: NT-proBNP (BNP-Adult 18+) 5280 pg/mL (<450)
--- NOTE | 2024-06-01 16:45 | PC.NURSE ---
Pt denies pain at this time. Denies SOB, nausea, and cp. States that his neck and eye pain have resolved. Awaiting bed in main ED so pt can be monitored more closely on hardwired bus monitor. ED senior manufacturing technician, Ibis Barger PA-C & Dr Mariscal aware of pt status.
--- NOTE | 2024-06-01 17:04 | DI.CT.S_ITS ---
PROCEDURE: CT ANGIO CHEST PE PROTOCOL INDICATIONS: covid +, + bnp/trop TECHNIQUE: After the administration of intravenous contrast, 2 mm thick sections acquired from the pulmonary apices to the posterior costophrenic angles. 3-dimensional maximum intensity projection (MIP) coronal and sagittal reformats were then acquired through the thorax. For radiation dose reduction, the following was used: automated exposure control, adjustment of mA and/or kV according to patient size. COMPARISON: [facility], CT, CT ANGIO CHEST PE PROTOCOL, 12/03/2020, 13:04. FINDINGS: Image quality: Diagnostic. Pulmonary arteries: Pulmonary arteries are normal in size, and demonstrate no intraluminal filling defects to suggest central pulmonary embolism. Lower Neck: No enlarged lymph nodes. Thyroid: No thyroid nodules which require sonographic follow up, per consensus guidelines. Axillae: No enlarged lymph nodes. Chest Wall: Unremarkable. Bones: Right shoulder arthroplasty. Decreased osseous mineralization. Degenerative changes of the spine. Progression of at least moderate compression deformity of the T12 vertebral body. Multilevel compression deformities at other levels and are similar to prior. Lungs and Pleura: No pneumothorax or pleural effusions. Mild interlobular septal thickening. Bibasilar atelectasis. Stable 6 millimeter right lower lobe nodule. Stable 4 millimeter left upper lobe nodule (10/59). Several additional pulmonary nodules measuring 5 millimeters or less. Heart: Heart size is enlarged. Severe coronary artery calcifications. No pericardial effusion. Thoracic Vessels: No aortic aneurysm. Mediastinum and Imani: No enlarged lymph nodes. Esophagus: No wall thickening. No hiatal hernia. Upper Abdomen: Visualized upper abdomen solid organs and bowel loops appear normal. Diverticulosis within the visualized colon. IMPRESSION: No pulmonary embolus. Mild interlobular septal thickening, may represent mild edema. Scattered pulmonary nodules measuring up to 6 millimeters. Recommend 1 year follow-up CT scan to assess stability. Dictated by: Jhonathan Tubbs M.D. on 06/01/2024 at 18:26 Approved by: Jhonathan Tubbs M.D. on 06/01/2024 at 18:34
[2024-06-01] MEDS: ASPIRIN 81 MG CHEW TAB 324 MG PO (17:20)
[2024-06-01 17:48] LABS: Troponin I 0.111 ng/mL (0.01-0.034)
[2024-06-01] MEDS: FUROSEMIDE 40 MG/4 ML VIAL IV (19:21)
[2024-06-01] MEDS: ATORVASTATIN 20 MG TABLET 80 MG PO (21:35)
[2024-06-01] MEDS: DONEPEZIL 5 MG TABLET 10 MG PO (21:35)
[2024-06-01 21:59] LABS: UR Morphine/Opiate cutoff 300 Negative (Negative); Ur Creatinine Normal (Normal); Ur Specific Gravity Normal (Normal); Urine Amphetamines Negative (Negative); Urine Barbiturates Negative (Negative); Urine Benzodiazepines Negative (Negative); Urine Cocaine Negative (Negative); Urine MDMA Negative (Negative); Urine Methadone Negative (Negative); Urine Methamphetamines Negative (Negative); Urine Oxycodone Negative (Negative); Urine Phencyclidine Negative (Negative); Urine Tetrahydrocannabinol Negative (Negative); Urine Tricyclic Antidepressant Negative (Negative); Urine pH Normal (Normal)
[2024-06-01 22:20] LABS: Appearance Urine UA CLEAR; Bilirubin Urine UA NEGATIVE (NEGATIVE); Color Urine UA YELLOW; Glucose Urine UA NEGATIVE (Negative); Ketones Urine UA NEGATIVE (NEGATIVE); Leukocyte Esterase Urine UA NEGATIVE (NEGATIVE); Nitrite Urine UA NEGATIVE (Negative); Occult Blood Urine UA TRACE-INTACT (Negative); Protein Urine UA NEGATIVE (Negative); Specific Gravity Urine UA <=1.005 (1.000-1.035); Urobilinogen Urine UA 0.2 E.U./dL (0.2); pH Urine UA 5.5 (4.5-8.0)
[2024-06-01 22:27] LABS: Bacteria Urine None Seen; Culture Indicated Urine Cult Not Indicated; RBC Urine 1-5/HPF (0-5/HPF); Squamous Epithelial Cell Urine None Seen (0-5/HPF); Urine Volume 10mL (spun); WBC Urine None Seen (0-5/HPF)
[2024-06-02] MEDS: LEVOTHYROXINE 100 MCG TABLET PO (05:44)
[2024-06-02] MEDS: ACETAMINOPHEN 325 MG TABLET 650 MG PO ×3 (05:45→18:42)
[2024-06-02 06:00] VITALS: BP 138/72; PULSE 59; RESP 19; TEMP 37.3; O2SAT 96
[2024-06-02 06:02] LABS: Add Manual Diff / Slide Review NO; Basophils Absolute Auto 0 /uL (0-100); Basophils Percent Auto 0.6 % (0-2); Eosinophils Absolute Auto 100 /uL (0-450); Eosinophils Percent Auto 1.8 % (2-4); Hematocrit 33.8 % (41-53); Hemoglobin 11.3 g/dL (13.5-17.5); Lymphocytes Absolute Auto 700 /uL (1100-4500); Lymphocytes Percent Auto 12.4 % (25-40); Mean Corpuscular HGB Conc 33.6 % (30-36); Mean Corpuscular Hemoglobin 31.8 PG (26-34); Mean Corpuscular Volume 94.8 fL (80-100); Monocytes Absolute Auto 900 /uL (0-900); Monocytes Percent Auto 17.4 % (3-14); Neutrophils Absolute Auto 3600 /uL (1500-7000); Neutrophils Percent Auto 67.8 % (50-75); Platelet Count 191 X10^3/uL (150-400); Red Blood Cell Count 3.56 X10^6/uL (4.5-5.9); Red Cell Distribution Width 15.7 % (11.6-14.8); White Blood Cell Count 5.4 X10^3/uL (4.5-11.0)
--- NOTE | 2024-06-02 06:22 | PC.WOUNDPHOT ---
BUTTOCKS LLE FEET
[2024-06-02 06:40] LABS: Alanine Aminotransferase 33 IU/L (<50); Albumin 4.1 g/dL (3.5-5.0); Albumin Globulin Ratio 1.3 (1.0-2.8); Alkaline Phosphatase 98 U/L (38-126); Aspartate Aminotransferase 49 IU/L (17-59); BUN Creatinine Ratio 21.8 (6-22); Bilirubin Total 1.6 mg/dL (0.2-1.3); Blood Urea Nitrogen 31 mg/dL (9-20); Calcium 9.1 mg/dL (8.4-10.2); Carbon Dioxide 30 mmol/L (22-32); Chloride 101 mmol/L (98-107); Creatine Kinase 308 U/L (55-170); Estimated Glomerular Filt Rate 48 mL/min (>60); Globulin 3.2 g/dL (1.7-4.1); Glucose 94 mg/dL (80-110); HEMOLYSIS < 15 (0-50); Potassium 3.5 mmol/L (3.4-5.1); Sodium 138 mmol/L (137-145); Total Protein 7.3 g/dL (6.3-8.2)
[2024-06-02 08:00] VITALS: BP 135/78; PULSE 83; RESP 18; TEMP 36.7; O2SAT 95
--- NOTE | 2024-06-02 08:56 | PT.IIE ---
Surgical History (Last Reviewed 06/01/24 @ 14:31 by Ibis Barger PA-C) History of arthroplasty of left knee History of arthroplasty of right shoulder History of knee replacement History of lumbar surgery History of total left hip arthroplasty Hx of appendectomy Hx of heart artery stent Hx of tonsillectomy Status post hernia repair Medical History (Last Reviewed 06/01/24 @ 14:31 by Ibis Barger PA-C) Asthma GERD (gastroesophageal reflux disease) Hx of fracture of femur Hyperlipidemia Melanoma Myocardial infarction Myocardial infarction with complication Physical Therapy Inpatient Evaluation/Re-Eval M1 PT/OT-IP Prior Functional Status Start: 06/02/24 07:41 Freq: NEEDED Status: Active Protocol: Document 06/02/24 08:23 MB (Rec: 06/02/24 08:56 MB [id number]) Medical Review Prior Functional Status Medical History Reviewed Yes Communication Unsure baseline diet, pt is hypoverbal and answers most questions. He does have some confusion today. Mobility and Gait Pt states he gait trains with 4WRW and is unable to state how many falls he has had Activities of Daily Living and IADL's Pt states he does his own bathing and dressing. When asked if he is in good health, pt states, not really , and it is not clear if they have caregivers or if it is just neighbors who assist them at home and with errands and transportation. Pt states he lives on [facility]. Social History Household Members spouse Living Arrangements House Number of Stairs To Enter/Railing? Pt does not provide much details about home when asked Home Environment Standard Height Toilet,Walk in Shower Home Equipment Four Wheel Walker,Shower Seat with Backrest,Hand Held Shower ,Grab Bars In Shower Employment Status Retired M2 PT-IP Current Condition Start: 06/02/24 07:41 Freq: NEEDED Status: Active Protocol: Document 06/02/24 08:23 MB (Rec: 06/02/24 08:56 MB [id number]) Physical Therapy Current Condition Current Condition Evaluation Date 06/02/24 Treatment Diagnosis Falls, COVID M3 PT-IP Subjective Start: 06/02/24 07:41 Freq: NEEDED Status: Active Protocol: Document 06/02/24 08:23 MB (Rec: 06/02/24 08:56 MB [id number]) Subjective Physical Therapy Visit Type Type Initial Evaluation Visit Start Time 08:23 Visit Stop Time 08:43 Number of SUPERVISOR PIPELINE MAINTENANCE Visits 0 Physical Therapy Visit Comments Patient Comments Pt sleeping upon arrival and hypoverbal during assessment Therapy Pain Assessment Pain When Pain Assessed At Rest Pain Present Pain Present Denied Pain M4 PT-IP Mobility and Gait Start: 06/02/24 07:41 Freq: NEEDED Status: Active Protocol: Document 06/02/24 08:23 MB (Rec: 06/02/24 08:56 [id number]) PT-Bed Mobility Assessment Supine to Sit Supine to Sit Contact Guard Assistance,1 Person Assistance,Head of Bed Elevated,Bedrails Scooting Scooting to Edge of Bed Contact Guard Assistance PT-Transfer Assessment Sit to and From Stand Sit to and from Stand Minimal Assistance,1 Person Assistance,Use of Upper Extremities Equipment Transfer Assistive Device Gait Belt,Front Wheeled Walker Orthotic/Prosthetic Devices or Brace: No Transfers Transfer Destination Chair Transfer Technique Stepping Transfer Ability Level of Assist Maximum Assistance,1 Person Assistance,Use of Upper Extremities Comments Mobility Comments Posterior lean Pt moves slowly and so true orthostatics cannot be assessed. BP and HR in LUE: hook lying with HOB increased: 145/75, 67; sitting EOB 139/ 79, 77. Gait Assessment Gait Gait Assistance Required: Maximum Assistance Distance (Feet) 2 Able to Maintain Weight Bearing Status Yes During Gait Assistive Devices Assistive Device Gait Belt,Front Wheeled Walker Orthotic/Prosthetic Devices or Brace: No Gait Deviations General Gait Pattern Decreased Stride Length, Decreased Feet Clearance, Flexed Trunk,Step-to Gait,Wide Based Gait Factors Limiting Gait Function Factors Limiting Gait Function Decreased Activity Tolerance, Difficulty Following Directions,Incoordination,Poor Balance,Poor Safety Awareness Comments Gait Comments Posterior lean and PT must support pt upright for standing and stepping and PT must provide heavy assistance to move walker as well PT-Balance Assessment Sitting Balance and Reactions Static Sitting Balance Ability Fair Dynamic Sitting Balance Ability Fair Standing Balance and Reactions Static Standing Balance Ability Poor Dynamic Standing Balance Ability Poor Device Used RW M5 PT-IP Objective Assessments Start: 06/02/24 07:41 Freq: NEEDED Status: Active Protocol: Document 06/02/24 08:23 MB (Rec: 06/02/24 08:56 MB [id number]) Orientation Orientation/Cognition Level of Alertness Confusional State Orientation Name,Birthday,Month,Year Language Function Ability No Deficits Noted Safety Awareness Decreased Safety Awareness Memory Description Short Term Impaired,Group Home Impaired Comments Pt presents with confusion today Gross Range of Motion Upper Extremity ROM Impairments Defer to OT, left arm drops onto bed after PT assists raising it to don BP cuff. PT asks pt why he does not hold his arm up and he states he cannot and cannot provide any other insight into this. He tends to keep his hands curled in bed and with bed mobility Lower Extremity ROM Assessment Bilaterally Impaired Impairments Some edema and stone scuffed on LLE, some erythema LLE Strength Lower Extremity Strength Assessment Bilaterally Impaired Comments Strength Comments Pt cannot follow ROM and MMT for LEs and he presents with functional weakness all LE joints Coordination Assessment Gross Coordination Gross Coordination Impaired Assessment Coordination Comments See comments above Sensation Assessment Comments Sensation Comments NT M6 PT-IP Treatment Start: 06/02/24 07:41 Freq: NEEDED Status: Active Protocol: Document 06/02/24 08:23 MB (Rec: 06/02/24 08:56 [id number]) Physical Therapy Treatment Education Education Provided Safety M7 PT-IP Assessment and Plan Start: 06/02/24 07:41 Freq: NEEDED Status: Active Protocol: Document 06/02/24 08:23 MB (Rec: 06/02/24 08:56 [id number]) PT Summary Assessment and Plan Potential Rehabilitation Potential Fair Status of Condition at Evaluation Evolving Summary Impairments ROM,Strength,Balance, Coordination,Cognition,Bed Mobility,Transfers,Gait, Activity Tolerance Progress Towards Goals Slow Progress due to Activity Tolerance,Slow Progress - Other Assessment Summary Pt is an 88 y/o male adm with falls and COVID and presenting with functional weakness and confusion today. PT was unable to get proper orthostatic assessment d/t slow mobility. Recommend SNF at d/c and acute OT consult and SLUMS as OT deems appropriate. Goals Bed Mobility Goal Independent Transfer Goal Standby Assistance,Front Wheeled Walker,Four Wheeled Walker Gait Goal Standby Assistance,Front Wheel Walker,Four Wheel Walker Gait Distance 75 Other Goals If pt has steps, he will ascend and descend steps with rail and/or LRAD and no more than CGA to allow safe home entrance. Days to Meet Goals 5 Frequency of Treatment Frequency Of Treatment Once a Day Treatment Plan Physical Therapy Treatment Plan Bed Mobility Training,Transfer Training,Gait Training, Therapeutic Exercise,Balance Retraining,Discharge Planning, Hot or Cold Pack,Neuromuscular Re-ed,Coordination Retraining ,Manual Therapy Precautions Other Precautions Droplet, falls Recommendations To Nursing Amount of Assist Needed 2 Person Assist Discharge Recommendations PT Discharge Recommendations SNF Rehab Transportation Needs at Discharge Private Vehicle,Wheelchair/ Cabulance
--- NOTE | 2024-06-02 10:00 | PM.HP.1 ---
History of Present Illness History of Present Illness Date Patient Seen: 06/15/24 Time Patient Seen: 09:00 Chief complaint: Fall, stumbling, weakness Narrative: presented to ED after fall at home yesterday tumbled forward onto blankets while transferring, no LOC, had another fall the day before. At baseline he is demented living with on [address] with major mobility issues. Workup in ED is not particularly revealing except for a positive covid swab - he is afebrile with good appetite and no cough today. Exam is reassuring - plan is to work with PT see how he looks. [facility] Medical History GERD (gastroesophageal reflux disease) Hx of fracture of femur Melanoma Asthma Hyperlipidemia Myocardial infarction Myocardial infarction with complication Surgical History History of lumbar surgery Hx of appendectomy Hx of tonsillectomy History of total left hip arthroplasty History of arthroplasty of right shoulder History of arthroplasty of left knee Hx of heart artery stent Status post hernia repair History of knee replacement Family History Brother Hemorrhoids Daughter Developmental delay Diabetes mellitus Social History household members: spouse and caregiver Smoking Status: Never smoker alcohol intake: current Meds Home Medications and Allergies Home Medications Medication Instructions Recorded Confirmed Type atorvastatin 80 mg tablet (Lipitor) 80 mg PO HS ##0 08/20/07 06/01/24 History omeprazole 20 mg capsule,delayed 20 mg PO DAILY ##0 06/18/17 06/01/24 History release aspirin 81 mg tablet,delayed 81 mg PO DAILY 01/28/18 06/01/24 History release (Aspir-) levothyroxine 150 mcg tablet 100 mcg PO DAILY 02/12/18 06/01/24 History nitroglycerin 0.3 mg sublingual 0.3 mg sublingual Q5-15M PRN Chest 02/12/18 06/01/24 History tablet (Nitrostat) Pain tamsulosin 0.4 mg capsule 0.4 mg PO DAILY 02/12/18 06/01/24 History clopidogrel 75 mg tablet 75 mg PO DAILY 10/28/20 06/01/24 History donepezil 10 mg tablet 10 mg PO BEDTIME 10/28/20 06/01/24 History gabapentin 300 mg capsule 300 mg PO DAILY 08/19/21 06/01/24 History acetaminophen 325 mg tablet 650 mg (2 x 325 mg) PO Q6HR #30 08/22/21 06/01/24 Rx tabs naloxone 0.4 mg/mL injection 0.2 mg (0.5 mL) IV Q2MIN PRN 08/22/21 06/01/24 Rx solution Opiate Reversal #10 mL cyclobenzaprine 5 mg tablet 5 mg PO TID PRN muscle spasm #10 11/03/21 06/01/24 Rx tabs lidocaine 4 % topical patch 1 patch topical DAILY PRN pain #10 11/03/21 06/01/24 Rx ea lidocaine 5 % topical patch 1 patch topical DAILY PRN pain #15 01/05/22 06/01/24 Rx (Lidoderm) ea Allergies Allergy/AdvReac Type Severity Reaction Status Date / Time morphine [MORPHINE] AdvReac Mild LOOPY Verified 06/01/24 12:33 BODY FEELS COLD, SHAKING Review of Systems Review of Systems Narrative: all systems reviewed and negative except as otherwise indicated in HPI Exam Vital Signs (past 8 hours): - 06/02/24 06:00 06/02/24 08:00 Temperature 99.1 F 98.0 F Pulse Rate 59 L 83 Respiratory Rate 19 18 Blood Pressure 138/72 135/78 Pulse Oximetry 96 95 Oxygen Flow Rate 0 0 Oxygen Delivery Method Room Air Oxygen Flow Rate 0 Narrative Exam Narrative: alert sitting up in chair finishing breakfast HENMI Other: no new head injuries notes Resp Auscultation: clear to auscultation bilaterally Cardio Rate: regular rate Heart Sounds: S1 normal and S2 normal Other: pitting pedal edema up past ankles Neuro Other: alert oriented to situation generally, recognizes me, moving all extremities equally Objective Labs 06/02/24 05:45 06/02/24 05:45 Labs: Laboratory Results - last 24 hr 06/01/24 06/01/24 06/01/24 14:33 15:00 16:57 WBC 5.5 RBC 3.66 L Hgb 11.4 L Hct 34.7 L MCV 95.0 MCH 31.3 MCHC 32.9 RDW 15.7 H Plt Count 204 Neut % (Auto) 76.5 H Lymph % (Auto) 7.6 L Craig % (Auto) 14.7 H Eos % (Auto) 0.6 L Baso % (Auto) 0.6 Neut # (Auto) 4200 Lymph # (Auto) 400 L Craig # (Auto) 800 Eos # (Auto) 0 Baso # (Auto) 0 PT 12.8 H INR 1.1 APTT 42 H Sodium 139 Potassium 3.8 Chloride 103 Carbon Dioxide 28 BUN 32 H Creatinine 1.60 H Estimated GFR 41 L BUN/Creatinine Ratio 20.0 Glucose 116 H Calcium 9.4 Total Bilirubin 1.8 H AST 51 ALT 36 Alkaline Phosphatase 93 Total Creatine Kinase 324 H Troponin I 0.131 H* 0.111 H NT-Pro-B Natriuret Pep 5280 H Total Protein 7.8 Albumin 4.5 Globulin 3.3 Albumin/Globulin Ratio 1.4 Urine Color Urine Appearance Urine pH Ur Specific [place] Urine Protein Urine Glucose (UA) Urine Ketones Urine Occult Blood Urine Nitrate Urine Bilirubin Urine Urobilinogen Ur Leukocyte Esterase Urine RBC Urine WBC Ur Squamous Epith Cells Urine Bacteria Ur Culture Indicated? Vol Urine Centrifuged U Opiates 300ng/mL cut Ur Oxycodone Screen Urine Methadone Screen Ur Barbiturates Screen U Tricyclic Antidepress Ur Phencyclidine Scrn Ur Amphetamines Screen U Methamphetamines Scrn Ur MDMA Scrn (Ecstasy) U Benzodiazepines Scrn Urine Cocaine Screen U Marijuana (THC) Screen Urine Specific [place] Ethyl Alcohol < 10 Ur Creatinine SARS-CoV-2 (PCR) Positive H 06/01/24 06/01/24 06/02/24 21:30 21:30 05:45 WBC 5.4 RBC 3.56 L Hgb 11.3 L Hct 33.8 L MCV 94.8 MCH 31.8 MCHC 33.6 RDW 15.7 H Plt Count 191 Neut % (Auto) 67.8 Lymph % (Auto) 12.4 L Craig % (Auto) 17.4 H Eos % (Auto) 1.8 L Baso % (Auto) 0.6 Neut # (Auto) 3600 Lymph # (Auto) 700 L Craig # (Auto) 900 Eos # (Auto) 100 Baso # (Auto) 0 PT INR APTT Sodium 138 Potassium 3.5 Chloride 101 Carbon Dioxide 30 BUN 31 H Creatinine 1.42 H Estimated GFR 48 L BUN/Creatinine Ratio 21.8 Glucose 94 Calcium 9.1 Total Bilirubin 1.6 H AST 49 ALT 33 Alkaline Phosphatase 98 Total Creatine Kinase 308 H Troponin I NT-Pro-B Natriuret Pep Total Protein 7.3 Albumin 4.1 Globulin 3.2 Albumin/Globulin Ratio 1.3 Urine Color Yellow Urine Appearance Clear Urine pH 5.5 Normal Ur Specific [place] <=1.005 Urine Protein Negative Urine Glucose (UA) Negative Urine Ketones Negative Urine Occult Blood Trace-intact Urine Nitrate Negative Urine Bilirubin Negative Urine Urobilinogen 0.2 Ur Leukocyte Esterase Negative Urine RBC 1-5/hpf Urine WBC None seen Ur Squamous Epith Cells None seen Urine Bacteria None seen Ur Culture Indicated? Cult not indicated Vol Urine Centrifuged 10ml (spun) U Opiates 300ng/mL cut Negative Ur Oxycodone Screen Negative Urine Methadone Screen Negative Ur Barbiturates Screen Negative U Tricyclic Antidepress Negative Ur Phencyclidine Scrn Negative Ur Amphetamines Screen Negative U Methamphetamines Scrn Negative Ur MDMA Scrn (Ecstasy) Negative U Benzodiazepines Scrn Negative Urine Cocaine Screen Negative U Marijuana (THC) Screen Negative Urine Specific [place] Normal Ethyl Alcohol Ur Creatinine Normal SARS-CoV-2 (PCR) Assessment & Plan Assessment & Plan narrative: #recurrent fall PT/OT eval pending #covid-19 looks ok - tylenol prn, precautions #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 stable continue home meds pleasantly disoriented at baseline #elevated troponin #elevated BNP new findings suspect some element of heart strain fluid overload takes lasix at home po will give iv here monitor output not needing extra oxygen #hypothyroid stable continue home meds #hyperlipidemia #hx of STEMI #hx of stent stable continue asa plavix and atorvastatin #degenerative joint disease #hx of pelvic fracture contributors to generally poor mobility dispo: Admit obsv with covid precautions, PT/OT consulted appreciate recs DVT: on plavix, SCDs PCP: [facility] MDM: Sabrina- daughter in law gayatri diet: general COVID-19 COVID-19 status: Positive Time-Based Coding :: [TOTAL MINUTES] spent with patient and on the chart (including review of chart, obtaining history, exam, reviewing outside data, placing orders, documenting exam and treatment plan, and counseling patient) on [DATE]. Quality VTE Deep Vein Thrombosis/Pulmonary Embolism Present on Admission: No
[2024-06-02] MEDS: ASPIRIN EC 81 MG TABLET PO (10:10)
[2024-06-02] MEDS: CLOPIDOGREL 75 MG TABLET PO (10:11)
[2024-06-02] MEDS: GABAPENTIN 300 MG CAPSULE PO (10:11)
[2024-06-02] MEDS: FUROSEMIDE 20 MG/2 ML VIAL IV (10:11)
[2024-06-02] MEDS: POTASSIUM CHLORIDE 20 MEQ TAB PO (10:17)
--- NOTE | 2024-06-02 13:37 | OT.IP.EVAL ---
Past Medical History (Last Reviewed 06/01/24 @ 14:31 by Ibis Barger PA-C) Asthma GERD (gastroesophageal reflux disease) Hx of fracture of femur Hyperlipidemia Melanoma Myocardial infarction Myocardial infarction with complication Surgical History (Last Reviewed 06/01/24 @ 14:31 by Ibis Barger PA-C) History of arthroplasty of left knee History of arthroplasty of right shoulder History of knee replacement History of lumbar surgery History of total left hip arthroplasty Hx of appendectomy Hx of heart artery stent Hx of tonsillectomy Status post hernia repair Occupational Therapy Inpatient Evaluation/Re-Eval M1 PT/OT-IP Prior Functional Status Start: 06/02/24 07:41 Freq: NEEDED Status: Active Protocol: Document 06/02/24 12:58 [facility] (Rec: 06/02/24 13:51 [facility] [id number]) Medical Review Prior Functional Status Medical History Reviewed Yes Communication Unsure baseline diet, pt is hypoverbal and answers most questions. He does have some confusion today. Mobility and Gait Pt states he gait trains with 4WRW and is unable to state how many falls he has had Activities of Daily Living and IADL's Pt states he does his own bathing and dressing. When asked if he is in good health, pt states, not really , and it is not clear if they have caregivers or if it is just neighbors who assist them at home and with errands and transportation. Pt states he lives on [facility]. Prior Functional Level (Other details) Pt states normally his LUE is weak but recently noted not very coordinated to assist with his needs. Social History Household Members spouse Living Arrangements House Number of Stairs To Enter/Railing? Pt does not provide much details about home when asked Home Environment Standard Height Toilet,Walk in Shower Home Equipment Four Wheel Walker,Shower Seat with Backrest,Hand Held Shower ,Grab Bars In Shower Employment Status Retired M2 OT-IP Current Condition Start: 06/02/24 13:37 Freq: Status: Active Protocol: Document 06/02/24 12:58 [facility] (Rec: 06/02/24 13:51 [facility] [id number]) Occupational Therapy Current Condition Current Condition Evaluation Date 06/02/24 Treatment Diagnosis COVID+, frequent falls Diagnosis Onset Date 06/01/24 M3 OT- IP Subjective and Pain Start: 06/02/24 13:37 Freq: Status: Active Protocol: Document 06/02/24 12:58 [facility] (Rec: 06/02/24 13:51 [facility] [id number]) OT- Subjective Occupational Therapy Visit Type Type Initial Evaluation Visit Start Time 12:58 Visit Stop Time 13:37 Occupational Therapy Visit Comments Patient Comments Pt agreed to work with OT. Patient/Caregiver Goals TO go home. OT Pain Assessment Pain When Pain Assessed During Mobility Pain Present Pain Present Pain Reported Location Left Arm Pain Behaviors Facial Grimacing M4 OT- IP ADL's Start: 06/02/24 13:37 Freq: Status: Active Protocol: Document 06/02/24 12:58 [facility] (Rec: 06/02/24 13:51 [facility] [id number]) OT HND-Eyok-Pjmqrai General Evaluation Self-Feeding Ability Standby Assistance Comments OT Self-Feeding Comments Pt needing assist to help cut up his meat. Noted pocketing of food on his right side of his mouth and needing cues to clear with his tongue and also with use of liquids. Educated pt to clear his mouth and to be sure to eat while upright. OT ADL-Grooming Comments OT Grooming Comments Not performed. OT ADL-Oral Care Comments Oral Care Comments NOt performed. OT ADL-Dressing General Eval Lower Body Dressing Ability Moderate Assistance,Maximum Assistance Comments OT Dressing Comments Assist to prema his socks and assist to get his brief over his feet and hips. Pt needing CGA to COLT for balance while standing. OT ADL-Toileting General Evaluation Toileting Ability Total Assistance Comments OT Toileting Comments Pt needing assist for change of brief. OT ADL-Bathing Comments OT Bathing Comments Pt will benefit from assist. M5 OT- IP IADL's Start: 06/02/24 13:37 Freq: Status: Active Protocol: Document 06/02/24 12:58 [facility] (Rec: 06/02/24 13:51 [facility] [id number]) OT-Instrumental Activities of Daily Living Home Safety Awareness Awareness of Need for Assistance at Home Good Awareness Home Safety Comments Pt is well aware that he is not at his baseline and realizing he will need assist at home. Medication Management Medication Management Comments Best for pt to have assist. Money Management Money Management Comments Best to have assist. Meal Preparation Meal Preparation Caregiver Provides Assist Cashier Payments Received Cashier Payments Received Caregiver Provides Assist M6 OT- IP Functional Cognition Start: 06/02/24 13:37 Freq: Status: Active Protocol: Document 06/02/24 12:58 [facility] (Rec: 06/02/24 13:51 [facility] [id number]) Cognitive Factors Limiting Selfcare Function Cognitive Ability Level of Alertness Alert Patient Orientation Name,Birthday,Month,Place, Situation Attention Span Ability Capable of Focused Attention, Capable of Sustained Attention Ability to Follow Commands Able to Follow One Step Commands with Increased Time, Able to Follow One Step Commands with Repetition Cognitive Comments Cognitive Assessment Comments Pt able to follow commands for ADL and mobility needs. Pt would benefit from SLUMS next session. OT- Vision and Hearing OT- Vision Assessment Occular Pursuits WFL Visual Convergence WFL Visual Ornelas WFL Diplopia Absent Vision Assessment Comments Pt states does not have his reading glasses anymore and states vision is blurried while reading. M7 OT- IP Mobility and Balance Start: 06/02/24 13:37 Freq: Status: Active Protocol: Document 06/02/24 12:58 [facility] (Rec: 06/02/24 13:51 [facility] [id number]) OT-Transfer Assessment Sit to and From Stand Sit to and from Stand Minimal Assistance Comments Mobility Comments Pt needing from CGA to COLT to stand to the FWW. Pt tends to lean posteriorly. OT- Balance Assessment Sitting Balance and Reactions Static Sitting Balance Ability Good Dynamic Sitting Balance Ability Fair Standing Balance and Reactions Static Standing Balance Ability Fair M8 OT- IP Objective Assessments Start: 06/02/24 13:37 Freq: Status: Active Protocol: Document 06/02/24 12:58 [facility] (Rec: 06/02/24 13:51 [facility] [id number]) OT Gross Range of Motion Upper Extremity Range of Motion Assessment Left Impaired OT Strength Comments Strength Comments RUE 5/5 LUE 3-/5 to 4/5. M9 OT- IP Assessment and Plan Start: 06/02/24 13:37 Freq: Status: Active Protocol: Document 06/02/24 12:58 [facility] (Rec: 06/02/24 13:51 [facility] [id number]) OT Summary Assessment and Plan Potential Rehabilitation Potential Good Analytic Complexity at Evaluation Moderate Summary OT Impairments Pain,Range of Motion,Strength, Balance,Functional Cognition, Functional Mobility,Self- Feeding,Grooming,Dressing, Toileting,Bathing,Toilet Transfers,Shower Transfers, Activity Tolerance Progress Towards Goals Slow Progress due to Medical Issues,Slow Progress due to Activity Tolerance,Slow Progress due to Cognition Assessment Summary Pt MOD complexity and main barriers are pain, decreased activity, strength, and now needing one person assist to assist for ADL and mobility needs. Noted pt pockets food on his right side of his mouth , nursing aware. Pt to go home with 24/7 assist and home health when medically stable. Goals Self-Feeding Goal Independent Grooming Goal Independent Dressing Goal Minimal Assistance Toileting Goal Minimal Assistance Bathing Goal Minimal Assistance Toilet Transfer Goal Standby Assistance Shower Transfer Goal Contact Guard Assistance Days to Meet Goals 10 Frequency of Treatment Other frequency 5x/week Treatment Plan OT Treatment Plan ADL Training,Functional Cognition Training,Functional Mobility,Patient/Family Education,Discharge Planning Other Treatment Recommendations and Next SLUMS Treatment Focus Discharge Recommendations OT Discharge Recommendations Home with 24/7 Assist Available,Home Health Transportation Needs at Discharge Private Vehicle
--- NOTE | 2024-06-02 14:13 | CM.DANOTE ---
Patient is an 88 yo male who was admitted OBS Status on 06/01/24 for GLF/Weakness/COVID+. Pt has [facility] and [facility] for insurance and his PCP is Dr. Dale Mccallum. EMR was reviewed. Per MD, pt with mild dementia and increased weakness and couple GLF without injury and admitted for COVID+ tx and lasix. Per PT/OT, pt somewhat below baseline with confusion and needing 1PA and regular cues and SNF vs home with 24/7 and HH. SW spoke to pt's DPOA Dtr Funmilayo [phone] due to pt's confusion/dementia and spouse with multiple medical conditions herself. She confirms pt and spouse live at home on [address] [address] [facility] and have started needing increased assist over the past couple years. Pt typically ambulates with FWW independently and has used [facility] in the past with some success. Pt's spouse recently discharged from the hospital and family helped with getting two local caregivers in place that live on [facility] [address] [facility] for a couple hours a day and then also hired [facility] for increased assist. Family has begun the process of looking into Adult Family Home vs Assisted Living for pt and his spouse and likely in [place] where pt's son lives. SW explained the barrier to SNF with OBS Status and lack of Medicare coverage and Dtr acknowledges understanding and feels best discharge option is home with spouse and then increase CG hours to 24/7 for two days until son from [place] can arrive to transport them to his house in [place] for the holidays to stay with him. Family will then continue their efforts at looking into LTC options. Dtr plans to call the CGs to see if their hours can be increased and will speak to her brother in [place] and see if he can arrive sooner than 06/05/24 in a couple days if needed. Plan: SW to follow for further PT/OT towards plan of likely discharge home tomorrow 06/03 home with spouse and 24/7 CGs set up while waiting for family to arrive on Thursday. If pt is going to [place] in a couple days, HH referral will not be productive. KVNG Smith Discharge Planning/Care Management CM Discharge Assessment Start: 06/02/24 14:07 Freq: Status: Active Protocol: Document 06/02/24 14:07 BF (Rec: 06/02/24 14:13 BF [id number]) Discharge Planning Assessment Assigned History Faculty Member KVNG Casanova DPOA/Assigned Designee Name Dtr Funmilayo Willard Contact Information [phone] Advance Directives? Yes: Yes/POLST Advance Directives on File Yes History Provided By Patient,Medical Record Has Patient been admitted in last 30 No days? Comment Last admit in August 2021 after GLF and went to [facility] Prior Living Arrangements House Household Members spouse,caregiver Comment Has two local Caregivers and [facility] as well since spouse discharged the hospital a couple weeks ago Type of transporation used prior to Relies on Others admit Independent with ADL's No Is patient alert and oriented? No: mild dementia Needs Assistance With Meal Prep,Managing Medications ,Home Chores / Shopping Caregiver for Another No DME Already Rented / Owned FWW / Walker Patient/Family Preference Home with Home Health Barriers to Discharge No Comment COVID+ Discharge Plan Home Transportation Arrangement Likely Dtr or caregiver Referrals Initiated Other Additional Comment Family increasing caregivers to 24/7 until family can arrive from [place] Whiteboard Updated in Patient Room with Yes name and ext. # of History Faculty Member Review Status In Process Please Provide Date Initial DC 06/02/24 Assessment Was Performed Next Review Type Continued Stay Review
[2024-06-02 16:00] VITALS: BP 148/76; PULSE 66; RESP 18; TEMP 36.7; O2SAT 98
--- NOTE | 2024-06-02 18:20 | PC.NURSE ---
Addendum entered by Finn Khan R.N. 06/02/24 18:26: NOTE MADE ON WRONG PATIENT Original Note: PATIENT IS RESTING IN ROOM NOW ON 8L HIGH FLOW NASAL CANNULA, HEATED HIGH FLOW IS ON HOLD, RT WILL PLACE BACK ON IF NEEDED. CONDOM CATH IN PLACE FUNCTIONING WELL BRIEF IN PLACE. CALL LIGHT WITHIN REACH.BED ALARM ON. PATIENT IS VERY [place]A HAS BILAT. HEARING AIDS IN PLACE.
[2024-06-02 20:00] VITALS: BP 141/84; PULSE 80; RESP 17; TEMP 36.5; O2SAT 95
[2024-06-02] MEDS: ATORVASTATIN 20 MG TABLET 80 MG PO (20:12)
[2024-06-02] MEDS: DONEPEZIL 5 MG TABLET 10 MG PO (20:13)
[2024-06-03 02:00] VITALS: BP 146/78; PULSE 59; RESP 17; TEMP 36.6; O2SAT 94
[2024-06-03 04:52] LABS: BUN Creatinine Ratio 29.9 (6-22); Blood Urea Nitrogen 47 mg/dL (9-20); Calcium 8.7 mg/dL (8.4-10.2); Carbon Dioxide 28 mmol/L (22-32); Chloride 96 mmol/L (98-107); Estimated Glomerular Filt Rate 42 mL/min (>60); Glucose 110 mg/dL (80-110); HEMOLYSIS < 15 (0-50); Potassium 3.8 mmol/L (3.4-5.1); Sodium 131 mmol/L (137-145)
[2024-06-03] MEDS: LEVOTHYROXINE 100 MCG TABLET PO (05:37)
[2024-06-03] MEDS: ACETAMINOPHEN 325 MG TABLET 650 MG PO (05:37)
[2024-06-03 08:00] VITALS: BP 144/82; PULSE 60; RESP 18; TEMP 36.2; O2SAT 96
[2024-06-03] MEDS: GABAPENTIN 300 MG CAPSULE PO (09:19)
[2024-06-03] MEDS: FUROSEMIDE 20 MG/2 ML VIAL IV (09:19)
[2024-06-03] MEDS: ASPIRIN EC 81 MG TABLET PO (09:19)
[2024-06-03] MEDS: TAMSULOSIN 0.4 MG CAPSULE PO (09:19)
[2024-06-03] MEDS: CLOPIDOGREL 75 MG TABLET PO (09:19)
--- NOTE | 2024-06-03 11:09 | CM.DPC ---
DCP Continued: Reviewed EMR and team rounds for pt?s medical status. Per Provider, pt cleared for discharge, just need to confirm caregiver will be available for discharge teaching and transport. DCP called POA/Dtr, Funmilayo, confirmed that Caregiver, Faby, will be picking pt up to return home. Per daughter, caregiver arrived this morning but was told there was no discharge order so she returned to [facility]. She is [place] way back [place] [address] DCP notified Provider and RN of caregiver transport at discharge. Plan: Anticipating discharge home today, 06/03, with pt 05/01 caregiver, Faby. CM Team will continue to follow for coordination of discharge plans. YULIANA JonSW
--- NOTE | 2024-06-03 11:22 | PM.DS.1 ---
History of Present Illness History of Present Illness Date Patient Seen: 06/03/24 Chief complaint: Fall, stumbling, weakness Narrative: feels ok this morning a little stronger - plan is toe DC back to [facility] with caregiver then home with family to explore placement optiosn closer to them. will f/up as outpt. 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 At baseline he is demented living with on [facility] with major mobility issues. Workup in ED is not particularly revealing except for a positive covid swab - he is afebrile with good appetite and no cough and otherwise reassuring exam - he worked with PT/OT who recommended SNF - family is trying to get him placed closer to them so they can visit but agree it is time to get them off [facility]. I do consider him a safe discharge as long as he uses a competent manager maritime for any ambulation or transfer. Status at Discharge Cognitive/behavioral status at discharge: at baseline, confused Functional status at discharge: uses cane/walker Overall status at discharge: patient is progressing back to baseline Exam Vital Signs (past 8 hours): - 06/03/24 08:00 Temperature 97.2 F L Pulse Rate 60 Respiratory Rate 18 Blood Pressure 144/82 H Pulse Oximetry 96 Oxygen Flow Rate 0 Oxygen Delivery Method Room Air Oxygen Flow Rate 0 Narrative Exam Narrative: pleasant elder finishing breakfast with gusto Const Other: well developed well nourished Resp Other: clear to auscultation bilaterally speaking in full sentences on room air Cardio Other: regular rate s1/s2 well perfused - bilateral pedal edema pitting to ankles Neuro Other: alert oriented to place and situation but not date, CN 2-12 grossly intact Extrem Other: moving all extremities equally Objective Labs 06/02/24 05:45 06/03/24 03:57 Labs: Laboratory Results - last 24 hr 06/03/24 03:57 Sodium 131 L Potassium 3.8 Chloride 96 L Carbon Dioxide 28 BUN 47 H Creatinine 1.57 H Estimated GFR 42 L BUN/Creatinine Ratio 29.9 H Glucose 110 Calcium 8.7 PFSH Medical History GERD (gastroesophageal reflux disease) Hx of fracture of femur Melanoma Asthma Hyperlipidemia Myocardial infarction Myocardial infarction with complication Surgical History History of lumbar surgery Hx of appendectomy Hx of tonsillectomy History of total left hip arthroplasty History of arthroplasty of right shoulder History of arthroplasty of left knee Hx of heart artery stent Status post hernia repair History of knee replacement Family History Brother Hemorrhoids Daughter Developmental delay Diabetes mellitus Social History household members: spouse and caregiver Smoking Status: Never smoker alcohol intake: current Discharge Assessment & Plan Assessment and Plan Assessment: #recurrent fall agree with therapist recommendations for higher level of care - family is planning to provide care at home and explore placement options in [place] by family. He is certainly active fall risk needs manager maritime for any movements and transfers. #covid-19 based on swab, new diagnosis without much symptomatology besides perhaps a bit more easily tired and prone to fall than usual. 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 stable continue home meds pleasantly disoriented at baseline #elevated troponin #elevated BNP new findings suspect some element of heart strain fluid overload did well with gentle diuresis continue oral lasix on dc #hypothyroid stable continue home meds #hyperlipidemia #hx of STEMI #hx of stent stable continue asa plavix and atorvastatin #degenerative joint disease #hx of pelvic fracture contributors to generally poor mobility dispo: dc home with caregiver, family is exploring placement DVT: on plavix, SCDs PCP: [facility] MDM: Sabrina- daughter in law gayatri diet: general Discharge Plan Discharge Plan Patient Disposition: Home Provider Discharge Comment: to home with 05/01 caregiver support Discharge orders & Medications Prescriptions: Continued atorvastatin [Lipitor] 80 MG tablet 80 mg PO HS Qty: 0 omeprazole 20 MG capsule,delayed release(DR/EC) 20 mg PO DAILY Qty: 0 aspirin [Aspir-81] 81 mg Tablet,Delayed Release (Dr/Ec) 81 mg PO DAILY lidocaine 4 % adhesive patch,medicated 1 patch topical DAILY PRN (Reason: pain) Qty: 10 0RF Rx Instructions: leave on for 12 hours at a time then remove cyclobenzaprine 5 mg tablet 5 mg PO TID PRN (Reason: muscle spasm) Qty: 10 0RF lidocaine [Lidoderm] 5 % adhesive patch,medicated 1 patch topical DAILY PRN (Reason: pain) Qty: 15 0RF Rx Instructions: leave on most painful area for up to 12 hrs nitroglycerin [Nitrostat] 0.3 mg Tablet, Sublingual 0.3 mg SUBLINGUAL Q5-15M PRN (Reason: Chest Pain) tamsulosin 0.4 mg Capsule 0.4 mg PO DAILY levothyroxine 150 mcg Tablet 100 mcg PO DAILY donepezil 10 mg tablet 10 mg PO BEDTIME Patient Comments: take 1/2 tablet by mouth at bedtime for 2 weeks then 1 tablet NIGHTLYTHEREAFTER clopidogrel 75 mg tablet 75 mg PO DAILY gabapentin 300 mg capsule 300 mg PO DAILY acetaminophen 325 mg Tablet 650 mg PO Q6HR Qty: 30 0RF naloxone 0.4 mg/mL Solution 0.2 mg IV Q2MIN PRN (Reason: Opiate Reversal) Qty: 10 0RF Follow up/Referrals: Dale Mccallum MD [Primary Care Provider] - Diet/Activity/Treatments Diet: Regular Diet comment: more salt Visit Report/Discharge Packet Stand Alone Forms: Congestive Heart Failure, Patient Portal/API, Stroke Signs & Symptoms Discharge Data Primary Care Provider: Dale Mccallum Attending Provider: Dale Mccallum Admit Date/Time: 06/01/24 20:21 Quality VTE Deep Vein Thrombosis/Pulmonary Embolism Present on Admission: No
--- NOTE | 2024-06-03 13:15 | PC.NURSE ---
Pt's caregiver, Faby, with [employer], verbalized understanding of D/C instructions and when the pt is to return to the ED if needed for worsening generalized weakness, any new or concerning symptoms. Caregiver, Faby, also verbalized understanding that fire department can be called for lift assist if needed. Pt needed two person assist to transfer from hospital into [facility]. VSS. Afebrile.
== END 2024-06-03 12:25 | disposition home or self-care (01) ==
LOC: ED 19:14 → AC 20:22
PROVIDERS: Physician Assistant; Admitting Provider Family Medicine; Emergency Provider Emergency Medicine; PCP Family Medicine; Referring Provider Emergency Medicine; Visit Provider Family Medicine
DX: R53.1 Weakness (principal); W19.XXXA Unspecified fall, initial encounter; Z91.81 History of falling; Y92.009 Unspecified place in unspecified non-institutional (private) residence as the place of occurrence of the external cause; U07.1 COVID-19; F03.B0 Unspecified dementia, moderate, without behavioral disturbance, psychotic disturbance, mood disturbance, and anxiety; R79.89 Other specified abnormal findings of blood chemistry; E03.9 Hypothyroidism, unspecified; E78.5 Hyperlipidemia, unspecified; M19.90 Unspecified osteoarthritis, unspecified site; Z79.82 Long term (current) use of aspirin; Z79.01 Long term (current) use of anticoagulants; Z95.818 Presence of other cardiac implants and grafts; Z66 Do not resuscitate
CPT/HCPCS: 36415; 70450; 70496; 70498; 71045; 71275; 80048; 80053; 80305; 80320; 81001; 82550; 82962; 83880; 84484; 85025; 85610; 85730; 87635; 93005; 97161; 97166; 97535; 99285; G0378; J1940; Q9967